=== PATIENT | male | born 1960 | race Caucasian/White ===

== ENCOUNTER 2016-06-21 12:50 | Inpatient (IN) ==
[~2016-06-21 12:50] MED LIST: *HR* Rocuronium Bromide 50 MG/5 ML VIAL IVC ONE; *HR* Succinylcholine 200 MG/10 ML VIAL IVP ONE
[2016-06-21] MEDS ORDERED: Furosemide 40 MG/4 ML VIAL IVP ONE (12:54)
[2016-06-21 13:11] LABS: ABG Base Excess 5.8 mEq/L (-2.0 to 3.0); ABG HCO3 42.7 mEQ/L (21-27); ABG Oxygen Saturation 88 % (95-98); ABG PO2 75 mmHg (85-104); ABG TCO2 47.1 mEq/L (20-26)
[2016-06-21 13:13] LABS: ABG PH 7.08 pH Units (7.32-7.45)
[2016-06-21 13:14] LABS: ABG PCO2 144 mmHg (35-45)
[2016-06-21] MEDS ORDERED: Ketamine *HR* 500 MG/10 ML MDV IV ONE (13:14)
[2016-06-21 13:15] LABS: Blood Gas FiO2 100 %
[2016-06-21] MEDS ORDERED: Ketamine *HR* 500 MG/10 ML MDV IVP ONE (13:15)
[2016-06-21 13:27] LABS: Basophils % 0.4 %; Hemoglobin 15.6 g/dL (12.9-16.9); Immature Granulocytes % 1.4 % (0-4); Immature Platelets 6.8 % (1.1-6.1); Lymphocytes # 0.8 K/mcL (0.6-4.6); Lymphocytes % 6.9 %; Mean Corpuscular HGB Conc 27.6 g/dL (31.6-35.5); Mean Corpuscular Hemoglobin 28.1 pg (28.0-33.3); Mean Platelet Volume 10.6 fL (9.4-12.4); Monocytes % 9.4 %; Neutrophils # 9.1 K/mcL (1.6-8.9); Nucleated Red Blood Cells 0.7 /100 WBC (0); Platelet Count 190 K/mcL (140-400); Red Blood Count 5.55 M/mcL (4.19-5.50); Red Cell Distribution Width 15.2 % (11.5-14.5); Segmented Neutrophils % 81.9 %
[2016-06-21 13:28] LABS: Hematocrit 56.6 % (37.5-50.1)
[2016-06-21] MEDS ORDERED: Propofol 500 MG/50 ML INFUS..BTL ONE (13:31)
[2016-06-21 13:40] LABS: INR 1.3; Prothrombin Time 14.1 Seconds (9.4-12.1)
[2016-06-21 13:41] LABS: Alanine Aminotransferase 206 Units/L (0-55); Albumin 2.9 g/dL (3.5-5.0); Albumin/Globulin Ratio 0.7 (1.1-2.2); Alkaline Phosphatase 100 Units/L (38-126); Aspartate Amino Transferase 164 Units/L (5-34); BUN/Creatinine Ratio 19 (6-26); Bilirubin,Direct 0.3 mg/dL (0.0-0.5); Bilirubin,Indirect 0.2 mg/dL (0.0-1.2); Bilirubin,Total 0.5 mg/dL (0.2-1.2); Blood Urea Nitrogen 24 mg/dL (8-26); Calcium 8.6 mg/dL (8.6-10.8); Carbon Dioxide 30 mEq/L (19-29); Chloride 101 mEq/L (98-109); Globulin 3.9 g/dL (2.4-3.5); Glucose 230 mg/dL (70-99); Osmolality,Calculated 305 (280-300); Sodium 142 mEq/L (136-145); Total Protein 6.8 g/dL (6.0-8.3); eGFR For African Americans > 60 (> 60); eGFR For Non-African Americans 58 (> 60)
[2016-06-21 13:42] LABS: Activated Partial Thrombo Time 25.8 Seconds (26.0-36.0)
--- NOTE | 2016-06-21 14:00 | Emergency Department Note ---
Disposition Clinical Impression: NSTEMI (non-ST elevated myocardial infarction), Hyperglycemia Hypercapnic respiratory failure Qualifiers: Chronicity: acute Qualified Code(s): J96.02 - Acute respiratory failure with hypercapnia Disposition: Admitted As Inpatient Condition: Critical Time of Disposition: 14:05 SOB HPI - General Chief Complaint: ED Shortness of Breath/Dyspnea Stated Complaint: Difficulty in breathing Time Seen by Provider: 06/21/16 12:53 Source: family, EMS Mode of arrival: EMS Limitations: altered mental status Nursing Notes Reviewed: Yes Vital Signs Reviewed: Yes - History of Present Illness Patient presents obtunded from home. EMS was summoned dyspnea. He was found cyanotic, hypoxic and mottled. Per the fiance, the patient recently has been increasingly somnolent and has had facial swelling Pt Subjective Complaint: shortness of breath Onset (ago): day(s) Severity: severe Consistency/Duration: gradually worsening Improves with: nothing Worsens with: nothing Treatment prior to arrival: oxygen - Related Data Home oxygen amount: none Home Medications Medication Instructions Recorded Confirmed Multivitamin [Multi-Day Vitamins] 1 tab PO DAILY 06/21/16 06/21/16 Allergies Allergy/AdvReac Type Severity Reaction Status Date / Time No Known Allergies Allergy Verified 06/21/16 13:22 Limitations: ROS unobtainable due to patients medical condition Past Medical History - Past Medical History Medical history: Reports: COPD Psychiatric history: Reports: no psych history - Social History Smoking Status: Current every day smoker Alcohol use: Reports: none Drug use: Reports: none Physical Exam Patient mottled and somnolent - General Limitations: physical limitation General appearance: lethargic - Head Head exam: atraumatic - Eye Eye exam: Present: normal appearance - ENT ENT exam: normal exam - Neck Neck exam: Present: normal inspection - Chest Chest inspection: Present: symmetric chest wall rise, other (Patient with diffusely decreased breath sounds) - Respiratory Respiratory exam: Present: other (Decreased breath sounds) - Cardiovascular Cardiovascular exam: Present: tachycardia, normal heart sounds - Abdominal Exam Abdominal exam: Present: soft, Non-Tender - Extremities Exam Extremities exam: Present: pedal edema - Neurological Exam Neurological exam: Present: other (somnolent) - Skin Skin exam: Present: warm, dry, mottled Course Course Narrative: Patient presented somnolent. Concern for hypercarbic respiratory failure. He was hypoxic. I am concerned that he is not protecting his airway. A brief trial of BiPAP therapy was initiated but the patient did not improve. It was decided to electively intubate the patient. We decided to sedate the patient with ketamine without paralytic. Multiple attempts made with the laryngoscope and the glide scope without success. Cords could be viewed without passage of the endotracheal tube. Anesthesia was summoned. Anesthesia was able to intubate the patient with the fiberoptic scope after succinylcholine was administered. The admitting barrel cap setter Dr. Ashford is at bedside to admit the patient. Vital Signs Temperature 98.8 F 06/21/16 12:51 Pulse Rate 97 06/21/16 12:51 Respiratory Rate 22 06/21/16 12:51 Blood Pressure 209/184 06/21/16 12:51 O2 Sat by Pulse Oximetry 92 L 06/21/16 12:51 Temperature 98.8 F 06/21/16 12:51 Pulse Rate 94 06/21/16 13:05 Respiratory Rate 22 06/21/16 13:05 Blood Pressure 149/96 06/21/16 13:05 O2 Sat by Pulse Oximetry 94 L 06/21/16 13:09 Oxygen Delivery Oxygen Delivery Bipap Procedures - Intubation Time out performed: No sedative: Ketamine paralytic: Succinylcholine Laryngoscope: fiber optic video scope ET Tube Size: 7.5 ET Tube Uncuffed: No Tube Secured Location: lips Tube Placement Confirmation: visualized tube passing through cords, confirmation by capnometry Patient Tolerated Procedure: other Intubation Complications: difficult intubation, hypoxia Shortness of Breath/Dyspnea - Lab Data Lab results reviewed: Yes I reviewed the patient's lab results. Result diagrams: 06/21/16 13:21 06/21/16 13:21 Lab Results 06/21/16 06/21/16 06/21/16 Range/Units 12:50 13:00 13:21 WBC 11.1 (4.3-11.1) K/mcL RBC 5.55 H (4.19-5.50) M/mcL Hgb 15.6 (12.9-16.9) g/dL Hct 56.6 H (37.5-50.1) % MCV 102.0 H (83.0-100.0) fL MCH 28.1 (28.0-33.3) pg MCHC 27.6 L (31.6-35.5) g/dL RDW 15.2 H (11.5-14.5) % Plt Count 190 (140-400) K/mcL MPV 10.6 (9.4-12.4) fL Immature Gran % 1.4 (0-4) % Seg Neutrophils % 81.9 % Lymphocytes % 6.9 % Monocytes % 9.4 % Eosinophils % 0.0 % Basophils % 0.4 % Neutrophils # 9.1 H (1.6-8.9) K/mcL Lymphocytes # 0.8 (0.6-4.6) K/mcL Monocytes # 1.0 (0.0-1.3) K/mcL Eosinophils # 0.0 (0.0-0.6) K/mcL Basophils # 0.0 (0.0-0.2) K/mcL Nucleated RBCs/100 WBC 0.7 H (0) /100 WBC Immature Plt Fraction 6.8 H (1.1-6.1) % PT (9.4-12.1) Seconds INR APTT (26.0-36.0) Seconds ABG pH 7.08 L* (7.32-7.45) pH Units ABG pCO2 144 H* (35-45) mmHg ABG pO2 75 L (85-104) mmHg ABG HCO3 42.7 H (21-27) mEQ/L ABG Total CO2 47.1 H (20-26) mEq/L ABG O2 Saturation 88 L (95-98) % ABG Base Excess 5.8 H (-2.0 to 3.0) mEq/L Carboxyhemoglobin (0-5) % Blood Gas Modality NRB Inspired O2 100 % Sodium (136-145) mEq/L Potassium (3.5-4.5) mEq/L Chloride (98-109) mEq/L Carbon Dioxide (19-29) mEq/L BUN (8-26) mg/dL Creatinine (0.72-1.25) mg/dL Est GFR ( Amer) (> 60) Est GFR (Non-Af Amer) (> 60) BUN/Creatinine Ratio (6-26) Glucose (70-99) mg/dL POC Glucose 212 H (58-89) Calculated Osmolality (280-300) Lactic Acid (0.5-2.2) mmol/L Calcium (8.6-10.8) mg/dL Total Bilirubin (0.2-1.2) mg/dL Direct Bilirubin (0.0-0.5) mg/dL Indirect Bilirubin (0.0-1.2) mg/dL AST (5-34) Units/L ALT (0-55) Units/L Alkaline Phosphatase (38-126) Units/L Troponin I (0-0.03) ng/mL B-Natriuretic Peptide (0-100) pg/mL Serum Total Protein (6.0-8.3) g/dL Albumin (3.5-5.0) g/dL Globulin (2.4-3.5) g/dL Albumin/Globulin Ratio (1.1-2.2) 06/21/16 06/21/16 06/21/16 Range/Units 13:21 13:21 13:21 WBC (4.3-11.1) K/mcL RBC (4.19-5.50) M/mcL Hgb (12.9-16.9) g/dL Hct (37.5-50.1) % MCV (83.0-100.0) fL MCH (28.0-33.3) pg MCHC (31.6-35.5) g/dL RDW (11.5-14.5) % Plt Count (140-400) K/mcL MPV (9.4-12.4) fL Immature Gran % (0-4) % Seg Neutrophils % % Lymphocytes % % Monocytes % % Eosinophils % % Basophils % % Neutrophils # (1.6-8.9) K/mcL Lymphocytes # (0.6-4.6) K/mcL Monocytes # (0.0-1.3) K/mcL Eosinophils # (0.0-0.6) K/mcL Basophils # (0.0-0.2) K/mcL Nucleated RBCs/100 WBC (0) /100 WBC Immature Plt Fraction (1.1-6.1) % PT 14.1 H (9.4-12.1) Seconds INR 1.3 APTT 25.8 L (26.0-36.0) Seconds ABG pH (7.32-7.45) pH Units ABG pCO2 (35-45) mmHg ABG pO2 (85-104) mmHg ABG HCO3 (21-27) mEQ/L ABG Total CO2 (20-26) mEq/L ABG O2 Saturation (95-98) % ABG Base Excess (-2.0 to 3.0) mEq/L Carboxyhemoglobin (0-5) % Blood Gas Modality Inspired O2 % Sodium 142 (136-145) mEq/L Potassium 4.0 (3.5-4.5) mEq/L Chloride 101 (98-109) mEq/L Carbon Dioxide 30 H (19-29) mEq/L BUN 24 (8-26) mg/dL Creatinine 1.28 H (0.72-1.25) mg/dL Est GFR ( Amer) > 60 (> 60) Est GFR (Non-Af Amer) 58 L (> 60) BUN/Creatinine Ratio 19 (6-26) Glucose 230 H (70-99) mg/dL POC Glucose (58-89) Calculated Osmolality 305 H (280-300) Lactic Acid (0.5-2.2) mmol/L Calcium 8.6 (8.6-10.8) mg/dL Total Bilirubin 0.5 (0.2-1.2) mg/dL Direct Bilirubin 0.3 (0.0-0.5) mg/dL Indirect Bilirubin 0.2 (0.0-1.2) mg/dL AST 164 H (5-34) Units/L ALT 206 H (0-55) Units/L Alkaline Phosphatase 100 (38-126) Units/L Troponin I 0.13 H* (0-0.03) ng/mL B-Natriuretic Peptide (0-100) pg/mL Serum Total Protein 6.8 (6.0-8.3) g/dL Albumin 2.9 L (3.5-5.0) g/dL Globulin 3.9 H (2.4-3.5) g/dL Albumin/Globulin Ratio 0.7 L (1.1-2.2) 06/21/16 06/21/16 06/21/16 Range/Units 13:21 14:02 14:02 WBC (4.3-11.1) K/mcL RBC (4.19-5.50) M/mcL Hgb (12.9-16.9) g/dL Hct (37.5-50.1) % MCV (83.0-100.0) fL MCH (28.0-33.3) pg MCHC (31.6-35.5) g/dL RDW (11.5-14.5) % Plt Count (140-400) K/mcL MPV (9.4-12.4) fL Immature Gran % (0-4) % Seg Neutrophils % % Lymphocytes % % Monocytes % % Eosinophils % % Basophils % % Neutrophils # (1.6-8.9) K/mcL Lymphocytes # (0.6-4.6) K/mcL Monocytes # (0.0-1.3) K/mcL Eosinophils # (0.0-0.6) K/mcL Basophils # (0.0-0.2) K/mcL Nucleated RBCs/100 WBC (0) /100 WBC Immature Plt Fraction (1.1-6.1) % PT (9.4-12.1) Seconds INR APTT (26.0-36.0) Seconds ABG pH (7.32-7.45) pH Units ABG pCO2 (35-45) mmHg ABG pO2 (85-104) mmHg ABG HCO3 (21-27) mEQ/L ABG Total CO2 (20-26) mEq/L ABG O2 Saturation (95-98) % ABG Base Excess (-2.0 to 3.0) mEq/L Carboxyhemoglobin 9.1 H (0-5) % Blood Gas Modality Inspired O2 % Sodium (136-145) mEq/L Potassium (3.5-4.5) mEq/L Chloride (98-109) mEq/L Carbon Dioxide (19-29) mEq/L BUN (8-26) mg/dL Creatinine (0.72-1.25) mg/dL Est GFR ( Amer) (> 60) Est GFR (Non-Af Amer) (> 60) BUN/Creatinine Ratio (6-26) Glucose (70-99) mg/dL POC Glucose (58-89) Calculated Osmolality (280-300) Lactic Acid 1.9 (0.5-2.2) mmol/L Calcium (8.6-10.8) mg/dL Total Bilirubin (0.2-1.2) mg/dL Direct Bilirubin (0.0-0.5) mg/dL Indirect Bilirubin (0.0-1.2) mg/dL AST (5-34) Units/L ALT (0-55) Units/L Alkaline Phosphatase (38-126) Units/L Troponin I (0-0.03) ng/mL B-Natriuretic Peptide 917 H (0-100) pg/mL Serum Total Protein (6.0-8.3) g/dL Albumin (3.5-5.0) g/dL Globulin (2.4-3.5) g/dL Albumin/Globulin Ratio (1.1-2.2) - Radiology Data Radiology results reviewed: Yes I reviewed the patient's radiology results. - EKG Data EKG attestation: Yes I reviewed and interpreted this EKG. EKG results narrative: Normal sinus rhythm rate 93 when necessary 154 QRS 110 QT/QTC 341/391. No acute ST segment elevation Critical Care Time Critical Care Time: Yes Total Critical Care Time: 60 Attestation: Patient presented obtunded requiring BiPAP therapy and endotracheal intubation with admission to the intensive care unit
[2016-06-21] MEDS: 0.9 % Sodium Chloride 2,000 ML ONE ×2 (14:07→14:33)
[2016-06-21] MEDS ORDERED: 0.9 % Sodium Chloride 1,000 ML ONE (14:13)
[2016-06-21] MEDS ORDERED: *HR* EPINEPHrine 1 MG/10 ML SYRINGE IVP ONE (14:41)
[2016-06-21] MEDS ORDERED: D5% in Water 1,000 ML IV PRN (14:52)
[2016-06-21] MEDS ORDERED: *HR* Dextrose 50 % in Water (Syg) 50 ML SYRINGE IVP PRN (14:52)
[2016-06-21] MEDS ORDERED: Dextrose Gel 15 GM PO PRN ×2 (14:52)
--- NOTE | 2016-06-21 15:05 | Pulmonology History & Physical ---
<Ariel Young - Last Filed: 06/21/16 15:04> Date of Encounter: 06/21/16 Time of Encounter: 15:04 Assessment and Plan (1) Acute respiratory failure Current visit: Yes Status: Acute History of Present Illness HPI: Mr. Webber is a 56 year old male Past Med Surg Social Fam HX - Past Medical History Medical history: COPD Psychiatric history: no psych history - Social History Smoking Status: Current every day smoker Alcohol use: none Drug use: none Medications and Allergies Multivitamin [Multi-Day Vitamins] 1 tab PO DAILY 06/21/16 [History] Allergies No Known Allergies Allergy (Verified 06/21/16 13:22) All Systems: A 10-system review of systems was performed and is negative for pertinent findings except as documented above in the HPI. Results - Laboratory Findings CBC and BMP: 06/21/16 13:21 06/21/16 13:21 ABG ABG pH 7.08 pH Units (7.32-7.45) L* 06/21/16 12:50 ABG pCO2 144 mmHg (35-45) H* 06/21/16 12:50 ABG pO2 75 mmHg (85-104) L 06/21/16 12:50 ABG O2 Saturation 88 % (95-98) L 06/21/16 12:50 PT/INR, D-dimer PT 14.1 Seconds (9.4-12.1) H 06/21/16 13:21 Abnormal lab findings: Abnormal lab results RBC 5.55 M/mcL (4.19-5.50) H 06/21/16 13:21 Hct 56.6 % (37.5-50.1) H 06/21/16 13:21 MCV 102.0 fL (83.0-100.0) H 06/21/16 13:21 MCHC 27.6 g/dL (31.6-35.5) L 06/21/16 13:21 RDW 15.2 % (11.5-14.5) H 06/21/16 13:21 Neutrophils # 9.1 K/mcL (1.6-8.9) H 06/21/16 13:21 Nucleated RBCs/100 WBC 0.7 /100 WBC (0) H 06/21/16 13:21 Immature Plt Fraction 6.8 % (1.1-6.1) H 06/21/16 13:21 PT 14.1 Seconds (9.4-12.1) H 06/21/16 13:21 APTT 25.8 Seconds (26.0-36.0) L 06/21/16 13:21 ABG pH 7.08 pH Units (7.32-7.45) L* 06/21/16 12:50 ABG pCO2 144 mmHg (35-45) H* 06/21/16 12:50 ABG pO2 75 mmHg (85-104) L 06/21/16 12:50 ABG HCO3 42.7 mEQ/L (21-27) H 06/21/16 12:50 ABG Total CO2 47.1 mEq/L (20-26) H 06/21/16 12:50 ABG O2 Saturation 88 % (95-98) L 06/21/16 12:50 ABG Base Excess 5.8 mEq/L (-2.0 to 3.0) H 06/21/16 12:50 Carboxyhemoglobin 9.1 % (0-5) H 06/21/16 13:21 Carbon Dioxide 30 mEq/L (19-29) H 06/21/16 13:21 Creatinine 1.28 mg/dL (0.72-1.25) H 06/21/16 13:21 Est GFR (Non-Af Amer) 58 (> 60) L 06/21/16 13:21 Glucose 230 mg/dL (70-99) H 06/21/16 13:21 POC Glucose 212 (58-89) H 06/21/16 13:00 Calculated Osmolality 305 (280-300) H 06/21/16 13:21 AST 164 Units/L (5-34) H 06/21/16 13:21 ALT 206 Units/L (0-55) H 06/21/16 13:21 Troponin I 0.13 ng/mL (0-0.03) H* 06/21/16 13:21 B-Natriuretic Peptide 917 pg/mL (0-100) H 06/21/16 14:02 Albumin 2.9 g/dL (3.5-5.0) L 06/21/16 13:21 Globulin 3.9 g/dL (2.4-3.5) H 03/05/17 13:21 Albumin/Globulin Ratio 0.7 (1.1-2.2) L 06/21/16 13:21 <Srini Kelley - Last Filed: 06/21/16 18:10> Assessment and Plan (1) Hypercapnic respiratory failure Current visit: Yes Status: Acute Patient with little known medical history. Presented in respiratory failure and required emergent intubation and sedation. Became acutely hypoxic while intubated, and went to PEA arrest. Code lasted approximately 8 minutes. Patient received 3 rounds of 1 mg epinephrine with return of spontaneous circulation. Central venous catheter was placed in the right femoral vein. Initial blood gas revealed pH of 7.08 indicating respiratory acidosis with the PCO2 of 144. This was prior to his cardiac arrest. Repeat ABG revealed pH 7.20 with the PCO2 of 92. His respiratory failure is likely multifactorial secondary to lifelong smoking history as such he likely has obstructive lung disease, acute heart failure, and suspected pneumonia. Patient with history of worsening dyspnea at rest over the last 3 weeks. He has bilateral lower extremity edema. Chest x-ray revealed bilateral costophrenic blunting suspicious for pleural effusions. There were EKG changes noted, including diffuse ST elevations. Initial troponin was 0.13. Will trend. initial BNP was 917 initial creatinine of 1.28 CFR 58 glucose of 230. Plan: -intubated and sedated with propofol and fentanyl -maintain map above 60, Levaphed for pressure support -antibiotics: azithromycin and Rocephin -Duonebs, IV steroids -cardiology was consulted, recommended a heparin drip(instituted), echocardiogram (pending), serial troponins, and diuresis with Lasix (instituted) -Monitor I/O, UOP, Daily weight -daily ABG's, CBC CMP Qualifiers: Chronicity: unspecified Qualified Code(s): J96.92 - Respiratory failure, unspecified with hypercapnia (2) NSTEMI (non-ST elevated myocardial infarction) Current visit: Yes Status: Acute Initial troponin of 0.13. Will trend. EKG changes including diffuse ST elevations Cardiology was consulted appreciate their recommendations (3) Elevated troponin Current visit: Yes Status: Acute Plan as above (4) Respiratory acidosis Current visit: Yes Status: Acute Currently intubated and sedated. Ventilator settings adjusted as needed to reduce respiratory acidosis (5) DARION (acute kidney injury) Current visit: Yes Status: Acute Initial GFR 58, unknown baseline initial serum creatinine of 1.28, unknown baseline no IV fluids at this time as patient appears to be volume overloaded. Diuresis with Lasix. (6) Acute heart failure Current visit: Yes Status: Suspected Patient has bilateral lower extremity edema initial BNP of 917 echocardiogram pending. Diuresis with Lasix Qualifiers: Heart failure type: unspecified heart failure type Qualified Code(s): I50.9 - Heart failure, unspecified (7) Morbid obesity Current visit: Yes Status: Chronic Qualifiers: Obesity type: due to excess calories Qualified Code(s): E66.01 - Morbid ( severe) obesity due to excess calories (8) Smoking history Current visit: Yes Status: Chronic Profamily he has been smoking since he is 19 years old 3 to 4 packs per day History of Present Illness Chief complaint: Acute Respiratory failure HPI: Mr. Webber is a 56 year old male who presented to [facility] ED for respiratory distress. Per the family he has refused to go to the doctor for some time. He was brought in by the squad. He was somnolent and difficult to arouse, there was concern he was not protecting his airway, and he was them urgently intubated in the ED. This history has been obtained from prior medical records and ancillary staff and family as patient is intubated and sedated. Per the family he is a lifelong smoker, nondrinker non drug user. Patient has been increasingly somnolent over the last 2 to 3 weeks. He is also been increasingly dyspneic. His dyspnea has progressively gotten worse over the last 2 years, and acutely worth of the last 2 to 3 weeks. He is also been incontinent of urine and stool over the last few weeks as well during this time. He has been having increased productive cough. He had not been complaining of any chest pain though. Past Med Surg Social Fam HX - Additional Family History Additional family history: Mother has a history of renal disease in her 30s ROS unobtainable: due to mental status All Systems: A 10-system review of systems was performed and is negative for pertinent findings except as documented above in the HPI. Physical Examination Vital Signs: Vital Signs, Last 4 Hours Temp Pulse Resp BP Pulse Ox 06/21/16 15:20 102 174/108 85 L 06/21/16 15:18 86 06/21/16 15:00 98 F 90 18 99/44 93 L 06/21/16 14:44 77 96 105/87 96 General appearance: other (Intubated and sedated) Eyes: injected ENT: oropharynx dry Effort: other (Intubated and sedated) Results - Laboratory Findings CBC and BMP: 06/21/16 13:21 06/21/16 13:21 ABG ABG pH 7.08 pH Units (7.32-7.45) L* 06/21/16 12:50 ABG pCO2 144 mmHg (35-45) H* 06/21/16 12:50 ABG pO2 75 mmHg (85-104) L 06/21/16 12:50 ABG O2 Saturation 88 % (95-98) L 06/21/16 12:50 PT/INR, D-dimer PT 14.1 Seconds (9.4-12.1) H 06/21/16 13:21 Abnormal lab findings: Abnormal lab results RBC 5.55 M/mcL (4.19-5.50) H 06/21/16 13:21 Hct 56.6 % (37.5-50.1) H 06/21/16 13:21 MCV 102.0 fL (83.0-100.0) H 06/21/16 13:21 MCHC 27.6 g/dL (31.6-35.5) L 06/21/16 13:21 RDW 15.2 % (11.5-14.5) H 06/21/16 13:21 Neutrophils # 9.1 K/mcL (1.6-8.9) H 06/21/16 13:21 Nucleated RBCs/100 WBC 0.7 /100 WBC (0) H 06/21/16 13:21 Immature Plt Fraction 6.8 % (1.1-6.1) H 06/21/16 13:21 PT 14.1 Seconds (9.4-12.1) H 06/21/16 13:21 APTT 25.8 Seconds (26.0-36.0) L 06/21/16 13:21 ABG pH 7.08 pH Units (7.32-7.45) L* 06/21/16 12:50 ABG pCO2 144 mmHg (35-45) H* 06/21/16 12:50 ABG pO2 75 mmHg (85-104) L 06/21/16 12:50 ABG HCO3 42.7 mEQ/L (21-27) H 06/21/16 12:50 ABG Total CO2 47.1 mEq/L (20-26) H 06/21/16 12:50 ABG O2 Saturation 88 % (95-98) L 06/21/16 12:50 ABG Base Excess 5.8 mEq/L (-2.0 to 3.0) H 06/21/16 12:50 Carboxyhemoglobin 9.1 % (0-5) H 06/21/16 13:21 Carbon Dioxide 30 mEq/L (19-29) H 06/21/16 13:21 Creatinine 1.28 mg/dL (0.72-1.25) H 06/21/16 13:21 Est GFR (Non-Af Amer) 58 (> 60) L 06/21/16 13:21 Glucose 230 mg/dL (70-99) H 06/21/16 13:21 POC Glucose 212 (58-89) H 06/21/16 13:00 Calculated Osmolality 305 (280-300) H 06/21/16 13:21 AST 164 Units/L (5-34) H 06/21/16 13:21 ALT 206 Units/L (0-55) H 06/21/16 13:21 Troponin I 0.13 ng/mL (0-0.03) H* 06/21/16 13:21 B-Natriuretic Peptide 917 pg/mL (0-100) H 06/21/16 14:02 Albumin 2.9 g/dL (3.5-5.0) L 06/21/16 13:21 Globulin 3.9 g/dL (2.4-3.5) H 06/21/16 13:21 Albumin/Globulin Ratio 0.7 (1.1-2.2) L 06/21/16 13:21 <Dashawn Phillips M - Last Filed: 06/21/16 19:38> Date of Encounter: 06/21/16 Time of Encounter: 14:30 Assessment and Plan (1) Acute respiratory failure with hypoxia and hypercapnia Current visit: Yes Status: Acute Patient was intubated by anesthesia in the ER and I was present during the procedure. (2) Obesity hypoventilation syndrome Current visit: Yes Status: Chronic Patient will need outpatient follow up and need sleep study, suspect EH and need weight loss. (3) Cor pulmonale (chronic) Current visit: Yes Status: Chronic Need diuresis History of Present Illness HPI: Mr. Webber is a 56 year old male All Systems: A 10-system review of systems was performed and is negative for pertinent findings except as documented above in the HPI. Physical Examination Vital Signs: Vital Signs, Last 4 Hours Pulse Pulse Resp BP Pulse Ox Pulse Ox 06/21/16 18:00 90 16 104/43 94 L 06/21/16 17:46 16 121/86 94 L 06/21/16 17:06 86 72 L 06/21/16 17:00 95 16 121/86 93 L 06/21/16 15:24 18 174/108 100 06/21/16 15:20 102 174/108 85 L 06/21/16 15:18 86 Mallampati (class): 4 Neck: supple, no lymphadenopathy Auscultation: bilateral: diminished breath sounds Cardiovascular: regular rate and rhythm Gastrointestinal: normoactive bowel sounds, soft Extremities: edema unable to assess due to mental status Results - Laboratory Findings CBC and BMP: 06/21/16 13:21 06/21/16 18:42 ABG ABG pH 7.20 pH Units (7.32-7.45) L* D 06/21/16 16:51 ABG pCO2 92 mmHg (35-45) H* D 06/21/16 16:51 ABG pO2 62 mmHg (85-104) L 06/21/16 16:51 ABG O2 Saturation 85 % (95-98) L 06/21/16 16:51 PT/INR, D-dimer PT 14.1 Seconds (9.4-12.1) H 06/21/16 18:00 Abnormal lab findings: Abnormal lab results RBC 5.55 M/mcL (4.19-5.50) H 06/21/16 13:21 Hct 56.6 % (37.5-50.1) H 06/21/16 13:21 MCV 102.0 fL (83.0-100.0) H 06/21/16 13:21 MCHC 27.6 g/dL (31.6-35.5) L 06/21/16 13:21 RDW 15.2 % (11.5-14.5) H 06/21/16 13:21 Neutrophils # 9.1 K/mcL (1.6-8.9) H 06/21/16 13:21 Nucleated RBCs/100 WBC 0.7 /100 WBC (0) H 06/21/16 13:21 Immature Plt Fraction 6.8 % (1.1-6.1) H 06/21/16 13:21 PT 14.1 Seconds (9.4-12.1) H 06/21/16 18:00 APTT 24.1 Seconds (26.0-36.0) L 06/21/16 18:00 ABG pH 7.20 pH Units (7.32-7.45) L* D 06/21/16 16:51 ABG pCO2 92 mmHg (35-45) H* D 06/21/16 16:51 ABG pO2 62 mmHg (85-104) L 06/21/16 16:51 ABG HCO3 36.0 mEQ/L (21-27) H 06/21/16 16:51 ABG Total CO2 38.8 mEq/L (20-26) H 06/21/16 16:51 ABG O2 Saturation 85 % (95-98) L 06/21/16 16:51 ABG Base Excess 3.5 mEq/L (-2.0 to 3.0) H 06/21/16 16:51 VBG pH 7.08 pH Units (7.32-7.42) L* 06/21/16 16:31 VBG pCO2 137 mmHg (41-51) H 06/21/16 16:31 VBG pO2 12 mmHg (25-40) L 06/21/16 16:31 VBG HCO3 40.6 mEq/L (21-27) H 06/21/16 16:31 Carboxyhemoglobin 9.1 % (0-5) H 06/21/16 13:21 Carbon Dioxide 30 mEq/L (19-29) H 06/21/16 13:21 Creatinine 1.59 mg/dL (0.72-1.25) H 06/21/16 18:42 Est GFR ( Amer) 55 (> 60) L 06/21/16 18:42 Est GFR (Non-Af Amer) 45 (> 60) L 06/21/16 18:42 Glucose 230 mg/dL (70-99) H 06/21/16 13:21 POC Glucose 212 (58-89) H 06/21/16 13:00 Calculated Osmolality 305 (280-300) H 06/21/16 13:21 AST 164 Units/L (5-34) H 06/21/16 13:21 ALT 206 Units/L (0-55) H 06/21/16 13:21 Troponin I 0.13 ng/mL (0-0.03) H* 06/21/16 13:21 B-Natriuretic Peptide 917 pg/mL (0-100) H 06/21/16 14:02 Albumin 2.9 g/dL (3.5-5.0) L 06/21/16 13:21 Globulin 3.9 g/dL (2.4-3.5) H 06/21/16 13:21 Albumin/Globulin Ratio 0.7 (1.1-2.2) L 06/21/16 13:21 - Diagnostic Findings Chest x-ray: report reviewed, image reviewed - Attending Attestation I examined this patient and my medical decision-making was reviewed with the BENCH MECHANIC/PA/Advanced Practice Nurse/Resident Physician. I agree with the documented findings, disposition and treatment plan as described except to the extent set forth below. Patient seen and examined. Labs, radiology, chart personally reviewed. Agree with resident's history and physical, assessment, plan with following comments: DOOR FRAMER: Patient sedated for the ventilator synchrony. Patient wakes up and respond to stimulus Pulmonary: Patient with severe respiratory acidosis with some chronicity due to his OHS and suspect with COPD and evidence of exacerbation, which will be treated with bronchodilators, systemic steroid and antibiotics. Patient is not compliant when I talked to the brothers and significant other. Patient has evidence of cor-pulmonale and suspect pulmonary hypertension which is secondary to copd and EH/OHS. I changed ventilator setting with better TV on VC+ mode and increase the RR to correct his acidosis. Need to be careful with correcting his respiratory acidosis. Cardiovascular: Patient is risk for cardiovascular events due acidosis and suspect underlying cardiac disease. Patient will need echocardiogram and trending cardiac enzymes with diuresis. GI: Nutrition per dietary and GI prophylaxis per routine Heme: DVT prophylaxis per routine. ID: Continue antibiotics and plan to de-escalation Renal; urine out put and renal funtion reviewed. DARION, however there is evidence of pulmonary congestion and suspect with more fluid it will worsen his oxygenation. Diuresis for now and monitor his urine output with urine analysis and renal US. May need nephrology to evaluate him as well. Endorcine: blood glucose is monitored Lines: all lines checked and no evidence of infections Skin: skin care to prevent pressure ulcers per nursing routine care Overall prognosis is poor if he doesn't change his life style and lose weight. He will need outpatient follow up and work up. I spent 40 min of Critical Care time with this patient. It involved decision making of high complexity to assess, manipulate, and support vital organ system failure and/or to prevent further life threatening deterioration of the patient' s condition. The time involved in the performance of separately reportable procedures was not counted toward critical care time.
[2016-06-21] MEDS: Ipratropium/Albuterol Neb 3 ML IH SCH ×3 (15:24→23:21)
[2016-06-21] MEDS ORDERED: Lacri-Lube 3.5 GM TUBE BOTH EYES PRN (15:35)
[2016-06-21] MEDS: Insulin LISPRO 300 UNITS/3 ML VIAL SQ SCH ×3 (15:50→23:27)
[2016-06-21] MEDS: MethylPREDNISolone 40 MG/ML VIAL IVP SCH (15:54)
[2016-06-21] MEDS: Furosemide 40 MG/4 ML VIAL IVP SCH (15:55)
[2016-06-21] MEDS: Azithromycin 500 MG in D5% in Water 250 ML IVPB SCH (15:56)
[2016-06-21] MEDS ORDERED: Insulin LISPRO 300 UNITS/3 ML VIAL SQ SCH ×2 (16:30→21:00)
[2016-06-21] MEDS: FentaNYL (PF) 1,000 MCG in 0.9 % Sodium Chloride 80 ML IVC SCH (16:43)
[2016-06-21 16:46] LABS: VBG HCO3 40.6 mEq/L (21-27); VBG PH 7.08 pH Units (7.32-7.42)
[2016-06-21] MEDS: Lacri-Lube 3.5 GM TUBE BOTH EYES SCH ×2 (16:47→21:28)
[2016-06-21 16:58] LABS: ABG Base Excess 3.5 mEq/L (-2.0 to 3.0); ABG Oxygen Saturation 85 % (95-98); ABG PO2 62 mmHg (85-104); ABG TCO2 38.8 mEq/L (20-26)
[2016-06-21 17:00] LABS: ABG PCO2 92 mmHg (35-45); Blood Gas FiO2 100 %; Blood Gas Respiration Rate 16; Blood Gas VT 600 cc
[2016-06-21] MEDS ORDERED: *HR* Rocuronium Bromide 50 MG/5 ML VIAL IVP PRN (17:48)
--- NOTE | 2016-06-21 17:56 | Procedure Note ---
<Srini Kelley - Last Filed: 06/21/16 17:50> Date of procedure: 06/21/16 Pre-op diagnosis: Respiratory failure Post-op diagnosis: same Procedure: Central Venous Catheter (CVC, Central Line) Placement Date: 06/21/16 Time: 1705 Indication: Hemodynamic monitoring/Intravenous access Mj Resident: Dr. Srini Kelley Senior Resident: Dr. Awais Johnson Attending: Dr. Oswald Carranza A time-out was completed verifying correct patient, procedure, site, positioning , and special equipment if applicable. The patient was placed in a dependent position appropriate for central line placement based on the vein to be cannulated. The patients right groin was prepped and draped in sterile fashion. The vein was visualized with ultrasound prior to and during the procedure. A triple lumen 7-Argent[place] Cordis catheter was introduced into the the right femoral vein using the Seldinger technique and under ultrasound guidance. The catheter was threaded smoothly over the guide wire and appropriate blood return was obtained. Each lumen of the catheter was evacuated of air and flushed with sterile saline. The catheter was then sutured in place to the skin and a sterile dressing applied. Perfusion to the extremity distal to the point of catheter insertion was checked and found to be adequate. Dr. Srini Kelley, Dr. Awais Johnson, Dr. Oswald Carranza were present for the entire procedure. Estimated Blood Loss: 50cc The patient tolerated the procedure well and there were no complications. Anesthesia: IV sedation Surgeon: Srini Kelley Survey Research Manager: Awais Johnson Estimated blood loss (cc): 50 Pathology: none sent Condition: critical Disposition: ICU <Oswald Carranza P - Last Filed: 06/29/16 19:40> Procedure: I examined this patient and my medical decision-making was reviewed with the HOBBING PRESS OPERATOR/PA/Advanced Practice Nurse/Resident Physician. I agree with the documented findings, disposition and treatment plan as described except to the extent set forth below.
--- NOTE | 2016-06-21 17:58 | Event Note ---
<Srini Kelley - Last Filed: 06/21/16 17:59> Date of Encounter: 06/21/16 Time of Encounter: 16:09 Patient was brought to the ICU after presenting the ED for respiratory distress. In the emergency department of the patient was intubated and sedated to protect his airway. Approximately 1607 patient became hypoxic while intubated with oxygen saturations dropping to the 60s. No pulse was appreciated on exam and CPR was started. Cardiac patterns were placed in the appropriate position on the patient and he was in PEA. Dr. Carranza arrived at the bedside and ran the code. 2 minutes after the code began a pulse check was done there is no palpable pulse, one more milligram of epinephrine was given and CPR continued. 2 minutes later another pulse check revealed no palpable pulses, 1 mg of epinephrine was given CPR resumed. The patient remained in a non-shockable rhythm. At approximately 1615 ROSC was achieved with palpable pulses bilaterally. Patient received a total of three 1 mg boluses of epinephrine. Both primary team and critical care team were present for the duration of the code. The code lasted a total of 8 minutes. <Oswald Carranza - Last Filed: 06/29/16 19:40> I examined this patient and my medical decision-making was reviewed with the ADJUNCT MATHEMATICS INSTRUCTOR/PA/Advanced Practice Nurse/Resident Physician. I agree with the documented findings, disposition and treatment plan as described except to the extent set forth below.
[2016-06-21] MEDS ORDERED: *HR* Heparin 5,000 UNIT/ML VIAL SQ SCH (18:00)
[2016-06-21] MEDS: Norepinephrine 4 MG in D5% in Water 250 ML IVC SCH ×2 (18:02→18:30)
[2016-06-21 18:13] LABS: INR 1.3; Prothrombin Time 14.1 Seconds (9.4-12.1)
[2016-06-21 18:22] LABS: Activated Partial Thrombo Time 24.1 Seconds (26.0-36.0)
[2016-06-21] MEDS ORDERED: *HR* Heparin 5,000 UNIT/ML VIAL IVP PRN (18:47)
[2016-06-21] MEDS ORDERED: *HR* Heparin 5,000 UNIT/ML VIAL IVP ONE (18:47)
--- NOTE | 2016-06-21 19:00 | Cardiology Consult Note ---
Date of Encounter: 06/21/16 Time of Encounter: 18:55 Assessment and Plan Discussion w patient/family: 1. Respiratory Failure - suspect acute on Chronic (COPD and likely EH) Continue Supportive Care 2. Acidosis 3. s/p PEA arrest - not convinced this is a primary Cardiac event - ? related to hypoxia/acidosis vs other (PE??) - Continue Supportive care - Would treat for PE for now - Heparin gtt would be reasonable. - Correct metabolic abnormalities. - Echo to assess Would not be surprised to see Right heart enlargement at baseline ? Left heart function 4. Abnormal EKG - concerning changes - not diagnostic in my opinion Watch Trops closely - follow serially Heparin gtt. 5. Elevated Trop - this will go higher I suspect. 6. LE Edema - probably chronic Cor Pulmonale Given BNP - Diuresis as Renal function and BP allow. 7. Prognosis - Guarded at best Will follow The assessment and plan as outlined above was discussed with the family members who expressed understanding and agreement. All questions were answered. Thank you for involving us in the care of your patient. Please call with any questions. History of Present Illness Consult date: 06/21/16 Consult reason: PEA Arrest Chief complaint: Somnolence History of present illness: Mr. Webber is a 56 year old male, no known CAD - no recent CV assessment and overall minimal healthcare in the past few years, presents with a 1-2 day history of somnolence. Family had a hard time arousing him this morning, finally unable to get him out of the bed. No specific complaints per family, who provide most of the information. No chest pain, but he has had a variety of issues for some time, including LE edema, snoring, marked weight gain in the past 2 years, COPD - and still smoking a little. Over the past few days he has been fatigued, sleeping alot but today was much worse. Was brought to the ER today - subsequently admitted due to failure to protect his airway. He was markedly hypoxic and acidotic. Upon tranfer to the ICU he developed PEA - arthur/tachy but no shockable rhythms. Responded to standard ACLS and stable since. MInimal response while I was at bedside. Past Med Surg Social Fam HX - Past Medical History Medical history: COPD Psychiatric history: no psych history - Social History Smoking Status: Current every day smoker Packs per day: 1PPD Smokeless Tobacco Status: No Alcohol use: none Drug use: none Medications and Allergies Multivitamin [Multi-Day Vitamins] 1 tab PO DAILY 06/21/16 [History] Allergies No Known Allergies Allergy (Verified 06/21/16 13:22) ROS unobtainable: due to endotracheal tube All Systems Review: A 10-system review of systems was performed and is negative for pertinent findings except as documented above in the HPI. Physical Examination Vital Signs, Last 4 Hours Temp Pulse Pulse Resp BP Pulse Ox Pulse Ox 06/21/16 18:00 90 16 104/43 94 L 06/21/16 17:46 16 121/86 94 L 06/21/16 17:06 86 72 L 06/21/16 17:00 95 16 121/86 93 L 06/21/16 15:24 18 174/108 100 06/21/16 15:20 102 174/108 85 L 06/21/16 15:18 86 06/21/16 15:00 98 F 90 18 99/44 93 L General: Other (Intubated, obese male) HEENT: Atraumatic, Normocephaly, Other (ET tube in place) Neck: Other (due to body habitus, unable to assess veins) Cardiac: Reg Rate and Rhythm, Normal S1 and S2, Other (heart sounds distant) Lungs: Normal Breath Sounds, Other (mechanical sounds B) Neuro: Other (no response to voice or stimuli) Abdomen: Soft, Non-Tender, Other (protuberent) Skin: No rashes noted on visualized skin, Other (stasis changes BLE) Musculoskeletal: No Chest Wall Tenderness Extremities: No Clubbing, Other (+ BLE edema) Results 06/21/16 13:21 06/21/16 13:21 Lab Results 06/21/16 18:00 INR 1.3 APTT 24.1 L - Imaging and Cardiology Chest Xray: report reviewed Echo: pending - EKG Interpretation EKG results cardiology: personally reviewed, normal ECG, right bundle branch block (Non-specific ST changes) Consult Discharge Plan - Plan Referrals: Ruiz Dumont MD [Primary Care Provider] -
[2016-06-21] MEDS: Chlorhexidine Rinse 15 ML MOUTHWASH MM SCH (20:28)
[2016-06-21] MEDS: Heparin 25,000 UNIT/500 ML D5W 25,000 UNIT/500 ML MLS IVC SCH (20:32)
[2016-06-21 21:28] LABS: ABG Base Excess 11.7 mEq/L (-2.0 to 3.0); ABG HCO3 38.7 mEQ/L (21-27); ABG Oxygen Saturation 98 % (95-98); ABG PCO2 57 mmHg (35-45); ABG PH 7.44 pH Units (7.32-7.45); ABG PO2 95 mmHg (85-104); ABG TCO2 40.4 mEq/L (20-26)
[2016-06-21 21:29] LABS: Blood Gas FiO2 100 %; Blood Gas PEEP 12 cm H2O; Blood Gas Respiration Rate 16; Blood Gas VT 600 cc
[2016-06-21 23:51] LABS: Amphetamine Screen,Urine Negative ng/mL (Cutoff=1000); Barbiturate Screen,Urine Negative ng/mL (Cutoff=200); Benzodiazepines Screen,Urine Negative ng/mL (Cutoff=200); Cannabinoid Screen,Urine Negative ng/mL (Cutoff = 50); Chloride,Urine 81 mEq/L; Cocaine Screen,Urine Negative ng/mL (Cutoff= 300); Opiate Screen,Urine Negative ng/mL (Cutoff=300); Phencyclidine Screen,Urine Negative ng/mL (Cutoff=25); Potassium,Urine 51.7 mEq/L
[2016-06-22] MEDS: MethylPREDNISolone 40 MG/ML VIAL IVP SCH ×3 (00:10→15:18)
[2016-06-22] MEDS: Lacri-Lube 3.5 GM TUBE BOTH EYES SCH ×6 (00:11→21:00)
[2016-06-22 03:29] LABS: Basophils % 0.1 %; Hemoglobin 14.5 g/dL (12.9-16.9); Immature Granulocytes % 1.5 % (0-4); Immature Platelets 8.4 % (1.1-6.1); Lymphocytes % 6.9 %; Mean Corpuscular Hemoglobin 27.9 pg (28.0-33.3); Mean Corpuscular Volume 96.2 fL (83.0-100.0); Mean Platelet Volume 11.1 fL (9.4-12.4); Monocytes # 0.7 K/mcL (0.0-1.3); Monocytes % 4.4 %; Neutrophils # 13.2 K/mcL (1.6-8.9); Nucleated Red Blood Cells 0.5 /100 WBC (0); Platelet Count 208 K/mcL (140-400); Red Cell Distribution Width 15.1 % (11.5-14.5); Segmented Neutrophils % 87.1 %
[2016-06-22] MEDS: Ipratropium/Albuterol Neb 3 ML IH SCH ×6 (03:42→23:41)
[2016-06-22 03:48] LABS: Albumin 2.7 g/dL (3.5-5.0); Albumin/Globulin Ratio 0.8 (1.1-2.2); Bilirubin,Total 0.8 mg/dL (0.2-1.2); Calcium 8.7 mg/dL (8.6-10.8); Globulin 3.6 g/dL (2.4-3.5); Potassium 3.8 mEq/L (3.5-4.5); Total Protein 6.3 g/dL (6.0-8.3)
[2016-06-22] MEDS: Insulin LISPRO 300 UNITS/3 ML VIAL SQ SCH ×5 (04:37→20:59)
[2016-06-22 05:07] LABS: ABG Base Excess 17.2 mEq/L (-2.0 to 3.0); ABG HCO3 44.4 mEQ/L (21-27); ABG Oxygen Saturation 91 % (95-98); ABG PCO2 61 mmHg (35-45); ABG PH 7.47 pH Units (7.32-7.45); ABG PO2 57 mmHg (85-104); ABG TCO2 46.3 mEq/L (20-26)
[2016-06-22 05:08] LABS: Blood Gas FiO2 70 %; Blood Gas PEEP 12 cm H2O; Blood Gas Respiration Rate 16; Blood Gas VT 600 cc
[2016-06-22] MEDS: FentaNYL (PF) 1,000 MCG in 0.9 % Sodium Chloride 80 ML IVC SCH ×4 (06:11→22:38)
[2016-06-22] MEDS ORDERED: Perflutren Lipid Microsphere 1.3 ML in 0.9 % Sodium Chloride 8.7 ML IVP ONE (07:41)
[2016-06-22] MEDS ORDERED: Perflutren Lipid Microsphere 2 ML VIAL ONE (07:48)
--- NOTE | 2016-06-22 07:57 | Pulmonology Progress Note ---
<[facility] - Last Filed: 06/22/16 12:27> Objective PUL Vital signs: Last Vital Signs Temp 98.2 F 06/22/16 08:23 Pulse 84 06/22/16 09:00 Resp 16 06/22/16 09:00 BP 125/95 06/22/16 09:00 Pulse Ox 90 L 06/22/16 09:00 Ventilator Settings Ventilator Settings: Ventilator Settings, Last 8 Hours Ventilator Mode VC+ Ventilator Mode VC+ Ventilator Mode VC+ Ventilator Mode VC+ Ventilator Mode VC+ Ventilator Mode VC+ Ventilator Mode VC+ Ventilator Mode VC+ Ventilator Mode VC+ Ventilator Mode VC+ Ventilator Mode VC+ Ventilator Mode VC+ Ventilator Mode VC+ Ventilator Tidal Volume 500 Setting Ventilator Tidal Volume 500 Setting Ventilator Tidal Volume 500 Setting Ventilator Tidal Volume 600 Setting Ventilator Tidal Volume 600 Setting Ventilator Tidal Volume 600 Setting Ventilator Tidal Volume 600 Setting Ventilator Tidal Volume 600 Setting Ventilator Tidal Volume 600 Setting Ventilator Tidal Volume 600 Setting Ventilator Tidal Volume 600 Setting Ventilator Tidal Volume 600 Setting Ventilator Tidal Volume 600 Setting Ventilator Respiratory Rate 16 Setting Ventilator Respiratory Rate 16 Setting Ventilator Respiratory Rate 16 Setting Ventilator Respiratory Rate 16 Setting Ventilator Respiratory Rate 16 Setting Ventilator Respiratory Rate 16 Setting Ventilator Respiratory Rate 16 Setting Ventilator Respiratory Rate 16 Setting Ventilator Respiratory Rate 16 Setting Ventilator Respiratory Rate 16 Setting Ventilator Respiratory Rate 16 Setting Ventilator Respiratory Rate 16 Setting Ventilator Respiratory Rate 16 Setting Actual Respiratory Rate 16 Actual Respiratory Rate 16 Actual Respiratory Rate 16 Actual Respiratory Rate 16 Actual Respiratory Rate 16 Actual Respiratory Rate 17 Actual Respiratory Rate 19 Actual Respiratory Rate 16 Actual Respiratory Rate 16 Actual Respiratory Rate 16 Actual Respiratory Rate 16 Actual Respiratory Rate 16 Positive End Expiratory 12 Pressure Positive End Expiratory 12 Pressure Positive End Expiratory 12 Pressure Positive End Expiratory 12 Pressure Positive End Expiratory 12 Pressure Positive End Expiratory 12 Pressure Positive End Expiratory 12 Pressure Positive End Expiratory 12 Pressure Positive End Expiratory 12 Pressure Positive End Expiratory 12 Pressure Positive End Expiratory 12 Pressure Positive End Expiratory 12 Pressure Positive End Expiratory 12 Pressure Peak Inspiratory Airway 24 Pressure Peak Inspiratory Airway 24 Pressure Peak Inspiratory Airway 27 Pressure Peak Inspiratory Airway 26 Pressure Peak Inspiratory Airway 31 Pressure Peak Inspiratory Airway 31 Pressure Peak Inspiratory Airway 31 Pressure Peak Inspiratory Airway 33 Pressure Peak Inspiratory Airway 31 Pressure Peak Inspiratory Airway 31 Pressure Peak Inspiratory Airway 33 Pressure Peak Inspiratory Airway 32 Pressure Results - Laboratory Findings CBC and BMP: 06/22/16 03:15 06/22/16 03:15 ABG ABG pH 7.47 pH Units (7.32-7.45) H 06/22/16 04:55 ABG pCO2 61 mmHg (35-45) H 06/22/16 04:55 ABG pO2 57 mmHg (85-104) L 06/22/16 04:55 ABG O2 Saturation 91 % (95-98) L 06/22/16 04:55 PT/INR, D-dimer PT 14.1 Seconds (9.4-12.1) H 06/21/16 18:00 Abnormal lab findings: Abnormal lab results WBC 15.1 K/mcL (4.3-11.1) H 06/22/16 03:15 MCH 27.9 pg (28.0-33.3) L 06/22/16 03:15 MCHC 29.0 g/dL (31.6-35.5) L 06/22/16 03:15 RDW 15.1 % (11.5-14.5) H 06/22/16 03:15 Neutrophils # 13.2 K/mcL (1.6-8.9) H 06/22/16 03:15 Nucleated RBCs/100 WBC 0.5 /100 WBC (0) H 06/22/16 03:15 Immature Plt Fraction 8.4 % (1.1-6.1) H 06/22/16 03:15 PT 14.1 Seconds (9.4-12.1) H 06/21/16 18:00 APTT 61.7 Seconds (26.0-36.0) H 06/22/16 08:40 ABG pH 7.47 pH Units (7.32-7.45) H 06/22/16 04:55 ABG pCO2 61 mmHg (35-45) H 06/22/16 04:55 ABG pO2 57 mmHg (85-104) L 06/22/16 04:55 ABG HCO3 44.4 mEQ/L (21-27) H 06/22/16 04:55 ABG Total CO2 46.3 mEq/L (20-26) H 06/22/16 04:55 ABG O2 Saturation 91 % (95-98) L 06/22/16 04:55 ABG Base Excess 17.2 mEq/L (-2.0 to 3.0) H 06/22/16 04:55 VBG pH 7.08 pH Units (7.32-7.42) L* 06/21/16 16:31 VBG pCO2 137 mmHg (41-51) H 06/21/16 16:31 VBG pO2 12 mmHg (25-40) L 06/21/16 16:31 VBG HCO3 40.6 mEq/L (21-27) H 06/21/16 16:31 Carboxyhemoglobin 9.1 % (0-5) H 06/21/16 13:21 Chloride 96 mEq/L (98-109) L 06/22/16 03:15 Carbon Dioxide 38 mEq/L (19-29) H 06/22/16 03:15 BUN 31 mg/dL (8-26) H 06/22/16 03:15 Creatinine 1.80 mg/dL (0.72-1.25) H 06/22/16 03:15 Est GFR ( Amer) 48 (> 60) L 06/22/16 03:15 Est GFR (Non-Af Amer) 39 (> 60) L 06/22/16 03:15 Glucose 147 mg/dL (70-99) H 06/22/16 03:15 POC Glucose 121 (58-89) H 06/21/16 23:19 Calculated Osmolality 307 (280-300) H 06/22/16 03:15 AST 224 Units/L (5-34) H 06/22/16 03:15 ALT 278 Units/L (0-55) H 06/22/16 03:15 Troponin I 0.77 ng/mL (0-0.03) H* 06/22/16 07:00 B-Natriuretic Peptide 917 pg/mL (0-100) H 06/21/16 14:02 Albumin 2.7 g/dL (3.5-5.0) L 06/22/16 03:15 Globulin 3.6 g/dL (2.4-3.5) H 06/22/16 03:15 Albumin/Globulin Ratio 0.8 (1.1-2.2) L 06/22/16 03:15 - Clinical Findings Intake & Output: Intake & Output 06/21/16 06/22/16 06/22/16 23:59 07:59 15:59 Intake Total 137 / 513 507 / 507 102 / 102 Output Total 855 / 855 2075 / 2075 125 / 125 Balance -718 / -342 -1568 / -1568 - / Consult Discharge Plan - Plan Referrals: Ruiz Dumont MD [Primary Care Provider] - - Attending Attestation I examined this patient and my medical decision-making was reviewed with the INTENSIVE CARE SPECIALIST/PA/Advanced Practice Nurse/Resident Physician. I agree with the documented findings, disposition and treatment plan as described except to the extent set forth below. I spent 35min of Critical Care time with this patient. It involved decision making of high complexity to assess, manipulate, and support vital organ system failure and/or to prevent further life threatening deterioration of the patient' s condition. The time involved in the performance of separately reportable procedures was not counted toward critical care time. Patient seen and examined at bedside Labs, radiology, chart personally reviewed. All lines examined without evidence of infection. Neuropsych: intubated sedated. Daily sedation holiday. CT head wnl. sp ACLS. Utox negative Pulm: Acute on chronic Hypoxic Hypercapnic Respiratory failure likely cardiogenic pulmonary edema with ?COPD exacerbation s/t PNA. Some initial concern for Cor Pulmonale ECHO pending. peep lowered PEEP Fio2 70% goal sats > 88 to 92%. Smoker treating empirically for concern for COPD Cards. s/p ACLS (brief PEA Arrest) with spontaneous mvt after thus no hypothermia protocol No hypotension. NSTEMI (mild) likely demand. on ACS protocol Cards consulted ECHO pending. Diurese as tolerated FEN-GI: GI prophylaxis. Npo for now Renal: ?DARION no baseline ID: Treating broadly for sepsis for CAP organsisms Ceftriaxone/Azithro cultures pending including viral panel Heme/Onc: on therapeutic dosed heparin. H/h Stable. Endo: Endo glucose monitored Integ/MSK: Skin care per ICU protocol CODE: Full code family (brothers) updated (NOK) <Kof[facility] Renee - Last Filed: 06/22/16 16:20> Date of Encounter: 06/22/16 Time of Encounter: 08:40 Assessment and Plan (1) Acute respiratory failure with hypoxia and hypercapnia Current Visit: Yes Status: Acute Patient remains sedated, intubated, mechanically ventilated. No longer requiring pressor agents to maintain blood pressure. Patient's fiance reports worsening dyspnea for 3 weeks, likely multifactorial from undiagnosed COPD, undiagnosed obesity hypoventilation syndrome, and undiagnosed obstructive sleep apnea causing right-sided heart failure ( undiagnosed). Also concern for pulmonary embolism. At admission was severely hypoxic with a pH of 7.08 with improvement seen following mechanical ventilation. Plan: -Continue intubation and sedation with propofol and fentanyl -maintain map above 60, Levaphed for pressure support if necessary, no pressor agents currently -antibiotics: azithromycin and Rocephin for coverage of community acquired pneumonia -Duonebs every 4 hours scheduled, IV steroids 60 mg every 8 hours -cardiology is following and appreciate recommendations for continued management and care Continue heparin drip and diuresis with Lasix -We will obtain lower extremity Dopplers as kidney function is concerning for CTA -Monitor I/O, UOP, Daily weight -daily ABG's, CBC CMP (2) Cor pulmonale (chronic) Current Visit: Yes Status: Chronic Cardiology is following. Echocardiogram was performed that showed preserved ejection fraction 55%, atypical supple wall motion of unclear significance, and indeterminate diastolic function. Dilated right ventricle with normal function. Continue 40 mg IV Lasix twice a day (3) PEA (Pulseless electrical activity) Current Visit: Yes Status: Resolved Patient suffered PA arrest after intubation occurred and patient became hypoxic. The code lasted approximately 8 minutes in which time the patient received 31 mg doses of epinephrine prior to return to spontaneous circulation. Concern for anoxic brain injury given time of arrest We will continue to monitor via telemetry (4) DARION (acute kidney injury) Current Visit: Yes Status: Acute Patient has elevated serum creatinine and decreased estimated GFR that has been steadily worsening since admission. Originally serum creatinine was 1.25 now it is 1.8, unsure of etiology or of 2 how chronic patient's kidney disease. Patient requires continued diuresis even evidence of dilation seen and patient right ventricle Continue to monitor patient kidney status closely with continued diuresis (5) Obstructive sleep apnea Current Visit: Yes Status: Suspected Patient is morbidly obese, has reportedly gained 100-150 pounds in the past 5 years. Patient's fiance states that in the course the evening he will often have episodes of apnea preceded by excessive snoring. Patient would benefit from sleep study and potentially BiPAP/CPAP (6) Elevated troponin Current Visit: Yes Status: Acute Troponin elevations likely due to patient breathing status, PEA arrest, cor pulmonale. Unlikely ACS at this time. (7) Obesity hypoventilation syndrome Current Visit: Yes Status: Chronic (8) DVT prophylaxis Current Visit: Yes Status: Acute GI prophylaxis: Pantoprazole DVT prophylaxis: Heparin drip Neuro/sedation: Currently sedated on propofol and fentanyl, unclear if any or has significant anoxic brain injury Cardiovascular: Likely cor pulmonale, elevated BUN, elevated troponins, cardiology following, continuing heparin drip, continuing diuresis Pulmonary: Likely undiagnosed COPD, EH, and OHS leading to cor pulmonale. Concern for possible pulmonary embolism, will obtain lower extremity Doppler. Ventilator settings adjusted to increase oxygenation, including increased PEEP Renal: DARION with progressive worsening of kidney function, we will continue diuresis given patient edematous state and dilated right ventricle seen on echo , will continue to monitor kidney function closely GI: No concerns this time Heme: No concerns at this time ID: Concern for exacerbation of COPD contributing to patient's respiratory status, possibly leading to acute decompensation of cor pulmonale, currently on azithromycin and ceftriaxone for empiric treatment of community acquired pneumonia. Duo nebs, Lasix, Solu-Medrol Endocrine: Continue every 4 hour Accu-Cheks and sliding scale insulin Fluids/electrolytes: Patient is edematous, dilated right ventricle, possible fluid overload. We will continue diuresis with 40 mg Lasix twice a day Skin: Skin care per ICU protocol Disposition: Critical CODE STATUS: Full (9) Smoking history Current Visit: Yes Status: Chronic We will consult smoking cessation when appropriate (10) Morbid obesity Current Visit: Yes Status: Chronic Qualifiers: Obesity type: due to excess calories Qualified Code(s): E66.01 - Morbid ( severe) obesity due to excess calories Subjective Principal diagnosis: Hypercapnic respiratory failure Interval history: Patient remains intubated, mechanically ventilated, and sedated with fentanyl and propofol. 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 They state he is gaining 100-150 pounds the last 5 years, and 3 weeks ago began smoking again ( as her having had quit for 2-3 years). Patient's fiance reports significant snoring and apneic episodes at home. Objective PUL Vital signs: Last Vital Signs Temp 97.9 F 06/22/16 04:03 Pulse 87 06/22/16 06:00 Resp 16 06/22/16 06:41 BP 121/86 06/22/16 06:41 Pulse Ox 90 L 06/22/16 06:41 Constitutional: Sedated on propofol and fentanyl. EENT: Sclera nonicteric, noninjected, pupils equal round and reactive to light bilaterally Respiratory: Respirations nonlabored, clear to auscultation bilaterally, difficult auscultation due to patient body habitus Cardiovascular: Regular rate and rhythm, no murmurs/rubs/gallops appreciated Gastrointestinal: Normoactive bowel sounds, soft, nontender, nondistended, obese , protuberant abdomen, no guarding or rebound Integumentary: No erythema, no rashes, no pallor appreciated, capillary refill < 2 seconds, skin turgor normal Extremities: No cyanosis, 1-2+ pitted edema, no clubbing, pink and warm, pulses present and equal bilaterally Musculoskeletal: No deformities Neurologic: Currently sedated Ventilator Settings Ventilator Settings: Ventilator Settings, Last 8 Hours Ventilator Mode VC+ Ventilator Mode VC+ Ventilator Mode VC+ Ventilator Mode VC+ Ventilator Mode VC+ Ventilator Mode VC+ Ventilator Mode VC+ Ventilator Mode VC+ Ventilator Mode VC+ Ventilator Mode VC+ Ventilator Mode VC+ Ventilator Tidal Volume 600 Setting Ventilator Tidal Volume 600 Setting Ventilator Tidal Volume 600 Setting Ventilator Tidal Volume 600 Setting Ventilator Tidal Volume 600 Setting Ventilator Tidal Volume 600 Setting Ventilator Tidal Volume 600 Setting Ventilator Tidal Volume 600 Setting Ventilator Tidal Volume 600 Setting Ventilator Tidal Volume 600 Setting Ventilator Tidal Volume 600 Setting Ventilator Respiratory Rate 16 Setting Ventilator Respiratory Rate 16 Setting Ventilator Respiratory Rate 16 Setting Ventilator Respiratory Rate 16 Setting Ventilator Respiratory Rate 16 Setting Ventilator Respiratory Rate 16 Setting Ventilator Respiratory Rate 16 Setting Ventilator Respiratory Rate 16 Setting Ventilator Respiratory Rate 16 Setting Ventilator Respiratory Rate 16 Setting Ventilator Respiratory Rate 16 Setting Actual Respiratory Rate 16 Actual Respiratory Rate 17 Actual Respiratory Rate 19 Actual Respiratory Rate 16 Actual Respiratory Rate 16 Actual Respiratory Rate 16 Actual Respiratory Rate 16 Actual Respiratory Rate 16 Actual Respiratory Rate 16 Actual Respiratory Rate 16 Positive End Expiratory 12 Pressure Positive End Expiratory 12 Pressure Positive End Expiratory 12 Pressure Positive End Expiratory 12 Pressure Positive End Expiratory 12 Pressure Positive End Expiratory 12 Pressure Positive End Expiratory 12 Pressure Positive End Expiratory 12 Pressure Positive End Expiratory 12 Pressure Positive End Expiratory 12 Pressure Positive End Expiratory 12 Pressure Peak Inspiratory Airway 31 Pressure Peak Inspiratory Airway 31 Pressure Peak Inspiratory Airway 31 Pressure Peak Inspiratory Airway 33 Pressure Peak Inspiratory Airway 31 Pressure Peak Inspiratory Airway 31 Pressure Peak Inspiratory Airway 33 Pressure Peak Inspiratory Airway 32 Pressure Peak Inspiratory Airway 31 Pressure Peak Inspiratory Airway 31 Pressure Results - Laboratory Findings CBC and BMP: 06/22/16 03:15 06/22/16 03:15 ABG ABG pH 7.47 pH Units (7.32-7.45) H 06/22/16 04:55 ABG pCO2 61 mmHg (35-45) H 06/22/16 04:55 ABG pO2 57 mmHg (85-104) L 06/22/16 04:55 ABG O2 Saturation 91 % (95-98) L 06/22/16 04:55 PT/INR, D-dimer PT 14.1 Seconds (9.4-12.1) H 06/21/16 18:00 Abnormal lab findings: Abnormal lab results WBC 15.1 K/mcL (4.3-11.1) H 06/22/16 03:15 MCH 27.9 pg (28.0-33.3) L 06/22/16 03:15 MCHC 29.0 g/dL (31.6-35.5) L 06/22/16 03:15 RDW 15.1 % (11.5-14.5) H 06/22/16 03:15 Neutrophils # 13.2 K/mcL (1.6-8.9) H 06/22/16 03:15 Nucleated RBCs/100 WBC 0.5 /100 WBC (0) H 06/22/16 03:15 Immature Plt Fraction 8.4 % (1.1-6.1) H 06/22/16 03:15 PT 14.1 Seconds (9.4-12.1) H 06/21/16 18:00 APTT 58.4 Seconds (26.0-36.0) H D 06/22/16 02:30 ABG pH 7.47 pH Units (7.32-7.45) H 06/22/16 04:55 ABG pCO2 61 mmHg (35-45) H 06/22/16 04:55 ABG pO2 57 mmHg (85-104) L 06/22/16 04:55 ABG HCO3 44.4 mEQ/L (21-27) H 06/22/16 04:55 ABG Total CO2 46.3 mEq/L (20-26) H 06/22/16 04:55 ABG O2 Saturation 91 % (95-98) L 06/22/16 04:55 ABG Base Excess 17.2 mEq/L (-2.0 to 3.0) H 06/22/16 04:55 VBG pH 7.08 pH Units (7.32-7.42) L* 06/21/16 16:31 VBG pCO2 137 mmHg (41-51) H 06/21/16 16:31 VBG pO2 12 mmHg (25-40) L 06/21/16 16:31 VBG HCO3 40.6 mEq/L (21-27) H 06/21/16 16:31 Carboxyhemoglobin 9.1 % (0-5) H 06/21/16 13:21 Chloride 96 mEq/L (98-109) L 06/22/16 03:15 Carbon Dioxide 38 mEq/L (19-29) H 06/22/16 03:15 BUN 31 mg/dL (8-26) H 06/22/16 03:15 Creatinine 1.80 mg/dL (0.72-1.25) H 06/22/16 03:15 Est GFR ( Amer) 48 (> 60) L 06/22/16 03:15 Est GFR (Non-Af Amer) 39 (> 60) L 06/22/16 03:15 Glucose 147 mg/dL (70-99) H 06/22/16 03:15 POC Glucose 121 (58-89) H 06/21/16 23:19 Calculated Osmolality 307 (280-300) H 06/22/16 03:15 AST 224 Units/L (5-34) H 06/22/16 03:15 ALT 278 Units/L (0-55) H 06/22/16 03:15 Troponin I 0.77 ng/mL (0-0.03) H* 06/22/16 07:00 B-Natriuretic Peptide 917 pg/mL (0-100) H 06/21/16 14:02 Albumin 2.7 g/dL (3.5-5.0) L 06/22/16 03:15 Globulin 3.6 g/dL (2.4-3.5) H 06/22/16 03:15 Albumin/Globulin Ratio 0.8 (1.1-2.2) L 06/22/16 03:15 - Clinical Findings Intake & Output: Intake & Output 06/21/16 06/21/16 06/22/16 15:59 23:59 07:59 Intake Total 137 / 513 507 / 507 Output Total 855 / 855 2074 / 2074 Balance -718 / -342 -1568 / -1565
[2016-06-22] MEDS: Chlorhexidine Rinse 15 ML MOUTHWASH MM SCH ×2 (08:33→21:02)
[2016-06-22] MEDS: Pantoprazole 40 MG VIAL IVP SCH (08:34)
[2016-06-22] MEDS: Furosemide 40 MG/4 ML VIAL IVP SCH ×2 (08:35→16:58)
--- NOTE | 2016-06-22 09:51 | Cardiology Progress Note ---
Date of Encounter: 06/22/16 Time of Encounter: 09:47 Assessment and Plan (1) PEA (Pulseless electrical activity) Current Visit: Yes Status: Acute S/p PEA arrest in the setting of hypoxia and acidosis. Likely from respiratory status. TTE pending. (2) Acute respiratory failure with hypoxia and hypercapnia Current Visit: Yes Status: Acute Acute hypoxic and hypercapnic respiratory failure. CXR showed mild pulmonary edema and improved small right effusion, with increased right infrahilar consolidation which could represent superimposed pneumonia or asymmetric edema. He likely has significant sleep apnea. Possible CHF. Check TTE. Pulmonary following. (3) DARION (acute kidney injury) Current Visit: Yes Status: Acute Worsening kidney function may be secondary to PEA arrest and hypoperfusion. Continue to monitor. Avoid nephrotoxins. (4) Elevated troponin Current Visit: Yes Status: Acute Troponin elevation up to 0.95 in the setting of hypoxia and hypercapnea respiratory distress and PEA arrest requiring CPR. Likely demand ischemia. No concerning ST changes on EKG. NSR. No concerning arrhythmias seen on telemetry. Check TTE. (5) Morbid obesity Current Visit: Yes Status: Chronic Qualifiers: Obesity type: due to excess calories Qualified Code(s): E66.01 - Morbid ( severe) obesity due to excess calories Discussion w patient/family: The assessment and plan as outlined above was discussed with the patient and/or family members who expressed understanding and agreement. All questions were answered. Thank you for involving us in the care of your patient. Please call with any questions. Subjective Principal diagnosis: PEA arrest, hypercapnic and hypoxic respiratory failure Interval history: Mr Webber remains intubated and sedated. His and brothers are at his bedside. No distress noted. states he has been ignoring his symptoms for a long time. C/o intermittent BLE edema for over a year. She also describes sleep apnea type symptoms including loud snoring, apnea, and difficulty waking up in the mornings. She states he had water pockets in his eyes over the past two days. He also had a 40-50 lb weight gain over the past couple of years. Objective Vital Signs, Last 4 Hours Temp Pulse Resp BP Pulse Ox 06/22/16 09:00 84 16 125/95 90 L 06/22/16 08:23 98.2 F 06/22/16 08:00 82 16 122/83 89 L 06/22/16 07:58 16 89 L 06/22/16 07:00 86 16 124/88 90 L 06/22/16 06:41 16 121/86 90 L 06/22/16 06:00 87 18 131/96 90 L General: Other (Sedated) Neck: No JVD, Normal carotid pulses Cardiac: Reg Rate and Rhythm, Normal S1 and S2, No Murmur Lungs: Other (Respirations easy on AC ventilator. SPO2 only 89%-90%) Abdomen: Soft, Non-Tender Skin: No rashes noted on visualized skin Extremities: Other (1+ edema up to his knees. ) Results 06/22/16 03:15 06/22/16 03:15 Lab Results 06/22/16 06/22/16 06/22/16 01:04 02:30 03:15 WBC 15.1 H Hgb 14.5 Hct 50.0 Plt Count 208 APTT 58.4 H D Sodium Potassium Chloride Carbon Dioxide BUN Creatinine Glucose Calcium Total Bilirubin AST ALT Alkaline Phosphatase Troponin I 0.95 H* 06/22/16 06/22/16 06/22/16 03:15 07:00 08:40 WBC Hgb Hct Plt Count APTT 61.7 H Sodium 144 Potassium 3.8 Chloride 96 L Carbon Dioxide 38 H BUN 31 H Creatinine 1.80 H Glucose 147 H Calcium 8.7 Total Bilirubin 0.8 D AST 224 H ALT 278 H Alkaline Phosphatase 91 Troponin I 0.77 H* KUB X-Ray 06/21/16 14:55 IMPRESSION: NG tube tip projects over the distal stomach. D/ / Rio Alford MD / Rio Alford MD Interpreting Provider: Rio Alford MD Chest X-Ray 06/22/16 04:00 IMPRESSION: Again identified is cardiomegaly with vascular congestion and mild interstitial pulmonary edema. Improved small right effusion, with increased right infrahilar consolidation which could represent superimposed pneumonia or asymmetric edema. D/ / Joel Hancock MD / Joel Hancock MD Interpreting Provider: Joel Hancock MD - Imaging and Cardiology Echo: pending - EKG Interpretation EKG results cardiology: personally reviewed (SR with no acute ST changes) Consult Discharge Plan - Plan Referrals: Ruiz Dumont MD [Primary Care Provider] -
--- NOTE | 2016-06-22 10:06 | ECHO - Doppler Report ---
Echo with Imaging Enhancement Agent Name: Juvenal Webber Date of Study: 06/22/2016 Date: 1960 Ht: 77.0 in Medical Record#: [id number] Age: 56 Wt: 364.0 lb Gender: Male BSA: 2.88 Order #: [id number] Location: [facility] Room #: ICU08 Reading Physician: Ronda Rucker DO Surgery Specialist: Juan David Bryant RN Ordering Physician: Srini Kelley DO Primary Physician: Ruiz Dumont MD Indications: Cardiac Arrest, Respiratory Failure, Elevated BNP Impressions: LVEF 55%. Definity was used. Atypical septal motion of unclear significance. Indeterminate diastolic function. RV is dilated. Function appears normal visually. TD velocities were not performed. No significant valvular dysfunction. Unable to estimate RVSP. Patient is ventilated in ICU. Findings: Study Quality * Technically sub-optimal due to clinical status. Patient in ICU on ventilator. ECG Findings * Normal sinus rhythm. Aortic Valve * No aortic regurgitation. * No aortic stenosis. * Aortic valve not well visualized. Mitral Valve * No mitral regurgitation. * Normal mitral valve structure. * No mitral stenosis. Tricuspid Valve * Tricuspid valve not well visualized. * Trace tricuspid regurgitation. Pulmonic Valve * Pulmonic valve is not well visualized. * No pulmonic stenosis. * No pulmonic regurgitation. Pulmonary Artery * Pulmonary artery not well visualized. Left Ventricle * Atypical septal motion. * Indeterminate diastolic function. TD velocities were not performed. * LVEF 55%. * Normal LV chamber size, wall thickness and function. * There is no LV thrombus. * Definity echo contrast was used. Left Atrium * Normal left atrial size. Right Atrium * Normal right atrial size. Right Ventricle * RV size appears dilated with normal function. TD velocity was not performed. Interatrial Septum * Interatrial septum not well evaluated. IVC * The IVC is not well evaluated. Pericardium * There is no pericardial effusion present. Aorta * Not well visualized. History Contrast: Definity 1.3 ml in 8.7 ml of saline 2 ml. Measurements: BP: 125/ 95 2D Normal Values IVSd: 1.50 cm 0.6 - 1.0 cm LVIDd: 4.30 cm 3.7 - 5.6 cm LVPWd: 1.50 cm 0.6 - 1.1 cm LVIDs: 3.20 cm 1.5 - 3.6 cm LA: 3.30 cm 2.0 - 4.0cm %FS: 25.60 cm >25 % LVOT Diam: 2.00 cm LA volume: 105 Mitral Valve Peak E:.37 m/sec Peak A:.76 m/sec E/A Ratio:0.5 Aortic Valve AI pressure Half-time: 385.00 msec Tricuspid Valve TV Regurg Peak Grad: 29.00mmHg TV Regurg Peak Gregory: 2.67m/sec Updated by Ronda Rucker on 06/22/2016 9:58:01 AM electronically signed on 06/22/2016 10:00:54 AM with status of [employer]: 1=Normal, 2=Hypokinesis, 3=Akinesis, 4=Dyskinesis, 5=Aneurysmal, 6=Hyperkinetic, X=Not Visualized (Blank)=Missing
--- NOTE | 2016-06-22 12:14 | Event Note ---
Date of Encounter: 06/22/16 Time of Encounter: 12:09 [facility] will not allow me to cosign Ambrosio Marcanoffe's note. Please consider this my addendum. Patient is a 56 year old morbidly obese male who presents with acute on chronic respiratory insufficiency. Per , patient has a very poor lifestyle - not unusual to eat 1 pound of lunch meat at a time, entire bag of chips, several hamburgers, etc. Refused to go to the hospital over past few weeks because he knew he would be admitted. Hypercarbic, hypoxiemic respiratory failure noted on admission. PEA arrest. EF preserved. Spontaneous movements in the room this morning. LV function normal. No immediate cardiac intervention seems necessary at this time. Recommend optimize pulmonary statues. Reasonable to diurese as tolerated to minimize any edema; may help to improve respiratory status. Minimal troponin elevation likely secondary to respiratory issues. Presentation not consistent with ACS. Please call with questions or concerns. Thanks, Sumit Hidalgo DO, FACC
[2016-06-22 12:53] LABS: ABG HCO3 47.3 mEQ/L (21-27); ABG Oxygen Saturation 90 % (95-98); ABG PCO2 68 mmHg (35-45); ABG PH 7.45 pH Units (7.32-7.45); ABG PO2 55 mmHg (85-104); ABG TCO2 49.4 mEq/L (20-26)
[2016-06-22 12:55] LABS: Blood Gas FiO2 70 %
[2016-06-22] MEDS: Heparin 25,000 UNIT/500 ML D5W 25,000 UNIT/500 ML MLS IVC SCH (13:32)
[2016-06-22] MEDS: Sennosides/Docusate Sodium TABLET PO SCH ×2 (13:44→21:02)
[2016-06-22] MEDS: Azithromycin 500 MG in D5% in Water 250 ML IVPB SCH (15:08)
[2016-06-22] MEDS: *HR* Heparin 5,000 UNIT/ML VIAL IVP PRN (15:11)
[2016-06-22 16:17] LABS: Potassium 3.3 mEq/L (3.5-4.5)
[2016-06-22] MEDS ORDERED: Potassium Chloride Elixir 20 MEQ/15 ML UDC PO ONE (16:27)
[2016-06-22 16:49] LABS: Magnesium 1.7 mg/dL (1.6-2.6)
--- NOTE | 2016-06-22 16:57 | Electrocardiograph Report ---
[address] [address] Test Date: 2016-06-21 Pat Name: Juvenal Webber Department: 105 Room: [facility] Gender: M Cancer Program Coordinator: : 1960 Requested By: Basilio Woodson Order Number: [id number] Reading MD: Callum Rios MD Measurements Intervals [employer] Rate: 93 P: 62 AR: 154 QRS: 95 QRSD: 110 T: -6 QT: 341 QTc: 391 Interpretive Statements SINUS RHYTHM BORDERLINE RIGHT AXIS DEVIATION Poor R wave progression BASELINE ARTIFACT Electronically Signed On 06-22-2016 16:55:30 EST by Callum Rios MD
--- NOTE | 2016-06-22 17:03 | Electrocardiograph Report ---
[address] [place], [place] [address] Test Date: 2016-06-21 Pat Name: Juvenal Webber Department: 109 Room: [facility] Gender: M Philosophy Specialist: : 1960 Requested By: Kaiser Fabian Order Number: [id number] Reading MD: Callum Rios MD Measurements Intervals [place] Rate: 99 P: 57 CT: 149 QRS: 66 QRSD: 102 T: -8 QT: 317 QTc: 374 Interpretive Statements SINUS RHYTHM WITH MARKED SINUS ARRHYTHMIA Poor R wave progression LEFT ATRIAL ENLARGEMENT INCOMPLETE RIGHT BUNDLE BRANCH BLOCK Electronically Signed On 06-22-2016 17:01:57 EST by Callum Rios MD
[2016-06-22] MEDS ORDERED: Amiodarone Premix 360 MG/200 ML BAG IVC ONE (21:41)
[2016-06-22] MEDS ORDERED: Amiodarone Premix 150 MG/100 ML BAG IVPB ONE (21:41)
[2016-06-22] MEDS ORDERED: Magnesium Sulfate 1 GM in D5% in Water 100 ML IVPB ONE (21:41)
[2016-06-22] MEDS ORDERED: Potassium Phosphate 44 MEQ in 0.9 % Sodium Chloride 250 ML IVPB PRN (21:44)
[2016-06-22] MEDS ORDERED: Sodium Phosphate 30 MMOL in D5% in Water 100 ML IVPB PRN (21:44)
[2016-06-22] MEDS: *HR* Metoprolol 5 MG/5 ML VIAL IVP PRN (21:59)
[2016-06-22 22:27] LABS: Basophils % 0.1 %; Hematocrit 43.3 % (37.5-50.1); Immature Granulocytes % 0.9 % (0-4); Lymphocytes # 0.5 K/mcL (0.6-4.6); Lymphocytes % 3.2 %; Mean Corpuscular HGB Conc 29.8 g/dL (31.6-35.5); Mean Corpuscular Hemoglobin 27.8 pg (28.0-33.3); Mean Corpuscular Volume 93.3 fL (83.0-100.0); Mean Platelet Volume 10.8 fL (9.4-12.4); Monocytes # 0.9 K/mcL (0.0-1.3); Monocytes % 6.1 %; Neutrophils # 13.9 K/mcL (1.6-8.9); Nucleated Red Blood Cells 0.1 /100 WBC (0); Platelet Count 185 K/mcL (140-400); Red Blood Count 4.64 M/mcL (4.19-5.50); Red Cell Distribution Width 15.4 % (11.5-14.5); Segmented Neutrophils % 89.7 %
[2016-06-22 22:34] LABS: Hemoglobin 12.9 g/dL (12.9-16.9)
[2016-06-22] MEDS: Magnesium Sulfate 2 GM in D5% in Water 100 ML IVPB PRN (22:40)
[2016-06-22 22:52] LABS: Calcium 7.8 mg/dL (8.6-10.8); Potassium 3.6 mEq/L (3.5-4.5)
[2016-06-23] MEDS: Insulin LISPRO 300 UNITS/3 ML VIAL SQ SCH ×6 (00:36→20:46)
[2016-06-23] MEDS: MethylPREDNISolone 40 MG/ML VIAL IVP SCH ×2 (00:36→15:52)
[2016-06-23] MEDS: Lacri-Lube 3.5 GM TUBE BOTH EYES SCH ×6 (00:36→20:46)
[2016-06-23] MEDS: Heparin 25,000 UNIT/500 ML D5W 25,000 UNIT/500 ML MLS IVC SCH ×2 (03:00→16:54)
[2016-06-23] MEDS: Ipratropium/Albuterol Neb 3 ML IH SCH ×5 (03:11→20:32)
[2016-06-23 03:56] LABS: Basophils % 0.1 %; Hemoglobin 13.1 g/dL (12.9-16.9); Immature Granulocytes % 1.3 % (0-4); Lymphocytes # 0.6 K/mcL (0.6-4.6); Lymphocytes % 3.5 %; Mean Corpuscular HGB Conc 31.2 g/dL (31.6-35.5); Mean Corpuscular Hemoglobin 29.3 pg (28.0-33.3); Mean Platelet Volume 11.1 fL (9.4-12.4); Monocytes # 1.2 K/mcL (0.0-1.3); Monocytes % 7.1 %; Neutrophils # 15.4 K/mcL (1.6-8.9); Nucleated Red Blood Cells 0.1 /100 WBC (0); Platelet Count 189 K/mcL (140-400); Red Blood Count 4.47 M/mcL (4.19-5.50); Red Cell Distribution Width 15.4 % (11.5-14.5)
[2016-06-23 04:04] LABS: Calcium 7.7 mg/dL (8.6-10.8); Phosphorous 5.5 mg/dL (2.3-4.7)
[2016-06-23 04:32] LABS: ABG Base Excess 16.1 mEq/L (-2.0 to 3.0); ABG HCO3 44.6 mEQ/L (21-27); ABG Oxygen Saturation 92 % (95-98); ABG PO2 63 mmHg (85-104); ABG TCO2 46.8 mEq/L (20-26)
[2016-06-23 04:33] LABS: ABG PCO2 72 mmHg (35-45)
[2016-06-23] MEDS: Amiodarone Premix 360 MG/200 ML BAG IVC SCH ×2 (04:48→14:11)
[2016-06-23 05:11] LABS: Potassium 3.9 mEq/L (3.5-4.5)
[2016-06-23] MEDS: Calcium Gluconate 1,000 MG in D5% in Water 100 ML IVPB PRN ×2 (06:21→16:47)
--- NOTE | 2016-06-23 07:31 | Pulmonology Progress Note ---
<Kaiser Fabian W - Last Filed: 06/23/16 12:04> Objective PUL Vital signs: Last Vital Signs Temp 98.0 F 06/23/16 08:00 Pulse 129 06/23/16 07:00 Resp 16 06/23/16 07:32 BP 136/46 06/23/16 07:32 Pulse Ox 90 L 06/23/16 07:32 Ventilator Settings Ventilator Settings: Ventilator Settings, Last 8 Hours Ventilator Mode VC+ Ventilator Mode VC+ Ventilator Mode VC+ Ventilator Mode VC+ Ventilator Mode VC+ Ventilator Mode VC+ Ventilator Mode VC+ Ventilator Mode VC+ Ventilator Mode VC+ Ventilator Mode VC+ Ventilator Tidal Volume 500 Setting Ventilator Tidal Volume 500 Setting Ventilator Tidal Volume 500 Setting Ventilator Tidal Volume 500 Setting Ventilator Tidal Volume 500 Setting Ventilator Tidal Volume 500 Setting Ventilator Tidal Volume 500 Setting Ventilator Tidal Volume 500 Setting Ventilator Tidal Volume 500 Setting Ventilator Tidal Volume 500 Setting Ventilator Tidal Volume 500 Setting Ventilator Tidal Volume 500 Setting Ventilator Respiratory Rate 16 Setting Ventilator Respiratory Rate 16 Setting Ventilator Respiratory Rate 16 Setting Ventilator Respiratory Rate 16 Setting Ventilator Respiratory Rate 16 Setting Ventilator Respiratory Rate 16 Setting Ventilator Respiratory Rate 16 Setting Ventilator Respiratory Rate 16 Setting Ventilator Respiratory Rate 16 Setting Ventilator Respiratory Rate 16 Setting Ventilator Respiratory Rate 16 Setting Ventilator Respiratory Rate 16 Setting Actual Respiratory Rate 16 Actual Respiratory Rate 16 Actual Respiratory Rate 16 Actual Respiratory Rate 16 Actual Respiratory Rate 16 Actual Respiratory Rate 16 Actual Respiratory Rate 16 Actual Respiratory Rate 16 Actual Respiratory Rate 16 Actual Respiratory Rate 16 Actual Respiratory Rate 16 Positive End Expiratory 8 Pressure Positive End Expiratory 8 Pressure Positive End Expiratory 8 Pressure Positive End Expiratory 8 Pressure Positive End Expiratory 8 Pressure Positive End Expiratory 8 Pressure Positive End Expiratory 8 Pressure Positive End Expiratory 8 Pressure Positive End Expiratory 8 Pressure Positive End Expiratory 8 Pressure Positive End Expiratory 8 Pressure Positive End Expiratory 8 Pressure Peak Inspiratory Airway 23 Pressure Peak Inspiratory Airway 26 Pressure Peak Inspiratory Airway 27 Pressure Peak Inspiratory Airway 25 Pressure Peak Inspiratory Airway 26 Pressure Peak Inspiratory Airway 24 Pressure Peak Inspiratory Airway 28 Pressure Peak Inspiratory Airway 27 Pressure Peak Inspiratory Airway 24 Pressure Peak Inspiratory Airway 26 Pressure Peak Inspiratory Airway 25 Pressure Results - Laboratory Findings CBC and BMP: 06/23/16 03:40 06/23/16 03:40 ABG ABG pH 7.40 pH Units (7.32-7.45) 06/23/16 04:20 ABG pCO2 72 mmHg (35-45) H* 06/23/16 04:20 ABG pO2 63 mmHg (85-104) L 06/23/16 04:20 ABG O2 Saturation 92 % (95-98) L 06/23/16 04:20 PT/INR, D-dimer PT 14.1 Seconds (9.4-12.1) H 06/21/16 18:00 Abnormal lab findings: Abnormal lab results WBC 17.5 K/mcL (4.3-11.1) H 06/23/16 03:40 MCHC 31.2 g/dL (31.6-35.5) L 06/23/16 03:40 RDW 15.4 % (11.5-14.5) H 06/23/16 03:40 Neutrophils # 15.4 K/mcL (1.6-8.9) H 06/23/16 03:40 Nucleated RBCs/100 WBC 0.1 /100 WBC (0) H 06/23/16 03:40 Immature Plt Fraction 8.4 % (1.1-6.1) H 06/22/16 03:15 PT 14.1 Seconds (9.4-12.1) H 06/21/16 18:00 APTT 73.1 Seconds (26.0-36.0) H 06/23/16 03:40 ABG pCO2 72 mmHg (35-45) H* 06/23/16 04:20 ABG pO2 63 mmHg (85-104) L 06/23/16 04:20 ABG HCO3 44.6 mEQ/L (21-27) H 06/23/16 04:20 ABG Total CO2 46.8 mEq/L (20-26) H 06/23/16 04:20 ABG O2 Saturation 92 % (95-98) L 06/23/16 04:20 ABG Base Excess 16.1 mEq/L (-2.0 to 3.0) H 06/23/16 04:20 VBG pH 7.08 pH Units (7.32-7.42) L* 06/21/16 16:31 VBG pCO2 137 mmHg (41-51) H 06/21/16 16:31 VBG pO2 12 mmHg (25-40) L 06/21/16 16:31 VBG HCO3 40.6 mEq/L (21-27) H 06/21/16 16:31 Carboxyhemoglobin 9.1 % (0-5) H 06/21/16 13:21 Chloride 92 mEq/L (98-109) L 06/23/16 03:40 Carbon Dioxide 37 mEq/L (19-29) H 06/23/16 03:40 BUN 41 mg/dL (8-26) H 06/23/16 03:40 Creatinine 1.70 mg/dL (0.72-1.25) H 06/23/16 03:40 Est GFR ( Amer) 51 (> 60) L 06/23/16 03:40 Est GFR (Non-Af Amer) 42 (> 60) L 06/23/16 03:40 Glucose 161 mg/dL (70-99) H 06/23/16 03:40 POC Glucose 158 (58-89) H 06/23/16 00:16 Calculated Osmolality 306 (280-300) H 06/23/16 03:40 Calcium 7.7 mg/dL (8.6-10.8) L 06/23/16 03:40 Ionized Calcium 0.98 mmol/L (1.15-1.35) L 06/23/16 03:40 Phosphorus 5.5 mg/dL (2.3-4.7) H 06/23/16 03:40 AST 224 Units/L (5-34) H 06/22/16 03:15 ALT 278 Units/L (0-55) H 06/22/16 03:15 Troponin I 0.77 ng/mL (0-0.03) H* 06/22/16 07:00 B-Natriuretic Peptide 917 pg/mL (0-100) H 06/21/16 14:02 Albumin 2.7 g/dL (3.5-5.0) L 06/22/16 03:15 Globulin 3.6 g/dL (2.4-3.5) H 06/22/16 03:15 Albumin/Globulin Ratio 0.8 (1.1-2.2) L 06/22/16 03:15 - Clinical Findings Intake & Output: Intake & Output 06/22/16 06/23/16 06/23/16 23:59 07:59 15:59 Intake Total 1571 / 1571 988 / 988 Output Total 100 / 100 650 / 650 150 / 150 Balance 1471 / 1471 338 / 338 -150 / -150 Consult Discharge Plan - Plan Referrals: Sumit Hidalgo DO [Partnered Physician] - 07/06/16 12:15 pm (cardiac arrest 06/21, hospital follow up) Ruiz Dumont MD [Primary Care Provider] - - Attending Attestation I examined this patient and my medical decision-making was reviewed with the DRIVER SUPERVISOR/PA/Advanced Practice Nurse/Resident Physician. I agree with the documented findings, disposition and treatment plan as described except to the extent set forth below. I spent 35min of Critical Care time with this patient. It involved decision making of high complexity to assess, manipulate, and support vital organ system failure and/or to prevent further life threatening deterioration of the patient' s condition. The time involved in the performance of separately reportable procedures was not counted toward critical care time. Patient seen and examined at bedside Labs, radiology, chart personally reviewed. All lines examined without evidence of infection. Neuropsych: intubated sedated. moves to command. Daily sedation holiday. Pulm: Acute on chronic Hypoxic Hypercapnic Respiratory failure likely cardiogenic pulmonary edema with ?COPD exacerbation s/t PNA. + VTE making PE much more likely. Fio2 now 60% and PEEP 8 will cont to lower as tolerated. Not currently candidate for SBT Cards. s/p ACLS (brief PEA Arrest) with spontaneous mvt after thus no hypothermia protocol No hypotension. NSTEMI (mild) likely demand. ECHO without significant WMAs of LV and less likely ACS. im for goal -500cc. Afib with RVR loaded with Amiodarone. Goal MAP 60 FEN-GI: GI prophylaxis. Start Enteral Feedings Renal: ?DARION no baseline stable overnight cont to trend electrolytes ID: Treating broadly for sepsis for CAP organsisms Ceftriaxone/Azithro cultures pending including viral panel deescalate tomorrow based upon cultures Heme/Onc: LE DVT + with likely PE cont therapeutic dosed heparin. H/H and plts Stable. Endo: Endo glucose monitored Integ/MSK: Skin care per ICU protocol CODE: Full code family (brothers and GF ) updated <Srini Kelley - Last Filed: 06/23/16 14:14> Date of Encounter: 06/23/16 Time of Encounter: 07:31 Assessment and Plan (1) Hypercapnic respiratory failure Current Visit: Yes Status: Acute Patient remains sedated, intubated, mechanically ventilated. No longer requiring pressor agents to maintain blood pressure. Patient's fiance reports worsening dyspnea for 3 weeks, likely multifactorial from undiagnosed COPD, undiagnosed obesity hypoventilation syndrome, and undiagnosed obstructive sleep apnea causing right-sided heart failure ( undiagnosed). Also concern for pulmonary embolism. LE doppler revealed: BLE venous preliminary LT POP V and LT PER V appear to have acute suspicious interlumen echoes. RT leg appears negative for thrombus. At admission was severely hypoxic with a pH of 7.08 with improvement seen following mechanical ventilation. Plan: -Continue intubation and sedation with propofol and fentanyl -Respiratory panel pending -maintain map above 60, Levaphed for pressure support if necessary, no pressor agents currently -antibiotics: azithromycin and Rocephin for coverage of community acquired pneumonia (Day 3) -Duonebs every 4 hours scheduled, IV steroids 40 mg every 8 hours (decreased from 60mg) -cardiology is following and appreciate recommendations for continued management and care Continue heparin drip and gentle diuresis with Lasix 40 mg once a day. -Monitor I/O, UOP, Daily weight -daily ABG's, CBC CMP Qualifiers: Chronicity: unspecified Qualified Code(s): J96.92 - Respiratory failure, unspecified with hypercapnia (2) DVT (deep venous thrombosis) Current Visit: Yes Status: Acute LE Doppler: BLE venous preliminary LT POP V and LT PER V appear to have acute suspicious interlumen echoes. RT leg appears negative for thrombus. Heparin gtt Qualifiers: DVT location: lower extremity Affected thrombotic vein of extremity: popliteal Laterality: left Chronicity: unspecified Qualified Code(s): I82.432 - Acute embolism and thrombosis of left popliteal vein (3) NSTEMI (non-ST elevated myocardial infarction) Current Visit: Yes Status: Acute Initial troponin of 0.13. Peak of 0.95. EKG did not show any significant changes. Heparin gtt was instituted for ACS. Likely type II NSTEMI due to demand ischemia. Cardiology was consulted appreciate their recommendations no interventions at this time from cardiology (4) Elevated troponin Current Visit: Yes Status: Acute Troponin elevations likely due to patient breathing status, PEA arrest, cor pulmonale. Unlikely ACS at this time. Heparin gtt was initially instituted for conern of ACS. LE doppler prelim positive for LLE. Will continue heparin gtt for DVT. (5) Respiratory acidosis Current Visit: Yes Status: Acute Currently intubated and sedated. Ventilator settings adjusted as needed to reduce respiratory acidosis (6) DARION (acute kidney injury) Current Visit: Yes Status: Acute Patient has elevated serum creatinine and decreased estimated GFR that has been steadily worsening since admission. Originally serum creatinine was 1.25 now it is 1.7. Patient requires continued diuresis as he is edematous and echocardiography, cxr w/ bibasilar edema, and elevated BNP suspicious for heart failure. Continue to monitor patient kidney status closely with continued diuresis Lasix decreased to 40 mg once a day. (7) Acute heart failure Current Visit: Yes Status: Suspected Patient has bilateral lower extremity edema initial BNP of 917 Echo: EF 55%, Atypical septal motion of unclear significance, indeterminate diastolic dysfunction, dilated RV, no valvular dysfunction, unable to estimate RVSP. Cardiology on board. No interventions at this time. Diurese with Lasix Qualifiers: Heart failure type: unspecified heart failure type Qualified Code(s): I50.9 - Heart failure, unspecified (8) Morbid obesity Current Visit: Yes Status: Chronic Qualifiers: Obesity type: due to excess calories Qualified Code(s): E66.01 - Morbid ( severe) obesity due to excess calories (9) Smoking history Current Visit: Yes Status: Chronic Profamily he has been smoking since he is 19 years old 3 to 4 packs per day (10) Cor pulmonale (chronic) Current Visit: Yes Status: Chronic Cardiology is following. Echocardiogram was performed that showed preserved ejection fraction 55%, atypical supple wall motion of unclear significance, and indeterminate diastolic function. Dilated right ventricle with normal function. Decrease Lasix to 40mg once daily. (11) Obesity hypoventilation syndrome Current Visit: Yes Status: Chronic (12) Obstructive sleep apnea Current Visit: Yes Status: Suspected Patient is morbidly obese, has reportedly gained 100-150 pounds in the past 5 years. Patient's fiance states that in the course the evening he will often have episodes of apnea preceded by excessive snoring. Patient would benefit from sleep study and potentially BiPAP/CPAP (13) PEA (Pulseless electrical activity) Current Visit: Yes Status: Resolved Patient suffered PA arrest after intubation occurred and patient became hypoxic. The code lasted approximately 8 minutes in which time the patient received 31 mg doses of epinephrine prior to return to spontaneous circulation. Concern for anoxic brain injury given time of arrest We will continue to monitor via telemetry (14) Atrial fibrillation with RVR Current Visit: Yes Status: Acute Pt. went into Afib with RVR last evening. Amiodarone drip was instituted. BB PRN for tachycardia. Heparin gtt. [id number]: 2 moderate-high risk and should be a long-term anticoagulation candidate. After loading with amiodarone if patient remains tachycardic will add beta rizwana. Subjective Principal diagnosis: Hypercapnic respiratory failure Interval history: Patient seen and examined at bedside. Remains intubated and sedated. Patient went into Afib with RVR last evening. He was started on amiodarone drip. This morning he remains in Afib with RVR. Bedside LE doppler was performed this morning. The tech stated that patient was positive left leg popliteal and peroneal veins. Objective PUL Vital signs: Last Vital Signs Temp 98.1 F 06/23/16 04:47 Pulse 129 06/23/16 06:00 Resp 16 06/23/16 06:00 BP 105/66 06/23/16 06:00 Pulse Ox 88 L 06/23/16 06:00 Constitutional: Sedated on propofol and fentanyl. EENT: Sclera nonicteric, noninjected, pupils equal round and reactive to light bilaterally Respiratory: Respirations nonlabored, clear to auscultation bilaterally, difficult auscultation due to patient body habitus Cardiovascular: irregular rhythm, tachycardia, no murmurs/rubs/gallops appreciated Gastrointestinal: Normoactive bowel sounds, soft, nontender, nondistended, obese , protuberant abdomen, no guarding or rebound Integumentary: No erythema, no rashes, no pallor appreciated, capillary refill < 2 seconds, skin turgor normal Extremities: No cyanosis, 1-2+ pitted edema, no clubbing, pink and warm, pulses present and equal bilaterally Musculoskeletal: No deformities Neurologic: Currently sedated Ventilator Settings Ventilator Settings: Ventilator Settings, Last 8 Hours Ventilator Mode VC+ Ventilator Mode VC+ Ventilator Mode VC+ Ventilator Mode VC+ Ventilator Mode VC+ Ventilator Mode VC+ Ventilator Mode VC+ Ventilator Mode VC+ Ventilator Mode VC+ Ventilator Mode VC+ Ventilator Tidal Volume 500 Setting Ventilator Tidal Volume 500 Setting Ventilator Tidal Volume 500 Setting Ventilator Tidal Volume 500 Setting Ventilator Tidal Volume 500 Setting Ventilator Tidal Volume 500 Setting Ventilator Tidal Volume 500 Setting Ventilator Tidal Volume 500 Setting Ventilator Tidal Volume 500 Setting Ventilator Tidal Volume 500 Setting Ventilator Tidal Volume 500 Setting Ventilator Tidal Volume 500 Setting Ventilator Respiratory Rate 16 Setting Ventilator Respiratory Rate 16 Setting Ventilator Respiratory Rate 16 Setting Ventilator Respiratory Rate 16 Setting Ventilator Respiratory Rate 16 Setting Ventilator Respiratory Rate 16 Setting Ventilator Respiratory Rate 16 Setting Ventilator Respiratory Rate 16 Setting Ventilator Respiratory Rate 16 Setting Ventilator Respiratory Rate 16 Setting Ventilator Respiratory Rate 16 Setting Ventilator Respiratory Rate 16 Setting Actual Respiratory Rate 16 Actual Respiratory Rate 16 Actual Respiratory Rate 16 Actual Respiratory Rate 16 Actual Respiratory Rate 16 Actual Respiratory Rate 16 Actual Respiratory Rate 16 Actual Respiratory Rate 16 Actual Respiratory Rate 16 Actual Respiratory Rate 16 Actual Respiratory Rate 16 Positive End Expiratory 8 Pressure Positive End Expiratory 8 Pressure Positive End Expiratory 8 Pressure Positive End Expiratory 8 Pressure Positive End Expiratory 8 Pressure Positive End Expiratory 8 Pressure Positive End Expiratory 8 Pressure Positive End Expiratory 8 Pressure Positive End Expiratory 8 Pressure Positive End Expiratory 8 Pressure Positive End Expiratory 8 Pressure Positive End Expiratory 8 Pressure Peak Inspiratory Airway 27 Pressure Peak Inspiratory Airway 25 Pressure Peak Inspiratory Airway 26 Pressure Peak Inspiratory Airway 24 Pressure Peak Inspiratory Airway 28 Pressure Peak Inspiratory Airway 27 Pressure Peak Inspiratory Airway 24 Pressure Peak Inspiratory Airway 26 Pressure Peak Inspiratory Airway 25 Pressure Peak Inspiratory Airway 25 Pressure Peak Inspiratory Airway 28 Pressure Results - Laboratory Findings CBC and BMP: 06/23/16 03:40 06/23/16 03:40 ABG ABG pH 7.40 pH Units (7.32-7.45) 06/23/16 04:20 ABG pCO2 72 mmHg (35-45) H* 06/23/16 04:20 ABG pO2 63 mmHg (85-104) L 06/23/16 04:20 ABG O2 Saturation 92 % (95-98) L 06/23/16 04:20 PT/INR, D-dimer PT 14.1 Seconds (9.4-12.1) H 06/21/16 18:00 Abnormal lab findings: Abnormal lab results WBC 17.5 K/mcL (4.3-11.1) H 06/23/16 03:40 MCHC 31.2 g/dL (31.6-35.5) L 06/23/16 03:40 RDW 15.4 % (11.5-14.5) H 06/23/16 03:40 Neutrophils # 15.4 K/mcL (1.6-8.9) H 06/23/16 03:40 Nucleated RBCs/100 WBC 0.1 /100 WBC (0) H 06/23/16 03:40 Immature Plt Fraction 8.4 % (1.1-6.1) H 06/22/16 03:15 PT 14.1 Seconds (9.4-12.1) H 06/21/16 18:00 APTT 73.1 Seconds (26.0-36.0) H 06/23/16 03:40 ABG pCO2 72 mmHg (35-45) H* 06/23/16 04:20 ABG pO2 63 mmHg (85-104) L 06/23/16 04:20 ABG HCO3 44.6 mEQ/L (21-27) H 06/23/16 04:20 ABG Total CO2 46.8 mEq/L (20-26) H 06/23/16 04:20 ABG O2 Saturation 92 % (95-98) L 06/23/16 04:20 ABG Base Excess 16.1 mEq/L (-2.0 to 3.0) H 06/23/16 04:20 VBG pH 7.08 pH Units (7.32-7.42) L* 06/21/16 16:31 VBG pCO2 137 mmHg (41-51) H 06/21/16 16:31 VBG pO2 12 mmHg (25-40) L 06/21/16 16:31 VBG HCO3 40.6 mEq/L (21-27) H 06/21/16 16:31 Carboxyhemoglobin 9.1 % (0-5) H 06/21/16 13:21 Chloride 92 mEq/L (98-109) L 06/23/16 03:40 Carbon Dioxide 37 mEq/L (19-29) H 06/23/16 03:40 BUN 41 mg/dL (8-26) H 06/23/16 03:40 Creatinine 1.70 mg/dL (0.72-1.25) H 06/23/16 03:40 Est GFR ( Amer) 51 (> 60) L 06/23/16 03:40 Est GFR (Non-Af Amer) 42 (> 60) L 06/23/16 03:40 Glucose 161 mg/dL (70-99) H 06/23/16 03:40 POC Glucose 158 (58-89) H 06/23/16 00:16 Calculated Osmolality 306 (280-300) H 06/23/16 03:40 Calcium 7.7 mg/dL (8.6-10.8) L 06/23/16 03:40 Ionized Calcium 0.98 mmol/L (1.15-1.35) L 06/23/16 03:40 Phosphorus 5.5 mg/dL (2.3-4.7) H 06/23/16 03:40 AST 224 Units/L (5-34) H 06/22/16 03:15 ALT 278 Units/L (0-55) H 06/22/16 03:15 Troponin I 0.77 ng/mL (0-0.03) H* 06/22/16 07:00 B-Natriuretic Peptide 917 pg/mL (0-100) H 06/21/16 14:02 Albumin 2.7 g/dL (3.5-5.0) L 06/22/16 03:15 Globulin 3.6 g/dL (2.4-3.5) H 06/22/16 03:15 Albumin/Globulin Ratio 0.8 (1.1-2.2) L 06/22/16 03:15 - Clinical Findings Intake & Output: Intake & Output 06/22/16 06/22/16 06/23/16 15:59 23:59 07:59 Intake Total 845 / 845 1571 / 1571 888 / 888 Output Total 1675 / 1675 100 / 100 650 / 650 Balance -830 / -830 1471 / 1471 238 / 238
[2016-06-23] MEDS ORDERED: Dexmedetomidine HCl 400 MCG/100 ML MLS IVC ONE (08:02)
[2016-06-23] MEDS: Pantoprazole 40 MG VIAL IVP SCH (08:15)
[2016-06-23] MEDS: Chlorhexidine Rinse 15 ML MOUTHWASH MM SCH ×2 (08:15→20:45)
[2016-06-23] MEDS: Furosemide 40 MG/4 ML VIAL IVP SCH (08:15)
[2016-06-23] MEDS ORDERED: methylPREDNISolone 125 MG/2 ML VIAL IVP SCH (08:30)
[2016-06-23] MEDS: Dexmedetomidine HCl 400 MCG/100 ML MLS IVC SCH ×6 (08:48→22:20)
--- NOTE | 2016-06-23 09:42 | Cardiology Progress Note ---
Date of Encounter: 06/23/16 Time of Encounter: 09:39 Assessment and Plan (1) Acute respiratory failure Current Visit: Yes Status: Acute Acute hypoxemic, hypercarbic respiratory failure. Remains on ventilator. Your pulmonary management. Qualifiers: Respiratory failure complication: hypoxia and hypercapnia Qualified Code(s) : J96.01 - Acute respiratory failure with hypoxia; J96.02 - Acute respiratory failure with hypercapnia (2) Elevated troponin Current Visit: Yes Status: Acute Mild troponin elevation in the setting of respiratory failure, PEA, and acute kidney injury. Echocardiogram demonstrates preserved LV function. Troponin elevation relatively adynamic. Findings are not suggestive of acute coronary syndrome. Patient does not represent an ideal candidate for invasive evaluation, i.e. left heart catheterization. Recommend ongoing supportive medical therapy. (3) PEA (Pulseless electrical activity) Current Visit: Yes Status: Resolved PEA arrest (8 minutes) after intubation for hypoxemic, hypercarbic respiratory failure. Spontaneous movements noted. Remains intubated and sedated. Unclear if anoxic brain injury. Your critical care management. (4) DARION (acute kidney injury) Current Visit: Yes Status: Acute CHF suggested on x-ray. Mild extremity edema noted. Recommend decrease the Lasix to 40 mg once daily. Monitor creatinine, urine output. (5) Atrial fibrillation Current Visit: Yes Status: Acute Development of atrial fibrillation with RVR overnight. Blood pressure relatively low. Agree with amiodarone IV. We'll decide on jail management with medications after amiodarone infusion. Agree with heparin drip. CHADS-VASc 2, including essential HTN and diabetes. Long-term, full anticoagulation would be preferable depending on patient's condition. Qualifiers: Atrial fibrillation type: unspecified Qualified Code(s): I48.91 - Unspecified atrial fibrillation Discussion w patient/family: The assessment and plan as outlined above was discussed with the patient and/or family members who expressed understanding and agreement. All questions were answered. Thank you for involving us in the care of your patient. Please call with any questions. Subjective Principal diagnosis: Hypercapnic respiratory failure Interval history: Patient seen and examined. Charting, labs reviewed. Events of overnight noted - now AF with RVR. BP marginal. Placed on amiodarone. CHADS-VASc (HTN, DM) 2. Currently on Heparin drip. Remains intubated. Pulmonology following. Objective Vital Signs, Last 4 Hours Temp Pulse Resp BP Pulse Ox 06/23/16 09:00 98.0 F 112 21 92/73 92 L 06/23/16 08:00 98.0 F 06/23/16 07:32 16 136/46 90 L 06/23/16 07:00 98 F 129 16 105/62 90 L 06/23/16 06:00 129 16 105/66 88 L General: Other (Critically ill, ventilator.) HEENT: Atraumatic, Normocephaly Neck: Other (Large neck, difficult to assess for JVD.) Cardiac: Other (Distant, irregular rate and rhythm.) Lungs: Other (Scattered rhonchi) Neuro: Other (Sedated, intubated.) Abdomen: Soft, Non-Tender, Other (Obese) Skin: No rashes noted on visualized skin Musculoskeletal: No Chest Wall Tenderness Extremities: Other (Mild edema bilaterally.) Results 06/23/16 03:40 06/23/16 03:40 Lab Results 06/22/16 06/22/16 06/22/16 14:00 14:00 21:20 WBC Hgb Hct Plt Count APTT 51.7 H 81.7 H D Sodium 144 Potassium 3.3 L Chloride 94 L Carbon Dioxide 38 H BUN 37 H Creatinine 1.67 H Glucose 154 H Calcium 8.0 L Magnesium 1.7 06/22/16 06/22/16 06/23/16 22:20 22:20 03:40 WBC 15.4 H 17.5 H Hgb 12.9 D 13.1 Hct 43.3 42.0 Plt Count 185 189 APTT Sodium 142 Potassium 3.6 Chloride 94 L Carbon Dioxide 36 H BUN 37 H Creatinine 1.66 H Glucose 167 H Calcium 7.8 L Magnesium 06/23/16 06/23/16 03:40 03:40 WBC Hgb Hct Plt Count APTT 73.1 H Sodium 141 Potassium 3.9 Chloride 92 L Carbon Dioxide 37 H BUN 41 H Creatinine 1.70 H Glucose 161 H Calcium 7.7 L Magnesium 2.0 - Imaging and Cardiology Chest Xray: report reviewed Echo: report reviewed - EKG Interpretation EKG results cardiology: personally reviewed Consult Discharge Plan - Plan Referrals: Sumit Hidalgo DO [Partnered Physician] - 07/06/16 12:15 pm (cardiac arrest 06/21, hospital follow up) Ruiz Dumont MD [Primary Care Provider] -
[2016-06-23] MEDS: Sennosides/Docusate Sodium TABLET PO SCH ×2 (09:46→20:45)
[2016-06-23] MEDS: FentaNYL (PF) 1,000 MCG in 0.9 % Sodium Chloride 80 ML IVC SCH ×2 (11:14→23:38)
[2016-06-23] MEDS: *HR* Metoprolol 5 MG/5 ML VIAL IVP PRN (13:01)
--- NOTE | 2016-06-23 14:06 | Electrocardiograph Report ---
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
[2016-06-23] MEDS: Azithromycin 500 MG in D5% in Water 250 ML IVPB SCH (14:09)
[2016-06-23 14:18] LABS: Ionized Calcium 0.96 mmol/L (1.15-1.35)
[2016-06-23 14:23] LABS: Potassium 4.1 mEq/L (3.5-4.5)
--- NOTE | 2016-06-23 16:25 | Venous Imaging Report ---
LE Venous Duplex Patient Name:Juvenal Webber Order Number:[id number] Procedure Date:06/23/2016 Date:1960ge:56 yrs Gender:Male Location:[facility] Room #: IC08 Custodial Supervisor:Latrice Braun RVT, LYDIA Referring MD:Kaiser Fabian MD distributing clerk:Ruiz Dumont MD Reading MD:Joce Singh MD , FACS Primary Indications:r/o DVT Secondary Indications: Impressions: Right lower extremity: normal superficial and deep exam. Lower extremity abnormal deep exam: left popliteal vein and peroneal vein demonstrates acute thrombosis. Recommendations: Test completed on 06/23/2016 at 8:54:44 am. Critical findings reported to Dr. Kelley and Dr. Fabian by phone at 8:55:22 am on 06/23/2016 by Latrice Braun RVT, RDCS. Findings Venous Duplex Results: Right: Venous imaging of the lower extremity reveals full patency and normal vessel compressibility of the right common femoral, right superficial femoral, right popliteal, right posterior tibial, right peroneal, right saphenofemoral junction, right great saphenous and right lesser saphenous. Doppler signals in the evaluated veins were normal. Left: Venous imaging of the lower extremity reveals full patency and normal vessel compressibility of the left distal iliac, left common femoral, left superficial femoral, left posterior tibial, left saphenofemoral junction, left great saphenous, left great saphenous above knee, left great saphenous below knee and left lesser saphenous. Doppler signals in the evaluated veins were normal. There is an acute partially occlusive thrombus seen in the left popliteal. It demonstrates a partially compressible vein. Flow was phasic and it did augment. The left peroneal demonstrates an incompressible vein. Flow was absent and it did not augment. Lower Extremity Venous Duplex Side Vein Compress Spontaneous Flow Augment Diameter (cm) Depth (cm) Right Distal Iliac Normal Yes Phasic Yes Right Common Femoral Normal Yes Phasic Yes Right Superficial Femoral Normal Yes Phasic Yes Right Popliteal Normal Yes Phasic Yes Right Posterior Tibial Normal Yes Phasic Yes Right Peroneal Normal Yes Phasic Yes Right Saphenofemoral [place] Normal Yes Phasic Yes Right Great Saphenous Normal Yes Phasic Yes Right Lesser Saphenous Normal Yes Phasic Yes Left Distal Iliac Normal Yes Phasic Yes Left Common Femoral Normal Yes Phasic Yes Left Superficial Femoral Normal Yes Phasic Yes Left Popliteal Partial yes Phasic Yes Left Posterior Tibial Normal Yes Phasic Yes Left Peroneal None no Absent no Left Saphenofemoral [place] Normal Yes Phasic Yes Left Great Saphenous Normal Yes Phasic Yes Left Great Saphenous [place] Normal Yes Phasic Yes Left Great Saphenous BK Normal Yes Phasic Yes Left Lesser Saphenous Normal Yes Phasic Yes Updated by Joce Singh MD, FACS on 06/23/2016 4:20:16 PM Joce Singh MD electronically signed on 06/23/2016 4:20:56 PM with status of Final
[2016-06-23 18:47] LABS: Adenovirus Not Detected (Not Detect); Bordetella Pertussis Not Detected (Not Detect); Chlamydophila pneumoniae Not Detected (Not Detect); Coronavirus 229E Not Detected (Not Detect); Coronavirus HKU1 Not Detected (Not Detect); Coronavirus NL63 Not Detected (Not Detect); Coronavirus OC43 Not Detected (Not Detect); Human Metapneumovirus Not Detected (Not Detect); Human Rhinovirus/Enterovirus Not Detected (Not Detect); Influenza A Subtype 2009 H1 Not Detected (Not Detect); Influenza A Untypeable Not Detected (Not Detect); Influenza B Not Detected (Not Detect); Mycoplasma pneumoniae Not Detected (Not Detect); Parainfluenza Virus 1 Not Detected (Not Detect); Parainfluenza Virus 2 Not Detected (Not Detect); Parainfluenza Virus 3 Not Detected (Not Detect); Parainfluenza Virus 4 Not Detected (Not Detect); Respiratory Syncytial Virus Not Detected (Not Detect)
[2016-06-24] MEDS: MethylPREDNISolone 40 MG/ML VIAL IVP SCH ×2 (00:21→07:23)
[2016-06-24] MEDS: Lacri-Lube 3.5 GM TUBE BOTH EYES SCH ×7 (00:21→23:26)
[2016-06-24] MEDS: Insulin LISPRO 300 UNITS/3 ML VIAL SQ SCH ×7 (00:22→23:36)
[2016-06-24] MEDS: Ipratropium/Albuterol Neb 3 ML IH SCH ×6 (00:28→20:54)
[2016-06-24] MEDS: Dexmedetomidine HCl 400 MCG/100 ML MLS IVC SCH ×8 (01:12→23:25)
[2016-06-24] MEDS: Amiodarone Premix 360 MG/200 ML BAG IVC SCH (02:33)
[2016-06-24 04:53] LABS: ABG Base Excess 16.1 mEq/L (-2.0 to 3.0); ABG HCO3 43.5 mEQ/L (21-27); ABG Oxygen Saturation 90 % (95-98); ABG PCO2 64 mmHg (35-45); ABG PH 7.44 pH Units (7.32-7.45); ABG PO2 57 mmHg (85-104); ABG TCO2 45.5 mEq/L (20-26); Blood Gas FiO2 60 %
[2016-06-24 04:54] LABS: Basophils % 0.1 %; Hematocrit 44.2 % (37.5-50.1); Hemoglobin 13.4 g/dL (12.9-16.9); Lymphocytes # 0.5 K/mcL (0.6-4.6); Lymphocytes % 3.3 %; Mean Corpuscular HGB Conc 30.3 g/dL (31.6-35.5); Mean Corpuscular Hemoglobin 27.9 pg (28.0-33.3); Mean Corpuscular Volume 92.1 fL (83.0-100.0); Mean Platelet Volume 11.1 fL (9.4-12.4); Monocytes # 0.9 K/mcL (0.0-1.3); Monocytes % 5.9 %; Neutrophils # 14.1 K/mcL (1.6-8.9); Nucleated Red Blood Cells 0.1 /100 WBC (0); Platelet Count 179 K/mcL (140-400); Red Cell Distribution Width 15.2 % (11.5-14.5); Segmented Neutrophils % 89.7 %
[2016-06-24 05:05] LABS: Ionized Calcium 0.98 mmol/L (1.15-1.35)
[2016-06-24 05:08] LABS: Alanine Aminotransferase 141 Units/L (0-55); Albumin 2.4 g/dL (3.5-5.0); Albumin/Globulin Ratio 0.7 (1.1-2.2); Alkaline Phosphatase 74 Units/L (38-126); Aspartate Amino Transferase 34 Units/L (5-34); BUN/Creatinine Ratio 35 (6-26); Bilirubin,Total 0.7 mg/dL (0.2-1.2); Blood Urea Nitrogen 45 mg/dL (8-26); Calcium 7.7 mg/dL (8.6-10.8); Carbon Dioxide 37 mEq/L (19-29); Chloride 92 mEq/L (98-109); Globulin 3.5 g/dL (2.4-3.5); Glucose 209 mg/dL (70-99); Magnesium 2.2 mg/dL (1.6-2.6); Osmolality,Calculated 308 (280-300); Phosphorous 3.7 mg/dL (2.3-4.7); Potassium 4.2 mEq/L (3.5-4.5); Sodium 140 mEq/L (136-145); Total Protein 5.9 g/dL (6.0-8.3); eGFR For African Americans > 60 (> 60); eGFR For Non-African Americans 57 (> 60)
[2016-06-24] MEDS: Calcium Gluconate 1,000 MG in D5% in Water 100 ML IVPB PRN ×3 (05:56→18:47)
[2016-06-24] MEDS: Heparin 25,000 UNIT/500 ML D5W 25,000 UNIT/500 ML MLS IVC SCH ×3 (06:55→21:01)
[2016-06-24] MEDS: Pantoprazole 40 MG VIAL IVP SCH (07:25)
[2016-06-24] MEDS: Sennosides/Docusate Sodium TABLET PO SCH (07:26)
[2016-06-24] MEDS: Chlorhexidine Rinse 15 ML MOUTHWASH MM SCH ×2 (07:27→20:47)
--- NOTE | 2016-06-24 07:34 | Pulmonology Progress Note ---
<CarenKaiser W - Last Filed: 06/24/16 12:14> Objective PUL Vital signs: Last Vital Signs Temp 98.3 F 06/24/16 08:17 Pulse 88 06/24/16 09:00 Resp 21 06/24/16 09:00 BP 116/84 06/24/16 09:00 Pulse Ox 88 L 06/24/16 09:00 Ventilator Settings Ventilator Settings: Ventilator Settings, Last 8 Hours Ventilator Mode VC+ Ventilator Mode VC+ Ventilator Mode VC+ Ventilator Mode VC+ Ventilator Mode VC+ Ventilator Mode VC+ Ventilator Mode VC+ Ventilator Mode VC+ Ventilator Mode VC+ Ventilator Tidal Volume 500 Setting Ventilator Tidal Volume 500 Setting Ventilator Tidal Volume 500 Setting Ventilator Tidal Volume 500 Setting Ventilator Tidal Volume 500 Setting Ventilator Tidal Volume 500 Setting Ventilator Tidal Volume 500 Setting Ventilator Tidal Volume 500 Setting Ventilator Tidal Volume 500 Setting Ventilator Respiratory Rate 16 Setting Ventilator Respiratory Rate 16 Setting Ventilator Respiratory Rate 16 Setting Ventilator Respiratory Rate 16 Setting Ventilator Respiratory Rate 16 Setting Ventilator Respiratory Rate 16 Setting Ventilator Respiratory Rate 16 Setting Ventilator Respiratory Rate 16 Setting Ventilator Respiratory Rate 16 Setting Actual Respiratory Rate 2,124 Actual Respiratory Rate 17 Actual Respiratory Rate 18 Actual Respiratory Rate 18 Actual Respiratory Rate 18 Actual Respiratory Rate 19 Actual Respiratory Rate 20 Actual Respiratory Rate 19 Positive End Expiratory 5 Pressure Positive End Expiratory 5 Pressure Positive End Expiratory 5 Pressure Positive End Expiratory 5 Pressure Positive End Expiratory 5 Pressure Positive End Expiratory 5 Pressure Positive End Expiratory 5 Pressure Positive End Expiratory 5 Pressure Positive End Expiratory 5 Pressure Peak Inspiratory Airway 13 Pressure Peak Inspiratory Airway 13 Pressure Peak Inspiratory Airway 20 Pressure Peak Inspiratory Airway 19 Pressure Peak Inspiratory Airway 22 Pressure Peak Inspiratory Airway 29 Pressure Peak Inspiratory Airway 27 Pressure Peak Inspiratory Airway 25 Pressure Results - Laboratory Findings CBC and BMP: 06/24/16 04:32 06/24/16 04:32 ABG ABG pH 7.44 pH Units (7.32-7.45) 06/24/16 04:41 ABG pCO2 64 mmHg (35-45) H 06/24/16 04:41 ABG pO2 57 mmHg (85-104) L 06/24/16 04:41 ABG O2 Saturation 90 % (95-98) L 06/24/16 04:41 PT/INR, D-dimer PT 14.1 Seconds (9.4-12.1) H 06/21/16 18:00 Abnormal lab findings: Abnormal lab results WBC 15.7 K/mcL (4.3-11.1) H 06/24/16 04:32 MCH 27.9 pg (28.0-33.3) L 06/24/16 04:32 MCHC 30.3 g/dL (31.6-35.5) L 06/24/16 04:32 RDW 15.2 % (11.5-14.5) H 06/24/16 04:32 Neutrophils # 14.1 K/mcL (1.6-8.9) H 06/24/16 04:32 Lymphocytes # 0.5 K/mcL (0.6-4.6) L 06/24/16 04:32 Nucleated RBCs/100 WBC 0.1 /100 WBC (0) H 06/24/16 04:32 Immature Plt Fraction 8.4 % (1.1-6.1) H 06/22/16 03:15 PT 14.1 Seconds (9.4-12.1) H 06/21/16 18:00 APTT 59.0 Seconds (26.0-36.0) H 06/24/16 04:32 ABG pCO2 64 mmHg (35-45) H 06/24/16 04:41 ABG pO2 57 mmHg (85-104) L 06/24/16 04:41 ABG HCO3 43.5 mEQ/L (21-27) H 06/24/16 04:41 ABG Total CO2 45.5 mEq/L (20-26) H 06/24/16 04:41 ABG O2 Saturation 90 % (95-98) L 06/24/16 04:41 ABG Base Excess 16.1 mEq/L (-2.0 to 3.0) H 06/24/16 04:41 VBG pH 7.08 pH Units (7.32-7.42) L* 06/21/16 16:31 VBG pCO2 137 mmHg (41-51) H 06/21/16 16:31 VBG pO2 12 mmHg (25-40) L 06/21/16 16:31 VBG HCO3 40.6 mEq/L (21-27) H 06/21/16 16:31 Carboxyhemoglobin 9.1 % (0-5) H 06/21/16 13:21 Chloride 92 mEq/L (98-109) L 06/24/16 04:32 Carbon Dioxide 37 mEq/L (19-29) H 06/24/16 04:32 BUN 45 mg/dL (8-26) H 06/24/16 04:32 Creatinine 1.30 mg/dL (0.72-1.25) H 06/24/16 04:32 Est GFR (Non-Af Amer) 57 (> 60) L 06/24/16 04:32 BUN/Creatinine Ratio 35 (6-26) H 06/24/16 04:32 Glucose 209 mg/dL (70-99) H 06/24/16 04:32 POC Glucose 212 (58-89) H 06/24/16 00:06 Calculated Osmolality 308 (280-300) H 06/24/16 04:32 Calcium 7.7 mg/dL (8.6-10.8) L 06/24/16 04:32 Ionized Calcium 0.98 mmol/L (1.15-1.35) L 06/24/16 04:32 ALT 141 Units/L (0-55) H 06/24/16 04:32 Troponin I 0.77 ng/mL (0-0.03) H* 06/22/16 07:00 B-Natriuretic Peptide 917 pg/mL (0-100) H 06/21/16 14:02 Serum Total Protein 5.9 g/dL (6.0-8.3) L 06/24/16 04:32 Albumin 2.4 g/dL (3.5-5.0) L 06/24/16 04:32 Albumin/Globulin Ratio 0.7 (1.1-2.2) L 06/24/16 04:32 - Clinical Findings Intake & Output: Intake & Output 06/23/16 06/24/16 06/24/16 23:59 07:59 15:59 Intake Total 1358 / 1358 2122 / 2122 47 / 47 Output Total 700 / 700 1050 / 1050 450 / 450 Balance 658 / 658 1072 / 1072 -403 / -403 Weight 170 kg Consult Discharge Plan - Plan Referrals: Sumit Hidalgo DO [Partnered Physician] - 07/06/16 12:15 pm (cardiac arrest 3, hospital follow up) Ruiz Dumont MD [Primary Care Provider] - - Attending Attestation I examined this patient and my medical decision-making was reviewed with the [employer]/PA/Advanced Practice Nurse/Resident Physician. I agree with the documented findings, disposition and treatment plan as described except to the extent set forth below. I spent 35min of Critical Care time with this patient. It involved decision making of high complexity to assess, manipulate, and support vital organ system failure and/or to prevent further life threatening deterioration of the patient' s condition. The time involved in the performance of separately reportable procedures was not counted toward critical care time. Patient seen and examined at bedside Labs, radiology, chart personally reviewed. All lines examined without evidence of infection. Neuropsych: intubated sedated. moves to command. Daily sedation holiday. Pulm: Acute on chronic Hypoxic Hypercapnic Respiratory failure likely cardiogenic pulmonary edema with ?COPD exacerbation s/t PNA. + VTE making O2 sats borderline on 50%/5PEEP increased to PEEP 8. Resume diuresis todday. Not currently candidate for SBT Cards. s/p ACLS (brief PEA Arrest) with spontaneous mvt NSTEMI (mild) likely demand. Afib rate control cont amiodarone load. Cards following. HFpEF cont diuresis FEN-GI: GI prophylaxis. Cont Enteral Feedings and Bowel regimen Renal: Stable Creatinine stable overnight cont to trend electrolytes with diuresis ID: Treating broadly for sepsis for CAP organsisms Ceftriaxone/Azithro cultures pending including viral panel deescalate based upon cultures Heme/Onc: LE DVT + with likely PE cont therapeutic dosed heparin. H/H and plts Stable. Endo: Endo glucose monitored Integ/MSK: Skin care per ICU protocol CODE: Full code family (brothers and GF ) updated at bedside <WarrenSrini Jd - Last Filed: 06/24/16 14:07> Date of Encounter: 06/24/16 Time of Encounter: 07:34 Assessment and Plan (1) Hypercapnic respiratory failure Current Visit: Yes Status: Acute Patient remains sedated, intubated, mechanically ventilated. No pressors necessary at this time. Patient's fiance reports worsening dyspnea for 3 weeks, likely multifactorial from undiagnosed COPD, undiagnosed obesity hypoventilation syndrome, possible community acquired pneumonia, and undiagnosed obstructive sleep apnea causing right-sided heart failure (undiagnosed). Also concern for pulmonary embolism. Lower extremity Doppler positive for acute thrombosis and left popliteal and left peroneal vein. Right lower extremity was negative. Pulmonary embolism more likely due to lower extremity Doppler findings. At admission was severely hypoxic with a pH of 7.08 with improvement seen following mechanical ventilation. Plan: -Continue intubation and sedation with propofol and fentanyl. Maintain oxygen saturation above 88% -Wean FI02 as tolerated -Respiratory virus panel: negative -blood cultures pending, sputum cultures pending, urinary antigens: negative -maintain map above 60, Levaphed for pressure support if necessary, no pressor agents currently -antibiotics: azithromycin and Rocephin for coverage of community acquired pneumonia (Day 4) -Duonebs every 4 hours scheduled, IV steroids transition to -cardiology is following and appreciate recommendations for continued management and care Continue heparin drip and gentle diuresis with Lasix 40 mg once a day. -Monitor I/O, UOP, Daily weight -daily ABG's, CBC CMP Qualifiers: Chronicity: unspecified Qualified Code(s): J96.92 - Respiratory failure, unspecified with hypercapnia (2) DVT (deep venous thrombosis) Current Visit: Yes Status: Acute LE Doppler: lower extremity abnormal deep exam: left popliteal vein and left peroneal vein demonstrate acute thrombosis. RT leg negative for acute thrombus. Continue Heparin gtt Qualifiers: DVT location: lower extremity Affected thrombotic vein of extremity: popliteal Laterality: left Chronicity: unspecified Qualified Code(s): I82.432 - Acute embolism and thrombosis of left popliteal vein (3) Atrial fibrillation with RVR Current Visit: Yes Status: Acute Pt. went into Afib with RVR on 06/22/2016 Amiodarone drip was instituted with a BB PRN for tachycardia. Patient will be changed to diltiazem 30 mg Q8 hours and amiodarone will be discontinued. This change is per cardiology. Appreciate your recommendations. Heparin gtt. [id number]: 2 moderate-high risk and should be a long-term anticoagulation candidate. (4) NSTEMI (non-ST elevated myocardial infarction) Current Visit: Yes Status: Acute Initial troponin of 0.13. Peak of 0.95. EKG did not show any significant changes. Heparin gtt was instituted for ACS. Likely type II NSTEMI due to demand ischemia. Cardiology was consulted appreciate their recommendations no interventions at this time from cardiology (5) Elevated troponin Current Visit: Yes Status: Acute Troponin elevations likely due to patient breathing status, PEA arrest, cor pulmonale. Unlikely ACS at this time. Heparin gtt was initially instituted for conern of ACS. LE doppler positive for LLE DVT. Will continue heparin gtt for DVT. (6) Respiratory acidosis Current Visit: Yes Status: Acute Currently intubated and sedated. Ventilator settings adjusted as needed to reduce respiratory acidosis (7) DARION (acute kidney injury) Current Visit: Yes Status: Acute Patient has elevated serum creatinine and decreased estimated GFR that has been steadily worsening since admission. Originally serum creatinine was 1.25. Today, 06/24/2016, serum creatinine is back down to 1.3. Patient requires continued diuresis as he is edematous and echocardiography, cxr w/ bibasilar edema, and elevated BNP suspicious for heart failure. Continue to monitor patient kidney status closely with continued diuresis Lasix decreased to 40 mg once a day. (8) Acute heart failure Current Visit: Yes Status: Suspected Patient has bilateral lower extremity edema initial BNP of 917 Echo: EF 55%, Atypical septal motion of unclear significance, indeterminate diastolic dysfunction, dilated RV, no valvular dysfunction, unable to estimate RVSP. Cardiology on board. No interventions at this time. Diurese with Lasix Qualifiers: Heart failure type: unspecified heart failure type Qualified Code(s): I50.9 - Heart failure, unspecified (9) Morbid obesity Current Visit: Yes Status: Chronic Qualifiers: Obesity type: due to excess calories Qualified Code(s): E66.01 - Morbid ( severe) obesity due to excess calories (10) Smoking history Current Visit: Yes Status: Chronic Profamily he has been smoking since he is 19 years old 3 to 4 packs per day (11) Cor pulmonale (chronic) Current Visit: Yes Status: Chronic Cardiology is following. Echocardiogram was performed that showed preserved ejection fraction 55%, atypical supple wall motion of unclear significance, and indeterminate diastolic function. Dilated right ventricle with normal function. No JVD. Decrease Lasix to 40mg once daily. (12) Obesity hypoventilation syndrome Current Visit: Yes Status: Suspected (13) Obstructive sleep apnea Current Visit: Yes Status: Suspected Patient is morbidly obese, has reportedly gained 100-150 pounds in the past 5 years. Patient's fiance states that in the course the evening he will often have episodes of apnea preceded by excessive snoring. Patient would benefit from sleep study and potentially BiPAP/CPAP (14) PEA (Pulseless electrical activity) Current Visit: Yes Status: Resolved Patient suffered PEA arrest shortly after admission on 06/21/2016. The code lasted approximately 8 minutes in which time the patient received 31 mg doses of epinephrine prior to return to spontaneous circulation. Concern for anoxic brain injury given time of arrest. Unable to assess at this time as patient remains intubated and sedated. Will assess neurological activity when patient is extubated and often sedation. Subjective Principal diagnosis: Hypercapnic respiratory failure Interval history: Patient seen and examined at bedside. Remains intubated and sedated. No events noted overnight. He is not requiring vasopressor support He was started on amiodarone drip for paroxysmal a fib yesterday, will be changed to diltiazem today. Objective PUL Vital signs: Last Vital Signs Temp 98.4 F 06/24/16 00:00 Pulse 92 06/24/16 07:00 Resp 18 06/24/16 07:00 BP 113/70 06/24/16 07:00 Pulse Ox 89 L 06/24/16 07:00 General appearance: other (Intubated and sedated) Eyes: injected ENT: oropharynx dry Neck: no lymphadenopathy Auscultation: bilateral: rhonchi Cardiovascular: irregular rhythm Gastrointestinal: normoactive bowel sounds Integumentary: other (Abdominal abrasion) Extremities: pink and warm, edema unable to assess due to mental status Ventilator Settings Ventilator Settings: Ventilator Settings, Last 8 Hours Ventilator Mode VC+ Ventilator Mode VC+ Ventilator Mode VC+ Ventilator Mode VC+ Ventilator Mode VC+ Ventilator Mode VC+ Ventilator Mode VC+ Ventilator Tidal Volume 500 Setting Ventilator Tidal Volume 500 Setting Ventilator Tidal Volume 500 Setting Ventilator Tidal Volume 500 Setting Ventilator Tidal Volume 500 Setting Ventilator Tidal Volume 500 Setting Ventilator Tidal Volume 500 Setting Ventilator Respiratory Rate 16 Setting Ventilator Respiratory Rate 16 Setting Ventilator Respiratory Rate 16 Setting Ventilator Respiratory Rate 16 Setting Ventilator Respiratory Rate 16 Setting Ventilator Respiratory Rate 16 Setting Ventilator Respiratory Rate 16 Setting Actual Respiratory Rate 18 Actual Respiratory Rate 18 Actual Respiratory Rate 19 Actual Respiratory Rate 20 Actual Respiratory Rate 19 Actual Respiratory Rate 20 Positive End Expiratory 5 Pressure Positive End Expiratory 5 Pressure Positive End Expiratory 5 Pressure Positive End Expiratory 5 Pressure Positive End Expiratory 5 Pressure Positive End Expiratory 5 Pressure Positive End Expiratory 5 Pressure Peak Inspiratory Airway 19 Pressure Peak Inspiratory Airway 22 Pressure Peak Inspiratory Airway 29 Pressure Peak Inspiratory Airway 27 Pressure Peak Inspiratory Airway 25 Pressure Peak Inspiratory Airway 19 Pressure Results - Laboratory Findings CBC and BMP: 06/24/16 04:32 06/24/16 04:32 ABG ABG pH 7.44 pH Units (7.32-7.45) 06/24/16 04:41 ABG pCO2 64 mmHg (35-45) H 06/24/16 04:41 ABG pO2 57 mmHg (85-104) L 06/24/16 04:41 ABG O2 Saturation 90 % (95-98) L 06/24/16 04:41 PT/INR, D-dimer PT 14.1 Seconds (9.4-12.1) H 06/21/16 18:00 Abnormal lab findings: Abnormal lab results WBC 15.7 K/mcL (4.3-11.1) H 06/24/16 04:32 MCH 27.9 pg (28.0-33.3) L 06/24/16 04:32 MCHC 30.3 g/dL (31.6-35.5) L 06/24/16 04:32 RDW 15.2 % (11.5-14.5) H 06/24/16 04:32 Neutrophils # 14.1 K/mcL (1.6-8.9) H 06/24/16 04:32 Lymphocytes # 0.5 K/mcL (0.6-4.6) L 06/24/16 04:32 Nucleated RBCs/100 WBC 0.1 /100 WBC (0) H 06/24/16 04:32 Immature Plt Fraction 8.4 % (1.1-6.1) H 06/22/16 03:15 PT 14.1 Seconds (9.4-12.1) H 06/21/16 18:00 APTT 59.0 Seconds (26.0-36.0) H 06/24/16 04:32 ABG pCO2 64 mmHg (35-45) H 06/24/16 04:41 ABG pO2 57 mmHg (85-104) L 06/24/16 04:41 ABG HCO3 43.5 mEQ/L (21-27) H 06/24/16 04:41 ABG Total CO2 45.5 mEq/L (20-26) H 06/24/16 04:41 ABG O2 Saturation 90 % (95-98) L 06/24/16 04:41 ABG Base Excess 16.1 mEq/L (-2.0 to 3.0) H 06/24/16 04:41 VBG pH 7.08 pH Units (7.32-7.42) L* 06/21/16 16:31 VBG pCO2 137 mmHg (41-51) H 06/21/16 16:31 VBG pO2 12 mmHg (25-40) L 06/21/16 16:31 VBG HCO3 40.6 mEq/L (21-27) H 06/21/16 16:31 Carboxyhemoglobin 9.1 % (0-5) H 06/21/16 13:21 Chloride 92 mEq/L (98-109) L 06/24/16 04:32 Carbon Dioxide 37 mEq/L (19-29) H 06/24/16 04:32 BUN 45 mg/dL (8-26) H 06/24/16 04:32 Creatinine 1.30 mg/dL (0.72-1.25) H 06/24/16 04:32 Est GFR (Non-Af Amer) 57 (> 60) L 06/24/16 04:32 BUN/Creatinine Ratio 35 (6-26) H 06/24/16 04:32 Glucose 209 mg/dL (70-99) H 06/24/16 04:32 POC Glucose 212 (58-89) H 06/24/16 00:06 Calculated Osmolality 308 (280-300) H 06/24/16 04:32 Calcium 7.7 mg/dL (8.6-10.8) L 06/24/16 04:32 Ionized Calcium 0.98 mmol/L (1.15-1.35) L 06/24/16 04:32 ALT 141 Units/L (0-55) H 06/24/16 04:32 Troponin I 0.77 ng/mL (0-0.03) H* 06/22/16 07:00 B-Natriuretic Peptide 917 pg/mL (0-100) H 06/21/16 14:02 Serum Total Protein 5.9 g/dL (6.0-8.3) L 06/24/16 04:32 Albumin 2.4 g/dL (3.5-5.0) L 06/24/16 04:32 Albumin/Globulin Ratio 0.7 (1.1-2.2) L 06/24/16 04:32 - Clinical Findings Intake & Output: Intake & Output 06/23/16 06/23/16 06/24/16 15:59 23:59 07:59 Intake Total 1851 / 1851 1358 / 1358 1719 / 1719 Output Total 625 / 625 700 / 700 1050 / 1050 Balance 1226 / 1226 658 / 658 669 / 669 Weight 170 kg
[2016-06-24] MEDS: Bisacodyl 10 MG RECTAL SUPPOSITORY RC PRN (07:57)
[2016-06-24] MEDS ORDERED: Furosemide 40 MG/4 ML VIAL IVP ONE ×2 (08:30→16:10)
[2016-06-24] MEDS ORDERED: Furosemide 40 MG/4 ML VIAL IVP SCH (09:00)
[2016-06-24] MEDS: FentaNYL (PF) 1,000 MCG in 0.9 % Sodium Chloride 80 ML IVC SCH ×3 (09:38→17:48)
--- NOTE | 2016-06-24 10:43 | Cardiology Progress Note ---
Date of Encounter: 06/24/16 Time of Encounter: 10:40 Assessment and Plan (1) Acute respiratory failure Current Visit: Yes Status: Acute Acute hypoxemic, hypercarbic respiratory failure. Remains on ventilator. Noted acute thrombosis in lower extremity veins. Possible PE. Continue heparin per critical care team. Qualifiers: Respiratory failure complication: hypoxia and hypercapnia Qualified Code(s) : J96.01 - Acute respiratory failure with hypoxia; J96.02 - Acute respiratory failure with hypercapnia (2) Elevated troponin Current Visit: Yes Status: Acute Mild troponin elevation in the setting of respiratory failure, PEA, acute kidney injury, and possible PE. Echocardiogram demonstrates preserved LV function. Troponin elevation relatively adynamic. Findings are not suggestive of acute coronary syndrome. Recommend ongoing supportive medical therapy. (3) PEA (Pulseless electrical activity) Current Visit: Yes Status: Resolved PEA arrest in the setting of respiratory insufficiency requiring intubation. (4) DARION (acute kidney injury) Current Visit: Yes Status: Acute Creatinine improved compared to previous. (5) Atrial fibrillation Current Visit: Yes Status: Acute Atrial fibrillation, better rate control. Change amiodarone to diltiazem. Continue heparin drip for atrial fibrillation and possible PE. Transition to PO anticoagulation when able. Qualifiers: Atrial fibrillation type: unspecified Qualified Code(s): I48.91 - Unspecified atrial fibrillation (6) Diastolic heart failure Current Visit: Yes Status: Acute Diastolic heart failure. Pleural effusions noted on chest x-ray, lower extremity edema on examination. Agree with cautious diuresis. Monitor creatinine , daily weights, and urine output. Qualifiers: Heart failure chronicity: acute Qualified Code(s): I50.31 - Acute diastolic (congestive) heart failure Discussion w patient/family: The assessment and plan as outlined above was discussed with the patient and/or family members who expressed understanding and agreement. All questions were answered. Thank you for involving us in the care of your patient. Please call with any questions. Subjective Principal diagnosis: Hypercapnic respiratory failure Interval history: Patient seen and examined. Charting, labs reviewed. Remains intubated and sedated. Heart rate seems to be better controlled. Remains on amiodarone IV. CHADS-VASc (HTN, DM) 2. Currently on Heparin drip. Objective Vital Signs, Last 4 Hours Temp Pulse Resp BP Pulse Ox 06/24/16 10:00 99 18 101/64 92 L 06/24/16 09:00 88 21 116/84 88 L 06/24/16 08:17 98.3 F 06/24/16 08:00 100 112/80 17 L 06/24/16 07:55 18 113/70 89 L 06/24/16 07:30 90 06/24/16 07:00 92 18 113/70 89 L General: Other (Intubated, sedated) HEENT: Atraumatic, Normocephaly Neck: No JVD, Normal carotid pulses Cardiac: Other (Distant, irregular rate and rhythm. No obvious murmurs.) Lungs: Other (Scattered rhonchi.) Neuro: Other (Sedated.) Abdomen: Soft, Non-Tender, Other (Obese) Skin: No rashes noted on visualized skin Musculoskeletal: No Chest Wall Tenderness Extremities: No Clubbing, No Cyanosis, Other (Mild edema bilaterally.) Results 06/24/16 04:32 06/24/16 04:32 Lab Results 06/23/16 06/24/16 06/24/16 14:08 04:32 04:32 WBC 15.7 H Hgb 13.4 Hct 44.2 Plt Count 179 APTT Sodium 140 Potassium 4.1 4.2 Chloride 92 L Carbon Dioxide 37 H BUN 45 H Creatinine 1.30 H Glucose 209 H Calcium 7.7 L Magnesium 2.2 Total Bilirubin 0.7 AST 34 ALT 141 H Alkaline Phosphatase 74 06/24/16 04:32 WBC Hgb Hct Plt Count APTT 59.0 H Sodium Potassium Chloride Carbon Dioxide BUN Creatinine Glucose Calcium Magnesium Total Bilirubin AST ALT Alkaline Phosphatase - Imaging and Cardiology Chest Xray: report reviewed Echo: report reviewed - EKG Interpretation EKG results cardiology: personally reviewed Consult Discharge Plan - Plan Referrals: Sumit Hidalgo DO [Partnered Physician] - 07/06/16 12:15 pm (cardiac arrest 06/21, hospital follow up) Ruiz Dumont MD [Primary Care Provider] -
[2016-06-24] MEDS ORDERED: Insulin LISPRO 300 UNITS/3 ML VIAL SQ SCH (10:45)
[2016-06-24] MEDS: Azithromycin 500 MG in D5% in Water 250 ML IVPB SCH (14:05)
[2016-06-24 14:38] LABS: BUN/Creatinine Ratio 35 (6-26); Blood Urea Nitrogen 43 mg/dL (8-26); Calcium 7.7 mg/dL (8.6-10.8); Carbon Dioxide 39 mEq/L (19-29); Chloride 91 mEq/L (98-109); Glucose 207 mg/dL (70-99); Magnesium 2.1 mg/dL (1.6-2.6); Osmolality,Calculated 307 (280-300); Potassium 4.1 mEq/L (3.5-4.5); Sodium 140 mEq/L (136-145); eGFR For African Americans > 60 (> 60); eGFR For Non-African Americans > 60 (> 60)
[2016-06-24] MEDS: Sennosides 8.6 MG TABLET PO SCH (20:47)
[2016-06-25] MEDS: Ipratropium/Albuterol Neb 3 ML IH SCH ×7 (00:19→22:54)
[2016-06-25 02:32] LABS: Basophils % 0.1 %; Hematocrit 44.6 % (37.5-50.1); Hemoglobin 13.4 g/dL (12.9-16.9); Immature Granulocytes % 0.7 % (0-4); Lymphocytes % 7.6 %; Mean Corpuscular Hemoglobin 27.8 pg (28.0-33.3); Mean Corpuscular Volume 92.5 fL (83.0-100.0); Mean Platelet Volume 10.7 fL (9.4-12.4); Monocytes # 1.2 K/mcL (0.0-1.3); Monocytes % 9.2 %; Neutrophils # 10.7 K/mcL (1.6-8.9); Platelet Count 174 K/mcL (140-400); Red Blood Count 4.82 M/mcL (4.19-5.50); Segmented Neutrophils % 82.4 %
[2016-06-25 02:35] LABS: Ionized Calcium 1.02 mmol/L (1.15-1.35)
[2016-06-25 02:41] LABS: BUN/Creatinine Ratio 37 (6-26); Blood Urea Nitrogen 43 mg/dL (8-26); Calcium 7.8 mg/dL (8.6-10.8); Chloride 91 mEq/L (98-109); Glucose 149 mg/dL (70-99); Osmolality,Calculated 304 (280-300); Phosphorous 4.2 mg/dL (2.3-4.7); Potassium 4.1 mEq/L (3.5-4.5); Sodium 140 mEq/L (136-145); eGFR For African Americans > 60 (> 60); eGFR For Non-African Americans > 60 (> 60)
[2016-06-25 02:43] LABS: Carbon Dioxide 42 mEq/L (19-29)
[2016-06-25] MEDS: Dexmedetomidine HCl 400 MCG/100 ML MLS IVC SCH ×7 (02:53→23:21)
[2016-06-25] MEDS: Insulin LISPRO 300 UNITS/3 ML VIAL SQ SCH ×5 (03:37→20:33)
[2016-06-25] MEDS: Lacri-Lube 3.5 GM TUBE BOTH EYES SCH ×5 (03:37→20:32)
[2016-06-25 04:53] LABS: ABG Base Excess 18.7 mEq/L (-2.0 to 3.0); ABG HCO3 48.3 mEQ/L (21-27); ABG Oxygen Saturation 93 % (95-98); ABG PO2 68 mmHg (85-104); ABG TCO2 50.7 mEq/L (20-26); Blood Gas FiO2 60 %
[2016-06-25 04:56] LABS: ABG PCO2 78 mmHg (35-45)
[2016-06-25] MEDS: Calcium Gluconate 1,000 MG in D5% in Water 100 ML IVPB PRN (05:53)
--- NOTE | 2016-06-25 07:51 | Pulmonology Progress Note ---
<[facility] - Last Filed: 06/25/16 13:09> Objective PUL Vital signs: Last Vital Signs Temp 99.6 F 06/25/16 11:35 Pulse 89 06/25/16 11:00 Resp 18 06/25/16 11:19 BP 102/74 06/25/16 11:19 Pulse Ox 95 06/25/16 11:19 Ventilator Settings Ventilator Settings: Ventilator Settings, Last 8 Hours Ventilator Mode VC+ Ventilator Mode A/C Ventilator Mode A/C Ventilator Mode VC+ Ventilator Mode A/C Ventilator Mode A/C Ventilator Mode VC+ Ventilator Mode A/C Ventilator Tidal Volume 500 Setting Ventilator Tidal Volume 500 Setting Ventilator Tidal Volume 500 Setting Ventilator Tidal Volume 500 Setting Ventilator Tidal Volume 500 Setting Ventilator Tidal Volume 500 Setting Ventilator Tidal Volume 500 Setting Ventilator Tidal Volume 500 Setting Ventilator Respiratory Rate 18 Setting Ventilator Respiratory Rate 18 Setting Ventilator Respiratory Rate 16 Setting Ventilator Respiratory Rate 16 Setting Ventilator Respiratory Rate 16 Setting Ventilator Respiratory Rate 16 Setting Ventilator Respiratory Rate 16 Setting Ventilator Respiratory Rate 16 Setting Actual Respiratory Rate 18 Actual Respiratory Rate 18 Actual Respiratory Rate 16 Actual Respiratory Rate 16 Actual Respiratory Rate 16 Actual Respiratory Rate 16 Actual Respiratory Rate 16 Actual Respiratory Rate 16 Positive End Expiratory 8 Pressure Positive End Expiratory 8 Pressure Positive End Expiratory 8 Pressure Positive End Expiratory 8 Pressure Positive End Expiratory 8 Pressure Positive End Expiratory 8 Pressure Positive End Expiratory 8 Pressure Positive End Expiratory 8 Pressure Peak Inspiratory Airway 34 Pressure Peak Inspiratory Airway 34 Pressure Peak Inspiratory Airway 35 Pressure Peak Inspiratory Airway 34 Pressure Peak Inspiratory Airway 33 Pressure Peak Inspiratory Airway 32 Pressure Peak Inspiratory Airway 30 Pressure Peak Inspiratory Airway 34 Pressure Results - Laboratory Findings CBC and BMP: 06/25/16 02:10 06/25/16 02:10 ABG ABG pH 7.40 pH Units (7.32-7.45) 06/25/16 04:40 ABG pCO2 78 mmHg (35-45) H* 06/25/16 04:40 ABG pO2 68 mmHg (85-104) L 06/25/16 04:40 ABG O2 Saturation 93 % (95-98) L 06/25/16 04:40 PT/INR, D-dimer PT 14.1 Seconds (9.4-12.1) H 06/21/16 18:00 Abnormal lab findings: Abnormal lab results WBC 13.0 K/mcL (4.3-11.1) H 06/25/16 02:10 MCH 27.8 pg (28.0-33.3) L 06/25/16 02:10 MCHC 30.0 g/dL (31.6-35.5) L 06/25/16 02:10 RDW 15.0 % (11.5-14.5) H 06/25/16 02:10 Neutrophils # 10.7 K/mcL (1.6-8.9) H 06/25/16 02:10 Nucleated RBCs/100 WBC 0.1 /100 WBC (0) H 06/24/16 04:32 Immature Plt Fraction 8.4 % (1.1-6.1) H 06/22/16 03:15 PT 14.1 Seconds (9.4-12.1) H 06/21/16 18:00 APTT 73.1 Seconds (26.0-36.0) H 06/25/16 02:10 ABG pCO2 78 mmHg (35-45) H* 06/25/16 04:40 ABG pO2 68 mmHg (85-104) L 06/25/16 04:40 ABG HCO3 48.3 mEQ/L (21-27) H 06/25/16 04:40 ABG Total CO2 50.7 mEq/L (20-26) H 06/25/16 04:40 ABG O2 Saturation 93 % (95-98) L 06/25/16 04:40 ABG Base Excess 18.7 mEq/L (-2.0 to 3.0) H 06/25/16 04:40 VBG pH 7.08 pH Units (7.32-7.42) L* 06/21/16 16:31 VBG pCO2 137 mmHg (41-51) H 06/21/16 16:31 VBG pO2 12 mmHg (25-40) L 06/21/16 16:31 VBG HCO3 40.6 mEq/L (21-27) H 06/21/16 16:31 Carboxyhemoglobin 9.1 % (0-5) H 06/21/16 13:21 Chloride 91 mEq/L (98-109) L 06/25/16 02:10 Carbon Dioxide 42 mEq/L (19-29) H* 06/25/16 02:10 BUN 43 mg/dL (8-26) H 06/25/16 02:10 BUN/Creatinine Ratio 37 (6-26) H 06/25/16 02:10 Glucose 149 mg/dL (70-99) H 06/25/16 02:10 POC Glucose 119 (58-89) H 06/24/16 23:34 Calculated Osmolality 304 (280-300) H 06/25/16 02:10 Calcium 7.8 mg/dL (8.6-10.8) L 06/25/16 02:10 Ionized Calcium 1.02 mmol/L (1.15-1.35) L 06/25/16 02:10 ALT 141 Units/L (0-55) H 06/24/16 04:32 Troponin I 0.77 ng/mL (0-0.03) H* 06/22/16 07:00 B-Natriuretic Peptide 917 pg/mL (0-100) H 06/21/16 14:02 Serum Total Protein 5.9 g/dL (6.0-8.3) L 06/24/16 04:32 Albumin 2.4 g/dL (3.5-5.0) L 06/24/16 04:32 Albumin/Globulin Ratio 0.7 (1.1-2.2) L 06/24/16 04:32 - Microbiology Findings Microbiology Findings: Microbiology, Last 48 Hours 06/24/16 09:15 Sputum Culture - Preliminary Sputum Gram Negative Elías 06/24/16 09:05 Legionella Antigen - Final Urine,Catheterized Streptococcus pneumoniae Antigen (M - Final - Clinical Findings Intake & Output: Intake & Output 06/24/16 06/25/16 06/25/16 23:59 07:59 15:59 Intake Total 1918 / 1918 997 / 997 1128 / 1128 Output Total 2024 / 2024 1200 / 1200 600 / 600 Balance -106 / -106 -203 / -203 528 / 528 Consult Discharge Plan - Plan Referrals: Sumit Hidalgo DO [Partnered Physician] - 07/06/16 12:15 pm (cardiac arrest 06/21, hospital follow up) Ruiz Dumont MD [Primary Care Provider] - - Attending Attestation I examined this patient and my medical decision-making was reviewed with the STERILIZER OPERATOR/PA/Advanced Practice Nurse/Resident Physician. I agree with the documented findings, disposition and treatment plan as described except to the extent set forth below. Patient seen and examined at bedside Labs, radiology, chart personally reviewed. All lines examined without evidence of infection. Neuropsych: intubated sedated. Cont Daily sedation holiday. Goal RASS (-2) Pulm: Acute on chronic Hypoxic Hypercapnic Respiratory failure. Remains hypoxic with worsening ventilation. Increase MV today. Add Diamox for contnued diuresis and worsening acute on chronic metabolic acidosis. Cards. s/p ACLS (brief PEA Arrest) with spontaneous mvt NSTEMI (mild) likely demand. Afib rate controlled today. Cards following Cardizem started after amiodarone load. HFpEF cont diuresis (goal 1-1.5Lnegative) d FEN-GI: GI prophylaxis. Cont Enteral Feedings and Bowel regimen Renal: Stable Creatinine stable overnight cont to trend electrolytes with diuresis ID: PNA with GNRs in Sputum ON abx stop Azithro f/u s/s of micro cultures Heme/Onc: LE DVT + with likely PE cont therapeutic dosed heparin. H/H and plts Stable. Endo: Endo glucose monitored Integ/MSK: Skin care per ICU protocol CODE: Full code family Girlfriend updated at bedside <Srini Kelley - Last Filed: 06/25/16 15:27> Date of Encounter: 06/25/16 Time of Encounter: 07:50 Assessment and Plan (1) Hypercapnic respiratory failure Current Visit: Yes Status: Acute Patient remains sedated, intubated, mechanically ventilated. No pressors necessary at this time. Patient's fiance reports worsening dyspnea for 3 weeks, likely multifactorial from undiagnosed COPD, undiagnosed obesity hypoventilation syndrome, possible community acquired pneumonia, and undiagnosed obstructive sleep apnea causing right-sided heart failure (undiagnosed). Also concern for pulmonary embolism. Lower extremity Doppler positive for acute thrombosis and left popliteal and left peroneal vein. Right lower extremity was negative. At admission was severely hypoxic with a pH of 7.08 with improvement seen following mechanical ventilation. He has continued mixed respiratory acidosis with metabolic alkalosis. Will increase minute ventilation to blow off CO2 and add Acetazolamide to address acid/base disturbance. CXR shows continued b/l pleural effusions. Sputum cx positive for gram negative rods. Will de-escalate azithromycin and continue Rocephin until sensitivity is available. Plan: -Continue intubation and sedation with propofol and fentanyl. Maintain oxygen saturation above 88% -Increase minute ventilation -Diamox q12h x 3 doses -Wean FI02 as tolerated -Respiratory virus panel: negative, urinary antigens: negative -sputum cx: gram negative rods -blood cultures pending -maintain map above 60, Levaphed for pressure support if necessary, no pressor agents currently -antibiotics: Rocephin for coverage of community acquired pneumonia (Day 4), Zithromax d/c (got 4 days) -Duonebs every 4 hours scheduled -PO prednisone -cardiology is following and appreciate recommendations for continued management and care -Continue heparin drip and gentle diuresis with Lasix 40 mg once a day. -Monitor I/O, UOP, Daily weight -daily ABG's, CBC CMP Qualifiers: Chronicity: unspecified Qualified Code(s): J96.92 - Respiratory failure, unspecified with hypercapnia (2) DVT (deep venous thrombosis) Current Visit: Yes Status: Acute LE Doppler: lower extremity abnormal deep exam: left popliteal vein and left peroneal vein demonstrate acute thrombosis. RT leg negative for acute thrombus. Continue Heparin gtt Qualifiers: DVT location: lower extremity Affected thrombotic vein of extremity: popliteal Laterality: left Chronicity: unspecified Qualified Code(s): I82.432 - Acute embolism and thrombosis of left popliteal vein (3) Atrial fibrillation with RVR Current Visit: Yes Status: Acute Pt. went into Afib with RVR on 06/22/2016 Amiodarone drip was instituted with a BB PRN for tachycardia. Patient will be changed to diltiazem 30 mg Q8 hours and amiodarone will be discontinued. This change is per cardiology. Appreciate your recommendations. Heparin gtt. [id number]: 2 moderate-high risk and should be a long-term anticoagulation candidate. 06/25/16: PO diltiazem increased to 60mg q8 per cardiology continue heparin gtt (4) NSTEMI (non-ST elevated myocardial infarction) Current Visit: Yes Status: Acute Initial troponin of 0.13. Peak of 0.95. EKG did not show any significant changes. Heparin gtt was instituted for ACS. Likely type II NSTEMI due to demand ischemia. Cardiology was consulted appreciate their recommendations no interventions at this time from cardiology (5) Elevated troponin Current Visit: Yes Status: Acute Troponin elevations likely due to patient breathing status, PEA arrest, cor pulmonale. Unlikely ACS at this time. Heparin gtt was initially instituted for conern of ACS. LE doppler positive for LLE DVT. Will continue heparin gtt for DVT. (6) Respiratory acidosis Current Visit: Yes Status: Acute Currently intubated and sedated. Ventilator settings adjusted as needed to reduce respiratory acidosis (7) DARION (acute kidney injury) Current Visit: Yes Status: Acute Patient has elevated serum creatinine and decreased estimated GFR that has been steadily worsening since admission. Originally serum creatinine was 1.25. Today, 06/24/2016, serum creatinine is back down to 1.3. Patient requires continued diuresis as he is edematous and echocardiography, cxr w/ bibasilar edema, and elevated BNP suspicious for heart failure. Continue to monitor patient kidney status closely with continued diuresis Lasix decreased to 40 mg once a day. 06/25/16: Scr 1.17. Continue diuresis with lasix. Add Acetazolamide. (8) Acute heart failure Current Visit: Yes Status: Suspected Patient has bilateral lower extremity edema initial BNP of 917 Echo: EF 55%, Atypical septal motion of unclear significance, indeterminate diastolic dysfunction, dilated RV, no valvular dysfunction, unable to estimate RVSP. Cardiology on board. No interventions at this time. Diurese with Lasix Qualifiers: Heart failure type: unspecified heart failure type Qualified Code(s): I50.9 - Heart failure, unspecified (9) Morbid obesity Current Visit: Yes Status: Chronic Qualifiers: Obesity type: due to excess calories Qualified Code(s): E66.01 - Morbid ( severe) obesity due to excess calories (10) Smoking history Current Visit: Yes Status: Chronic Profamily he has been smoking since he is 19 years old 3 to 4 packs per day (11) Cor pulmonale (chronic) Current Visit: Yes Status: Chronic Cardiology is following. Echocardiogram was performed that showed preserved ejection fraction 55%, atypical supple wall motion of unclear significance, and indeterminate diastolic function. Dilated right ventricle with normal function. No JVD. (12) Obesity hypoventilation syndrome Current Visit: Yes Status: Suspected (13) Obstructive sleep apnea Current Visit: Yes Status: Suspected Patient is morbidly obese, has reportedly gained 100-150 pounds in the past 5 years. Patient's fiance states that in the course the evening he will often have episodes of apnea preceded by excessive snoring. Patient would benefit from sleep study and potentially BiPAP/CPAP (14) PEA (Pulseless electrical activity) Current Visit: Yes Status: Resolved Patient suffered PEA arrest shortly after admission on 06/21/2016. The code lasted approximately 8 minutes in which time the patient received 31 mg doses of epinephrine prior to return to spontaneous circulation. Concern for anoxic brain injury given time of arrest. Unable to assess at this time as patient remains intubated and sedated. Will assess neurological activity when patient is extubated and often sedation. Subjective Principal diagnosis: Hypercapnic respiratory failure Interval history: Patient seen and examined at bedside. Remains intubated and sedated. No events noted overnight. He is not requiring vasopressor support. Vital signs stable at this time. Objective PUL Vital signs: Last Vital Signs Temp 99.2 F 06/25/16 05:03 Pulse 110 06/25/16 06:00 Resp 16 06/25/16 06:00 BP 124/87 06/25/16 06:00 Pulse Ox 95 06/25/16 06:00 General appearance: other (Intubated and sedated) Eyes: injected ENT: oropharynx dry Neck: no lymphadenopathy Auscultation: bilateral: rhonchi Cardiovascular: irregular rhythm Gastrointestinal: normoactive bowel sounds Integumentary: other (Abdominal abrasion) Extremities: pink and warm, edema Ventilator Settings Ventilator Settings: Ventilator Settings, Last 8 Hours Ventilator Mode A/C Ventilator Mode A/C Ventilator Mode A/C Ventilator Mode VC+ Ventilator Mode VC+ Ventilator Mode VC+ Ventilator Mode VC+ Ventilator Mode VC+ Ventilator Mode VC+ Ventilator Mode VC+ Ventilator Tidal Volume 500 Setting Ventilator Tidal Volume 500 Setting Ventilator Tidal Volume 500 Setting Ventilator Tidal Volume 500 Setting Ventilator Tidal Volume 500 Setting Ventilator Tidal Volume 500 Setting Ventilator Tidal Volume 500 Setting Ventilator Tidal Volume 500 Setting Ventilator Tidal Volume 500 Setting Ventilator Tidal Volume 500 Setting Ventilator Respiratory Rate 16 Setting Ventilator Respiratory Rate 16 Setting Ventilator Respiratory Rate 16 Setting Ventilator Respiratory Rate 16 Setting Ventilator Respiratory Rate 16 Setting Ventilator Respiratory Rate 16 Setting Ventilator Respiratory Rate 16 Setting Ventilator Respiratory Rate 16 Setting Ventilator Respiratory Rate 16 Setting Ventilator Respiratory Rate 16 Setting Actual Respiratory Rate 16 Actual Respiratory Rate 16 Actual Respiratory Rate 16 Actual Respiratory Rate 16 Actual Respiratory Rate 17 Actual Respiratory Rate 17 Actual Respiratory Rate 16 Actual Respiratory Rate 17 Actual Respiratory Rate 16 Positive End Expiratory 8 Pressure Positive End Expiratory 8 Pressure Positive End Expiratory 8 Pressure Positive End Expiratory 8 Pressure Positive End Expiratory 8 Pressure Positive End Expiratory 8 Pressure Positive End Expiratory 8 Pressure Positive End Expiratory 8 Pressure Positive End Expiratory 8 Pressure Positive End Expiratory 8 Pressure Peak Inspiratory Airway 34 Pressure Peak Inspiratory Airway 32 Pressure Peak Inspiratory Airway 28 Pressure Peak Inspiratory Airway 29 Pressure Peak Inspiratory Airway 31 Pressure Peak Inspiratory Airway 30 Pressure Peak Inspiratory Airway 29 Pressure Peak Inspiratory Airway 25 Pressure Peak Inspiratory Airway 27 Pressure Results - Laboratory Findings CBC and BMP: 06/25/16 02:10 06/25/16 02:10 ABG ABG pH 7.40 pH Units (7.32-7.45) 06/25/16 04:40 ABG pCO2 78 mmHg (35-45) H* 06/25/16 04:40 ABG pO2 68 mmHg (85-104) L 06/25/16 04:40 ABG O2 Saturation 93 % (95-98) L 06/25/16 04:40 PT/INR, D-dimer PT 14.1 Seconds (9.4-12.1) H 06/21/16 18:00 Abnormal lab findings: Abnormal lab results WBC 13.0 K/mcL (4.3-11.1) H 06/25/16 02:10 MCH 27.8 pg (28.0-33.3) L 06/25/16 02:10 MCHC 30.0 g/dL (31.6-35.5) L 06/25/16 02:10 RDW 15.0 % (11.5-14.5) H 06/25/16 02:10 Neutrophils # 10.7 K/mcL (1.6-8.9) H 06/25/16 02:10 Nucleated RBCs/100 WBC 0.1 /100 WBC (0) H 06/24/16 04:32 Immature Plt Fraction 8.4 % (1.1-6.1) H 06/22/16 03:15 PT 14.1 Seconds (9.4-12.1) H 06/21/16 18:00 APTT 73.1 Seconds (26.0-36.0) H 06/25/16 02:10 ABG pCO2 78 mmHg (35-45) H* 06/25/16 04:40 ABG pO2 68 mmHg (85-104) L 06/25/16 04:40 ABG HCO3 48.3 mEQ/L (21-27) H 06/25/16 04:40 ABG Total CO2 50.7 mEq/L (20-26) H 06/25/16 04:40 ABG O2 Saturation 93 % (95-98) L 06/25/16 04:40 ABG Base Excess 18.7 mEq/L (-2.0 to 3.0) H 06/25/16 04:40 VBG pH 7.08 pH Units (7.32-7.42) L* 06/21/16 16:31 VBG pCO2 137 mmHg (41-51) H 06/21/16 16:31 VBG pO2 12 mmHg (25-40) L 06/21/16 16:31 VBG HCO3 40.6 mEq/L (21-27) H 06/21/16 16:31 Carboxyhemoglobin 9.1 % (0-5) H 06/21/16 13:21 Chloride 91 mEq/L (98-109) L 06/25/16 02:10 Carbon Dioxide 42 mEq/L (19-29) H* 06/25/16 02:10 BUN 43 mg/dL (8-26) H 06/25/16 02:10 BUN/Creatinine Ratio 37 (6-26) H 06/25/16 02:10 Glucose 149 mg/dL (70-99) H 06/25/16 02:10 POC Glucose 119 (58-89) H 06/24/16 23:34 Calculated Osmolality 304 (280-300) H 06/25/16 02:10 Calcium 7.8 mg/dL (8.6-10.8) L 06/25/16 02:10 Ionized Calcium 1.02 mmol/L (1.15-1.35) L 06/25/16 02:10 ALT 141 Units/L (0-55) H 06/24/16 04:32 Troponin I 0.77 ng/mL (0-0.03) H* 06/22/16 07:00 B-Natriuretic Peptide 917 pg/mL (0-100) H 06/21/16 14:02 Serum Total Protein 5.9 g/dL (6.0-8.3) L 06/24/16 04:32 Albumin 2.4 g/dL (3.5-5.0) L 06/24/16 04:32 Albumin/Globulin Ratio 0.7 (1.1-2.2) L 06/24/16 04:32 - Microbiology Findings Microbiology Findings: Microbiology, Last 48 Hours 06/24/16 09:15 Sputum Culture - Preliminary Sputum Gram Negative Elías 06/24/16 09:05 Legionella Antigen - Final Urine,Catheterized Streptococcus pneumoniae Antigen (M - Final - Clinical Findings Intake & Output: Intake & Output 06/24/16 06/24/16 06/25/16 15:59 23:59 07:59 Intake Total 1385 / 1385 1919 / 1919 997 / 997 Output Total 2450 / 2450 2024 550 / 550 Balance -1065 / -1065 -106 / -106 447 / 447
[2016-06-25] MEDS: FentaNYL (PF) 1,000 MCG in 0.9 % Sodium Chloride 80 ML IVC SCH ×2 (08:00→21:29)
[2016-06-25] MEDS: Chlorhexidine Rinse 15 ML MOUTHWASH MM SCH ×2 (09:46→20:32)
[2016-06-25] MEDS: predniSONE 10 MG TABLET PO SCH (09:47)
[2016-06-25] MEDS: Pantoprazole 40 MG VIAL IVP SCH (09:48)
--- NOTE | 2016-06-25 09:52 | Cardiology Progress Note ---
Date of Encounter: 06/25/16 Time of Encounter: 09:50 Assessment and Plan (1) Acute respiratory failure Current Visit: Yes Status: Acute Hypoxemic, hypercarbic respiratory failure. Remains on ventilator. Noted acute thrombosis in lower extremity veins. Possible PE. Continue heparin per critical care team. Qualifiers: Respiratory failure complication: hypoxia and hypercapnia Qualified Code(s) : J96.01 - Acute respiratory failure with hypoxia; J96.02 - Acute respiratory failure with hypercapnia (2) Elevated troponin Current Visit: Yes Status: Acute Mild troponin elevation in the setting of respiratory failure, PEA, acute kidney injury, and possible PE. Echocardiogram demonstrates preserved LV function. Troponin elevation relatively adynamic. Findings are not suggestive of acute coronary syndrome. Recommend ongoing supportive medical therapy. (3) PEA (Pulseless electrical activity) Current Visit: Yes Status: Resolved PEA arrest in setting of respiratory insufficiency and possible PE. Remains intubated, but has otherwise been hemodynamically stable since admission to ICU. (4) DARION (acute kidney injury) Current Visit: Yes Status: Acute Cr now normal. Given ongoing respiratory failure and LE DVT, consider CT to evaluate for PE. (5) Atrial fibrillation Current Visit: Yes Status: Acute Atrial fibrillation, better rate controlled, but not optimal. BP appears stable. Recommend increaase in Ditliazem to 60 mg 8 hours. Continue heparin drip and transition to PO anticoagulation when acceptable to ICU. No further inpatient cardiology recommendations. Patient will need cardiology followup upon discharge. Please call with questions or concerns. Qualifiers: Atrial fibrillation type: unspecified Qualified Code(s): I48.91 - Unspecified atrial fibrillation (6) Diastolic heart failure Current Visit: Yes Status: Acute Diastolic heart failure. Pleural effusions better, but remains. Recommend resume diuresis if/when necessary to optimize volume/respiratory status. Monitor Cr, urine output, daily weights. Qualifiers: Heart failure chronicity: acute Qualified Code(s): I50.31 - Acute diastolic (congestive) heart failure Discussion w patient/family: The assessment and plan as outlined above was discussed with the patient and/or family members who expressed understanding and agreement. All questions were answered. Thank you for involving us in the care of your patient. Please call with any questions. Subjective Principal diagnosis: Hypercapnic respiratory failure Interval history: Patient seen and examined. Charting, labs reviewed. Remains intubated and sedated. HR 90s-100s. Short acting diltiazem started yesterday. CHADS-VASc (HTN, DM) 2. LE DVT noted - possibility of PE cannot be excluded. Remains on Heparin drip. Objective Vital Signs, Last 4 Hours Temp Pulse Resp BP Pulse Ox 06/25/16 09:00 98.3 F 102 16 112/90 95 06/25/16 08:00 98.3 F 108 16 108/81 96 06/25/16 07:50 98.6 F 16 110/86 95 06/25/16 07:00 98.3 F 108 16 111/62 96 06/25/16 06:00 110 16 124/87 95 General: Conversant, No Apparent Distress HEENT: Atraumatic, Normocephaly, Mucus Membranes Moist Neck: No JVD, Normal carotid pulses Cardiac: Other (Distant, irregular rate and rhythm. ) Lungs: Other (Rhonchi noted diffusely. ) Neuro: Other (Sedated and intubated. ) Abdomen: Soft, Non-Tender Skin: No rashes noted on visualized skin Musculoskeletal: No Chest Wall Tenderness Extremities: No Clubbing, No Cyanosis, No Edema Results 06/25/16 02:10 06/25/16 02:10 Lab Results 06/24/16 06/25/16 06/25/16 14:00 02:10 02:10 WBC Hgb Hct Plt Count APTT 73.1 H Sodium 140 Potassium 4.1 Chloride 91 L Carbon Dioxide 39 H BUN 43 H Creatinine 1.22 Glucose 207 H Calcium 7.7 L Magnesium 2.1 2.0 06/25/16 06/25/16 02:10 02:10 WBC 13.0 H Hgb 13.4 Hct 44.6 Plt Count 174 APTT Sodium 140 Potassium 4.1 Chloride 91 L Carbon Dioxide 42 H* BUN 43 H Creatinine 1.17 Glucose 149 H Calcium 7.8 L Magnesium - Imaging and Cardiology Chest Xray: report reviewed Echo: report reviewed - EKG Interpretation EKG results cardiology: personally reviewed Consult Discharge Plan - Plan Referrals: Sumit Hidalgo DO [Partnered Physician] - 07/06/16 12:15 pm (cardiac arrest 06/21, hospital follow up) Ruiz Dumont MD [Primary Care Provider] -
[2016-06-25] MEDS ORDERED: Furosemide 40 MG/4 ML VIAL IVP ONE (10:49)
[2016-06-25] MEDS: Heparin 25,000 UNIT/500 ML D5W 25,000 UNIT/500 ML MLS IVC SCH (11:24)
[2016-06-25] MEDS: dilTIAZem HCl 60 MG TABLET PO SCH ×2 (16:09→22:50)
[2016-06-25 16:27] LABS: BUN/Creatinine Ratio 37 (6-26); Blood Urea Nitrogen 41 mg/dL (8-26); Calcium 7.8 mg/dL (8.6-10.8); Chloride 92 mEq/L (98-109); Glucose 171 mg/dL (70-99); Osmolality,Calculated 306 (280-300); Potassium 4.4 mEq/L (3.5-4.5); Sodium 141 mEq/L (136-145); eGFR For African Americans > 60 (> 60); eGFR For Non-African Americans > 60 (> 60)
[2016-06-25 16:37] LABS: Carbon Dioxide 41 mEq/L (19-29)
[2016-06-25] MEDS: Sennosides 8.6 MG TABLET PO SCH (20:32)
[2016-06-26] MEDS: Lacri-Lube 3.5 GM TUBE BOTH EYES SCH ×7 (00:34→23:44)
[2016-06-26] MEDS: Heparin 25,000 UNIT/500 ML D5W 25,000 UNIT/500 ML MLS IVC SCH ×2 (00:35→14:56)
[2016-06-26] MEDS: Insulin LISPRO 300 UNITS/3 ML VIAL SQ SCH ×6 (00:35→20:35)
[2016-06-26] MEDS: Dexmedetomidine HCl 400 MCG/100 ML MLS IVC SCH ×5 (03:11→20:33)
[2016-06-26 04:25] LABS: ABG HCO3 45.1 mEQ/L (21-27); ABG Oxygen Saturation 89 % (95-98); ABG PCO2 68 mmHg (35-45); ABG PH 7.43 pH Units (7.32-7.45); ABG PO2 55 mmHg (85-104); ABG TCO2 47.2 mEq/L (20-26)
[2016-06-26 04:26] LABS: Blood Gas FiO2 60 %
[2016-06-26] MEDS: Ipratropium/Albuterol Neb 3 ML IH SCH ×6 (04:27→23:43)
[2016-06-26 04:53] LABS: Eosinophils % 0.2 %; Hematocrit 44.1 % (37.5-50.1); Hemoglobin 12.9 g/dL (12.9-16.9); Immature Granulocytes % 0.4 % (0-4); Lymphocytes # 1.8 K/mcL (0.6-4.6); Lymphocytes % 16.4 %; Mean Corpuscular HGB Conc 29.3 g/dL (31.6-35.5); Mean Corpuscular Hemoglobin 27.2 pg (28.0-33.3); Mean Corpuscular Volume 92.8 fL (83.0-100.0); Mean Platelet Volume 10.9 fL (9.4-12.4); Monocytes # 1.2 K/mcL (0.0-1.3); Monocytes % 11.1 %; Platelet Count 161 K/mcL (140-400); Red Blood Count 4.75 M/mcL (4.19-5.50); Segmented Neutrophils % 71.9 %
[2016-06-26 05:01] LABS: BUN/Creatinine Ratio 37 (6-26); Blood Urea Nitrogen 40 mg/dL (8-26); Carbon Dioxide 37 mEq/L (19-29); Chloride 95 mEq/L (98-109); Potassium 4.2 mEq/L (3.5-4.5); Sodium 140 mEq/L (136-145); eGFR For African Americans > 60 (> 60)
[2016-06-26 05:02] LABS: Calcium 7.8 mg/dL (8.6-10.8); Glucose 111 mg/dL (70-99); Osmolality,Calculated 300 (280-300); eGFR For Non-African Americans > 60 (> 60)
[2016-06-26] MEDS: Calcium Gluconate 1,000 MG in D5% in Water 100 ML IVPB PRN (05:39)
--- NOTE | 2016-06-26 07:19 | Pulmonology Progress Note ---
<[facility] - Last Filed: 06/26/16 10:42> Objective PUL Vital signs: Last Vital Signs Temp 99.5 F 06/26/16 07:56 Pulse 108 06/26/16 09:00 Resp 18 06/26/16 09:00 BP 107/76 06/26/16 09:00 Pulse Ox 90 L 06/26/16 09:00 Ventilator Settings Ventilator Settings: Ventilator Settings, Last 8 Hours Ventilator Mode VC+ Ventilator Mode VC+ Ventilator Mode VC+ Ventilator Mode VC+ Ventilator Mode VC+ Ventilator Mode VC+ Ventilator Mode VC+ Ventilator Mode VC+ Ventilator Mode VC+ Ventilator Mode VC+ Ventilator Tidal Volume 500 Setting Ventilator Tidal Volume 500 Setting Ventilator Tidal Volume 500 Setting Ventilator Tidal Volume 500 Setting Ventilator Tidal Volume 500 Setting Ventilator Tidal Volume 500 Setting Ventilator Tidal Volume 500 Setting Ventilator Tidal Volume 500 Setting Ventilator Tidal Volume 500 Setting Ventilator Tidal Volume 500 Setting Ventilator Respiratory Rate 18 Setting Ventilator Respiratory Rate 18 Setting Ventilator Respiratory Rate 18 Setting Ventilator Respiratory Rate 18 Setting Ventilator Respiratory Rate 18 Setting Ventilator Respiratory Rate 18 Setting Ventilator Respiratory Rate 18 Setting Ventilator Respiratory Rate 18 Setting Ventilator Respiratory Rate 18 Setting Ventilator Respiratory Rate 18 Setting Actual Respiratory Rate 18 Actual Respiratory Rate 18 Actual Respiratory Rate 18 Actual Respiratory Rate 20 Positive End Expiratory 10 Pressure Positive End Expiratory 10 Pressure Positive End Expiratory 10 Pressure Positive End Expiratory 8 Pressure Positive End Expiratory 8 Pressure Positive End Expiratory 8 Pressure Positive End Expiratory 8 Pressure Positive End Expiratory 8 Pressure Positive End Expiratory 8 Pressure Positive End Expiratory 8 Pressure Peak Inspiratory Airway 26 Pressure Results - Laboratory Findings CBC and BMP: 06/26/16 04:14 06/26/16 04:14 ABG ABG pH 7.43 pH Units (7.32-7.45) 06/26/16 04:11 ABG pCO2 68 mmHg (35-45) H 06/26/16 04:11 ABG pO2 55 mmHg (85-104) L 06/26/16 04:11 ABG O2 Saturation 89 % (95-98) L 06/26/16 04:11 PT/INR, D-dimer PT 14.1 Seconds (9.4-12.1) H 06/21/16 18:00 Abnormal lab findings: Abnormal lab results MCH 27.2 pg (28.0-33.3) L 06/26/16 04:14 MCHC 29.3 g/dL (31.6-35.5) L 06/26/16 04:14 RDW 15.0 % (11.5-14.5) H 06/26/16 04:14 Nucleated RBCs/100 WBC 0.1 /100 WBC (0) H 06/24/16 04:32 Immature Plt Fraction 8.4 % (1.1-6.1) H 06/22/16 03:15 PT 14.1 Seconds (9.4-12.1) H 06/21/16 18:00 APTT 75.4 Seconds (26.0-36.0) H 06/26/16 04:14 ABG pCO2 68 mmHg (35-45) H 06/26/16 04:11 ABG pO2 55 mmHg (85-104) L 06/26/16 04:11 ABG HCO3 45.1 mEQ/L (21-27) H 06/26/16 04:11 ABG Total CO2 47.2 mEq/L (20-26) H 06/26/16 04:11 ABG O2 Saturation 89 % (95-98) L 06/26/16 04:11 ABG Base Excess 17.0 mEq/L (-2.0 to 3.0) H 06/26/16 04:11 VBG pH 7.08 pH Units (7.32-7.42) L* 06/21/16 16:31 VBG pCO2 137 mmHg (41-51) H 06/21/16 16:31 VBG pO2 12 mmHg (25-40) L 06/21/16 16:31 VBG HCO3 40.6 mEq/L (21-27) H 06/21/16 16:31 Carboxyhemoglobin 9.1 % (0-5) H 06/21/16 13:21 Chloride 95 mEq/L (98-109) L 06/26/16 04:14 Carbon Dioxide 37 mEq/L (19-29) H 06/26/16 04:14 BUN 40 mg/dL (8-26) H 06/26/16 04:14 BUN/Creatinine Ratio 37 (6-26) H 06/26/16 04:14 Glucose 111 mg/dL (70-99) H 06/26/16 04:14 POC Glucose 125 (58-89) H 06/26/16 00:20 Calcium 7.8 mg/dL (8.6-10.8) L 06/26/16 04:14 Ionized Calcium 1.06 mmol/L (1.15-1.35) L 06/26/16 04:14 ALT 141 Units/L (0-55) H 06/24/16 04:32 Troponin I 0.77 ng/mL (0-0.03) H* 06/22/16 07:00 B-Natriuretic Peptide 917 pg/mL (0-100) H 06/21/16 14:02 Serum Total Protein 5.9 g/dL (6.0-8.3) L 06/24/16 04:32 Albumin 2.4 g/dL (3.5-5.0) L 06/24/16 04:32 Albumin/Globulin Ratio 0.7 (1.1-2.2) L 06/24/16 04:32 - Microbiology Findings Microbiology Findings: Microbiology, Last 48 Hours 06/24/16 09:15 Sputum Culture - Preliminary Sputum Gram Negative Elías 06/24/16 09:05 Legionella Antigen - Final Urine,Catheterized Streptococcus pneumoniae Antigen (M - Final - Clinical Findings Intake & Output: Intake & Output 06/25/16 06/26/16 06/26/16 23:59 07:59 15:59 Intake Total 1038 / 1038 1569 / 1569 Output Total 3350 / 3350 2600 / 2600 Balance -2312 / -2312 -1031 / -1031 Weight 168.328 kg Consult Discharge Plan - Plan Referrals: Sumit Hidalgo DO [Partnered Physician] - 07/06/16 12:15 pm (cardiac arrest 06/21, hospital follow up) Ruiz Dumont MD [Primary Care Provider] - - Attending Attestation I examined this patient and my medical decision-making was reviewed with the [employer] INSURANCE AGENT/PA/Advanced Practice Nurse/Resident Physician. I agree with the documented findings, disposition and treatment plan as described except to the extent set forth below. Patient seen and examined at bedside Labs, radiology, chart personally reviewed. All lines examined without evidence of infection. Neuropsych: intubated sedated. Cont Daily sedation holiday. Goal RASS (-2) Pulm: Acute on chronic Hypoxic Hypercapnic Respiratory failure. IMproved ventilation overnight. Given 2/3 doses of diamox for worsening metabolic alkalosis. COnt diuresis for Pulm edema, COPD-bronchoddilators steroids and Abx for PNA. High Prob for PE. Cards. s/p ACLS (brief PEA Arrest) with spontaneous mvt NSTEMI (mild) likely demand. Afib rate controlled today. cont Diuresis. Cont Cardizem. FEN-GI: GI prophylaxis. Cont Enteral Feedings and Bowel regimen Renal: Stable Creatinine stable overnight cont to trend electrolytes with diuresis ID: PNA with GNRs in Sputum ON abx stop switch to PIP tazo from ceftriaxone. Heme/Onc: LE DVT + with likely PE cont therapeutic dosed heparin. H/H and plts Stable. Endo: Endo glucose monitored Integ/MSK: Skin care per ICU protocol CODE: Full code family Girlfriend updated at bedside <Srini Kelley - Last Filed: 06/26/16 12:47> Date of Encounter: 06/26/16 Time of Encounter: 07:19 Assessment and Plan (1) Hypercapnic respiratory failure Current Visit: Yes Status: Acute Patient remains sedated, intubated, mechanically ventilated. No pressors necessary at this time. Patient's fiance reports worsening dyspnea for 3 weeks, likely multifactorial from undiagnosed COPD, undiagnosed obesity hypoventilation syndrome, possible community acquired pneumonia, and undiagnosed obstructive sleep apnea causing right-sided heart failure (undiagnosed). Also concern for pulmonary embolism. Lower extremity Doppler positive for acute thrombosis and left popliteal and left peroneal vein. Right lower extremity was negative. At admission was severely hypoxic with a pH of 7.08 with improvement seen following mechanical ventilation. He has continued mixed respiratory acidosis with metabolic alkalosis. He is still requiring high levels of PEEP to maintain oxygenation. CXR shows continued b/l pleural effusions. Sputum cx positive for gram negative rods. Will switch from Rocephin to Zosyn. Plan: -Continue intubation and sedation with propofol and fentanyl. Maintain oxygen saturation above 88% -Increase minute ventilation -Wean FI02 as tolerated -Respiratory virus panel: negative, urinary antigens: negative -sputum cx: gram negative rods -blood cultures pending -maintain map above 60, Levaphed for pressure support if necessary, no pressor agents currently -antibiotics: Zosyn (day 1), has already received 5 days of Rocephin and 4 days of zithromax -Duonebs every 4 hours scheduled -PO prednisone -cardiology is following and appreciate recommendations for continued management and care -Continue heparin drip and gentle diuresis with Lasix 40 mg once a day. -Monitor I/O, UOP, Daily weight -daily ABG's, CBC CMP Qualifiers: Chronicity: unspecified Qualified Code(s): J96.92 - Respiratory failure, unspecified with hypercapnia (2) DVT (deep venous thrombosis) Current Visit: Yes Status: Acute LE Doppler: lower extremity abnormal deep exam: left popliteal vein and left peroneal vein demonstrate acute thrombosis. RT leg negative for acute thrombus. Continue Heparin gtt Qualifiers: DVT location: lower extremity Affected thrombotic vein of extremity: popliteal Laterality: left Chronicity: unspecified Qualified Code(s): I82.432 - Acute embolism and thrombosis of left popliteal vein (3) Atrial fibrillation with RVR Current Visit: Yes Status: Acute Pt. went into Afib with RVR on 06/22/2016. He remains in Afib currently. Amiodarone drip was instituted with a BB PRN for tachycardia. Patient was transitioned to PO diltiazem and amiodarone has been discontinued. This change is per cardiology. Appreciate your recommendations. [id number]: 2 moderate-high risk and should be a long-term anticoagulation candidate. PO diltiazem increased to 60mg q8 per cardiology continue heparin gtt (4) NSTEMI (non-ST elevated myocardial infarction) Current Visit: Yes Status: Acute Initial troponin of 0.13. Peak of 0.95. EKG did not show any significant changes. Heparin gtt was instituted for ACS. Likely type II NSTEMI due to demand ischemia. Cardiology was consulted appreciate their recommendations no interventions at this time from cardiology (5) Elevated troponin Current Visit: Yes Status: Acute Troponin elevations likely due to patient breathing status, PEA arrest, cor pulmonale. Unlikely ACS at this time. Heparin gtt was initially instituted for conern of ACS. LE doppler positive for LLE DVT. Will continue heparin gtt for DVT. (6) Respiratory acidosis Current Visit: Yes Status: Acute Currently intubated and sedated. Ventilator settings adjusted as needed to reduce respiratory acidosis (7) DARION (acute kidney injury) Current Visit: Yes Status: Acute Patient has elevated serum creatinine and decreased estimated GFR that has been steadily worsening since admission. Originally serum creatinine was 1.25. Today, 06/24/2016, serum creatinine is back down to 1.3. Patient requires continued diuresis as he is edematous and echocardiography, cxr w/ bibasilar edema, and elevated BNP suspicious for heart failure. Continue to monitor patient kidney status closely with continued diuresis Lasix decreased to 40 mg once a day. 06/25/16: Scr 1.17. Continue diuresis with lasix. Add Acetazolamide. 06/26/16: Scr 1.10. Continue Diureses. Goal -1.5 L out (8) Acute heart failure Current Visit: Yes Status: Suspected Patient has bilateral lower extremity edema initial BNP of 917 Echo: EF 55%, Atypical septal motion of unclear significance, indeterminate diastolic dysfunction, dilated RV, no valvular dysfunction, unable to estimate RVSP. Cardiology on board. No interventions at this time. Diurese with Lasix Qualifiers: Heart failure type: unspecified heart failure type Qualified Code(s): I50.9 - Heart failure, unspecified (9) Morbid obesity Current Visit: Yes Status: Chronic Qualifiers: Obesity type: due to excess calories Qualified Code(s): E66.01 - Morbid ( severe) obesity due to excess calories (10) Smoking history Current Visit: Yes Status: Chronic Profamily he has been smoking since he is 19 years old 3 to 4 packs per day (11) Cor pulmonale (chronic) Current Visit: Yes Status: Chronic Cardiology is following. Echocardiogram was performed that showed preserved ejection fraction 55%, atypical supple wall motion of unclear significance, and indeterminate diastolic function. Dilated right ventricle with normal function. No JVD. (12) Obesity hypoventilation syndrome Current Visit: Yes Status: Suspected (13) Obstructive sleep apnea Current Visit: Yes Status: Suspected Patient is morbidly obese, has reportedly gained 100-150 pounds in the past 5 years. Patient's fiance states that in the course the evening he will often have episodes of apnea preceded by excessive snoring. Patient would benefit from sleep study and potentially BiPAP/CPAP (14) PEA (Pulseless electrical activity) Current Visit: Yes Status: Resolved Patient suffered PEA arrest shortly after admission on 06/21/2016. The code lasted approximately 8 minutes in which time the patient received 31 mg doses of epinephrine prior to return to spontaneous circulation. Concern for anoxic brain injury given time of arrest. Unable to assess at this time as patient remains intubated and sedated. Will assess neurological activity when patient is extubated and often sedation. Subjective Principal diagnosis: Hypercapnic respiratory failure Interval history: Patient seen and examined at bedside. Remains intubated and sedated. No events noted overnight. He is not requiring vasopressor support. Vital signs stable at this time. Objective PUL Vital signs: Last Vital Signs Temp 99.3 F 06/26/16 04:48 Pulse 100 06/26/16 06:00 Resp 18 06/26/16 06:00 BP 111/86 06/26/16 06:00 Pulse Ox 90 L 06/26/16 06:00 General appearance: other (Intubated and sedated) Eyes: injected ENT: oropharynx dry Neck: no lymphadenopathy Auscultation: bilateral: rhonchi Cardiovascular: irregular rhythm Gastrointestinal: normoactive bowel sounds Integumentary: other (Abdominal abrasion) Extremities: pink and warm, edema Ventilator Settings Ventilator Settings: Ventilator Settings, Last 8 Hours Ventilator Mode VC+ Ventilator Mode VC+ Ventilator Mode VC+ Ventilator Mode VC+ Ventilator Mode VC+ Ventilator Mode VC+ Ventilator Mode VC+ Ventilator Mode VC+ Ventilator Mode VC+ Ventilator Mode VC+ Ventilator Tidal Volume 500 Setting Ventilator Tidal Volume 500 Setting Ventilator Tidal Volume 500 Setting Ventilator Tidal Volume 500 Setting Ventilator Tidal Volume 500 Setting Ventilator Tidal Volume 500 Setting Ventilator Tidal Volume 500 Setting Ventilator Tidal Volume 500 Setting Ventilator Tidal Volume 500 Setting Ventilator Tidal Volume 500 Setting Ventilator Respiratory Rate 18 Setting Ventilator Respiratory Rate 18 Setting Ventilator Respiratory Rate 18 Setting Ventilator Respiratory Rate 18 Setting Ventilator Respiratory Rate 18 Setting Ventilator Respiratory Rate 18 Setting Ventilator Respiratory Rate 18 Setting Ventilator Respiratory Rate 18 Setting Ventilator Respiratory Rate 18 Setting Ventilator Respiratory Rate 18 Setting Actual Respiratory Rate 20 Actual Respiratory Rate 19 Positive End Expiratory 8 Pressure Positive End Expiratory 8 Pressure Positive End Expiratory 8 Pressure Positive End Expiratory 8 Pressure Positive End Expiratory 8 Pressure Positive End Expiratory 8 Pressure Positive End Expiratory 8 Pressure Positive End Expiratory 8 Pressure Positive End Expiratory 8 Pressure Positive End Expiratory 8 Pressure Peak Inspiratory Airway 26 Pressure Peak Inspiratory Airway 26 Pressure Results - Laboratory Findings CBC and BMP: 06/26/16 04:14 06/26/16 04:14 ABG ABG pH 7.43 pH Units (7.32-7.45) 06/26/16 04:11 ABG pCO2 68 mmHg (35-45) H 06/26/16 04:11 ABG pO2 55 mmHg (85-104) L 06/26/16 04:11 ABG O2 Saturation 89 % (95-98) L 06/26/16 04:11 PT/INR, D-dimer PT 14.1 Seconds (9.4-12.1) H 06/21/16 18:00 Abnormal lab findings: Abnormal lab results MCH 27.2 pg (28.0-33.3) L 06/26/16 04:14 MCHC 29.3 g/dL (31.6-35.5) L 06/26/16 04:14 RDW 15.0 % (11.5-14.5) H 06/26/16 04:14 Nucleated RBCs/100 WBC 0.1 /100 WBC (0) H 06/24/16 04:32 Immature Plt Fraction 8.4 % (1.1-6.1) H 06/22/16 03:15 PT 14.1 Seconds (9.4-12.1) H 06/21/16 18:00 APTT 75.4 Seconds (26.0-36.0) H 06/26/16 04:14 ABG pCO2 68 mmHg (35-45) H 06/26/16 04:11 ABG pO2 55 mmHg (85-104) L 06/26/16 04:11 ABG HCO3 45.1 mEQ/L (21-27) H 06/26/16 04:11 ABG Total CO2 47.2 mEq/L (20-26) H 06/26/16 04:11 ABG O2 Saturation 89 % (95-98) L 06/26/16 04:11 ABG Base Excess 17.0 mEq/L (-2.0 to 3.0) H 06/26/16 04:11 VBG pH 7.08 pH Units (7.32-7.42) L* 06/21/16 16:31 VBG pCO2 137 mmHg (41-51) H 06/21/16 16:31 VBG pO2 12 mmHg (25-40) L 06/21/16 16:31 VBG HCO3 40.6 mEq/L (21-27) H 06/21/16 16:31 Carboxyhemoglobin 9.1 % (0-5) H 06/21/16 13:21 Chloride 95 mEq/L (98-109) L 06/26/16 04:14 Carbon Dioxide 37 mEq/L (19-29) H 06/26/16 04:14 BUN 40 mg/dL (8-26) H 06/26/16 04:14 BUN/Creatinine Ratio 37 (6-26) H 06/26/16 04:14 Glucose 111 mg/dL (70-99) H 06/26/16 04:14 POC Glucose 125 (58-89) H 06/26/16 00:20 Calcium 7.8 mg/dL (8.6-10.8) L 06/26/16 04:14 Ionized Calcium 1.06 mmol/L (1.15-1.35) L 06/26/16 04:14 ALT 141 Units/L (0-55) H 06/24/16 04:32 Troponin I 0.77 ng/mL (0-0.03) H* 06/22/16 07:00 B-Natriuretic Peptide 917 pg/mL (0-100) H 06/21/16 14:02 Serum Total Protein 5.9 g/dL (6.0-8.3) L 06/24/16 04:32 Albumin 2.4 g/dL (3.5-5.0) L 06/24/16 04:32 Albumin/Globulin Ratio 0.7 (1.1-2.2) L 06/24/16 04:32 - Microbiology Findings Microbiology Findings: Microbiology, Last 48 Hours 06/24/16 09:15 Sputum Culture - Preliminary Sputum Gram Negative Elías 06/24/16 09:05 Legionella Antigen - Final Urine,Catheterized Streptococcus pneumoniae Antigen (M - Final - Clinical Findings Intake & Output: Intake & Output 06/25/16 06/25/16 06/26/16 15:59 23:59 07:59 Intake Total 1712 / 1712 1038 / 1038 1569 / 1569 Output Total 2850 / 2850 3350 / 3350 1900 / 1900 Balance -1138 / -1138 -2312 / -2312 -331 / -331 Weight 168.328 kg
[2016-06-26] MEDS: Chlorhexidine Rinse 15 ML MOUTHWASH MM SCH ×2 (09:00→20:35)
[2016-06-26] MEDS: predniSONE 10 MG TABLET PO SCH (09:00)
[2016-06-26] MEDS: dilTIAZem HCl 60 MG TABLET PO SCH ×3 (09:00→23:43)
[2016-06-26] MEDS: Pantoprazole 40 MG VIAL IVP SCH (09:00)
[2016-06-26] MEDS: Furosemide 40 MG/4 ML VIAL IVP SCH ×2 (11:42→20:34)
[2016-06-26] MEDS: MethylPREDNISolone 40 MG/ML VIAL IVP SCH (15:01)
[2016-06-26] MEDS: Vancomycin 2,000 MG in D5% in Water 500 ML IVPB SCH (15:31)
[2016-06-26] MEDS: FentaNYL (PF) 1,000 MCG in 0.9 % Sodium Chloride 80 ML IVC SCH ×2 (15:40→20:34)
[2016-06-26] MEDS: Piperacillin/Tazobactam 3.375 GM in D5% in Water (Mini-Bag+) 100 ML IVPB SCH ×2 (17:39→23:43)
[2016-06-26] MEDS: Sennosides 8.6 MG TABLET PO SCH (20:34)
[2016-06-27] MEDS: Insulin LISPRO 300 UNITS/3 ML VIAL SQ SCH ×6 (02:05→21:35)
[2016-06-27] MEDS: MethylPREDNISolone 40 MG/ML VIAL IVP SCH ×2 (02:06→16:19)
[2016-06-27] MEDS: Dexmedetomidine HCl 400 MCG/100 ML MLS IVC SCH ×3 (02:07→22:24)
[2016-06-27] MEDS: Vancomycin 2,000 MG in D5% in Water 500 ML IVPB SCH (02:18)
[2016-06-27] MEDS: Ipratropium/Albuterol Neb 3 ML IH SCH ×6 (03:48→23:52)
[2016-06-27 04:08] LABS: Basophils % 0.1 %; Lymphocytes # 0.5 K/mcL (0.6-4.6); Lymphocytes % 4.8 %; Mean Corpuscular HGB Conc 30.2 g/dL (31.6-35.5); Mean Corpuscular Volume 92.7 fL (83.0-100.0); Mean Platelet Volume 11.5 fL (9.4-12.4); Monocytes # 0.6 K/mcL (0.0-1.3); Monocytes % 5.9 %; Neutrophils # 9.2 K/mcL (1.6-8.9); Platelet Count 157 K/mcL (140-400); Red Blood Count 4.64 M/mcL (4.19-5.50); Red Cell Distribution Width 14.6 % (11.5-14.5); Segmented Neutrophils % 88.2 %
[2016-06-27 04:16] LABS: BUN/Creatinine Ratio 39 (6-26); Blood Urea Nitrogen 42 mg/dL (8-26); Calcium 7.8 mg/dL (8.6-10.8); Carbon Dioxide 34 mEq/L (19-29); Chloride 94 mEq/L (98-109); Glucose 186 mg/dL (70-99); Magnesium 1.9 mg/dL (1.6-2.6); Osmolality,Calculated 299 (280-300); Potassium 4.8 mEq/L (3.5-4.5); Sodium 137 mEq/L (136-145); eGFR For African Americans > 60 (> 60); eGFR For Non-African Americans > 60 (> 60)
[2016-06-27] MEDS: Heparin 25,000 UNIT/500 ML D5W 25,000 UNIT/500 ML MLS IVC SCH ×2 (04:49→19:15)
[2016-06-27] MEDS: Magnesium Sulfate 2 GM in D5% in Water 100 ML IVPB PRN (05:05)
[2016-06-27] MEDS: Calcium Gluconate 1,000 MG in D5% in Water 100 ML IVPB PRN (05:05)
[2016-06-27] MEDS: Lacri-Lube 3.5 GM TUBE BOTH EYES SCH ×5 (05:18→21:43)
[2016-06-27 06:24] LABS: ABG Base Excess 13.2 mEq/L (-2.0 to 3.0); ABG HCO3 42.2 mEQ/L (21-27); ABG Oxygen Saturation 90 % (95-98); ABG PH 7.37 pH Units (7.32-7.45); ABG PO2 61 mmHg (85-104); ABG TCO2 44.4 mEq/L (20-26)
[2016-06-27 06:26] LABS: ABG PCO2 73 mmHg (35-45); Blood Gas FiO2 60 %
--- NOTE | 2016-06-27 07:18 | Pulmonology Progress Note ---
<[facility] - Last Filed: 06/27/16 10:48> Objective PUL Vital signs: Last Vital Signs Temp 97.8 F 06/27/16 04:54 Pulse 94 06/27/16 10:34 Resp 21 06/27/16 10:34 BP 82/64 06/27/16 10:34 Pulse Ox 88 L 06/27/16 10:34 Ventilator Settings Ventilator Settings: Ventilator Settings, Last 8 Hours Ventilator Mode VC+ Ventilator Mode VC+ Ventilator Mode VC+ Ventilator Mode VC+ Ventilator Mode VC+ Ventilator Mode VC+ Ventilator Mode VC+ Ventilator Mode A/C Ventilator Tidal Volume 500 Setting Ventilator Tidal Volume 500 Setting Ventilator Tidal Volume 500 Setting Ventilator Tidal Volume 500 Setting Ventilator Tidal Volume 500 Setting Ventilator Tidal Volume 500 Setting Ventilator Tidal Volume 500 Setting Ventilator Tidal Volume 500 Setting Ventilator Respiratory Rate 18 Setting Ventilator Respiratory Rate 18 Setting Ventilator Respiratory Rate 18 Setting Ventilator Respiratory Rate 18 Setting Ventilator Respiratory Rate 18 Setting Ventilator Respiratory Rate 18 Setting Ventilator Respiratory Rate 18 Setting Ventilator Respiratory Rate 18 Setting Actual Respiratory Rate 19 Actual Respiratory Rate 18 Actual Respiratory Rate 18 Actual Respiratory Rate 18 Actual Respiratory Rate 18 Actual Respiratory Rate 18 Actual Respiratory Rate 18 Positive End Expiratory 10 Pressure Positive End Expiratory 10 Pressure Positive End Expiratory 10 Pressure Positive End Expiratory 10 Pressure Positive End Expiratory 10 Pressure Positive End Expiratory 10 Pressure Positive End Expiratory 10 Pressure Positive End Expiratory 10 Pressure Peak Inspiratory Airway 25 Pressure Peak Inspiratory Airway 25 Pressure Peak Inspiratory Airway 29 Pressure Peak Inspiratory Airway 29 Pressure Peak Inspiratory Airway 29 Pressure Peak Inspiratory Airway 29 Pressure Peak Inspiratory Airway 28 Pressure Results - Laboratory Findings CBC and BMP: 06/27/16 03:30 06/27/16 03:30 ABG ABG pH 7.37 pH Units (7.32-7.45) 06/27/16 06:17 ABG pCO2 73 mmHg (35-45) H* 06/27/16 06:17 ABG pO2 61 mmHg (85-104) L 06/27/16 06:17 ABG O2 Saturation 90 % (95-98) L 06/27/16 06:17 PT/INR, D-dimer PT 14.1 Seconds (9.4-12.1) H 06/21/16 18:00 Abnormal lab findings: Abnormal lab results MCHC 30.2 g/dL (31.6-35.5) L 06/27/16 03:30 RDW 14.6 % (11.5-14.5) H 06/27/16 03:30 Neutrophils # 9.2 K/mcL (1.6-8.9) H 06/27/16 03:30 Lymphocytes # 0.5 K/mcL (0.6-4.6) L 06/27/16 03:30 Nucleated RBCs/100 WBC 0.1 /100 WBC (0) H 06/24/16 04:32 Immature Plt Fraction 8.4 % (1.1-6.1) H 06/22/16 03:15 PT 14.1 Seconds (9.4-12.1) H 06/21/16 18:00 APTT 70.7 Seconds (26.0-36.0) H 06/27/16 03:30 ABG pCO2 73 mmHg (35-45) H* 06/27/16 06:17 ABG pO2 61 mmHg (85-104) L 06/27/16 06:17 ABG HCO3 42.2 mEQ/L (21-27) H 06/27/16 06:17 ABG Total CO2 44.4 mEq/L (20-26) H 06/27/16 06:17 ABG O2 Saturation 90 % (95-98) L 06/27/16 06:17 ABG Base Excess 13.2 mEq/L (-2.0 to 3.0) H 06/27/16 06:17 VBG pH 7.08 pH Units (7.32-7.42) L* 06/21/16 16:31 VBG pCO2 137 mmHg (41-51) H 06/21/16 16:31 VBG pO2 12 mmHg (25-40) L 06/21/16 16:31 VBG HCO3 40.6 mEq/L (21-27) H 06/21/16 16:31 Carboxyhemoglobin 9.1 % (0-5) H 06/21/16 13:21 Potassium 4.8 mEq/L (3.5-4.5) H 06/27/16 03:30 Chloride 94 mEq/L (98-109) L 06/27/16 03:30 Carbon Dioxide 34 mEq/L (19-29) H 06/27/16 03:30 BUN 42 mg/dL (8-26) H 06/27/16 03:30 BUN/Creatinine Ratio 39 (6-26) H 06/27/16 03:30 Glucose 186 mg/dL (70-99) H 06/27/16 03:30 POC Glucose 156 (58-89) H 06/27/16 00:02 Calcium 7.8 mg/dL (8.6-10.8) L 06/27/16 03:30 Ionized Calcium 1.07 mmol/L (1.15-1.35) L 06/27/16 04:50 ALT 141 Units/L (0-55) H 06/24/16 04:32 Troponin I 0.77 ng/mL (0-0.03) H* 06/22/16 07:00 B-Natriuretic Peptide 917 pg/mL (0-100) H 06/21/16 14:02 Serum Total Protein 5.9 g/dL (6.0-8.3) L 06/24/16 04:32 Albumin 2.4 g/dL (3.5-5.0) L 06/24/16 04:32 Albumin/Globulin Ratio 0.7 (1.1-2.2) L 06/24/16 04:32 - Microbiology Findings Microbiology Findings: Microbiology, Last 48 Hours 06/24/16 09:15 Sputum Culture - Final Sputum Pantoea agglomerans - Clinical Findings Intake & Output: Intake & Output 06/26/16 06/27/16 06/27/16 23:59 07:59 15:59 Intake Total 1568 / 1568 1100 / 1100 100 / 100 Output Total 850 / 850 3050 / 3050 2100 / 2100 Balance 718 / 718 -1950 / -1950 -1999 / Weight 163.974 kg Consult Discharge Plan - Plan Referrals: Sumit Hidalgo DO [Partnered Physician] - 07/06/16 12:15 pm (cardiac arrest 06/21, hospital follow up) Ruiz Dumont MD [Primary Care Provider] - - Attending Attestation I examined this patient and my medical decision-making was reviewed with the DEICER INSPECTOR PNEUMATIC/PA/Advanced Practice Nurse/Resident Physician. I agree with the documented findings, disposition and treatment plan as described except to the extent set forth below. Patient seen and examined at bedside Labs, radiology, chart personally reviewed. All lines examined without evidence of infection. Neuropsych: intubated sedated. Cont Daily sedation holiday. Goal RASS (-2) Pulm: Acute on chronic Hypoxic Hypercapnic Respiratory failure. This has been multifactorial including cardiogenic pulmonary edema likely pulmonary embolus community-acquired pneumonia and now with progression to ARDS. Continue 6-8 mL per KG ideal body weight tidal volume increased PEEP from 10 to 14 with FiO2 of 60%. Per low ARDSnet PEEP ladder. PEAK/PLAT <30. cont Diuresis. CT thorax when stable Cards. s/p ACLS (brief PEA Arrest) with spontaneous mvt NSTEMI (mild) likely demand. Afib rate controlled on Cardizem. FEN-GI: GI prophylaxis. Cont Enteral Feedings and Bowel regimen Renal: Stable Creatinine trend electrolytes with diuresis ID: Cont ABx Vanc/PIP tazo deescalate per sensitivities. Heme/Onc: LE DVT + with likely PE cont therapeutic dosed heparin. H/H and plts Stable. Endo: Endo glucose monitored Integ/MSK: Skin care per ICU protocol CODE: Full code family Girlfriend updated at bedside <Srini Kelley - Last Filed: 06/27/16 12:43> Date of Encounter: 06/27/16 Time of Encounter: 07:18 Assessment and Plan (1) Hypercapnic respiratory failure Current Visit: Yes Status: Acute Patient remains sedated, intubated, mechanically ventilated. No pressors necessary at this time. Patient's fiance reports worsening dyspnea for 3 weeks, likely multifactorial from undiagnosed COPD, undiagnosed obesity hypoventilation syndrome, possible community acquired pneumonia, and undiagnosed obstructive sleep apnea causing right-sided heart failure (undiagnosed). Also concern for pulmonary embolism. Lower extremity Doppler positive for acute thrombosis and left popliteal and left peroneal vein. Right lower extremity was negative. At admission was severely hypoxic with a pH of 7.08 with improvement seen following mechanical ventilation. He has continued mixed respiratory acidosis with metabolic alkalosis. He is still requiring high levels of PEEP to maintain oxygenation. CXR shows continued b/l pleural effusions. Sputum cx positive for GNR Pantoea agglomerans. Unclear if this is contaminant. Will re-culture. Will switch from Rocephin to Zosyn. Attempted to get Chest CT scan today as patient is still requiring high PEEP to maintain O2 sats, however pt. desaturated to mid 70's on [address] to CT. He is anticoagulated on a heparin drip for LE DVT's so bronchoscopy would require stopping the heparin drip, which is not warranted at this time. Plan: -Continue intubation and sedation with propofol and fentanyl. Maintain oxygen saturation above 88% -Increase minute ventilation -Wean FI02 as tolerated -Respiratory virus panel: negative, urinary antigens: negative -sputum cx: gram negative rods (Pantoea agglomerans). Unclear if this is contaminant, will re-culture sputum. -blood cultures pending -maintain map above 60, Levaphed for pressure support if necessary, no pressor agents currently -antibiotics: Ky (day 2), has already received 5 days of Rocephin and 4 days of zithromax -Duonebs every 4 hours scheduled -40mg BID solu-medrol -cardiology is following and appreciate recommendations for continued management and care -Continue heparin drip and gentle diuresis with Lasix to achieve 1-2 liters net negative daily. -Monitor I/O, UOP, Daily weight -daily ABG's, CBC CMP Qualifiers: Chronicity: unspecified Qualified Code(s): J96.92 - Respiratory failure, unspecified with hypercapnia (2) DVT (deep venous thrombosis) Current Visit: Yes Status: Acute LE Doppler: lower extremity abnormal deep exam: left popliteal vein and left peroneal vein demonstrate acute thrombosis. RT leg negative for acute thrombus. Continue Heparin gtt Qualifiers: DVT location: lower extremity Affected thrombotic vein of extremity: popliteal Laterality: left Chronicity: unspecified Qualified Code(s): I82.432 - Acute embolism and thrombosis of left popliteal vein (3) Atrial fibrillation with RVR Current Visit: Yes Status: Acute Pt. went into Afib with RVR on 06/22/2016. He remains in Afib currently. Amiodarone drip was instituted with a BB PRN for tachycardia. Patient was transitioned to PO diltiazem and amiodarone has been discontinued. This change is per cardiology. Appreciate your recommendations. [id number]: 2 moderate-high risk and should be a long-term anticoagulation candidate. PO diltiazem increased to 60mg q8 per cardiology continue heparin gtt (4) NSTEMI (non-ST elevated myocardial infarction) Current Visit: Yes Status: Acute Initial troponin of 0.13. Peak of 0.95. EKG did not show any significant changes. Heparin gtt was instituted for ACS. Likely type II NSTEMI due to demand ischemia. Cardiology was consulted appreciate their recommendations no interventions at this time from cardiology (5) Elevated troponin Current Visit: Yes Status: Acute Troponin elevations likely due to patient breathing status, PEA arrest, cor pulmonale. Unlikely ACS at this time. Heparin gtt was initially instituted for conern of ACS. LE doppler positive for LLE DVT. Will continue heparin gtt for DVT. (6) Respiratory acidosis Current Visit: Yes Status: Acute Currently intubated and sedated. Ventilator settings adjusted as needed to reduce respiratory acidosis (7) DARION (acute kidney injury) Current Visit: Yes Status: Acute Patient has elevated serum creatinine and decreased estimated GFR that has been steadily worsening since admission. Originally serum creatinine was 1.25. Today, 06/24/2016, serum creatinine is back down to 1.3. Patient requires continued diuresis as he is edematous and echocardiography, cxr w/ bibasilar edema, and elevated BNP suspicious for heart failure. Continue to monitor patient kidney status closely with continued diuresis Lasix decreased to 40 mg once a day. 06/25/16: Scr 1.17. Continue diuresis with lasix. Add Acetazolamide. 06/26/16: Scr 1.10. Continue Diureses. Goal -1.5 L out 06/27/16: Scr 1.10. Continue Diureses. Goal -1.5 L out (8) Acute heart failure Current Visit: Yes Status: Suspected Patient has bilateral lower extremity edema initial BNP of 917 Echo: EF 55%, Atypical septal motion of unclear significance, indeterminate diastolic dysfunction, dilated RV, no valvular dysfunction, unable to estimate RVSP. Cardiology on board. No interventions at this time. Diurese with Lasix Qualifiers: Heart failure type: unspecified heart failure type Qualified Code(s): I50.9 - Heart failure, unspecified (9) Morbid obesity Current Visit: Yes Status: Chronic Qualifiers: Obesity type: due to excess calories Qualified Code(s): E66.01 - Morbid ( severe) obesity due to excess calories (10) Smoking history Current Visit: Yes Status: Chronic Profamily he has been smoking since he is 19 years old 3 to 4 packs per day (11) Cor pulmonale (chronic) Current Visit: Yes Status: Chronic Cardiology is following. Echocardiogram was performed that showed preserved ejection fraction 55%, atypical supple wall motion of unclear significance, and indeterminate diastolic function. Dilated right ventricle with normal function. No JVD. (12) Obesity hypoventilation syndrome Current Visit: Yes Status: Suspected (13) Obstructive sleep apnea Current Visit: Yes Status: Suspected Patient is morbidly obese, has reportedly gained 100-150 pounds in the past 5 years. Patient's fiance states that in the course the evening he will often have episodes of apnea preceded by excessive snoring. Patient would benefit from sleep study and potentially BiPAP/CPAP (14) PEA (Pulseless electrical activity) Current Visit: Yes Status: Resolved Patient suffered PEA arrest shortly after admission on 06/21/2016. The code lasted approximately 8 minutes in which time the patient received 31 mg doses of epinephrine prior to return to spontaneous circulation. Concern for anoxic brain injury given time of arrest. Unable to assess at this time as patient remains intubated and sedated. Will assess neurological activity when patient is extubated and often sedation. Subjective Principal diagnosis: Hypercapnic respiratory failure Interval history: Patient seen and examined at bedside. Remains intubated and sedated. No events noted overnight. He is not requiring vasopressor support. Vital signs stable at this time. Objective PUL Vital signs: Last Vital Signs Temp 97.8 F 06/27/16 04:54 Pulse 90 06/27/16 06:00 Resp 18 06/27/16 06:00 BP 94/76 06/27/16 06:00 Pulse Ox 92 L 06/27/16 06:00 General appearance: other (Intubated and sedated) Eyes: injected ENT: oropharynx dry Neck: no lymphadenopathy Auscultation: bilateral: rhonchi Cardiovascular: irregular rhythm Gastrointestinal: normoactive bowel sounds Integumentary: other (Abdominal abrasion) Extremities: pink and warm, edema Ventilator Settings Ventilator Settings: Ventilator Settings, Last 8 Hours Ventilator Mode VC+ Ventilator Mode VC+ Ventilator Mode VC+ Ventilator Mode VC+ Ventilator Mode VC+ Ventilator Mode A/C Ventilator Mode A/C Ventilator Mode A/C Ventilator Mode A/C Ventilator Mode A/C Ventilator Mode A/C Ventilator Tidal Volume 500 Setting Ventilator Tidal Volume 500 Setting Ventilator Tidal Volume 500 Setting Ventilator Tidal Volume 500 Setting Ventilator Tidal Volume 500 Setting Ventilator Tidal Volume 500 Setting Ventilator Tidal Volume 500 Setting Ventilator Tidal Volume 500 Setting Ventilator Tidal Volume 500 Setting Ventilator Tidal Volume 500 Setting Ventilator Tidal Volume 500 Setting Ventilator Respiratory Rate 18 Setting Ventilator Respiratory Rate 18 Setting Ventilator Respiratory Rate 18 Setting Ventilator Respiratory Rate 18 Setting Ventilator Respiratory Rate 18 Setting Ventilator Respiratory Rate 18 Setting Ventilator Respiratory Rate 18 Setting Ventilator Respiratory Rate 18 Setting Ventilator Respiratory Rate 18 Setting Ventilator Respiratory Rate 18 Setting Ventilator Respiratory Rate 18 Setting Actual Respiratory Rate 18 Actual Respiratory Rate 18 Actual Respiratory Rate 18 Actual Respiratory Rate 18 Actual Respiratory Rate 18 Actual Respiratory Rate 18 Actual Respiratory Rate 19 Actual Respiratory Rate 18 Actual Respiratory Rate 18 Actual Respiratory Rate 19 Positive End Expiratory 10 Pressure Positive End Expiratory 10 Pressure Positive End Expiratory 10 Pressure Positive End Expiratory 10 Pressure Positive End Expiratory 10 Pressure Positive End Expiratory 10 Pressure Positive End Expiratory 10 Pressure Positive End Expiratory 10 Pressure Positive End Expiratory 10 Pressure Positive End Expiratory 10 Pressure Positive End Expiratory 10 Pressure Peak Inspiratory Airway 29 Pressure Peak Inspiratory Airway 29 Pressure Peak Inspiratory Airway 29 Pressure Peak Inspiratory Airway 29 Pressure Peak Inspiratory Airway 28 Pressure Peak Inspiratory Airway 28 Pressure Peak Inspiratory Airway 26 Pressure Peak Inspiratory Airway 28 Pressure Peak Inspiratory Airway 25 Pressure Peak Inspiratory Airway 25 Pressure Results - Laboratory Findings CBC and BMP: 06/27/16 03:30 06/27/16 03:30 ABG ABG pH 7.37 pH Units (7.32-7.45) 06/27/16 06:17 ABG pCO2 73 mmHg (35-45) H* 06/27/16 06:17 ABG pO2 61 mmHg (85-104) L 06/27/16 06:17 ABG O2 Saturation 90 % (95-98) L 06/27/16 06:17 PT/INR, D-dimer PT 14.1 Seconds (9.4-12.1) H 06/21/16 18:00 Abnormal lab findings: Abnormal lab results MCHC 30.2 g/dL (31.6-35.5) L 06/27/16 03:30 RDW 14.6 % (11.5-14.5) H 06/27/16 03:30 Neutrophils # 9.2 K/mcL (1.6-8.9) H 06/27/16 03:30 Lymphocytes # 0.5 K/mcL (0.6-4.6) L 06/27/16 03:30 Nucleated RBCs/100 WBC 0.1 /100 WBC (0) H 06/24/16 04:32 Immature Plt Fraction 8.4 % (1.1-6.1) H 06/22/16 03:15 PT 14.1 Seconds (9.4-12.1) H 06/21/16 18:00 APTT 70.7 Seconds (26.0-36.0) H 06/27/16 03:30 ABG pCO2 73 mmHg (35-45) H* 06/27/16 06:17 ABG pO2 61 mmHg (85-104) L 06/27/16 06:17 ABG HCO3 42.2 mEQ/L (21-27) H 06/27/16 06:17 ABG Total CO2 44.4 mEq/L (20-26) H 06/27/16 06:17 ABG O2 Saturation 90 % (95-98) L 06/27/16 06:17 ABG Base Excess 13.2 mEq/L (-2.0 to 3.0) H 06/27/16 06:17 VBG pH 7.08 pH Units (7.32-7.42) L* 06/21/16 16:31 VBG pCO2 137 mmHg (41-51) H 06/21/16 16:31 VBG pO2 12 mmHg (25-40) L 06/21/16 16:31 VBG HCO3 40.6 mEq/L (21-27) H 06/21/16 16:31 Carboxyhemoglobin 9.1 % (0-5) H 06/21/16 13:21 Potassium 4.8 mEq/L (3.5-4.5) H 06/27/16 03:30 Chloride 94 mEq/L (98-109) L 06/27/16 03:30 Carbon Dioxide 34 mEq/L (19-29) H 06/27/16 03:30 BUN 42 mg/dL (8-26) H 06/27/16 03:30 BUN/Creatinine Ratio 39 (6-26) H 06/27/16 03:30 Glucose 186 mg/dL (70-99) H 06/27/16 03:30 POC Glucose 156 (58-89) H 06/27/16 00:02 Calcium 7.8 mg/dL (8.6-10.8) L 06/27/16 03:30 Ionized Calcium 1.07 mmol/L (1.15-1.35) L 06/27/16 04:50 ALT 141 Units/L (0-55) H 06/24/16 04:32 Troponin I 0.77 ng/mL (0-0.03) H* 06/22/16 07:00 B-Natriuretic Peptide 917 pg/mL (0-100) H 06/21/16 14:02 Serum Total Protein 5.9 g/dL (6.0-8.3) L 06/24/16 04:32 Albumin 2.4 g/dL (3.5-5.0) L 06/24/16 04:32 Albumin/Globulin Ratio 0.7 (1.1-2.2) L 06/24/16 04:32 - Microbiology Findings Microbiology Findings: Microbiology, Last 48 Hours 06/24/16 09:15 Sputum Culture - Final Sputum Pantoea agglomerans - Clinical Findings Intake & Output: Intake & Output 06/26/16 06/26/16 06/27/16 15:59 23:59 07:59 Intake Total 1374 / 1374 1568 / 1568 900 / 900 Output Total 2750 / 2750 850 / 850 3050 / 3050 Balance -1376 / -1376 718 / 718 -2150 / -2150 Weight 163.974 kg
[2016-06-27] MEDS: predniSONE 10 MG TABLET PO SCH (08:22)
[2016-06-27] MEDS: Furosemide 40 MG/4 ML VIAL IVP SCH ×2 (08:22→21:34)
[2016-06-27] MEDS: Chlorhexidine Rinse 15 ML MOUTHWASH MM SCH ×2 (08:22→21:34)
[2016-06-27] MEDS: Pantoprazole 40 MG VIAL IVP SCH (08:22)
[2016-06-27] MEDS: dilTIAZem HCl 60 MG TABLET PO SCH ×3 (08:22→23:30)
[2016-06-27] MEDS: Piperacillin/Tazobactam 3.375 GM in D5% in Water (Mini-Bag+) 100 ML IVPB SCH ×3 (08:23→23:12)
[2016-06-27] MEDS: FentaNYL (PF) 1,000 MCG in 0.9 % Sodium Chloride 80 ML IVC SCH (11:33)
[2016-06-27] MEDS: Vancomycin 1,750 MG in D5% in Water 500 ML IVPB SCH (16:26)
[2016-06-27 17:02] LABS: ABG Base Excess 10.1 mEq/L (-2.0 to 3.0); ABG HCO3 37.5 mEQ/L (21-27); ABG Oxygen Saturation 91 % (95-98); ABG PCO2 62 mmHg (35-45); ABG PH 7.39 pH Units (7.32-7.45); ABG PO2 62 mmHg (85-104); ABG TCO2 39.4 mEq/L (20-26)
[2016-06-27 17:03] LABS: Blood Gas FiO2 60 %; Blood Gas PEEP 12 cm H2O
[2016-06-27] MEDS: Sennosides 8.6 MG TABLET PO SCH (21:34)
[2016-06-28] MEDS: FentaNYL (PF) 1,000 MCG in 0.9 % Sodium Chloride 80 ML IVC SCH ×2 (00:02→11:28)
[2016-06-28] MEDS: Lacri-Lube 3.5 GM TUBE BOTH EYES SCH ×6 (00:04→20:40)
[2016-06-28] MEDS: Insulin LISPRO 300 UNITS/3 ML VIAL SQ SCH ×6 (00:04→20:40)
[2016-06-28] MEDS: Dexmedetomidine HCl 400 MCG/100 ML MLS IVC SCH ×7 (01:52→23:14)
[2016-06-28] MEDS: MethylPREDNISolone 40 MG/ML VIAL IVP SCH ×2 (03:49→14:49)
[2016-06-28] MEDS: Ipratropium/Albuterol Neb 3 ML IH SCH ×6 (03:50→23:55)
[2016-06-28] MEDS: Vancomycin 1,750 MG in D5% in Water 500 ML IVPB SCH (03:53)
[2016-06-28 04:51] LABS: Basophils % 0.1 %; Eosinophils % 0.2 %; Hematocrit 42.8 % (37.5-50.1); Hemoglobin 13.3 g/dL (12.9-16.9); Lymphocytes # 1.5 K/mcL (0.6-4.6); Lymphocytes % 11.4 %; Mean Corpuscular HGB Conc 31.1 g/dL (31.6-35.5); Mean Corpuscular Hemoglobin 28.5 pg (28.0-33.3); Mean Corpuscular Volume 91.8 fL (83.0-100.0); Mean Platelet Volume 11.4 fL (9.4-12.4); Monocytes # 1.2 K/mcL (0.0-1.3); Monocytes % 9.3 %; Platelet Count 167 K/mcL (140-400); Red Blood Count 4.66 M/mcL (4.19-5.50); Red Cell Distribution Width 14.6 % (11.5-14.5)
[2016-06-28 05:04] LABS: BUN/Creatinine Ratio 45 (6-26); Blood Urea Nitrogen 43 mg/dL (8-26); Calcium 7.9 mg/dL (8.6-10.8); Carbon Dioxide 34 mEq/L (19-29); Chloride 94 mEq/L (98-109); Glucose 178 mg/dL (70-99); Magnesium 2.1 mg/dL (1.6-2.6); Osmolality,Calculated 297 (280-300); Sodium 136 mEq/L (136-145); eGFR For African Americans > 60 (> 60); eGFR For Non-African Americans > 60 (> 60)
[2016-06-28 05:32] LABS: ABG Base Excess 14.4 mEq/L (-2.0 to 3.0); ABG HCO3 42.7 mEQ/L (21-27); ABG Oxygen Saturation 91 % (95-98); ABG PCO2 69 mmHg (35-45); ABG PO2 62 mmHg (85-104); ABG TCO2 44.8 mEq/L (20-26)
[2016-06-28 05:33] LABS: Blood Gas FiO2 60 %
[2016-06-28 05:57] LABS: Ionized Calcium 1.06 mmol/L (1.15-1.35)
[2016-06-28 06:03] LABS: Phosphorous 3.6 mg/dL (2.3-4.7)
--- NOTE | 2016-06-28 06:26 | Pulmonology Progress Note ---
<Ariel Young - Last Filed: 06/28/16 10:59> Date of Encounter: 06/28/16 Time of Encounter: 09:15 Assessment and Plan (1) Hypercapnic respiratory failure Current Visit: Yes Status: Acute Patient remains sedated, intubated, mechanically ventilated. No pressors necessary at this time. Patient's fiance reports worsening dyspnea for 3 weeks, likely multifactorial from undiagnosed COPD, undiagnosed obesity hypoventilation syndrome, possible community acquired pneumonia, and undiagnosed obstructive sleep apnea causing right-sided heart failure (undiagnosed). Also concern for pulmonary embolism. Lower extremity Doppler positive for acute thrombosis and left popliteal and left peroneal vein. Right lower extremity was negative. At admission was severely hypoxic with a pH of 7.08 with improvement seen following mechanical ventilation. He has continued mixed respiratory acidosis with metabolic alkalosis. He is still requiring high levels of PEEP to maintain oxygenation. CXR shows continued b/l pleural effusions. Sputum cx positive for GNR Pantoea agglomerans. Unclear if this is contaminant. Will re-culture. Switched from Rocephin to Zosyn. Attempted to get Chest CT scan yesterday as patient is still requiring high PEEP to maintain O2 sats, however pt. desaturated to mid 70's on [address] to CT. He is anticoagulated on a heparin drip for LE DVT's so bronchoscopy would require stopping the heparin drip, which is not warranted at this time. Plan: -Continue intubation and sedation with propofol and fentanyl. Maintain oxygen saturation above 88% -Increase minute ventilation -Wean FI02 as tolerated -Respiratory virus panel: negative, urinary antigens: negative -sputum cx: gram negative rods (Pantoea agglomerans). Unclear if this is contaminant, will re-culture sputum. -blood cultures pending -maintain map above 60, Levaphed for pressure support if necessary, no pressor agents currently -antibiotics: Zosyn (day 3), has already received 5 days of Rocephin and 4 days of zithromax -Duonebs every 4 hours scheduled -40mg BID solu-medrol -cardiology is following and appreciate recommendations for continued management and care -Continue heparin drip and gentle diuresis with Lasix to achieve 1-2 liters net negative daily. -Monitor I/O, UOP, Daily weight -daily ABG's, CBC CMP Qualifiers: Chronicity: unspecified Qualified Code(s): J96.92 - Respiratory failure, unspecified with hypercapnia (2) DVT (deep venous thrombosis) Current Visit: Yes Status: Acute LE Doppler: lower extremity abnormal deep exam: left popliteal vein and left peroneal vein demonstrate acute thrombosis. RT leg negative for acute thrombus. Continue Heparin gtt Qualifiers: DVT location: lower extremity Affected thrombotic vein of extremity: popliteal Laterality: left Chronicity: unspecified Qualified Code(s): I82.432 - Acute embolism and thrombosis of left popliteal vein (3) Atrial fibrillation with RVR Current Visit: Yes Status: Acute Pt. went into Afib with RVR on 06/22/2016. He remains in Afib currently. Amiodarone drip was instituted with a BB PRN for tachycardia. Patient was transitioned to PO diltiazem and amiodarone has been discontinued. This change is per cardiology. Appreciate their recommendations. [id number]: 2 moderate-high risk and should be a long-term anticoagulation candidate. PO diltiazem increased to 60mg q8 per cardiology continue heparin gtt (4) Acute heart failure Current Visit: Yes Status: Suspected Patient has bilateral lower extremity edema initial BNP of 917 Echo: EF 55%, Atypical septal motion of unclear significance, indeterminate diastolic dysfunction, dilated RV, no valvular dysfunction, unable to estimate RVSP. Cardiology on board. No interventions at this time. Diurese with Lasix Qualifiers: Heart failure type: unspecified heart failure type Qualified Code(s): I50.9 - Heart failure, unspecified (5) DARION (acute kidney injury) Current Visit: Yes Status: Acute Patient had elevated serum creatinine and decreased estimated GFR that had been steadily worsening since admission. Originally serum creatinine was 1.25. Patient requires continued diuresis as he is edematous and echocardiography, cxr w/ bibasilar edema, and elevated BNP suspicious for heart failure. Continue to monitor patient kidney status closely with continued diuresis Lasix decreased to 40 mg once a day. 06/28/16: Scr 0.95. Continue Diureses. Goal -1.5 L out (6) Cor pulmonale (chronic) Current Visit: Yes Status: Chronic Cardiology is following. Echocardiogram was performed that showed preserved ejection fraction 55%, atypical septal wall motion of unclear significance, and indeterminate diastolic function. Dilated right ventricle with normal function. No JVD. (7) Morbid obesity Current Visit: Yes Status: Chronic Qualifiers: Obesity type: due to excess calories Qualified Code(s): E66.01 - Morbid ( severe) obesity due to excess calories (8) NSTEMI (non-ST elevated myocardial infarction) Current Visit: Yes Status: Acute Initial troponin of 0.13. Peak of 0.95. EKG did not show any significant changes. Heparin gtt was instituted for ACS. Likely type II NSTEMI due to demand ischemia. Cardiology was consulted appreciate their recommendations no interventions at this time from cardiology (9) Elevated troponin Current Visit: Yes Status: Acute Troponin elevations likely due to patient breathing status, PEA arrest, cor pulmonale. Unlikely ACS at this time. Heparin gtt was initially instituted for concern of ACS. LE doppler positive for LLE DVT. Will continue heparin gtt for DVT. (10) Obesity hypoventilation syndrome Current Visit: Yes Status: Suspected (11) Obstructive sleep apnea Current Visit: Yes Status: Suspected Patient is morbidly obese, has reportedly gained 100-150 pounds in the past 5 years. Patient's fiance stated that in the course the evening he will often have episodes of apnea preceded by excessive snoring. Patient would benefit from sleep study and potentially BiPAP/CPAP (12) PEA (Pulseless electrical activity) Current Visit: Yes Status: Resolved Patient suffered PEA arrest shortly after admission on 06/21/2016. The code lasted approximately 8 minutes in which time the patient received 31 mg doses of epinephrine prior to return to spontaneous circulation. Concern for anoxic brain injury given time of arrest. Unable to assess at this time as patient remains intubated and sedated. Will assess neurological activity when patient is extubated and off sedation. (13) Respiratory acidosis Current Visit: Yes Status: Acute Currently intubated and sedated. Ventilator settings adjusted as needed to reduce respiratory acidosis Current ABG pH7.4, pCO2 69, pO2 62, HCO3 42.7 (14) Smoking history Current Visit: Yes Status: Chronic Per family he has been smoking since he is 19 years old, 3 to 4 packs per day Subjective Principal diagnosis: Hypercapnic respiratory failure Interval history: Patient seen and examined at bedside. Patient remains sedated and ventilated. No BMs noted. Objective PUL Vital signs: Last Vital Signs Temp 98.2 F 06/28/16 05:00 Pulse 96 06/28/16 06:00 Resp 22 06/28/16 06:00 BP 112/87 06/28/16 06:00 Pulse Ox 94 L 06/28/16 06:00 General appearance: no acute distress, other (ventilated and sedated) Eyes: nonicteric, other (miosis) ENT: oropharynx dry Effort: other (mechanically ventilated) Auscultation: bilateral: diminished breath sounds (bibasilar) Cardiovascular: irregular rhythm Gastrointestinal: hypoactive bowel sounds, soft, non-tender Integumentary: normal Extremities: no cyanosis, pink and warm, pulses normal, edema (2+ pitting edema of Right lower extremity.) Musculoskeletal: no deformities unable to assess due to mental status Ventilator Settings Ventilator Settings: Ventilator Settings, Last 8 Hours Ventilator Mode VC+ Ventilator Mode VC+ Ventilator Mode VC+ Ventilator Mode VC+ Ventilator Mode VC+ Ventilator Mode VC+ Ventilator Mode VC+ Ventilator Mode VC+ Ventilator Mode VC+ Ventilator Mode VC+ Ventilator Mode VC+ Ventilator Mode VC+ Ventilator Tidal Volume 480 Setting Ventilator Tidal Volume 480 Setting Ventilator Tidal Volume 480 Setting Ventilator Tidal Volume 480 Setting Ventilator Tidal Volume 480 Setting Ventilator Tidal Volume 480 Setting Ventilator Tidal Volume 480 Setting Ventilator Tidal Volume 480 Setting Ventilator Tidal Volume 480 Setting Ventilator Tidal Volume 480 Setting Ventilator Tidal Volume 480 Setting Ventilator Tidal Volume 480 Setting Ventilator Respiratory Rate 22 Setting Ventilator Respiratory Rate 22 Setting Ventilator Respiratory Rate 22 Setting Ventilator Respiratory Rate 22 Setting Ventilator Respiratory Rate 22 Setting Ventilator Respiratory Rate 22 Setting Ventilator Respiratory Rate 22 Setting Ventilator Respiratory Rate 22 Setting Ventilator Respiratory Rate 22 Setting Ventilator Respiratory Rate 22 Setting Ventilator Respiratory Rate 22 Setting Ventilator Respiratory Rate 22 Setting Actual Respiratory Rate 22 Actual Respiratory Rate 22 Actual Respiratory Rate 22 Actual Respiratory Rate 22 Actual Respiratory Rate 22 Actual Respiratory Rate 22 Actual Respiratory Rate 22 Actual Respiratory Rate 22 Actual Respiratory Rate 22 Actual Respiratory Rate 23 Actual Respiratory Rate 23 Positive End Expiratory 12 Pressure Positive End Expiratory 12 Pressure Positive End Expiratory 12 Pressure Positive End Expiratory 12 Pressure Positive End Expiratory 12 Pressure Positive End Expiratory 12 Pressure Positive End Expiratory 12 Pressure Positive End Expiratory 12 Pressure Positive End Expiratory 12 Pressure Positive End Expiratory 12 Pressure Positive End Expiratory 12 Pressure Positive End Expiratory 12 Pressure Peak Inspiratory Airway 27 Pressure Peak Inspiratory Airway 27 Pressure Peak Inspiratory Airway 27 Pressure Peak Inspiratory Airway 27 Pressure Peak Inspiratory Airway 27 Pressure Peak Inspiratory Airway 27 Pressure Peak Inspiratory Airway 27 Pressure Peak Inspiratory Airway 27 Pressure Peak Inspiratory Airway 28 Pressure Peak Inspiratory Airway 26 Pressure Peak Inspiratory Airway 24 Pressure Results - Laboratory Findings CBC and BMP: 06/28/16 04:30 06/28/16 04:30 ABG ABG pH 7.40 pH Units (7.32-7.45) 06/28/16 05:25 ABG pCO2 69 mmHg (35-45) H 06/28/16 05:25 ABG pO2 62 mmHg (85-104) L 06/28/16 05:25 ABG O2 Saturation 91 % (95-98) L 06/28/16 05:25 PT/INR, D-dimer PT 14.1 Seconds (9.4-12.1) H 06/21/16 18:00 Abnormal lab findings: Abnormal lab results WBC 12.8 K/mcL (4.3-11.1) H 06/28/16 04:30 MCHC 31.1 g/dL (31.6-35.5) L 06/28/16 04:30 RDW 14.6 % (11.5-14.5) H 06/28/16 04:30 Neutrophils # 10.0 K/mcL (1.6-8.9) H 06/28/16 04:30 Nucleated RBCs/100 WBC 0.1 /100 WBC (0) H 06/24/16 04:32 Immature Plt Fraction 8.4 % (1.1-6.1) H 06/22/16 03:15 PT 14.1 Seconds (9.4-12.1) H 06/21/16 18:00 APTT 62.8 Seconds (26.0-36.0) H 06/28/16 04:30 ABG pCO2 69 mmHg (35-45) H 06/28/16 05:25 ABG pO2 62 mmHg (85-104) L 06/28/16 05:25 ABG HCO3 42.7 mEQ/L (21-27) H 06/28/16 05:25 ABG Total CO2 44.8 mEq/L (20-26) H 06/28/16 05:25 ABG O2 Saturation 91 % (95-98) L 06/28/16 05:25 ABG Base Excess 14.4 mEq/L (-2.0 to 3.0) H 06/28/16 05:25 VBG pH 7.08 pH Units (7.32-7.42) L* 06/21/16 16:31 VBG pCO2 137 mmHg (41-51) H 06/21/16 16:31 VBG pO2 12 mmHg (25-40) L 06/21/16 16:31 VBG HCO3 40.6 mEq/L (21-27) H 06/21/16 16:31 Carboxyhemoglobin 9.1 % (0-5) H 06/21/16 13:21 Chloride 94 mEq/L (98-109) L 06/28/16 04:30 Carbon Dioxide 34 mEq/L (19-29) H 06/28/16 04:30 BUN 43 mg/dL (8-26) H 06/28/16 04:30 BUN/Creatinine Ratio 45 (6-26) H 06/28/16 04:30 Glucose 178 mg/dL (70-99) H 06/28/16 04:30 POC Glucose 128 (58-89) H 06/27/16 23:51 Calcium 7.9 mg/dL (8.6-10.8) L 06/28/16 04:30 Ionized Calcium 1.06 mmol/L (1.15-1.35) L 06/28/16 05:40 ALT 141 Units/L (0-55) H 06/24/16 04:32 Troponin I 0.77 ng/mL (0-0.03) H* 06/22/16 07:00 B-Natriuretic Peptide 917 pg/mL (0-100) H 06/21/16 14:02 Serum Total Protein 5.9 g/dL (6.0-8.3) L 06/24/16 04:32 Albumin 2.4 g/dL (3.5-5.0) L 06/24/16 04:32 Albumin/Globulin Ratio 0.7 (1.1-2.2) L 06/24/16 04:32 - Microbiology Findings Microbiology Findings: Microbiology, Last 48 Hours 06/24/16 09:15 Sputum Culture - Final Sputum Pantoea agglomerans - Clinical Findings Intake & Output: Intake & Output 06/27/16 06/27/16 06/28/16 15:59 23:59 08:59 Intake Total 500 / 500 1467 / 1467 2125 / 2125 Output Total 2100 / 2100 1900 / 1900 6000 / 6000 Balance -1600 / -1600 -433 / -433 -3875 / -3875 Consult Discharge Plan - Plan Referrals: Sumit Hidalgo DO [Partnered Physician] - 07/06/16 12:15 pm (cardiac arrest 3, hospital follow up) Ruiz Dumont MD [Primary Care Provider] - <[facility] - Last Filed: 06/28/16 11:13> Objective PUL Vital signs: Last Vital Signs Temp 98.4 F 06/28/16 09:45 Pulse 95 06/28/16 10:00 Resp 22 06/28/16 10:00 BP 85/74 06/28/16 10:00 Pulse Ox 89 L 06/28/16 10:00 Ventilator Settings Ventilator Settings: Ventilator Settings, Last 8 Hours Ventilator Mode VC+ Ventilator Mode VC+ Ventilator Mode VC+ Ventilator Mode VC+ Ventilator Mode VC+ Ventilator Mode VC+ Ventilator Mode VC+ Ventilator Tidal Volume 480 Setting Ventilator Tidal Volume 480 Setting Ventilator Tidal Volume 480 Setting Ventilator Tidal Volume 480 Setting Ventilator Tidal Volume 480 Setting Ventilator Tidal Volume 480 Setting Ventilator Tidal Volume 480 Setting Ventilator Respiratory Rate 22 Setting Ventilator Respiratory Rate 22 Setting Ventilator Respiratory Rate 22 Setting Ventilator Respiratory Rate 22 Setting Ventilator Respiratory Rate 22 Setting Ventilator Respiratory Rate 22 Setting Ventilator Respiratory Rate 22 Setting Actual Respiratory Rate 22 Actual Respiratory Rate 22 Actual Respiratory Rate 22 Actual Respiratory Rate 22 Actual Respiratory Rate 22 Actual Respiratory Rate 22 Positive End Expiratory 12 Pressure Positive End Expiratory 12 Pressure Positive End Expiratory 12 Pressure Positive End Expiratory 12 Pressure Positive End Expiratory 12 Pressure Positive End Expiratory 12 Pressure Positive End Expiratory 12 Pressure Peak Inspiratory Airway 27 Pressure Peak Inspiratory Airway 27 Pressure Peak Inspiratory Airway 27 Pressure Peak Inspiratory Airway 27 Pressure Peak Inspiratory Airway 27 Pressure Peak Inspiratory Airway 27 Pressure Results - Laboratory Findings CBC and BMP: 06/28/16 04:30 06/28/16 04:30 ABG ABG pH 7.40 pH Units (7.32-7.45) 06/28/16 05:25 ABG pCO2 69 mmHg (35-45) H 06/28/16 05:25 ABG pO2 62 mmHg (85-104) L 06/28/16 05:25 ABG O2 Saturation 91 % (95-98) L 06/28/16 05:25 PT/INR, D-dimer PT 14.1 Seconds (9.4-12.1) H 06/21/16 18:00 Abnormal lab findings: Abnormal lab results WBC 12.8 K/mcL (4.3-11.1) H 06/28/16 04:30 MCHC 31.1 g/dL (31.6-35.5) L 06/28/16 04:30 RDW 14.6 % (11.5-14.5) H 06/28/16 04:30 Neutrophils # 10.0 K/mcL (1.6-8.9) H 06/28/16 04:30 Nucleated RBCs/100 WBC 0.1 /100 WBC (0) H 06/24/16 04:32 Immature Plt Fraction 8.4 % (1.1-6.1) H 06/22/16 03:15 PT 14.1 Seconds (9.4-12.1) H 06/21/16 18:00 APTT 62.8 Seconds (26.0-36.0) H 06/28/16 04:30 ABG pCO2 69 mmHg (35-45) H 06/28/16 05:25 ABG pO2 62 mmHg (85-104) L 06/28/16 05:25 ABG HCO3 42.7 mEQ/L (21-27) H 06/28/16 05:25 ABG Total CO2 44.8 mEq/L (20-26) H 06/28/16 05:25 ABG O2 Saturation 91 % (95-98) L 06/28/16 05:25 ABG Base Excess 14.4 mEq/L (-2.0 to 3.0) H 06/28/16 05:25 VBG pH 7.08 pH Units (7.32-7.42) L* 06/21/16 16:31 VBG pCO2 137 mmHg (41-51) H 06/21/16 16:31 VBG pO2 12 mmHg (25-40) L 06/21/16 16:31 VBG HCO3 40.6 mEq/L (21-27) H 06/21/16 16:31 Carboxyhemoglobin 9.1 % (0-5) H 06/21/16 13:21 Chloride 94 mEq/L (98-109) L 06/28/16 04:30 Carbon Dioxide 34 mEq/L (19-29) H 06/28/16 04:30 BUN 43 mg/dL (8-26) H 06/28/16 04:30 BUN/Creatinine Ratio 45 (6-26) H 06/28/16 04:30 Glucose 178 mg/dL (70-99) H 06/28/16 04:30 POC Glucose 128 (58-89) H 06/27/16 23:51 Calcium 7.9 mg/dL (8.6-10.8) L 06/28/16 04:30 Ionized Calcium 1.06 mmol/L (1.15-1.35) L 06/28/16 05:40 ALT 141 Units/L (0-55) H 06/24/16 04:32 Troponin I 0.77 ng/mL (0-0.03) H* 06/22/16 07:00 B-Natriuretic Peptide 917 pg/mL (0-100) H 06/21/16 14:02 Serum Total Protein 5.9 g/dL (6.0-8.3) L 06/24/16 04:32 Albumin 2.4 g/dL (3.5-5.0) L 06/24/16 04:32 Albumin/Globulin Ratio 0.7 (1.1-2.2) L 06/24/16 04:32 Triglycerides 185 mg/dL (< 150) H 06/28/16 07:55 Lipase 114 Units/L (8-78) H 06/28/16 07:55 - Microbiology Findings Microbiology Findings: Microbiology, Last 48 Hours 06/24/16 09:15 Sputum Culture - Final Sputum Pantoea agglomerans - Clinical Findings Intake & Output: Intake & Output 06/27/16 06/28/16 06/28/16 22:59 07:59 15:59 Intake Total 340 / 340 Output Total 3600 / 3600 Balance -3260 / -3260 - Attending Attestation I examined this patient and my medical decision-making was reviewed with the PARTS ADMINISTRATOR/PA/Advanced Practice Nurse/Resident Physician. I agree with the documented findings, disposition and treatment plan as described except to the extent set forth below. Patient seen and examined at bedside Labs, radiology, chart personally reviewed. All lines examined without evidence of infection. Neuropsych: intubated sedated. Cont Daily sedation holiday. Goal RASS (-2) Pulm: Acute on chronic Hypoxic Hypercapnic Respiratory failure. This has been multifactorial including cardiogenic pulmonary edema likely pulmonary embolus community-acquired pneumonia and now with progression to ARDS. Continue 6-8 mL per KG ideal body weight tidal volume Better O2 sat% today but cont FiO2 of 60% was able to decrease PEEP level today. PEAK/PLAT <30. [address] Di[address] thorax when stable Cards. s/p ACLS (brief PEA Arrest) with spontaneous mvt NSTEMI (mild) likely demand. Afib rate controlled on Cardizem. FEN-GI: GI prophylaxis. Cont Enteral Feedings and Bowel regimen Renal: Stable Creatinine trend electrolytes with diuresis ID: Worsening leukocytosis re-culture. Cont ABx Vanc/PIP tazo deescalate per sensitivities. Heme/Onc: LE DVT + with likely PE cont therapeutic dosed heparin. H/H and plts Stable. Endo: Endo glucose monitored cont Insulin Integ/MSK: Skin care per ICU protocol CODE: Full code family Girlfriend updated at bedside
[2016-06-28 08:16] LABS: Creatine Kinase 141 Units/L (30-200); Lipase 114 Units/L (8-78); Triglycerides 185 mg/dL (< 150)
[2016-06-28] MEDS: Furosemide 40 MG/4 ML VIAL IVP SCH ×2 (08:23→20:33)
[2016-06-28] MEDS: dilTIAZem HCl 60 MG TABLET PO SCH ×2 (08:23→16:26)
[2016-06-28] MEDS: Pantoprazole 40 MG VIAL IVP SCH (08:24)
[2016-06-28] MEDS: Piperacillin/Tazobactam 3.375 GM in D5% in Water (Mini-Bag+) 100 ML IVPB SCH ×2 (08:24→16:25)
[2016-06-28] MEDS: Chlorhexidine Rinse 15 ML MOUTHWASH MM SCH ×2 (08:24→21:32)
[2016-06-28] MEDS: Heparin 25,000 UNIT/500 ML D5W 25,000 UNIT/500 ML MLS IVC SCH (10:51)
[2016-06-28] MEDS ORDERED: Vancomycin 1,750 MG in D5% in Water 500 ML IVPB SCH ×2 (16:00→22:00)
[2016-06-28] MEDS: Sennosides 8.6 MG TABLET PO SCH (21:32)
[2016-06-29] MEDS: Insulin LISPRO 300 UNITS/3 ML VIAL SQ SCH ×6 (00:12→19:34)
[2016-06-29] MEDS: dilTIAZem HCl 60 MG TABLET PO SCH ×5 (00:17→19:34)
[2016-06-29] MEDS: Piperacillin/Tazobactam 3.375 GM in D5% in Water (Mini-Bag+) 100 ML IVPB SCH ×2 (00:17→07:51)
[2016-06-29] MEDS: Lacri-Lube 3.5 GM TUBE BOTH EYES SCH ×7 (00:17→23:31)
[2016-06-29] MEDS: FentaNYL (PF) 1,000 MCG in 0.9 % Sodium Chloride 80 ML IVC SCH ×3 (00:40→23:48)
[2016-06-29] MEDS: Heparin 25,000 UNIT/500 ML D5W 25,000 UNIT/500 ML MLS IVC SCH ×2 (01:27→14:37)
[2016-06-29] MEDS: MethylPREDNISolone 40 MG/ML VIAL IVP SCH (01:30)
[2016-06-29] MEDS: Dexmedetomidine HCl 400 MCG/100 ML MLS IVC SCH ×3 (02:40→09:14)
[2016-06-29] MEDS: Ipratropium/Albuterol Neb 3 ML IH SCH ×5 (03:32→19:15)
[2016-06-29 04:36] LABS: Basophils % 0.2 %; Eosinophils # 0.1 K/mcL (0.0-0.6); Eosinophils % 0.4 %; Hematocrit 45.2 % (37.5-50.1); Hemoglobin 13.7 g/dL (12.9-16.9); Immature Granulocytes % 1.6 % (0-4); Lymphocytes # 0.8 K/mcL (0.6-4.6); Lymphocytes % 5.9 %; Mean Corpuscular HGB Conc 30.3 g/dL (31.6-35.5); Mean Corpuscular Hemoglobin 27.7 pg (28.0-33.3); Mean Corpuscular Volume 91.5 fL (83.0-100.0); Mean Platelet Volume 11.4 fL (9.4-12.4); Neutrophils # 10.7 K/mcL (1.6-8.9); Platelet Count 186 K/mcL (140-400); Red Blood Count 4.94 M/mcL (4.19-5.50); Red Cell Distribution Width 14.9 % (11.5-14.5); Segmented Neutrophils % 83.9 %
[2016-06-29 04:53] LABS: ABG Base Excess 9.3 mEq/L (-2.0 to 3.0); ABG HCO3 36.1 mEQ/L (21-27); ABG Oxygen Saturation 90 % (95-98); ABG PCO2 57 mmHg (35-45); ABG PH 7.41 pH Units (7.32-7.45); ABG PO2 57 mmHg (85-104); ABG TCO2 37.8 mEq/L (20-26)
[2016-06-29 04:55] LABS: Blood Gas FiO2 60 %
[2016-06-29 04:59] LABS: BUN/Creatinine Ratio 44 (6-26); Blood Urea Nitrogen 44 mg/dL (8-26); Calcium 8.6 mg/dL (8.6-10.8); Carbon Dioxide 36 mEq/L (19-29); Chloride 95 mEq/L (98-109); Glucose 149 mg/dL (70-99); Magnesium 2.2 mg/dL (1.6-2.6); Osmolality,Calculated 298 (280-300); Potassium 4.2 mEq/L (3.5-4.5); Sodium 137 mEq/L (136-145); eGFR For African Americans > 60 (> 60); eGFR For Non-African Americans > 60 (> 60)
[2016-06-29] MEDS: *HR* Heparin 5,000 UNIT/ML VIAL IVP PRN (05:24)
[2016-06-29] MEDS ORDERED: Aminoglycoside Consult 1 EACH MC ONE (08:38)
--- NOTE | 2016-06-29 09:13 | Internal Med Progress Note ---
Date of Encounter: 06/29/16 Time of Encounter: 09:03 - Subjective Interval history: Patient intubated and sedated. No acute overnight events. - Constitutional Vitals: Temp Pulse Resp BP Pulse Ox 99.2 F 102 22 102/57 90 L 06/29/16 08:00 06/29/16 08:40 06/29/16 08:00 06/29/16 08:00 06/29/16 08:00 Internal Medicine: Result - Labs CBC & Chem 7: 06/29/16 04:05 06/29/16 04:05 Labs: Short CBC 06/29/16 Range/Units 04:05 WBC 12.8 H (4.3-11.1) K/mcL Hgb 13.7 (12.9-16.9) g/dL Hct 45.2 (37.5-50.1) % Plt Count 186 (140-400) K/mcL Neutrophils # 10.7 H (1.6-8.9) K/mcL BMP 06/29/16 04:05 Sodium 137 Potassium 4.2 Chloride 95 L Carbon Dioxide 36 H BUN 44 H Creatinine 0.99 Glucose 149 H Calcium 8.6 - ABG Interpretation ABG results: ABG ABG pH 7.41 pH Units (7.32-7.45) 06/29/16 04:45 ABG pCO2 57 mmHg (35-45) H 06/29/16 04:45 ABG pO2 57 mmHg (85-104) L 06/29/16 04:45 ABG O2 Saturation 90 % (95-98) L 06/29/16 04:45 PT/INR, D-dimer PT 14.1 Seconds (9.4-12.1) H 06/21/16 18:00 Consult Discharge Plan - Plan Referrals: Sumit Hidalgo DO [Partnered Physician] - 07/06/16 12:15 pm (cardiac arrest 3, hospital follow up) Ruiz Dumont MD [Primary Care Provider] -
[2016-06-29] MEDS: Pantoprazole 40 MG VIAL IVP SCH (09:31)
[2016-06-29] MEDS: Chlorhexidine Rinse 15 ML MOUTHWASH MM SCH ×2 (09:31→19:34)
[2016-06-29] MEDS: Sennosides 8.6 MG TABLET PO SCH ×2 (09:31→19:34)
--- NOTE | 2016-06-29 09:38 | Pulmonology Progress Note ---
Date of Encounter: 06/29/16 Time of Encounter: 09:36 Assessment and Plan (1) Hypercapnic respiratory failure Current Visit: Yes Status: Acute Patient remains sedated, intubated, mechanically ventilated. Patient's fiance reports worsening dyspnea for 3 weeks, likely multifactorial from undiagnosed COPD, undiagnosed obesity hypoventilation syndrome, possible community acquired pneumonia, and undiagnosed obstructive sleep apnea causing right-sided heart failure (undiagnosed). Also concern for pulmonary embolism. Lower extremity Doppler positive for acute thrombosis and left popliteal and left peroneal vein. Right lower extremity was negative. At admission was severely hypoxic with a pH of 7.08 with improvement seen following mechanical ventilation. He has continued mixed respiratory acidosis with metabolic alkalosis. CXR shows continued b/l pleural effusions. Sputum cx positive for GNR Pantoea agglomerans. Unclear if this is contaminant. Reculture pending. Respiratory virus panel: negative, urinary antigens: negative Chest CT scan was attempted but patient required high PEEP to maintain O2 sats , however pt. desaturated to mid 70's on the way to CT. He is anticoagulated on a heparin drip for LE DVT's so bronchoscopy would require stopping the heparin drip, which is not warranted at this time. Plan: -Continue intubation. Maintain oxygen saturation above 88% -wean of sedation to assess patients neurological status. -increase PEEP to 8 and titrate FIO2 down -sputum cx: gram negative rods (Pantoea agglomerans). Unclear if this is contaminant, will re-culture sputum. -blood cultures and repeat sputum cultures pending. -antibiotics: d/c no clinical sign of pneumonia,sepsis. -Duonebs every 4 hours scheduled -40mg BID solu-medrol d/c and transitioned to prednisone -Continue heparin drip and gentle diuresis with Lasix to achieve 1-2 liters net negative daily. -Monitor I/O, UOP, Daily weight -daily ABG's, CBC CMP Qualifiers: Chronicity: unspecified Qualified Code(s): J96.92 - Respiratory failure, unspecified with hypercapnia (2) DVT (deep venous thrombosis) Current Visit: Yes Status: Acute LE Doppler: lower extremity abnormal deep exam: left popliteal vein and left peroneal vein demonstrate acute thrombosis. RT leg negative for acute thrombus. Continue Heparin gtt Qualifiers: DVT location: lower extremity Affected thrombotic vein of extremity: popliteal Laterality: left Chronicity: unspecified Qualified Code(s): I82.432 - Acute embolism and thrombosis of left popliteal vein (3) Respiratory acidosis Current Visit: Yes Status: Acute Currently intubated and sedated. Yesterdays ABG pH7.4, pCO2 69, pO2 62, HCO3 42.7 Today's ABG pH 7.41, pCO2 57, pO2 57, HCO3 36.1 Patients PEEP was increased to 10. FIO2 will be weaned down, Rate remains 22, Tidal volume remains 420. (4) Atrial fibrillation with RVR Current Visit: Yes Status: Acute Pt. went into Afib with RVR on 06/22/2016. He remains in Afib currently. Was on Amiodarone drip with a BB PRN for tachycardia. Now transitioned to PO diltiazem [id number]: 2 moderate-high risk and should be a long-term anticoagulation candidate. PO diltiazem increased to 60mg q8 per cardiology continue heparin gtt (5) PEA (Pulseless electrical activity) Current Visit: Yes Status: Resolved Patient suffered PEA arrest shortly after admission on 06/21/2016. The code lasted approximately 8 minutes in which time the patient received 31 mg doses of epinephrine prior to return to spontaneous circulation. Concern for anoxic brain injury given time of arrest. Unable to assess at this time as patient remains intubated and sedated. Will assess neurological activity when patient is extubated and off sedation. (6) DARION (acute kidney injury) Current Visit: Yes Status: Acute Patient had elevated serum creatinine and decreased estimated GFR that had been steadily worsening since admission. Originally serum creatinine was 1.25. Resolved. Scr .99 Will continue diuresis due to acute heart failure On exam minimal pedal edema and absent pulmonary crackles. Decreased lasix to 20mg BID IVP Goal is -1-2L fluid balance daily. (7) Elevated troponin Current Visit: Yes Status: Acute Troponin elevations likely due to patient breathing status, PEA arrest, cor pulmonale. Unlikely ACS at this time. Heparin gtt was initially instituted for concern of ACS. LE doppler positive for LLE DVT. Will continue heparin gtt for DVT. (8) NSTEMI (non-ST elevated myocardial infarction) Current Visit: Yes Status: Acute Initial troponin of 0.13. Peak of 0.95. EKG did not show any significant changes. Heparin gtt was instituted for ACS. Likely type II NSTEMI due to demand ischemia. Cardiology was consulted appreciate their recommendations no interventions at this time from cardiology (9) Cor pulmonale (chronic) Current Visit: Yes Status: Chronic Cardiology is following. Echocardiogram was performed that showed preserved ejection fraction 55%, atypical septal wall motion of unclear significance, and indeterminate diastolic function. Dilated right ventricle with normal function. No JVD. (10) Morbid obesity Current Visit: Yes Status: Chronic Qualifiers: Obesity type: due to excess calories Qualified Code(s): E66.01 - Morbid ( severe) obesity due to excess calories (11) Smoking history Current Visit: Yes Status: Chronic (12) Obesity hypoventilation syndrome Current Visit: Yes Status: Suspected (13) Obstructive sleep apnea Current Visit: Yes Status: Suspected Patient is morbidly obese, has reportedly gained 100-150 pounds in the past 5 years. Patient's fiance stated that in the course the evening he will often have episodes of apnea preceded by excessive snoring. Patient would benefit from sleep study and potentially BiPAP/CPAP (14) DVT prophylaxis Current Visit: Yes Status: Acute heparin gtt for DVT Subjective Principal diagnosis: Hypercapnic respiratory failure Interval history: Patient intubated and sedated at this time. Objective PUL Vital signs: Last Vital Signs Temp 99.2 F 06/29/16 08:00 Pulse 102 06/29/16 08:40 Resp 22 06/29/16 08:00 BP 102/57 06/29/16 08:00 Pulse Ox 90 L 06/29/16 08:00 General appearance: asleep Eyes: nonicteric, other ([place] pulpils ) Effort: other (VC ventilation ) Auscultation: bilateral: clear Cardiovascular: irregular rhythm (tachycardic ) Gastrointestinal: normoactive bowel sounds, soft, non-distended Integumentary: normal Extremities: no cyanosis, no edema, pink and warm, pulses normal unable to assess due to mental status Ventilator Settings Ventilator Settings: Ventilator Settings, Last 8 Hours Ventilator Mode VC+ Ventilator Mode VC+ Ventilator Mode VC+ Ventilator Mode VC+ Ventilator Mode VC+ Ventilator Mode VC+ Ventilator Mode VC+ Ventilator Mode VC+ Ventilator Tidal Volume 480 Setting Ventilator Tidal Volume 480 Setting Ventilator Tidal Volume 480 Setting Ventilator Tidal Volume 480 Setting Ventilator Tidal Volume 480 Setting Ventilator Tidal Volume 480 Setting Ventilator Tidal Volume 480 Setting Ventilator Tidal Volume 480 Setting Ventilator Respiratory Rate 22 Setting Ventilator Respiratory Rate 22 Setting Ventilator Respiratory Rate 22 Setting Ventilator Respiratory Rate 22 Setting Ventilator Respiratory Rate 22 Setting Ventilator Respiratory Rate 22 Setting Ventilator Respiratory Rate 22 Setting Ventilator Respiratory Rate 22 Setting Actual Respiratory Rate 22 Actual Respiratory Rate 22 Actual Respiratory Rate 22 Actual Respiratory Rate 22 Actual Respiratory Rate 23 Actual Respiratory Rate 23 Actual Respiratory Rate 23 Positive End Expiratory 8 Pressure Positive End Expiratory 8 Pressure Positive End Expiratory 8 Pressure Positive End Expiratory 8 Pressure Positive End Expiratory 8 Pressure Positive End Expiratory 8 Pressure Positive End Expiratory 8 Pressure Positive End Expiratory 8 Pressure Peak Inspiratory Airway 18 Pressure Peak Inspiratory Airway 24 Pressure Peak Inspiratory Airway 25 Pressure Peak Inspiratory Airway 24 Pressure Peak Inspiratory Airway 22 Pressure Peak Inspiratory Airway 23 Pressure Peak Inspiratory Airway 24 Pressure Results - Laboratory Findings CBC and BMP: 06/29/16 04:05 06/29/16 04:05 ABG ABG pH 7.41 pH Units (7.32-7.45) 06/29/16 04:45 ABG pCO2 57 mmHg (35-45) H 06/29/16 04:45 ABG pO2 57 mmHg (85-104) L 06/29/16 04:45 ABG O2 Saturation 90 % (95-98) L 06/29/16 04:45 PT/INR, D-dimer PT 14.1 Seconds (9.4-12.1) H 06/21/16 18:00 Abnormal lab findings: Abnormal lab results WBC 12.8 K/mcL (4.3-11.1) H 06/29/16 04:05 MCH 27.7 pg (28.0-33.3) L 06/29/16 04:05 MCHC 30.3 g/dL (31.6-35.5) L 06/29/16 04:05 RDW 14.9 % (11.5-14.5) H 06/29/16 04:05 Neutrophils # 10.7 K/mcL (1.6-8.9) H 06/29/16 04:05 Nucleated RBCs/100 WBC 0.1 /100 WBC (0) H 06/24/16 04:32 Immature Plt Fraction 8.4 % (1.1-6.1) H 06/22/16 03:15 PT 14.1 Seconds (9.4-12.1) H 06/21/16 18:00 APTT 56.2 Seconds (26.0-36.0) H 06/29/16 04:05 ABG pCO2 57 mmHg (35-45) H 06/29/16 04:45 ABG pO2 57 mmHg (85-104) L 06/29/16 04:45 ABG HCO3 36.1 mEQ/L (21-27) H 06/29/16 04:45 ABG Total CO2 37.8 mEq/L (20-26) H 06/29/16 04:45 ABG O2 Saturation 90 % (95-98) L 06/29/16 04:45 ABG Base Excess 9.3 mEq/L (-2.0 to 3.0) H 06/29/16 04:45 VBG pH 7.08 pH Units (7.32-7.42) L* 06/21/16 16:31 VBG pCO2 137 mmHg (41-51) H 06/21/16 16:31 VBG pO2 12 mmHg (25-40) L 06/21/16 16:31 VBG HCO3 40.6 mEq/L (21-27) H 06/21/16 16:31 Carboxyhemoglobin 9.1 % (0-5) H 06/21/16 13:21 Chloride 95 mEq/L (98-109) L 06/29/16 04:05 Carbon Dioxide 36 mEq/L (19-29) H 06/29/16 04:05 BUN 44 mg/dL (8-26) H 06/29/16 04:05 BUN/Creatinine Ratio 44 (6-26) H 06/29/16 04:05 Glucose 149 mg/dL (70-99) H 06/29/16 04:05 POC Glucose 131 (58-89) H 06/28/16 23:07 Ionized Calcium 1.06 mmol/L (1.15-1.35) L 06/28/16 05:40 ALT 141 Units/L (0-55) H 06/24/16 04:32 Troponin I 0.77 ng/mL (0-0.03) H* 06/22/16 07:00 B-Natriuretic Peptide 917 pg/mL (0-100) H 06/21/16 14:02 Serum Total Protein 5.9 g/dL (6.0-8.3) L 06/24/16 04:32 Albumin 2.4 g/dL (3.5-5.0) L 06/24/16 04:32 Albumin/Globulin Ratio 0.7 (1.1-2.2) L 06/24/16 04:32 Triglycerides 185 mg/dL (< 150) H 06/28/16 07:55 Lipase 114 Units/L (8-78) H 06/28/16 07:55 - Microbiology Findings Microbiology Findings: Microbiology, Last 48 Hours 06/28/16 17:25 Sputum Culture - Preliminary Sputum 06/24/16 09:15 Sputum Culture - Final Sputum Pantoea agglomerans - Clinical Findings Intake & Output: Intake & Output 06/28/16 06/29/16 06/29/16 23:59 07:59 15:59 Intake Total 1867 / 1867 1830 / 1830 200 / 200 Output Total 1000 / 1000 1800 / 1800 Balance 867 / 867 30 / 30 200 / 200 Weight 162.9 kg Consult Discharge Plan - Plan Referrals: Sumit Hidalgo DO [Partnered Physician] - 07/06/16 12:15 pm (cardiac arrest 06/21, hospital follow up) Ruiz Dumont MD [Primary Care Provider] -
[2016-06-29] MEDS: Furosemide 40 MG/4 ML VIAL IVP SCH (10:13)
[2016-06-29] MEDS ORDERED: *HR* Metoprolol 5 MG/5 ML VIAL IVP ONE ×3 (12:17→15:51)
[2016-06-29] MEDS ORDERED: MethylPREDNISolone 40 MG/ML VIAL IVP SCH (13:30)
--- NOTE | 2016-06-29 16:18 | Event Note ---
Date of Encounter: 06/29/16 Time of Encounter: 16:10 Patient was weaned off sedation for a brief period of time to assess mental status. He followed commands (squeezing hand, moving feet, blinking, moving eye) . Patient started to become agitated and his HR increaseed to 150. He was started back up on fentanyl and propofol. He was given his scheduled dose of diltiazem which brought his HR down to 120-130s and his BP to 87/50. Patient's diltiazem was changed to 60 QID for further rate control and he was started on phenylephrine with a goal of MAP 60, if necessary. Furthermore, POA,patients brother, was called to discuss goals of care. He was told that patient follows commands off sedation. We recommended next step is a tracheostomy, as patient has had no further improvement in the past few days on ventilator. POA will discuss with family and meet us tomorrow morning for further discussion on this matter.
[2016-06-29] MEDS: Furosemide 20 MG/2 ML VIAL IVP SCH (17:03)
[2016-06-29] MEDS: *HR* Metoprolol 5 MG/5 ML VIAL IVP PRN (21:06)
[2016-06-30] MEDS: Insulin LISPRO 300 UNITS/3 ML VIAL SQ SCH ×6 (00:39→20:20)
[2016-06-30] MEDS: Ipratropium/Albuterol Neb 3 ML IH SCH ×7 (00:40→23:13)
[2016-06-30] MEDS: Heparin 25,000 UNIT/500 ML D5W 25,000 UNIT/500 ML MLS IVC SCH ×3 (02:44→15:01)
[2016-06-30 03:33] LABS: Basophils % 0.2 %; Eosinophils # 0.1 K/mcL (0.0-0.6); Eosinophils % 0.5 %; Hematocrit 44.8 % (37.5-50.1); Hemoglobin 13.6 g/dL (12.9-16.9); Lymphocytes # 1.8 K/mcL (0.6-4.6); Lymphocytes % 11.1 %; Mean Corpuscular HGB Conc 30.4 g/dL (31.6-35.5); Mean Corpuscular Hemoglobin 27.6 pg (28.0-33.3); Mean Corpuscular Volume 90.9 fL (83.0-100.0); Mean Platelet Volume 11.1 fL (9.4-12.4); Monocytes # 2.2 K/mcL (0.0-1.3); Monocytes % 13.1 %; Neutrophils # 11.8 K/mcL (1.6-8.9); Platelet Count 240 K/mcL (140-400); Red Blood Count 4.93 M/mcL (4.19-5.50); Segmented Neutrophils % 72.1 %
[2016-06-30 03:44] LABS: BUN/Creatinine Ratio 56 (6-26); Blood Urea Nitrogen 49 mg/dL (8-26); Calcium 8.3 mg/dL (8.6-10.8); Carbon Dioxide 34 mEq/L (19-29); Chloride 96 mEq/L (98-109); Glucose 119 mg/dL (70-99); Osmolality,Calculated 304 (280-300); Potassium 3.8 mEq/L (3.5-4.5); Sodium 140 mEq/L (136-145); eGFR For African Americans > 60 (> 60); eGFR For Non-African Americans > 60 (> 60)
[2016-06-30 04:26] LABS: ABG Base Excess 11.4 mEq/L (-2.0 to 3.0); ABG HCO3 39.3 mEQ/L (21-27); ABG Oxygen Saturation 91 % (95-98); ABG PCO2 65 mmHg (35-45); ABG PH 7.39 pH Units (7.32-7.45); ABG PO2 62 mmHg (85-104); ABG TCO2 41.3 mEq/L (20-26)
[2016-06-30 04:27] LABS: Blood Gas FiO2 40 %
[2016-06-30] MEDS: FentaNYL (PF) 1,000 MCG in 0.9 % Sodium Chloride 80 ML IVC SCH ×4 (05:00→22:22)
[2016-06-30] MEDS: Lacri-Lube 3.5 GM TUBE BOTH EYES SCH ×5 (05:00→20:17)
[2016-06-30] MEDS: *HR* Metoprolol 5 MG/5 ML VIAL IVP PRN (05:04)
[2016-06-30] MEDS: Phenylephrine 10 MG in D5% in Water 250 ML IVC SCH ×2 (06:25→14:29)
[2016-06-30] MEDS: Sennosides 8.6 MG TABLET PO SCH ×2 (07:28→20:16)
[2016-06-30] MEDS: Furosemide 20 MG/2 ML VIAL IVP SCH (07:28)
[2016-06-30] MEDS: Pantoprazole 40 MG VIAL IVP SCH (07:28)
[2016-06-30] MEDS: predniSONE 20 MG TABLET GTUBE SCH (07:29)
[2016-06-30] MEDS: Bisacodyl 10 MG RECTAL SUPPOSITORY RC PRN (07:29)
[2016-06-30] MEDS: dilTIAZem HCl 60 MG TABLET PO SCH ×5 (07:33→20:16)
[2016-06-30] MEDS: Chlorhexidine Rinse 15 ML MOUTHWASH MM SCH ×2 (07:54→20:16)
--- NOTE | 2016-06-30 08:08 | Pulmonology Progress Note ---
Date of Encounter: 06/30/16 Time of Encounter: 08:05 Assessment and Plan (1) Hypercapnic respiratory failure Current Visit: Yes Status: Acute Patient remains sedated, intubated, mechanically ventilated. Patient's fiance reports worsening dyspnea for 3 weeks, likely multifactorial from undiagnosed COPD, undiagnosed obesity hypoventilation syndrome, possible community acquired pneumonia, and undiagnosed obstructive sleep apnea causing right-sided heart failure (undiagnosed). Also concern for pulmonary embolism. Lower extremity Doppler positive for acute thrombosis and left popliteal and left peroneal vein. Right lower extremity was negative. At admission was severely hypoxic with a pH of 7.08 with improvement seen following mechanical ventilation. He has continued mixed respiratory acidosis with metabolic alkalosis. CXR shows continued b/l pleural effusions. Respiratory virus panel: negative, urinary antigens: negative Chest CT scan was attempted but patient required high PEEP to maintain O2 sats , however pt. desaturated to mid 70's on the way to CT. He is anticoagulated on a heparin drip for LE DVT's so bronchoscopy would require stopping the heparin drip, which is not warranted at this time. Plan: -Continue intubation. Maintain oxygen saturation above 88% -patient follows command when he was briefly weaned off sedation. -PEEP 10 and FiO2 40. o2>90% -repeat xcr shows b/l atelectasis and pleural effusion -Family will discuss possibility of patient getting tracheotomy today. -sputum cx: gram negative rods (Pantoea agglomerans). Unclear if this was contaminant -blood cultures show no growth. Repeat sputum culture show gram - elías possible from contamination. -we will monitor wbc trend and respiratory status. -Duonebs every 4 hours scheduled -continue prednisone -Continue heparin drip and gentle diuresis with Lasix to achieve 1-2 liters net negative daily. -Monitor I/O, UOP, Daily weight -daily ABG's, CBC CMP Qualifiers: Chronicity: unspecified Qualified Code(s): J96.92 - Respiratory failure, unspecified with hypercapnia (2) Respiratory acidosis Current Visit: Yes Status: Acute Respiratory acidosis with metabolic alkalosis stable no change in the past five days. Patients PEEP was increased to 10. FIO2 will be weaned down, Rate remains 22, Tidal volume remains 420. (3) DVT (deep venous thrombosis) Current Visit: Yes Status: Acute LE Doppler: lower extremity abnormal deep exam: left popliteal vein and left peroneal vein demonstrate acute thrombosis. RT leg negative for acute thrombus. Continue Heparin gtt Qualifiers: DVT location: lower extremity Affected thrombotic vein of extremity: popliteal Laterality: left Chronicity: unspecified Qualified Code(s): I82.432 - Acute embolism and thrombosis of left popliteal vein (4) Atrial fibrillation with RVR Current Visit: Yes Status: Acute Pt. went into Afib with RVR on 06/22/2016. He remains in Afib currently. Was on Amiodarone drip with a BB PRN for tachycardia. Now transitioned to PO diltiazem [id number]: 2 moderate-high risk and should be a long-term anticoagulation candidate. Patient HR.150 last night. Started on Diltiazem drip. Continue PO diltazem 60 QID and transition of IV diltiazem. (5) PEA (Pulseless electrical activity) Current Visit: Yes Status: Resolved Patient suffered PEA arrest shortly after admission on 06/21/2016. The code lasted approximately 8 minutes in which time the patient received 31 mg doses of epinephrine prior to return to spontaneous circulation. Concern for anoxic brain injury given time of arrest. Unable to assess at this time as patient remains intubated and sedated. Will assess neurological activity when patient is extubated and off sedation. (6) DARION (acute kidney injury) Current Visit: Yes Status: Acute Patient had elevated serum creatinine and decreased estimated GFR that had been steadily worsening since admission. Originally serum creatinine was 1.25. Resolved. Scr .99 Will continue diuresis due to acute heart failure On exam minimal pedal edema and absent pulmonary crackles. Lasix 40 QAm and 20 QHS Goal is -1-2L fluid balance daily. (7) Elevated troponin Current Visit: Yes Status: Acute Troponin elevations likely due to patient breathing status, PEA arrest, cor pulmonale. Unlikely ACS at this time. Heparin gtt was initially instituted for concern of ACS. LE doppler positive for LLE DVT. Will continue heparin gtt for DVT. (8) NSTEMI (non-ST elevated myocardial infarction) Current Visit: Yes Status: Acute Initial troponin of 0.13. Peak of 0.95. EKG did not show any significant changes. Heparin gtt was instituted for ACS. Likely type II NSTEMI due to demand ischemia. Cardiology was consulted appreciate their recommendations no interventions at this time from cardiology (9) Cor pulmonale (chronic) Current Visit: Yes Status: Chronic Cardiology is following. Echocardiogram was performed that showed preserved ejection fraction 55%, atypical septal wall motion of unclear significance, and indeterminate diastolic function. Dilated right ventricle with normal function. No JVD. (10) Morbid obesity Current Visit: Yes Status: Chronic Qualifiers: Obesity type: due to excess calories Qualified Code(s): E66.01 - Morbid ( severe) obesity due to excess calories (11) Smoking history Current Visit: Yes Status: Chronic (12) Obesity hypoventilation syndrome Current Visit: Yes Status: Suspected (13) Obstructive sleep apnea Current Visit: Yes Status: Suspected Patient is morbidly obese, has reportedly gained 100-150 pounds in the past 5 years. Patient's fiance stated that in the course the evening he will often have episodes of apnea preceded by excessive snoring. Patient would benefit from sleep study and potentially BiPAP/CPAP (14) DVT prophylaxis Current Visit: Yes Status: Acute heparin gtt for DVT Subjective Principal diagnosis: Hypercapnic respiratory failure Interval history: Overnight patient continued to have HR >150 which was refractory to scheduled PO cardizem and IV lopressor. He was started on cardizem drip. HR is no2 100- 110. Furthermore, patient was waking up last night, and becoming agitated. His sedation was increased. He is asleep and calm this morning. Objective PUL Vital signs: Last Vital Signs Temp 98.3 F 06/30/16 07:00 Pulse 110 06/30/16 07:30 Resp 22 06/30/16 07:56 BP 102/66 06/30/16 07:56 Pulse Ox 94 L 06/30/16 07:56 General appearance: no acute distress, asleep Eyes: nonicteric Mallampati (class): 3 Neck: no JVD Effort: normal Auscultation: bilateral: wheezes Cardiovascular: irregular rhythm Gastrointestinal: normoactive bowel sounds, soft, non-distended Integumentary: normal Extremities: no cyanosis, no edema, no clubbing unable to assess due to mental status Ventilator Settings Ventilator Settings: Ventilator Settings, Last 8 Hours Ventilator Mode VC+ Ventilator Mode VC+ Ventilator Mode VC+ Ventilator Mode VC+ Ventilator Mode VC+ Ventilator Mode VC+ Ventilator Mode VC+ Ventilator Mode VC+ Ventilator Mode VC+ Ventilator Mode VC+ Ventilator Mode VC+ Ventilator Mode VC+ Ventilator Tidal Volume 480 Setting Ventilator Tidal Volume 480 Setting Ventilator Tidal Volume 480 Setting Ventilator Tidal Volume 480 Setting Ventilator Tidal Volume 480 Setting Ventilator Tidal Volume 480 Setting Ventilator Tidal Volume 480 Setting Ventilator Tidal Volume 480 Setting Ventilator Tidal Volume 480 Setting Ventilator Tidal Volume 480 Setting Ventilator Tidal Volume 480 Setting Ventilator Tidal Volume 480 Setting Ventilator Respiratory Rate 22 Setting Ventilator Respiratory Rate 22 Setting Ventilator Respiratory Rate 22 Setting Ventilator Respiratory Rate 22 Setting Ventilator Respiratory Rate 22 Setting Ventilator Respiratory Rate 22 Setting Ventilator Respiratory Rate 22 Setting Ventilator Respiratory Rate 22 Setting Ventilator Respiratory Rate 22 Setting Ventilator Respiratory Rate 22 Setting Ventilator Respiratory Rate 22 Setting Ventilator Respiratory Rate 22 Setting Actual Respiratory Rate 22 Actual Respiratory Rate 22 Actual Respiratory Rate 22 Actual Respiratory Rate 22 Actual Respiratory Rate 22 Actual Respiratory Rate 22 Actual Respiratory Rate 22 Actual Respiratory Rate 22 Actual Respiratory Rate 22 Actual Respiratory Rate 22 Actual Respiratory Rate 22 Positive End Expiratory 8 Pressure Positive End Expiratory 10 Pressure Positive End Expiratory 10 Pressure Positive End Expiratory 10 Pressure Positive End Expiratory 10 Pressure Positive End Expiratory 10 Pressure Positive End Expiratory 10 Pressure Positive End Expiratory 10 Pressure Positive End Expiratory 10 Pressure Positive End Expiratory 10 Pressure Positive End Expiratory 10 Pressure Positive End Expiratory 10 Pressure Peak Inspiratory Airway 25 Pressure Peak Inspiratory Airway 25 Pressure Peak Inspiratory Airway 24 Pressure Peak Inspiratory Airway 26 Pressure Peak Inspiratory Airway 34 Pressure Peak Inspiratory Airway 28 Pressure Peak Inspiratory Airway 27 Pressure Peak Inspiratory Airway 26 Pressure Peak Inspiratory Airway 26 Pressure Results - Laboratory Findings CBC and BMP: 06/30/16 03:15 06/30/16 03:15 ABG ABG pH 7.39 pH Units (7.32-7.45) 06/30/16 04:15 ABG pCO2 65 mmHg (35-45) H 06/30/16 04:15 ABG pO2 62 mmHg (85-104) L 06/30/16 04:15 ABG O2 Saturation 91 % (95-98) L 06/30/16 04:15 PT/INR, D-dimer PT 14.1 Seconds (9.4-12.1) H 06/21/16 18:00 Abnormal lab findings: Abnormal lab results WBC 16.4 K/mcL (4.3-11.1) H 06/30/16 03:15 MCH 27.6 pg (28.0-33.3) L 06/30/16 03:15 MCHC 30.4 g/dL (31.6-35.5) L 06/30/16 03:15 RDW 15.0 % (11.5-14.5) H 06/30/16 03:15 Neutrophils # 11.8 K/mcL (1.6-8.9) H 06/30/16 03:15 Monocytes # 2.2 K/mcL (0.0-1.3) H 06/30/16 03:15 Nucleated RBCs/100 WBC 0.1 /100 WBC (0) H 06/24/16 04:32 Immature Plt Fraction 8.4 % (1.1-6.1) H 06/22/16 03:15 PT 14.1 Seconds (9.4-12.1) H 06/21/16 18:00 APTT 84.7 Seconds (26.0-36.0) H 06/29/16 18:05 ABG pCO2 65 mmHg (35-45) H 06/30/16 04:15 ABG pO2 62 mmHg (85-104) L 06/30/16 04:15 ABG HCO3 39.3 mEQ/L (21-27) H 06/30/16 04:15 ABG Total CO2 41.3 mEq/L (20-26) H 06/30/16 04:15 ABG O2 Saturation 91 % (95-98) L 06/30/16 04:15 ABG Base Excess 11.4 mEq/L (-2.0 to 3.0) H 06/30/16 04:15 VBG pH 7.08 pH Units (7.32-7.42) L* 06/21/16 16:31 VBG pCO2 137 mmHg (41-51) H 06/21/16 16:31 VBG pO2 12 mmHg (25-40) L 06/21/16 16:31 VBG HCO3 40.6 mEq/L (21-27) H 06/21/16 16:31 Carboxyhemoglobin 9.1 % (0-5) H 06/21/16 13:21 Chloride 96 mEq/L (98-109) L 06/30/16 03:15 Carbon Dioxide 34 mEq/L (19-29) H 06/30/16 03:15 BUN 49 mg/dL (8-26) H 06/30/16 03:15 BUN/Creatinine Ratio 56 (6-26) H 06/30/16 03:15 Glucose 119 mg/dL (70-99) H 06/30/16 03:15 POC Glucose 109 (58-89) H 06/30/16 00:02 Calculated Osmolality 304 (280-300) H 06/30/16 03:15 Calcium 8.3 mg/dL (8.6-10.8) L 06/30/16 03:15 Ionized Calcium 1.06 mmol/L (1.15-1.35) L 06/28/16 05:40 ALT 141 Units/L (0-55) H 06/24/16 04:32 Troponin I 0.77 ng/mL (0-0.03) H* 06/22/16 07:00 B-Natriuretic Peptide 917 pg/mL (0-100) H 06/21/16 14:02 Serum Total Protein 5.9 g/dL (6.0-8.3) L 06/24/16 04:32 Albumin 2.4 g/dL (3.5-5.0) L 06/24/16 04:32 Albumin/Globulin Ratio 0.7 (1.1-2.2) L 06/24/16 04:32 Triglycerides 185 mg/dL (< 150) H 06/28/16 07:55 Lipase 114 Units/L (8-78) H 06/28/16 07:55 - Microbiology Findings Microbiology Findings: Microbiology, Last 48 Hours 06/28/16 10:43 Blood Culture - Preliminary Central Venous Catheter No growth. 06/28/16 17:25 Sputum Culture - Preliminary Sputum Gram Negative Elías Gram Negative Elías#2 06/27/16 13:31 Blood Culture - Preliminary Central Venous Catheter No growth. 06/27/16 13:25 Blood Culture - Preliminary Peripheral Venipuncture No growth. - Diagnostic Findings Chest x-ray: report reviewed (no change from previous ) - Clinical Findings Intake & Output: Intake & Output 06/29/16 06/30/16 06/30/16 23:59 07:59 15:59 Intake Total 887 / 887 1480 / 1480 Output Total 1350 / 1350 1500 / 1500 Balance -463 / -463 - Weight 159.71 kg Consult Discharge Plan - Plan Referrals: Sumit Hidalgo DO [Partnered Physician] - 07/06/16 12:15 pm (cardiac arrest 3, hospital follow up) Ruiz Dumont MD [Primary Care Provider] -
[2016-06-30] MEDS ORDERED: Furosemide 20 MG/2 ML VIAL IVP ONE (08:25)
[2016-06-30] MEDS ORDERED: Furosemide 20 MG TABLET PO SCH (09:00)
[2016-06-30] MEDS ORDERED: Piperacillin/Tazobactam 3.375 GM in D5% in Water (Mini-Bag+) 100 ML IVPB SCH ×2 (10:00→16:00)
[2016-06-30] MEDS: Furosemide 40 MG/4 ML VIAL IVP SCH (16:33)
--- NOTE | 2016-06-30 16:39 | Event Note ---
Date of Encounter: 06/30/16 Time of Encounter: 16:37 I had a goals of care discussion with the patient's 2 brothers and his fiancee. I explained the nature of the patient's illness and our current options. The patient had a fairly poor functional status at baseline and likely would not of wanted to undergo tracheostomy tube placement with a prolonged rehabilitation course. Despite his relatively young age, he is at significant risk for not completely weaning off the ventilator and tracheostomy tube. Everyone was in agreement to change his CODE STATUS to DNR CCA DNI. We will attempt a trial of extubation in the next 24-48 hours. If he does well with extubation, that would be great, however if he does poorly with extubation the plan would be to transition him to DNR CC and let him comfortably.
[2016-06-30] MEDS ORDERED: Furosemide 20 MG/2 ML VIAL IVP SCH ×2 (17:00→21:00)
[2016-07-01] MEDS: Insulin LISPRO 300 UNITS/3 ML VIAL SQ SCH ×7 (00:11→23:36)
[2016-07-01] MEDS: Lacri-Lube 3.5 GM TUBE BOTH EYES SCH ×7 (00:12→23:32)
[2016-07-01] MEDS: *HR* Metoprolol 5 MG/5 ML VIAL IVP PRN ×2 (03:00→07:55)
[2016-07-01 03:43] LABS: ABG Base Excess 13.5 mEq/L (-2.0 to 3.0); ABG HCO3 40.9 mEQ/L (21-27); ABG Oxygen Saturation 90 % (95-98); ABG PCO2 63 mmHg (35-45); ABG PH 7.42 pH Units (7.32-7.45); ABG PO2 57 mmHg (85-104); ABG TCO2 42.8 mEq/L (20-26)
[2016-07-01 03:44] LABS: Blood Gas FiO2 40 %
[2016-07-01] MEDS: Ipratropium/Albuterol Neb 3 ML IH SCH ×6 (03:51→23:12)
[2016-07-01] MEDS: Heparin 25,000 UNIT/500 ML D5W 25,000 UNIT/500 ML MLS IVC SCH ×3 (04:48→20:17)
[2016-07-01 05:36] LABS: Basophils % 0.3 %; Eosinophils # 0.2 K/mcL (0.0-0.6); Eosinophils % 1.5 %; Hematocrit 41.9 % (37.5-50.1); Immature Granulocytes % 4.7 % (0-4); Lymphocytes # 1.6 K/mcL (0.6-4.6); Lymphocytes % 10.4 %; Mean Corpuscular Hemoglobin 28.5 pg (28.0-33.3); Mean Corpuscular Volume 91.9 fL (83.0-100.0); Mean Platelet Volume 11.8 fL (9.4-12.4); Monocytes # 1.5 K/mcL (0.0-1.3); Monocytes % 9.6 %; Neutrophils # 11.5 K/mcL (1.6-8.9); Platelet Count 244 K/mcL (140-400); Red Blood Count 4.56 M/mcL (4.19-5.50); Segmented Neutrophils % 73.5 %
[2016-07-01 05:37] LABS: INR 1.1; Prothrombin Time 12.4 Seconds (9.4-12.1)
[2016-07-01 05:39] LABS: Activated Partial Thrombo Time 62.6 Seconds (26.0-36.0)
[2016-07-01 05:47] LABS: Magnesium 1.9 mg/dL (1.6-2.6); Phosphorous 3.4 mg/dL (2.3-4.7)
[2016-07-01 05:48] LABS: Ionized Calcium 1.05 mmol/L (1.15-1.35)
[2016-07-01 05:49] LABS: BUN/Creatinine Ratio 60 (6-26); Blood Urea Nitrogen 48 mg/dL (8-26); Calcium 8.2 mg/dL (8.6-10.8); Carbon Dioxide 35 mEq/L (19-29); Chloride 95 mEq/L (98-109); Glucose 126 mg/dL (70-99); Osmolality,Calculated 302 (280-300); Potassium 3.6 mEq/L (3.5-4.5); Sodium 139 mEq/L (136-145); eGFR For African Americans > 60 (> 60); eGFR For Non-African Americans > 60 (> 60)
[2016-07-01] MEDS: FentaNYL (PF) 1,000 MCG in 0.9 % Sodium Chloride 80 ML IVC SCH ×2 (07:45→20:15)
[2016-07-01] MEDS ORDERED: Potassium Chloride Elixir 20 MEQ/15 ML UDC GTUBE ONE (07:50)
[2016-07-01] MEDS: Furosemide 40 MG/4 ML VIAL IVP SCH ×2 (07:54→16:31)
[2016-07-01] MEDS: Chlorhexidine Rinse 15 ML MOUTHWASH MM SCH ×2 (07:55→20:17)
[2016-07-01] MEDS: Sennosides 8.6 MG TABLET PO SCH ×2 (07:55→20:17)
[2016-07-01] MEDS: Pantoprazole 40 MG VIAL IVP SCH (07:55)
[2016-07-01] MEDS: predniSONE 20 MG TABLET GTUBE SCH (07:55)
[2016-07-01] MEDS: Magnesium Sulfate 2 GM in D5% in Water 100 ML IVPB PRN (07:56)
[2016-07-01] MEDS: Calcium Gluconate 1,000 MG in D5% in Water 100 ML IVPB PRN (07:56)
[2016-07-01] MEDS: dilTIAZem HCl 60 MG TABLET PO SCH (08:00)
[2016-07-01] MEDS ORDERED: *HR* LORazepam 2 MG/ML VIAL IVP PRN (08:50)
--- NOTE | 2016-07-01 09:45 | Pulmonology Progress Note ---
Date of Encounter: 07/01/16 Time of Encounter: 09:41 Assessment and Plan (1) Hypercapnic respiratory failure Current Visit: Yes Status: Acute 56 y/o M presented to [place] ER with acute respiratory failure and was intubated for hypercapnia and hypoxia. At admission his pH was 7.08. Thereafter, he was moved to ICU where he had an 8 minute episode of PEA and was successfully resuscitated. Patient has been on Ventilator for 11 days. Patient's fiance reported worsening dyspnea for 3 weeks, likely multifactorial from undiagnosed COPD, undiagnosed obesity hypoventilation syndrome, possible community acquired pneumonia, and undiagnosed obstructive sleep apnea causing right-sided heart failure (undiagnosed). Also there was concern for pulmonary embolism. Lower extremity Doppler positive for acute thrombosis and left popliteal and left peroneal vein. He also was aggressively diuresed, and anticoagulated with heparin. Patient had difficulty weaning off the ventilator. Yesterday, during family meeting it was decided to make patient DNRCCA DNI and extubate patient as family did not think patient would like to live with tracheotomy. Patient was extubated this morning. His vitals remain stable after extubation with O2 sat in low 80s. Family still wants patient to be CCA and continue medical treatment. His mental status waxes and wanes: patient follows simple commands at times and at times there is no effort or response. Plan is to continue current management and monitor patient. We will continue fentanyl and start ativan, atropine and morphine for comfort. NPO Qualifiers: Chronicity: unspecified Qualified Code(s): J96.92 - Respiratory failure, unspecified with hypercapnia (2) Respiratory acidosis Current Visit: Yes Status: Acute Patient was extubated today. He is DNI now. Saturations are in low 80s. Will continue to monitor. (3) DVT (deep venous thrombosis) Current Visit: Yes Status: Acute LE Doppler: lower extremity abnormal deep exam: left popliteal vein and left peroneal vein demonstrate acute thrombosis. RT leg negative for acute thrombus. Continue Heparin gtt Qualifiers: DVT location: lower extremity Affected thrombotic vein of extremity: popliteal Laterality: left Chronicity: unspecified Qualified Code(s): I82.432 - Acute embolism and thrombosis of left popliteal vein (4) Atrial fibrillation with RVR Current Visit: Yes Status: Acute Pt. went into Afib with RVR on 06/22/2016. He remains in Afib currently. [id number]: 2 moderate-high risk and should be a long-term anticoagulation candidate. Patient HR continues to be >100. We will d/c Po cardizem as patient is NPO and continue cardizem drip with scheduled Lopressor. (5) PEA (Pulseless electrical activity) Current Visit: Yes Status: Resolved Patient suffered PEA arrest shortly after admission on 06/21/2016. The code lasted approximately 8 minutes in which time the patient received 31 mg doses of epinephrine prior to return to spontaneous circulation. (6) DARION (acute kidney injury) Current Visit: Yes Status: Acute Patient had elevated serum creatinine and decreased estimated GFR that had been steadily worsening since admission. Originally serum creatinine was 1.25. Resolved. Will continue diuresis due to acute heart failure On exam minimal pedal edema and absent pulmonary crackles. Lasix 40 BID Goal is -1-2L fluid balance daily. (7) Elevated troponin Current Visit: Yes Status: Acute Troponin elevations likely due to patient breathing status, PEA arrest, cor pulmonale. Unlikely ACS at this time. Heparin gtt was initially instituted for concern of ACS. LE doppler positive for LLE DVT. Will continue heparin gtt for DVT. (8) NSTEMI (non-ST elevated myocardial infarction) Current Visit: Yes Status: Acute Initial troponin of 0.13. Peak of 0.95. EKG did not show any significant changes. Heparin gtt was instituted for ACS. Likely type II NSTEMI due to demand ischemia. Cardiology was consulted appreciate their recommendations no interventions at this time from cardiology (9) Cor pulmonale (chronic) Current Visit: Yes Status: Chronic Cardiology is following. Echocardiogram was performed that showed preserved ejection fraction 55%, atypical septal wall motion of unclear significance, and indeterminate diastolic function. Dilated right ventricle with normal function. No JVD. (10) Obesity hypoventilation syndrome Current Visit: Yes Status: Suspected (11) DVT prophylaxis Current Visit: Yes Status: Acute heparin gtt for DVT Subjective Principal diagnosis: Hypercapnic respiratory failure Interval history: Yesterday afternoon family decided to change code stats to DNR-CC-A DNI and planned to extubate patient. Patient was extubated this morning and family is in the room with the patient. Patient follows simple commands at times ( squeezing hand), and other times does not show effort or response. Objective PUL Vital signs: Last Vital Signs Temp 99.0 F 07/01/16 08:00 Pulse 123 07/01/16 09:00 Resp 24 07/01/16 09:00 BP 103/69 07/01/16 09:00 Pulse Ox 81 L 07/01/16 09:00 General appearance: no acute distress Eyes: nonicteric ENT: oropharynx moist Effort: normal Auscultation: bilateral: clear Cardiovascular: irregular rhythm Gastrointestinal: normoactive bowel sounds, soft, non-tender Extremities: no cyanosis, no edema, no clubbing unable to assess due to mental status Ventilator Settings Ventilator Settings: Ventilator Settings, Last 8 Hours Ventilator Mode CPAP Ventilator Mode CPAP Ventilator Mode CPAP Ventilator Mode CPAP Ventilator Mode VC+ Ventilator Mode VC+ Ventilator Mode VC+ Ventilator Mode VC+ Ventilator Tidal Volume 480 Setting Ventilator Tidal Volume 480 Setting Ventilator Tidal Volume 480 Setting Ventilator Tidal Volume 480 Setting Ventilator Tidal Volume 480 Setting Ventilator Tidal Volume 480 Setting Ventilator Tidal Volume 480 Setting Ventilator Respiratory Rate 22 Setting Ventilator Respiratory Rate 22 Setting Ventilator Respiratory Rate 22 Setting Ventilator Respiratory Rate 22 Setting Ventilator Respiratory Rate 22 Setting Ventilator Respiratory Rate 22 Setting Actual Respiratory Rate 25 Actual Respiratory Rate 40 Actual Respiratory Rate 11 Actual Respiratory Rate 11 Actual Respiratory Rate 22 Actual Respiratory Rate 22 Actual Respiratory Rate 22 Actual Respiratory Rate 22 Positive End Expiratory 8 Pressure Positive End Expiratory 8 Pressure Positive End Expiratory 8 Pressure Positive End Expiratory 8 Pressure Positive End Expiratory 8 Pressure Positive End Expiratory 8 Pressure Positive End Expiratory 8 Pressure Positive End Expiratory 8 Pressure Peak Inspiratory Airway 22 Pressure Peak Inspiratory Airway 22 Pressure Peak Inspiratory Airway 19 Pressure Peak Inspiratory Airway 19 Pressure Peak Inspiratory Airway 23 Pressure Peak Inspiratory Airway 23 Pressure Peak Inspiratory Airway 24 Pressure Peak Inspiratory Airway 25 Pressure Results - Laboratory Findings CBC and BMP: 07/01/16 04:55 07/01/16 04:55 ABG ABG pH 7.42 pH Units (7.32-7.45) 07/01/16 03:34 ABG pCO2 63 mmHg (35-45) H 07/01/16 03:34 ABG pO2 57 mmHg (85-104) L 07/01/16 03:34 ABG O2 Saturation 90 % (95-98) L 07/01/16 03:34 PT/INR, D-dimer PT 12.4 Seconds (9.4-12.1) H 07/01/16 04:55 Abnormal lab findings: Abnormal lab results WBC 15.7 K/mcL (4.3-11.1) H 07/01/16 04:55 MCHC 31.0 g/dL (31.6-35.5) L 07/01/16 04:55 RDW 15.0 % (11.5-14.5) H 07/01/16 04:55 Immature Gran % 4.7 % (0-4) H 07/01/16 04:55 Neutrophils # 11.5 K/mcL (1.6-8.9) H 07/01/16 04:55 Monocytes # 1.5 K/mcL (0.0-1.3) H 07/01/16 04:55 Nucleated RBCs/100 WBC 0.1 /100 WBC (0) H 06/24/16 04:32 Immature Plt Fraction 8.4 % (1.1-6.1) H 06/22/16 03:15 PT 12.4 Seconds (9.4-12.1) H 07/01/16 04:55 APTT 62.6 Seconds (26.0-36.0) H 07/01/16 04:55 ABG pCO2 63 mmHg (35-45) H 07/01/16 03:34 ABG pO2 57 mmHg (85-104) L 07/01/16 03:34 ABG HCO3 40.9 mEQ/L (21-27) H 07/01/16 03:34 ABG Total CO2 42.8 mEq/L (20-26) H 07/01/16 03:34 ABG O2 Saturation 90 % (95-98) L 07/01/16 03:34 ABG Base Excess 13.5 mEq/L (-2.0 to 3.0) H 07/01/16 03:34 VBG pH 7.08 pH Units (7.32-7.42) L* 06/21/16 16:31 VBG pCO2 137 mmHg (41-51) H 06/21/16 16:31 VBG pO2 12 mmHg (25-40) L 06/21/16 16:31 VBG HCO3 40.6 mEq/L (21-27) H 06/21/16 16:31 Carboxyhemoglobin 9.1 % (0-5) H 06/21/16 13:21 Chloride 95 mEq/L (98-109) L 07/01/16 04:55 Carbon Dioxide 35 mEq/L (19-29) H 07/01/16 04:55 BUN 48 mg/dL (8-26) H 07/01/16 04:55 BUN/Creatinine Ratio 60 (6-26) H 07/01/16 04:55 Glucose 126 mg/dL (70-99) H 07/01/16 04:55 POC Glucose 109 (58-89) H 07/01/16 00:10 Calculated Osmolality 302 (280-300) H 07/01/16 04:55 Calcium 8.2 mg/dL (8.6-10.8) L 07/01/16 04:55 Ionized Calcium 1.05 mmol/L (1.15-1.35) L 07/01/16 04:55 ALT 141 Units/L (0-55) H 06/24/16 04:32 Troponin I 0.77 ng/mL (0-0.03) H* 06/22/16 07:00 B-Natriuretic Peptide 917 pg/mL (0-100) H 06/21/16 14:02 Serum Total Protein 5.9 g/dL (6.0-8.3) L 06/24/16 04:32 Albumin 2.4 g/dL (3.5-5.0) L 06/24/16 04:32 Albumin/Globulin Ratio 0.7 (1.1-2.2) L 06/24/16 04:32 Triglycerides 185 mg/dL (< 150) H 06/28/16 07:55 Lipase 114 Units/L (8-78) H 06/28/16 07:55 - Microbiology Findings Microbiology Findings: Microbiology, Last 48 Hours 06/28/16 17:25 Sputum Culture - Final Sputum Pantoea agglomerans 06/28/16 10:43 Blood Culture - Preliminary Central Venous Catheter No growth. 06/27/16 13:31 Blood Culture - Preliminary Central Venous Catheter No growth. 06/27/16 13:25 Blood Culture - Preliminary Peripheral Venipuncture No growth. - Clinical Findings Intake & Output: Intake & Output 06/30/16 07/01/16 07/01/16 23:59 07:59 15:59 Intake Total 918 / 918 1042 / 1042 0 / 0 Output Total 1650 / 1650 1025 / 1025 Balance -732 / -732 0 / 0 Consult Discharge Plan - Plan Referrals: Sumit Hidalgo DO [Partnered Physician] - 07/06/16 12:15 pm (cardiac arrest 06/21, hospital follow up) Ruiz Dumont MD [Primary Care Provider] -
--- NOTE | 2016-07-01 10:07 | Palliative - Consult Note ---
<KeiryOizel - Last Filed: 07/01/16 10:20> Date of Encounter: 07/01/16 Time of Encounter: 10:02 - Assessment and Plan (1) Goals of care, counseling/discussion Current Visit: Yes Status: Acute Assessment and plan: Discussion was held with family at bedside, including fiancee and brothers. It was discussed with family that the prognosis is poor at this time. Family is all in agreement that the patient would not want nursing home mechanical ventilation so the patient was extubated per ICU team. Goals of care were discussed with the family who wished to include the patient in the decision making. The patient was asked about his own goals of care and he was not able to respond appropriately. Family wished to give it more time to see if the patient could communicate his wishes. Family did wish to institute comfort measures at this time but did not want to withdrawal other medical care. We will continue to discuss goals of care with patient and family and continually reassess. (2) Dyspnea Current Visit: Yes Status: Acute Assessment and plan: Patient appears to be mildly short of breath, will institute morphine for comfort related to pain and dyspnea Qualifiers: Dyspnea type: unspecified Qualified Code(s): R06.00 - Dyspnea, unspecified (3) History of sudden cardiac arrest successfully resuscitated Current Visit: Yes Status: Acute Assessment and plan: Patient remained mechanically ventilated for 11 days with care by the ICU team. Patient was extubated this morning, prognosis is poor. (4) Acute respiratory failure Current Visit: Yes Status: Acute Assessment and plan: status post mechanically ventilation, extubated this morning. Continue nasal cannula Qualifiers: Respiratory failure complication: hypoxia and hypercapnia Qualified Code(s) : J96.01 - Acute respiratory failure with hypoxia; J96.02 - Acute respiratory failure with hypercapnia (5) DVT (deep venous thrombosis) Current Visit: Yes Status: Acute Assessment and plan: Continue heparin drip at this time, further management per primary team Qualifiers: DVT location: lower extremity Affected thrombotic vein of extremity: popliteal Laterality: left Chronicity: unspecified Qualified Code(s): I82.432 - Acute embolism and thrombosis of left popliteal vein (6) Atrial fibrillation with RVR Current Visit: Yes Status: Acute Assessment and plan: Rate not well controlled. Currently receiving cardizem drip and metoprolol IV prn. Anticoagulated with heparin drip. Management per primary team Palliative-CN HPI - Data of Consult Patient: new to practice Consult date: 07/01/16 Requesting Physician: Kaiser Fabian MD Primary Care Provider: Ruiz Dumont MD - Consult Narrative Reason for consult: Goals of Care History of present illness: Mr. Webber is a 56 year old male who does not follow with a physician initially presented on 06/21/2016 in acute respiratory distress. The patient was subsequently intubated and transferred to the ICU. There it was found that the patient had a lower extremity DVT. Patient was placed on heparin drip. Today, the 11 day of mechanical ventilation, it was determined by the family that the patient would not want tracheostmy and nursing home mechanical ventilation so the patient was extubated. At the time of my exam the patient was awake and opening eyes. He would occasionally move his head back and forth and squeeze a hand but it is unclear if these are purposeful. The patient did not appear to be in any acute distress. CC: Kaiser Fabian MD Past Med Surg Social Fam HX - Past Medical History Medical history: COPD Psychiatric history: no psych history - Social History Smoking Status: Current every day smoker Packs per day: 1PPD Smokeless Tobacco Status: No Alcohol use: none Drug use: none Medications and Allergies Multivitamin [Multi-Day Vitamins] 1 tab PO DAILY 06/21/16 [History] Allergies No Known Allergies Allergy (Verified 06/21/16 13:22) ROS unobtainable: due to mental status Palliative Care-Exam - Constitutional Vitals: Temp Pulse Resp BP Pulse Ox 99.0 F 123 24 103/69 81 L 07/01/16 08:00 07/01/16 09:00 07/01/16 09:00 07/01/16 09:00 07/01/16 09:00 General appearance: Present: morbidly obese, no acute distress - Eye Eye exam: Present: conjunctival injection (bilaterally) - ENT ENT exam: Present: mucous membranes dry - Respiratory Respiratory exam: Present: decreased breath sounds, rhonchi, wheezes (bilateral L>R) - Cardiovascular Cardiovascular exam: Present: irregular rhythm, tachycardia. Absent: rubs, systolic murmur - GI/Abdominal Exam GI/Abdominal exam: Present: diminished bowel sounds, soft. Absent: distended, tenderness - Extremities Exam Extremities exam: Present: pedal edema (trace) - Neurological Exam Neurological exam: Present: alert, altered (nonverbal) Additional comments: Patient had spontaneous movements, there were no clear purposeful movements. Internal Medicine - CN: Reslt - Labs CBC & Chem 7: 07/01/16 04:55 07/01/16 04:55 Labs: Short CBC 07/01/16 Range/Units 04:55 WBC 15.7 H (4.3-11.1) K/mcL Hgb 13.0 (12.9-16.9) g/dL Hct 41.9 (37.5-50.1) % Plt Count 244 (140-400) K/mcL Neutrophils # 11.5 H (1.6-8.9) K/mcL BMP 06/30/16 07/01/16 11:29 04:55 Sodium 139 Potassium 4.2 3.6 Chloride 95 L Carbon Dioxide 35 H BUN 48 H Creatinine 0.80 Glucose 126 H Calcium 8.2 L - ABG Interpretation ABG results: ABG ABG pH 7.42 pH Units (7.32-7.45) 07/01/16 03:34 ABG pCO2 63 mmHg (35-45) H 07/01/16 03:34 ABG pO2 57 mmHg (85-104) L 07/01/16 03:34 ABG O2 Saturation 90 % (95-98) L 07/01/16 03:34 PT/INR, D-dimer PT 12.4 Seconds (9.4-12.1) H 07/01/16 04:55 Consult Discharge Plan - Plan Referrals: Sumit Hidalgo DO [Partnered Physician] - 07/06/16 12:15 pm (cardiac arrest 06/21, hospital follow up) Ruiz Dumont MD [Primary Care Provider] - Palliative Quality Palliative Quality: Screen for Code Status: Yes, Screen for Goals of Care: Yes, Screen for Pain: Yes, If Pain Regimen Started, Initiate Bowel Regimen: NA, Screen for Nausea/Vomitting: Yes Code Status: 06/30/16 16:39 DNR [Resuscitation Status: Active] [RES] Routine Comment: Resuscitation Status: [id number] <Joseph Kyle - Last Filed: 07/01/16 11:29> Palliative-CN HPI - Data of Consult Requesting Physician: Kaiser Fabian MD Primary Care Provider: Ruiz Dumont MD - Consult Narrative History of present illness: Mr. Webber is a 56 year old male CC: Kaiser Fabian MD Palliative Care-Exam - Constitutional Vitals: Temp Pulse Resp BP Pulse Ox 99.0 F 124 28 108/70 85 L 07/01/16 08:00 07/01/16 11:00 07/01/16 11:00 07/01/16 11:00 07/01/16 11:00 Internal Medicine - CN: Reslt - Labs CBC & Chem 7: 07/01/16 04:55 07/01/16 04:55 Labs: Short CBC 07/01/16 Range/Units 04:55 WBC 15.7 H (4.3-11.1) K/mcL Hgb 13.0 (12.9-16.9) g/dL Hct 41.9 (37.5-50.1) % Plt Count 244 (140-400) K/mcL Neutrophils # 11.5 H (1.6-8.9) K/mcL BMP 06/30/16 07/01/16 11:29 04:55 Sodium 139 Potassium 4.2 3.6 Chloride 95 L Carbon Dioxide 35 H BUN 48 H Creatinine 0.80 Glucose 126 H Calcium 8.2 L - ABG Interpretation ABG results: ABG ABG pH 7.42 pH Units (7.32-7.45) 07/01/16 03:34 ABG pCO2 63 mmHg (35-45) H 07/01/16 03:34 ABG pO2 57 mmHg (85-104) L 07/01/16 03:34 ABG O2 Saturation 90 % (95-98) L 07/01/16 03:34 PT/INR, D-dimer PT 12.4 Seconds (9.4-12.1) H 07/01/16 04:55 - Attending Attestation I examined this patient and my medical decision-making was reviewed with the MEDIATION COMMISSIONER/PA/Advanced Practice Nurse/Resident Physician. I agree with the documented findings, disposition and treatment plan as described except to the extent set forth below. Palliative Quality Code Status: 06/22/16 15:23 CODE [Resuscitation Status: Active] [RES] Routine Comment: Resuscitation Status: Full Code 06/30/16 16:39 DNR [Resuscitation Status: Active] [RES] Routine Comment: Resuscitation Status: [id number]
[2016-07-01] MEDS: *HR* Metoprolol 5 MG/5 ML VIAL IVP SCH ×3 (12:42→23:36)
[2016-07-01] MEDS: *HR* Morphine 2 MG/ML SYRINGE IVP PRN (12:43)
[2016-07-01] MEDS ORDERED: Ondansetron 4 MG/2 ML VIAL IVP PRN (13:10)
[2016-07-01] MEDS: Phenylephrine 10 MG in D5% in Water 250 ML IVC SCH (20:16)
[2016-07-02] MEDS: Ipratropium/Albuterol Neb 3 ML IH SCH ×6 (04:20→23:14)
[2016-07-02] MEDS: Insulin LISPRO 300 UNITS/3 ML VIAL SQ SCH ×3 (05:20→16:29)
[2016-07-02] MEDS: Lacri-Lube 3.5 GM TUBE BOTH EYES SCH ×2 (05:20→07:14)
[2016-07-02] MEDS: Heparin 25,000 UNIT/500 ML D5W 25,000 UNIT/500 ML MLS IVC SCH (05:22)
[2016-07-02] MEDS: *HR* Metoprolol 5 MG/5 ML VIAL IVP SCH ×2 (05:35→10:53)
[2016-07-02 05:37] LABS: BUN/Creatinine Ratio 50 (6-26); Calcium 8.5 mg/dL (8.6-10.8); Carbon Dioxide 38 mEq/L (19-29); Chloride 95 mEq/L (98-109); Glucose 101 mg/dL (70-99); Magnesium 2.3 mg/dL (1.6-2.6); Osmolality,Calculated 304 (280-300); Phosphorous 2.5 mg/dL (2.3-4.7); Potassium 3.6 mEq/L (3.5-4.5); Sodium 142 mEq/L (136-145); eGFR For African Americans > 60 (> 60); eGFR For Non-African Americans > 60 (> 60)
[2016-07-02 05:38] LABS: Blood Urea Nitrogen 40 mg/dL (8-26)
[2016-07-02 05:41] LABS: Ionized Calcium 1.07 mmol/L (1.15-1.35)
[2016-07-02] MEDS: *HR* Morphine 2 MG/ML SYRINGE IVP PRN (05:51)
[2016-07-02] MEDS: Calcium Gluconate 1,000 MG in D5% in Water 100 ML IVPB PRN (06:45)
[2016-07-02] MEDS: Sennosides 8.6 MG TABLET PO SCH ×2 (07:14→21:38)
[2016-07-02] MEDS: Pantoprazole 40 MG VIAL IVP SCH (07:14)
[2016-07-02] MEDS: Chlorhexidine Rinse 15 ML MOUTHWASH MM SCH (07:14)
[2016-07-02] MEDS: Furosemide 40 MG/4 ML VIAL IVP SCH (07:14)
[2016-07-02] MEDS: FentaNYL (PF) 1,000 MCG in 0.9 % Sodium Chloride 80 ML IVC SCH (07:15)
[2016-07-02 07:45] LABS: Basophils % 0.3 %; Eosinophils # 0.2 K/mcL (0.0-0.6); Eosinophils % 1.3 %; Hematocrit 41.7 % (37.5-50.1); Hemoglobin 12.6 g/dL (12.9-16.9); Immature Granulocytes % 3.7 % (0-4); Lymphocytes # 1.7 K/mcL (0.6-4.6); Lymphocytes % 13.2 %; Mean Corpuscular HGB Conc 30.2 g/dL (31.6-35.5); Mean Corpuscular Hemoglobin 27.9 pg (28.0-33.3); Mean Corpuscular Volume 92.3 fL (83.0-100.0); Monocytes # 1.3 K/mcL (0.0-1.3); Monocytes % 10.3 %; Neutrophils # 9.2 K/mcL (1.6-8.9); Platelet Count 236 K/mcL (140-400); Red Blood Count 4.52 M/mcL (4.19-5.50); Red Cell Distribution Width 14.9 % (11.5-14.5); Segmented Neutrophils % 71.2 %
--- NOTE | 2016-07-02 08:53 | Pulmonology Progress Note ---
Date of Encounter: 07/02/16 Time of Encounter: 08:51 Assessment and Plan (1) Hypercapnic respiratory failure Current Visit: Yes Status: Acute 56 y/o M presented to [place] [facility] with acute respiratory failure and was intubated for hypercapnia and hypoxia. At admission his pH was 7.08. Thereafter, he was moved to ICU where he had an 8 minute episode of PEA and was successfully resuscitated. Patient has been on Ventilator for 11 days. Patient's fiance reported worsening dyspnea for 3 weeks, likely multifactorial from undiagnosed COPD, undiagnosed obesity hypoventilation syndrome, possible community acquired pneumonia, and undiagnosed obstructive sleep apnea causing right-sided heart failure (undiagnosed). Also there was concern for pulmonary embolism. Lower extremity Doppler positive for acute thrombosis and left popliteal and left peroneal vein. He also was aggressively diuresed, and anticoagulated with heparin. Patient had difficulty weaning off the ventilator. Yesterday, during family meeting it was decided to make patient DNRCCA DNI and extubate patient as family did not think patient would like to live with tracheotomy. Patient was extubated yesterday. Patient is CCA and will continue medical treatment. Awake and alert: patient follows simple commands and answer questions however is sometimes disoriented: told nurse that somebody is out there to kill me. Plan is to continue current management and monitor patient. Morphine and ativan for comfort Pt/OT clear liquids: passed bedside swallow continue oxygen supplementation Qualifiers: Chronicity: unspecified Qualified Code(s): J96.92 - Respiratory failure, unspecified with hypercapnia (2) Respiratory acidosis Current Visit: Yes Status: Acute Patient was extubated yesterday. Continues to have respirtory acidosis and metabolic alkalosis. BiPAP at night (3) DVT (deep venous thrombosis) Current Visit: Yes Status: Acute LE Doppler: lower extremity abnormal deep exam: left popliteal vein and left peroneal vein demonstrate acute thrombosis. RT leg negative for acute thrombus. Heparin will be transitioned to Eliquis Qualifiers: DVT location: lower extremity Affected thrombotic vein of extremity: popliteal Laterality: left Chronicity: unspecified Qualified Code(s): I82.432 - Acute embolism and thrombosis of left popliteal vein (4) Atrial fibrillation with RVR Current Visit: Yes Status: Acute Pt. went into Afib with RVR on 06/22/2016. He remains in Afib currently. [id number]: 2 moderate-high risk and should be a long-term anticoagulation candidate. Patient HR continues to be >100. wean off cardizem drip and start scheduled cardizem. Start eliquis (5) DARION (acute kidney injury) Current Visit: Yes Status: Acute Resolved. Will continue diuresis due to acute heart failure On exam minimal pedal edema and absent pulmonary crackles. Patient is now on Lasix 40 BID. Osmolality increasing. Decrease to 40mg PO. cumulative I/O -20L (6) PEA (Pulseless electrical activity) Current Visit: Yes Status: Resolved Patient suffered PEA arrest shortly after admission on 06/21/2016. The code lasted approximately 8 minutes in which time the patient received 31 mg doses of epinephrine prior to return to spontaneous circulation. (7) Elevated troponin Current Visit: Yes Status: Acute Troponin elevations likely due to patient breathing status, PEA arrest, cor pulmonale. Unlikely ACS at this time. Heparin gtt was initially instituted for concern of ACS. LE doppler positive for LLE DVT. Transition to NOAC (8) NSTEMI (non-ST elevated myocardial infarction) Current Visit: Yes Status: Acute Initial troponin of 0.13. Peak of 0.95. EKG did not show any significant changes. Heparin gtt was instituted for ACS. Likely type II NSTEMI due to demand ischemia. Cardiology was consulted appreciate their recommendations no interventions at this time from cardiology (9) Cor pulmonale (chronic) Current Visit: Yes Status: Chronic Cardiology is following. Echocardiogram was performed that showed preserved ejection fraction 55%, atypical septal wall motion of unclear significance, and indeterminate diastolic function. Dilated right ventricle with normal function. No JVD. (10) Obesity hypoventilation syndrome Current Visit: Yes Status: Suspected (11) DVT prophylaxis Current Visit: Yes Status: Acute Eliquis for DVT and afib. Subjective Principal diagnosis: Hypercapnic respiratory failure Interval history: Since extubation patient's respiratory status has improved and is stable. He is awake and alert however patient is disoriented at times. Objective PUL Vital signs: Last Vital Signs Temp 97.2 F L 07/02/16 07:49 Pulse 130 07/02/16 08:00 Resp 22 07/02/16 08:00 BP 125/81 07/02/16 08:00 Pulse Ox 92 L 07/02/16 08:00 General appearance: no acute distress, alert Eyes: nonicteric ENT: oropharynx moist Mallampati (class): 3 Neck: no JVD Auscultation: bilateral: rhonchi Cardiovascular: irregular rhythm Extremities: no cyanosis, no edema, no clubbing mood appropriate Results - Laboratory Findings CBC and BMP: 07/02/16 07:35 07/02/16 05:19 ABG ABG pH 7.42 pH Units (7.32-7.45) 07/01/16 03:34 ABG pCO2 63 mmHg (35-45) H 07/01/16 03:34 ABG pO2 57 mmHg (85-104) L 07/01/16 03:34 ABG O2 Saturation 90 % (95-98) L 07/01/16 03:34 PT/INR, D-dimer PT 12.4 Seconds (9.4-12.1) H 07/01/16 04:55 Abnormal lab findings: Abnormal lab results WBC 12.9 K/mcL (4.3-11.1) H 07/02/16 07:35 Hgb 12.6 g/dL (12.9-16.9) L 07/02/16 07:35 MCH 27.9 pg (28.0-33.3) L 07/02/16 07:35 MCHC 30.2 g/dL (31.6-35.5) L 07/02/16 07:35 RDW 14.9 % (11.5-14.5) H 07/02/16 07:35 Neutrophils # 9.2 K/mcL (1.6-8.9) H 07/02/16 07:35 Nucleated RBCs/100 WBC 0.1 /100 WBC (0) H 06/24/16 04:32 Immature Plt Fraction 8.4 % (1.1-6.1) H 06/22/16 03:15 PT 12.4 Seconds (9.4-12.1) H 07/01/16 04:55 APTT 70.1 Seconds (26.0-36.0) H 07/02/16 05:19 ABG pCO2 63 mmHg (35-45) H 07/01/16 03:34 ABG pO2 57 mmHg (85-104) L 07/01/16 03:34 ABG HCO3 40.9 mEQ/L (21-27) H 07/01/16 03:34 ABG Total CO2 42.8 mEq/L (20-26) H 07/01/16 03:34 ABG O2 Saturation 90 % (95-98) L 07/01/16 03:34 ABG Base Excess 13.5 mEq/L (-2.0 to 3.0) H 07/01/16 03:34 VBG pH 7.08 pH Units (7.32-7.42) L* 06/21/16 16:31 VBG pCO2 137 mmHg (41-51) H 06/21/16 16:31 VBG pO2 12 mmHg (25-40) L 06/21/16 16:31 VBG HCO3 40.6 mEq/L (21-27) H 06/21/16 16:31 Carboxyhemoglobin 9.1 % (0-5) H 06/21/16 13:21 Chloride 95 mEq/L (98-109) L 07/02/16 05:19 Carbon Dioxide 38 mEq/L (19-29) H 07/02/16 05:19 BUN 40 mg/dL (8-26) H 07/02/16 05:19 BUN/Creatinine Ratio 50 (6-26) H 07/02/16 05:19 Glucose 101 mg/dL (70-99) H 07/02/16 05:19 POC Glucose 90 (58-89) H 07/01/16 23:34 Calculated Osmolality 304 (280-300) H 07/02/16 05:19 Calcium 8.5 mg/dL (8.6-10.8) L 07/02/16 05:19 Ionized Calcium 1.07 mmol/L (1.15-1.35) L 07/02/16 05:19 ALT 141 Units/L (0-55) H 06/24/16 04:32 Troponin I 0.77 ng/mL (0-0.03) H* 06/22/16 07:00 B-Natriuretic Peptide 917 pg/mL (0-100) H 06/21/16 14:02 Serum Total Protein 5.9 g/dL (6.0-8.3) L 06/24/16 04:32 Albumin 2.4 g/dL (3.5-5.0) L 06/24/16 04:32 Albumin/Globulin Ratio 0.7 (1.1-2.2) L 06/24/16 04:32 Triglycerides 185 mg/dL (< 150) H 06/28/16 07:55 Lipase 114 Units/L (8-78) H 06/28/16 07:55 - Microbiology Findings Microbiology Findings: Microbiology, Last 48 Hours 06/28/16 17:25 Sputum Culture - Final Sputum Pantoea agglomerans 06/28/16 10:43 Blood Culture - Preliminary Central Venous Catheter No growth. - Clinical Findings Intake & Output: Intake & Output 07/01/16 07/02/16 07/02/16 23:59 07:59 15:59 Intake Total 625 / 625 500 / 500 Output Total 1400 / 1400 400 / 400 Balance -775 / -775 100 / 100 Weight 150.275 kg Consult Discharge Plan - Plan Referrals: Sumit Hidalgo DO [Partnered Physician] - 07/06/16 12:15 pm (cardiac arrest 06/21, hospital follow up) Ruiz Dumont MD [Primary Care Provider] -
--- NOTE | 2016-07-02 09:42 | Palliative Progress Note ---
<KeiryOziel - Last Filed: 07/02/16 09:39> Date of Encounter: 07/02/16 Time of Encounter: 09:15 - Assessment and plan (1) Goals of care, counseling/discussion Current Visit: Yes Status: Acute Assessment and plan: Patient's clinical status is made significant improvement in the last 24 hours. Patient is verbal and alert and oriented to person and place. Per nursing report the patient is still having some altered thoughts and delusions. We will continue medical care per primary team. Patient remains a DO NOT RESUSCITATE comfort care arrest/DO NOT INTUBATE. Patient is not in any pain or shortness of breath. We will continue to follow along and address the patient' s symptoms as needed. Social work is following the patient and assisting in helping establish a long- term care plan and eligibility for services. (2) Dyspnea Current Visit: Yes Status: Acute Assessment and plan: None this time. Continue to monitor. Qualifiers: Dyspnea type: unspecified Qualified Code(s): R06.00 - Dyspnea, unspecified (3) History of sudden cardiac arrest successfully resuscitated Current Visit: Yes Status: Acute Assessment and plan: Patient's neurologic status continues to improve. If he does not recover fully the patient may benefit from a neurology evaluation. Patient remains a DO NOT RESUSCITATE comfort care arrest/DO NOT INTUBATE. (4) Acute respiratory failure Current Visit: Yes Status: Acute Assessment and plan: Improving. Patient has been extubated for approximately 24 hours and oxygenation has gradually improved since that time.. Further management per primary team. Qualifiers: Respiratory failure complication: hypoxia and hypercapnia Qualified Code(s) : J96.01 - Acute respiratory failure with hypoxia; J96.02 - Acute respiratory failure with hypercapnia (5) DVT (deep venous thrombosis) Current Visit: Yes Status: Acute Assessment and plan: Continue anticoagulation per primary team. Patient will be switched to oral medications. Qualifiers: DVT location: lower extremity Affected thrombotic vein of extremity: popliteal Laterality: left Chronicity: unspecified Qualified Code(s): I82.432 - Acute embolism and thrombosis of left popliteal vein (6) Atrial fibrillation with RVR Current Visit: Yes Status: Acute Assessment and plan: Heart rate is still elevated but under better control. Patient remains on the Cardizem drip, the patient is taking oral medications he will be transitioned to by mouth medications per the primary team. - Time Spent With Patient Total time spent is greater than 50% in coordination of care (as documented) at patient's floor/unit and/or counseling patient: - Subjective Interval history: Patient seen and examined at bedside. Patient is awake and alert this morning to person and place. He denies any pain, dyspnea, nausea, vomiting, diarrhea. - Constitutional Vitals: Abnormal lab results WBC 12.9 K/mcL (4.3-11.1) H 07/02/16 07:35 Hgb 12.6 g/dL (12.9-16.9) L 07/02/16 07:35 MCH 27.9 pg (28.0-33.3) L 07/02/16 07:35 MCHC 30.2 g/dL (31.6-35.5) L 07/02/16 07:35 RDW 14.9 % (11.5-14.5) H 07/02/16 07:35 Neutrophils # 9.2 K/mcL (1.6-8.9) H 07/02/16 07:35 Nucleated RBCs/100 WBC 0.1 /100 WBC (0) H 06/24/16 04:32 Immature Plt Fraction 8.4 % (1.1-6.1) H 06/22/16 03:15 PT 12.4 Seconds (9.4-12.1) H 07/01/16 04:55 APTT 70.1 Seconds (26.0-36.0) H 07/02/16 05:19 ABG pCO2 63 mmHg (35-45) H 07/01/16 03:34 ABG pO2 57 mmHg (85-104) L 07/01/16 03:34 ABG HCO3 40.9 mEQ/L (21-27) H 07/01/16 03:34 ABG Total CO2 42.8 mEq/L (20-26) H 07/01/16 03:34 ABG O2 Saturation 90 % (95-98) L 07/01/16 03:34 ABG Base Excess 13.5 mEq/L (-2.0 to 3.0) H 07/01/16 03:34 VBG pH 7.08 pH Units (7.32-7.42) L* 06/21/16 16:31 VBG pCO2 137 mmHg (41-51) H 06/21/16 16:31 VBG pO2 12 mmHg (25-40) L 06/21/16 16:31 VBG HCO3 40.6 mEq/L (21-27) H 06/21/16 16:31 Carboxyhemoglobin 9.1 % (0-5) H 06/21/16 13:21 Chloride 95 mEq/L (98-109) L 07/02/16 05:19 Carbon Dioxide 38 mEq/L (19-29) H 07/02/16 05:19 BUN 40 mg/dL (8-26) H 07/02/16 05:19 BUN/Creatinine Ratio 50 (6-26) H 07/02/16 05:19 Glucose 101 mg/dL (70-99) H 07/02/16 05:19 POC Glucose 90 (58-89) H 07/01/16 23:34 Calculated Osmolality 304 (280-300) H 07/02/16 05:19 Calcium 8.5 mg/dL (8.6-10.8) L 07/02/16 05:19 Ionized Calcium 1.07 mmol/L (1.15-1.35) L 07/02/16 05:19 ALT 141 Units/L (0-55) H 06/24/16 04:32 Troponin I 0.77 ng/mL (0-0.03) H* 06/22/16 07:00 B-Natriuretic Peptide 917 pg/mL (0-100) H 06/21/16 14:02 Serum Total Protein 5.9 g/dL (6.0-8.3) L 06/24/16 04:32 Albumin 2.4 g/dL (3.5-5.0) L 06/24/16 04:32 Albumin/Globulin Ratio 0.7 (1.1-2.2) L 06/24/16 04:32 Triglycerides 185 mg/dL (< 150) H 06/28/16 07:55 Lipase 114 Units/L (8-78) H 06/28/16 07:55 General appearance: Present: no acute distress, obese - ENT ENT exam: Present: mucous membranes dry - Respiratory Respiratory exam: Present: decreased breath sounds, wheezes (Rare, scattered). Absent: rales, rhonchi - Cardiovascular Cardiovascular exam: Present: irregular rhythm, tachycardia. Absent: gallop, rubs, systolic murmur - GI/Abdominal GI/Abdominal exam: Present: normal bowel sounds, soft. Absent: distended, tenderness - Extremities Exam Extremities exam: Present: pedal edema (Trace bilaterally) - Neurological Exam Neurological exam: Present: alert (Oriented to person and place), no focal deficits. Absent: speech deficit Palliative Quality Palliative Quality: Screen for Code Status: Yes, Screen for Goals of Care: Yes, Screen for Pain: Yes, If Pain Regimen Started, Initiate Bowel Regimen: NA, Screen for Nausea/Vomitting: Yes Code Status: 06/22/16 15:23 CODE [Resuscitation Status: Active] [RES] Routine Comment: Resuscitation Status: Full Code 06/30/16 16:39 DNR [Resuscitation Status: Active] [RES] Routine Comment: Resuscitation Status: [id number] - Labs CBC & Chem 7: 07/02/16 07:35 07/02/16 05:19 Labs: Laboratory Results - last 24 hr 07/01/16 07/01/16 07/01/16 04:55 07:19 11:40 WBC RBC Hgb Hct MCV MCH MCHC RDW Plt Count MPV Immature Gran % Seg Neutrophils % Lymphocytes % Monocytes % Eosinophils % Basophils % Neutrophils # Lymphocytes # Monocytes # Eosinophils # Basophils # APTT Sodium Potassium Chloride Carbon Dioxide BUN Creatinine Est GFR ( Amer) Est GFR (Non-Af Amer) BUN/Creatinine Ratio Glucose POC Glucose 115 H 128 H 158 H Calculated Osmolality Calcium Ionized Calcium Phosphorus Magnesium 07/01/16 07/01/16 07/01/16 15:14 20:14 23:34 WBC RBC Hgb Hct MCV MCH MCHC RDW Plt Count MPV Immature Gran % Seg Neutrophils % Lymphocytes % Monocytes % Eosinophils % Basophils % Neutrophils # Lymphocytes # Monocytes # Eosinophils # Basophils # APTT Sodium Potassium Chloride Carbon Dioxide BUN Creatinine Est GFR ( Amer) Est GFR (Non-Af Amer) BUN/Creatinine Ratio Glucose POC Glucose 116 H 117 H 90 H Calculated Osmolality Calcium Ionized Calcium Phosphorus Magnesium 07/02/16 07/02/16 07/02/16 05:19 05:19 07:35 WBC 12.9 H RBC 4.52 Hgb 12.6 L Hct 41.7 MCV 92.3 MCH 27.9 L MCHC 30.2 L RDW 14.9 H Plt Count 236 MPV 11.0 Immature Gran % 3.7 Seg Neutrophils % 71.2 Lymphocytes % 13.2 Monocytes % 10.3 Eosinophils % 1.3 Basophils % 0.3 Neutrophils # 9.2 H Lymphocytes # 1.7 Monocytes # 1.3 Eosinophils # 0.2 Basophils # 0.0 APTT 70.1 H Sodium 142 Potassium 3.6 Chloride 95 L Carbon Dioxide 38 H BUN 40 H Creatinine 0.80 Est GFR ( Amer) > 60 Est GFR (Non-Af Amer) > 60 BUN/Creatinine Ratio 50 H Glucose 101 H POC Glucose Calculated Osmolality 304 H Calcium 8.5 L Ionized Calcium 1.07 L Phosphorus 2.5 Magnesium 2.3 - ABG Interpretation ABG results: ABG ABG pH 7.42 pH Units (7.32-7.45) 07/01/16 03:34 ABG pCO2 63 mmHg (35-45) H 07/01/16 03:34 ABG pO2 57 mmHg (85-104) L 07/01/16 03:34 ABG O2 Saturation 90 % (95-98) L 07/01/16 03:34 PT/INR, D-dimer PT 12.4 Seconds (9.4-12.1) H 07/01/16 04:55 Consult Discharge Plan - Plan Referrals: Sumit Hidalgo DO [Partnered Physician] - 07/06/16 12:15 pm (cardiac arrest 06/21, hospital follow up) Ruiz Dumont MD [Primary Care Provider] - <Joseph Kyle - Last Filed: 07/02/16 11:31> - Time Spent With Patient Total time spent is greater than 50% in coordination of care (as documented) at patient's floor/unit and/or counseling patient: - Constitutional Vitals: Abnormal lab results WBC 12.9 K/mcL (4.3-11.1) H 07/02/16 07:35 Hgb 12.6 g/dL (12.9-16.9) L 07/02/16 07:35 MCH 27.9 pg (28.0-33.3) L 07/02/16 07:35 MCHC 30.2 g/dL (31.6-35.5) L 07/02/16 07:35 RDW 14.9 % (11.5-14.5) H 07/02/16 07:35 Neutrophils # 9.2 K/mcL (1.6-8.9) H 07/02/16 07:35 Nucleated RBCs/100 WBC 0.1 /100 WBC (0) H 06/24/16 04:32 Immature Plt Fraction 8.4 % (1.1-6.1) H 06/22/16 03:15 PT 12.4 Seconds (9.4-12.1) H 07/01/16 04:55 APTT 70.1 Seconds (26.0-36.0) H 07/02/16 05:19 ABG pCO2 63 mmHg (35-45) H 07/01/16 03:34 ABG pO2 57 mmHg (85-104) L 07/01/16 03:34 ABG HCO3 40.9 mEQ/L (21-27) H 07/01/16 03:34 ABG Total CO2 42.8 mEq/L (20-26) H 07/01/16 03:34 ABG O2 Saturation 90 % (95-98) L 07/01/16 03:34 ABG Base Excess 13.5 mEq/L (-2.0 to 3.0) H 07/01/16 03:34 VBG pH 7.08 pH Units (7.32-7.42) L* 06/21/16 16:31 VBG pCO2 137 mmHg (41-51) H 06/21/16 16:31 VBG pO2 12 mmHg (25-40) L 06/21/16 16:31 VBG HCO3 40.6 mEq/L (21-27) H 06/21/16 16:31 Carboxyhemoglobin 9.1 % (0-5) H 06/21/16 13:21 Chloride 95 mEq/L (98-109) L 07/02/16 05:19 Carbon Dioxide 38 mEq/L (19-29) H 07/02/16 05:19 BUN 40 mg/dL (8-26) H 07/02/16 05:19 BUN/Creatinine Ratio 50 (6-26) H 07/02/16 05:19 Glucose 101 mg/dL (70-99) H 07/02/16 05:19 POC Glucose 90 (58-89) H 07/01/16 23:34 Calculated Osmolality 304 (280-300) H 07/02/16 05:19 Calcium 8.5 mg/dL (8.6-10.8) L 07/02/16 05:19 Ionized Calcium 1.07 mmol/L (1.15-1.35) L 07/02/16 05:19 ALT 141 Units/L (0-55) H 06/24/16 04:32 Troponin I 0.77 ng/mL (0-0.03) H* 06/22/16 07:00 B-Natriuretic Peptide 917 pg/mL (0-100) H 06/21/16 14:02 Serum Total Protein 5.9 g/dL (6.0-8.3) L 06/24/16 04:32 Albumin 2.4 g/dL (3.5-5.0) L 06/24/16 04:32 Albumin/Globulin Ratio 0.7 (1.1-2.2) L 06/24/16 04:32 Triglycerides 185 mg/dL (< 150) H 06/28/16 07:55 Lipase 114 Units/L (8-78) H 06/28/16 07:55 - Attending Attestation I examined this patient and my medical decision-making was reviewed with the [employer]/PA/Advanced Practice Nurse/Resident Physician. I agree with the documented findings, disposition and treatment plan as described except to the extent set forth below. Palliative Quality Code Status: 06/22/16 15:23 CODE [Resuscitation Status: Active] [RES] Routine Comment: Resuscitation Status: Full Code 06/30/16 16:39 DNR [Resuscitation Status: Active] [RES] Routine Comment: Resuscitation Status: [id number] - Labs CBC & Chem 7: 07/02/16 07:35 07/02/16 05:19 Labs: Laboratory Results - last 24 hr 07/01/16 07/01/16 07/01/16 04:55 07:19 11:40 WBC RBC Hgb Hct MCV MCH MCHC RDW Plt Count MPV Immature Gran % Seg Neutrophils % Lymphocytes % Monocytes % Eosinophils % Basophils % Neutrophils # Lymphocytes # Monocytes # Eosinophils # Basophils # APTT Sodium Potassium Chloride Carbon Dioxide BUN Creatinine Est GFR ( Amer) Est GFR (Non-Af Amer) BUN/Creatinine Ratio Glucose POC Glucose 115 H 128 H 158 H Calculated Osmolality Calcium Ionized Calcium Phosphorus Magnesium 07/01/16 07/01/16 07/01/16 15:14 20:14 23:34 WBC RBC Hgb Hct MCV MCH MCHC RDW Plt Count MPV Immature Gran % Seg Neutrophils % Lymphocytes % Monocytes % Eosinophils % Basophils % Neutrophils # Lymphocytes # Monocytes # Eosinophils # Basophils # APTT Sodium Potassium Chloride Carbon Dioxide BUN Creatinine Est GFR ( Amer) Est GFR (Non-Af Amer) BUN/Creatinine Ratio Glucose POC Glucose 116 H 117 H 90 H Calculated Osmolality Calcium Ionized Calcium Phosphorus Magnesium 07/02/16 07/02/16 07/02/16 05:19 05:19 07:35 WBC 12.9 H RBC 4.52 Hgb 12.6 L Hct 41.7 MCV 92.3 MCH 27.9 L MCHC 30.2 L RDW 14.9 H Plt Count 236 MPV 11.0 Immature Gran % 3.7 Seg Neutrophils % 71.2 Lymphocytes % 13.2 Monocytes % 10.3 Eosinophils % 1.3 Basophils % 0.3 Neutrophils # 9.2 H Lymphocytes # 1.7 Monocytes # 1.3 Eosinophils # 0.2 Basophils # 0.0 APTT 70.1 H Sodium 142 Potassium 3.6 Chloride 95 L Carbon Dioxide 38 H BUN 40 H Creatinine 0.80 Est GFR ( Amer) > 60 Est GFR (Non-Af Amer) > 60 BUN/Creatinine Ratio 50 H Glucose 101 H POC Glucose Calculated Osmolality 304 H Calcium 8.5 L Ionized Calcium 1.07 L Phosphorus 2.5 Magnesium 2.3 - ABG Interpretation ABG results: ABG ABG pH 7.42 pH Units (7.32-7.45) 07/01/16 03:34 ABG pCO2 63 mmHg (35-45) H 07/01/16 03:34 ABG pO2 57 mmHg (85-104) L 07/01/16 03:34 ABG O2 Saturation 90 % (95-98) L 07/01/16 03:34 PT/INR, D-dimer PT 12.4 Seconds (9.4-12.1) H 07/01/16 04:55
[2016-07-02] MEDS ORDERED: APIXABAN 5 MG TABLET PO SCH (11:15)
[2016-07-02] MEDS ORDERED: Bisacodyl 10 MG RECTAL SUPPOSITORY RC PRN (11:17)
[2016-07-02] MEDS ORDERED: Dextrose Gel 15 GM PO PRN ×2 (11:17)
[2016-07-02] MEDS ORDERED: Ondansetron 4 MG/2 ML VIAL IVP PRN (11:17)
[2016-07-02] MEDS ORDERED: D5% in Water 1,000 ML IV PRN (11:17)
[2016-07-02] MEDS ORDERED: *HR* Dextrose 50 % in Water (Syg) 50 ML SYRINGE IVP PRN (11:17)
[2016-07-02] MEDS ORDERED: Calcium Gluconate 1,000 MG in D5% in Water 100 ML IVPB PRN (11:17)
[2016-07-02] MEDS ORDERED: Insulin LISPRO 300 UNITS/3 ML VIAL SQ SCH ×4 (12:00→21:00)
[2016-07-02] MEDS ORDERED: *HR* Metoprolol 5 MG/5 ML VIAL IVP SCH (12:00)
[2016-07-02] MEDS ORDERED: Haloperidol Lactate 5 MG/ML VIAL IVP PRN (12:18)
[2016-07-02] MEDS: dilTIAZem HCl 60 MG TABLET PO SCH ×2 (16:29→21:38)
[2016-07-02] MEDS: APIXABAN 5 MG TABLET PO SCH (21:38)
[2016-07-03] MEDS: Ipratropium/Albuterol Neb 3 ML IH SCH ×5 (03:25→21:00)
[2016-07-03] MEDS: dilTIAZem HCl 60 MG TABLET PO SCH ×4 (04:06→20:29)
[2016-07-03 04:13] LABS: Basophils % 0.3 %; Eosinophils # 0.3 K/mcL (0.0-0.6); Eosinophils % 2.4 %; Hematocrit 41.4 % (37.5-50.1); Hemoglobin 12.6 g/dL (12.9-16.9); Immature Granulocytes % 2.5 % (0-4); Lymphocytes # 1.4 K/mcL (0.6-4.6); Lymphocytes % 12.4 %; Mean Corpuscular HGB Conc 30.4 g/dL (31.6-35.5); Mean Corpuscular Hemoglobin 27.9 pg (28.0-33.3); Mean Corpuscular Volume 91.8 fL (83.0-100.0); Mean Platelet Volume 10.8 fL (9.4-12.4); Monocytes # 1.1 K/mcL (0.0-1.3); Monocytes % 9.8 %; Neutrophils # 8.5 K/mcL (1.6-8.9); Platelet Count 222 K/mcL (140-400); Red Blood Count 4.51 M/mcL (4.19-5.50); Red Cell Distribution Width 14.8 % (11.5-14.5); Segmented Neutrophils % 72.6 %
[2016-07-03 04:27] LABS: BUN/Creatinine Ratio 51 (6-26); Blood Urea Nitrogen 38 mg/dL (8-26); Calcium 8.4 mg/dL (8.6-10.8); Carbon Dioxide 38 mEq/L (19-29); Chloride 94 mEq/L (98-109); Glucose 92 mg/dL (70-99); Osmolality,Calculated 299 (280-300); Potassium 3.8 mEq/L (3.5-4.5); Sodium 140 mEq/L (136-145); eGFR For African Americans > 60 (> 60); eGFR For Non-African Americans > 60 (> 60)
[2016-07-03] MEDS: Insulin LISPRO 300 UNITS/3 ML VIAL SQ SCH ×2 (07:37→11:08)
[2016-07-03] MEDS: Pantoprazole 40 MG VIAL IVP SCH (07:44)
[2016-07-03] MEDS: APIXABAN 5 MG TABLET PO SCH ×2 (07:44→20:28)
[2016-07-03] MEDS: Sennosides 8.6 MG TABLET PO SCH ×2 (07:44→20:29)
[2016-07-03] MEDS: Furosemide 40 MG TABLET PO SCH (07:44)
--- NOTE | 2016-07-03 08:44 | Pulmonology Progress Note ---
Date of Encounter: 07/03/16 Time of Encounter: 08:42 Assessment and Plan (1) Hypercapnic respiratory failure Current Visit: Yes Status: Acute 56 y/o M presented to [facility] with acute respiratory failure and was intubated for hypercapnia and hypoxia. At admission his pH was 7.08. Thereafter, he was moved to ICU where he had an 8 minute episode of PEA and was successfully resuscitated. Patient has been on Ventilator for 11 days. Patient's fiance reported worsening dyspnea for 3 weeks, likely multifactorial from undiagnosed COPD, undiagnosed obesity hypoventilation syndrome, possible community acquired pneumonia, and undiagnosed obstructive sleep apnea causing right-sided heart failure (undiagnosed). Also there was concern for pulmonary embolism. Lower extremity Doppler positive for acute thrombosis and left popliteal and left peroneal vein. He also was aggressively diuresed, and anticoagulated with heparin. Patient had difficulty weaning off the ventilator. Yesterday, during family meeting it was decided to make patient DNRCCA DNI and extubate patient as family did not think patient would like to live with tracheotomy. Patient was extubated on 07/01/16. Patient is CCA and will continue medical treatment. Awake and alert x3: Plan is to continue current management and monitor patient. Started seroquel yesterday for agitation continue Pt/OT continue clear liquids: passed bedside swallow continue oxygen supplementation Qualifiers: Chronicity: unspecified Qualified Code(s): J96.92 - Respiratory failure, unspecified with hypercapnia (2) Respiratory acidosis Current Visit: Yes Status: Acute Patient was extubated. Respirtory status stable. Continues to have respirtory acidosis and metabolic alkalosis. BiPAP at night (3) DVT (deep venous thrombosis) Current Visit: Yes Status: Acute LE Doppler: lower extremity abnormal deep exam: left popliteal vein and left peroneal vein demonstrate acute thrombosis. RT leg negative for acute thrombus. Continue Eliquis Qualifiers: DVT location: lower extremity Affected thrombotic vein of extremity: popliteal Laterality: left Chronicity: unspecified Qualified Code(s): I82.432 - Acute embolism and thrombosis of left popliteal vein (4) Atrial fibrillation with RVR Current Visit: Yes Status: Acute Pt. went into Afib with RVR on 06/22/2016. He remains in Afib currently. [id number]: 2 moderate-high risk and should be a long-term anticoagulation candidate. Patient HR continues to be >100. wean off cardizem drip and start scheduled cardizem. Increase metoprolol to 50 BID Continue eliquis (5) DARION (acute kidney injury) Current Visit: Yes Status: Acute Resolved. Will continue diuresis due to acute heart failure On exam minimal pedal edema and absent pulmonary crackles. Patient is now on Lasix 40 BID. Osmolality increasing. Decrease to 40mg PO. cumulative I/O -20L (6) PEA (Pulseless electrical activity) Current Visit: Yes Status: Resolved Patient suffered PEA arrest shortly after admission on 06/21/2016. The code lasted approximately 8 minutes in which time the patient received 31 mg doses of epinephrine prior to return to spontaneous circulation. (7) Elevated troponin Current Visit: Yes Status: Acute Troponin elevations likely due to patient breathing status, PEA arrest, cor pulmonale. Unlikely ACS at this time. Heparin gtt was initially instituted for concern of ACS. LE doppler positive for LLE DVT. Transition to NOAC (8) NSTEMI (non-ST elevated myocardial infarction) Current Visit: Yes Status: Acute Initial troponin of 0.13. Peak of 0.95. EKG did not show any significant changes. Heparin gtt was instituted for ACS. Likely type II NSTEMI due to demand ischemia. Cardiology was consulted appreciate their recommendations no interventions at this time from cardiology (9) Cor pulmonale (chronic) Current Visit: Yes Status: Chronic Cardiology is following. Echocardiogram was performed that showed preserved ejection fraction 55%, atypical septal wall motion of unclear significance, and indeterminate diastolic function. Dilated right ventricle with normal function. No JVD. (10) Obesity hypoventilation syndrome Current Visit: Yes Status: Suspected (11) DVT prophylaxis Current Visit: Yes Status: Acute Eliquis for DVT and afib. Subjective Principal diagnosis: Hypercapnic respiratory failure Interval history: Patient mental status improving. Conversing more today. He has no complaints. Objective PUL Vital signs: Last Vital Signs Temp 97.8 F 07/03/16 08:03 Pulse 114 07/03/16 08:00 Resp 24 07/03/16 08:00 BP 108/57 07/03/16 08:00 Pulse Ox 95 07/03/16 08:00 General appearance: alert (oriented x3) Eyes: nonicteric Mallampati (class): 4 Effort: normal Auscultation: bilateral: wheezes Cardiovascular: irregular rhythm Gastrointestinal: normoactive bowel sounds, soft, non-tender Integumentary: normal Extremities: no cyanosis, no edema, no clubbing normal mental status mood appropriate Results - Laboratory Findings CBC and BMP: 07/03/16 03:55 07/03/16 03:55 ABG ABG pH 7.42 pH Units (7.32-7.45) 07/01/16 03:34 ABG pCO2 63 mmHg (35-45) H 07/01/16 03:34 ABG pO2 57 mmHg (85-104) L 07/01/16 03:34 ABG O2 Saturation 90 % (95-98) L 07/01/16 03:34 PT/INR, D-dimer PT 12.4 Seconds (9.4-12.1) H 07/01/16 04:55 Abnormal lab findings: Abnormal lab results WBC 11.7 K/mcL (4.3-11.1) H 07/03/16 03:55 Hgb 12.6 g/dL (12.9-16.9) L 07/03/16 03:55 MCH 27.9 pg (28.0-33.3) L 07/03/16 03:55 MCHC 30.4 g/dL (31.6-35.5) L 07/03/16 03:55 RDW 14.8 % (11.5-14.5) H 07/03/16 03:55 Nucleated RBCs/100 WBC 0.1 /100 WBC (0) H 06/24/16 04:32 Immature Plt Fraction 8.4 % (1.1-6.1) H 06/22/16 03:15 PT 12.4 Seconds (9.4-12.1) H 07/01/16 04:55 APTT 70.1 Seconds (26.0-36.0) H 07/02/16 05:19 ABG pCO2 63 mmHg (35-45) H 07/01/16 03:34 ABG pO2 57 mmHg (85-104) L 07/01/16 03:34 ABG HCO3 40.9 mEQ/L (21-27) H 07/01/16 03:34 ABG Total CO2 42.8 mEq/L (20-26) H 07/01/16 03:34 ABG O2 Saturation 90 % (95-98) L 07/01/16 03:34 ABG Base Excess 13.5 mEq/L (-2.0 to 3.0) H 07/01/16 03:34 VBG pH 7.08 pH Units (7.32-7.42) L* 06/21/16 16:31 VBG pCO2 137 mmHg (41-51) H 06/21/16 16:31 VBG pO2 12 mmHg (25-40) L 06/21/16 16:31 VBG HCO3 40.6 mEq/L (21-27) H 06/21/16 16:31 Carboxyhemoglobin 9.1 % (0-5) H 06/21/16 13:21 Chloride 94 mEq/L (98-109) L 07/03/16 03:55 Carbon Dioxide 38 mEq/L (19-29) H 07/03/16 03:55 BUN 38 mg/dL (8-26) H 07/03/16 03:55 BUN/Creatinine Ratio 51 (6-26) H 07/03/16 03:55 Calcium 8.4 mg/dL (8.6-10.8) L 07/03/16 03:55 Ionized Calcium 1.07 mmol/L (1.15-1.35) L 07/02/16 05:19 ALT 141 Units/L (0-55) H 06/24/16 04:32 Troponin I 0.77 ng/mL (0-0.03) H* 06/22/16 07:00 B-Natriuretic Peptide 917 pg/mL (0-100) H 06/21/16 14:02 Serum Total Protein 5.9 g/dL (6.0-8.3) L 06/24/16 04:32 Albumin 2.4 g/dL (3.5-5.0) L 06/24/16 04:32 Albumin/Globulin Ratio 0.7 (1.1-2.2) L 06/24/16 04:32 Triglycerides 185 mg/dL (< 150) H 06/28/16 07:55 Lipase 114 Units/L (8-78) H 06/28/16 07:55 - Microbiology Findings Microbiology Findings: Microbiology, Last 48 Hours 06/27/16 13:31 Blood Culture - Final Central Venous Catheter No growth. 06/27/16 13:25 Blood Culture - Final Peripheral Venipuncture No growth. 06/28/16 17:25 Sputum Culture - Final Sputum Pantoea agglomerans - Clinical Findings Intake & Output: Intake & Output 07/02/16 07/03/16 07/03/16 23:59 07:59 15:59 Intake Total 102 / 102 Output Total 500 / 500 575 / 575 200 / 200 Balance -469 / -469 -473 / -473 -200 / -200 Consult Discharge Plan - Plan Referrals: Sumit Hidalgo DO [Partnered Physician] - 07/06/16 12:15 pm (cardiac arrest 06/21, hospital follow up) Ruiz Dumont MD [Primary Care Provider] -
[2016-07-03] MEDS ORDERED: Furosemide 40 MG TABLET PO SCH (09:00)
--- NOTE | 2016-07-03 09:22 | Palliative Progress Note ---
<Oziel Ricci - Last Filed: 07/03/16 09:19> Date of Encounter: 07/03/16 Time of Encounter: 08:45 - Assessment and plan (1) Goals of care, counseling/discussion Current Visit: Yes Status: Acute Assessment and plan: Patient's clinical status is made significant improvement since extubation. Patient is verbal and alert and oriented 3. We will continue medical care per primary team. Patient remains a DO NOT RESUSCITATE comfort care arrest/DO NOT INTUBATE. Patient is not in any pain or shortness of breath. We will continue to follow along and address the patient's symptoms as needed. Social work is following the patient and assisting in helping establish a long- term care plan and eligibility for services. (2) Dyspnea Current Visit: Yes Status: Acute Assessment and plan: None this time. Continue to monitor. Qualifiers: Dyspnea type: unspecified Qualified Code(s): R06.00 - Dyspnea, unspecified (3) History of sudden cardiac arrest successfully resuscitated Current Visit: Yes Status: Acute Assessment and plan: Patient's neurologic status continues to improve. Patient remains a DO NOT RESUSCITATE comfort care arrest/DO NOT INTUBATE. (4) Acute respiratory failure Current Visit: Yes Status: Acute Assessment and plan: Improving. Patient has been extubated for approximately 48 hours and oxygenation has improved significantly since that time.. Further management per primary team. Qualifiers: Respiratory failure complication: hypoxia and hypercapnia Qualified Code(s) : J96.01 - Acute respiratory failure with hypoxia; J96.02 - Acute respiratory failure with hypercapnia (5) DVT (deep venous thrombosis) Current Visit: Yes Status: Acute Assessment and plan: Continue anticoagulation per primary team. Patient switched to oral medications. Qualifiers: DVT location: lower extremity Affected thrombotic vein of extremity: popliteal Laterality: left Chronicity: unspecified Qualified Code(s): I82.432 - Acute embolism and thrombosis of left popliteal vein (6) Atrial fibrillation with RVR Current Visit: Yes Status: Acute Assessment and plan: Heart rate is still elevated but under better control. Patient remains on the Cardizem drip, the patient is taking oral medications he will be transitioned to by mouth medications per the primary team. - Time Spent With Patient Total time spent is greater than 50% in coordination of care (as documented) at patient's floor/unit and/or counseling patient: - Subjective Interval history: Patient seen and examined at bedside. Patient is awake and alert this morning to person, place, and time. He complains of weakness. He denies any pain, dyspnea, nausea, vomiting, diarrhea. - Constitutional Vitals: Abnormal lab results WBC 11.7 K/mcL (4.3-11.1) H 07/03/16 03:55 Hgb 12.6 g/dL (12.9-16.9) L 07/03/16 03:55 MCH 27.9 pg (28.0-33.3) L 07/03/16 03:55 MCHC 30.4 g/dL (31.6-35.5) L 07/03/16 03:55 RDW 14.8 % (11.5-14.5) H 07/03/16 03:55 Nucleated RBCs/100 WBC 0.1 /100 WBC (0) H 06/24/16 04:32 Immature Plt Fraction 8.4 % (1.1-6.1) H 06/22/16 03:15 PT 12.4 Seconds (9.4-12.1) H 07/01/16 04:55 APTT 70.1 Seconds (26.0-36.0) H 07/02/16 05:19 ABG pCO2 63 mmHg (35-45) H 07/01/16 03:34 ABG pO2 57 mmHg (85-104) L 07/01/16 03:34 ABG HCO3 40.9 mEQ/L (21-27) H 07/01/16 03:34 ABG Total CO2 42.8 mEq/L (20-26) H 07/01/16 03:34 ABG O2 Saturation 90 % (95-98) L 07/01/16 03:34 ABG Base Excess 13.5 mEq/L (-2.0 to 3.0) H 07/01/16 03:34 VBG pH 7.08 pH Units (7.32-7.42) L* 06/21/16 16:31 VBG pCO2 137 mmHg (41-51) H 06/21/16 16:31 VBG pO2 12 mmHg (25-40) L 06/21/16 16:31 VBG HCO3 40.6 mEq/L (21-27) H 06/21/16 16:31 Carboxyhemoglobin 9.1 % (0-5) H 06/21/16 13:21 Chloride 94 mEq/L (98-109) L 07/03/16 03:55 Carbon Dioxide 38 mEq/L (19-29) H 07/03/16 03:55 BUN 38 mg/dL (8-26) H 07/03/16 03:55 BUN/Creatinine Ratio 51 (6-26) H 07/03/16 03:55 Calcium 8.4 mg/dL (8.6-10.8) L 07/03/16 03:55 Ionized Calcium 1.07 mmol/L (1.15-1.35) L 07/02/16 05:19 ALT 141 Units/L (0-55) H 06/24/16 04:32 Troponin I 0.77 ng/mL (0-0.03) H* 06/22/16 07:00 B-Natriuretic Peptide 917 pg/mL (0-100) H 06/21/16 14:02 Serum Total Protein 5.9 g/dL (6.0-8.3) L 06/24/16 04:32 Albumin 2.4 g/dL (3.5-5.0) L 06/24/16 04:32 Albumin/Globulin Ratio 0.7 (1.1-2.2) L 06/24/16 04:32 Triglycerides 185 mg/dL (< 150) H 06/28/16 07:55 Lipase 114 Units/L (8-78) H 06/28/16 07:55 - Respiratory Respiratory exam: Present: decreased breath sounds. Absent: rales, respiratory distress, rhonchi, wheezes, tachypnea - Cardiovascular Cardiovascular exam: Present: irregular rhythm, tachycardia. Absent: gallop, rubs, systolic murmur - GI/Abdominal GI/Abdominal exam: Present: normal bowel sounds. Absent: distended, soft, tenderness - Extremities Exam Extremities exam: Present: pedal edema (1+ bilaterally) - Neurological Exam Neurological exam: Present: alert, CN II-XII intact, oriented X3, no focal deficits Palliative Quality Palliative Quality: Screen for Code Status: Yes, Screen for Goals of Care: Yes, Screen for Pain: Yes, If Pain Regimen Started, Initiate Bowel Regimen: NA, Screen for Nausea/Vomitting: Yes Code Status: 06/22/16 15:23 CODE [Resuscitation Status: Active] [RES] Routine Comment: Resuscitation Status: Full Code 06/30/16 16:39 DNR [Resuscitation Status: Active] [RES] Routine Comment: Resuscitation Status: [id number] - Labs CBC & Chem 7: 07/03/16 03:55 07/03/16 03:55 Labs: Laboratory Results - last 24 hr 07/02/16 07/02/16 07/02/16 04:18 07:35 11:38 WBC RBC Hgb Hct MCV MCH MCHC RDW Plt Count MPV Immature Gran % Seg Neutrophils % Lymphocytes % Monocytes % Eosinophils % Basophils % Neutrophils # Lymphocytes # Monocytes # Eosinophils # Basophils # Sodium Potassium Chloride Carbon Dioxide BUN Creatinine Est GFR ( Amer) Est GFR (Non-Af Amer) BUN/Creatinine Ratio Glucose POC Glucose 92 H 104 H 89 Calculated Osmolality Calcium 07/02/16 07/02/16 07/03/16 16:28 20:05 03:55 WBC 11.7 H RBC 4.51 Hgb 12.6 L Hct 41.4 MCV 91.8 MCH 27.9 L MCHC 30.4 L RDW 14.8 H Plt Count 222 MPV 10.8 Immature Gran % 2.5 Seg Neutrophils % 72.6 Lymphocytes % 12.4 Monocytes % 9.8 Eosinophils % 2.4 Basophils % 0.3 Neutrophils # 8.5 Lymphocytes # 1.4 Monocytes # 1.1 Eosinophils # 0.3 Basophils # 0.0 Sodium Potassium Chloride Carbon Dioxide BUN Creatinine Est GFR ( Amer) Est GFR (Non-Af Amer) BUN/Creatinine Ratio Glucose POC Glucose 89 88 Calculated Osmolality Calcium 07/03/16 03:55 WBC RBC Hgb Hct MCV MCH MCHC RDW Plt Count MPV Immature Gran % Seg Neutrophils % Lymphocytes % Monocytes % Eosinophils % Basophils % Neutrophils # Lymphocytes # Monocytes # Eosinophils # Basophils # Sodium 140 Potassium 3.8 Chloride 94 L Carbon Dioxide 38 H BUN 38 H Creatinine 0.75 Est GFR ( Amer) > 60 Est GFR (Non-Af Amer) > 60 BUN/Creatinine Ratio 51 H Glucose 92 POC Glucose Calculated Osmolality 299 Calcium 8.4 L - ABG Interpretation ABG results: ABG ABG pH 7.42 pH Units (7.32-7.45) 07/01/16 03:34 ABG pCO2 63 mmHg (35-45) H 07/01/16 03:34 ABG pO2 57 mmHg (85-104) L 07/01/16 03:34 ABG O2 Saturation 90 % (95-98) L 07/01/16 03:34 PT/INR, D-dimer PT 12.4 Seconds (9.4-12.1) H 07/01/16 04:55 Consult Discharge Plan - Plan Referrals: Sumit Hidalgo DO [Partnered Physician] - 07/06/16 12:15 pm (cardiac arrest 06/21, hospital follow up) Ruiz Dumont MD [Primary Care Provider] - <Joseph Kyle - Last Filed: 07/03/16 10:37> - Time Spent With Patient Total time spent is greater than 50% in coordination of care (as documented) at patient's floor/unit and/or counseling patient: - Constitutional Vitals: Abnormal lab results WBC 11.7 K/mcL (4.3-11.1) H 07/03/16 03:55 Hgb 12.6 g/dL (12.9-16.9) L 07/03/16 03:55 MCH 27.9 pg (28.0-33.3) L 07/03/16 03:55 MCHC 30.4 g/dL (31.6-35.5) L 07/03/16 03:55 RDW 14.8 % (11.5-14.5) H 07/03/16 03:55 Nucleated RBCs/100 WBC 0.1 /100 WBC (0) H 06/24/16 04:32 Immature Plt Fraction 8.4 % (1.1-6.1) H 06/22/16 03:15 PT 12.4 Seconds (9.4-12.1) H 07/01/16 04:55 APTT 70.1 Seconds (26.0-36.0) H 07/02/16 05:19 ABG pCO2 63 mmHg (35-45) H 07/01/16 03:34 ABG pO2 57 mmHg (85-104) L 07/01/16 03:34 ABG HCO3 40.9 mEQ/L (21-27) H 07/01/16 03:34 ABG Total CO2 42.8 mEq/L (20-26) H 07/01/16 03:34 ABG O2 Saturation 90 % (95-98) L 07/01/16 03:34 ABG Base Excess 13.5 mEq/L (-2.0 to 3.0) H 07/01/16 03:34 VBG pH 7.08 pH Units (7.32-7.42) L* 06/21/16 16:31 VBG pCO2 137 mmHg (41-51) H 06/21/16 16:31 VBG pO2 12 mmHg (25-40) L 06/21/16 16:31 VBG HCO3 40.6 mEq/L (21-27) H 06/21/16 16:31 Carboxyhemoglobin 9.1 % (0-5) H 06/21/16 13:21 Chloride 94 mEq/L (98-109) L 07/03/16 03:55 Carbon Dioxide 38 mEq/L (19-29) H 07/03/16 03:55 BUN 38 mg/dL (8-26) H 07/03/16 03:55 BUN/Creatinine Ratio 51 (6-26) H 07/03/16 03:55 Calcium 8.4 mg/dL (8.6-10.8) L 07/03/16 03:55 Ionized Calcium 1.07 mmol/L (1.15-1.35) L 07/02/16 05:19 ALT 141 Units/L (0-55) H 06/24/16 04:32 Troponin I 0.77 ng/mL (0-0.03) H* 06/22/16 07:00 B-Natriuretic Peptide 917 pg/mL (0-100) H 06/21/16 14:02 Serum Total Protein 5.9 g/dL (6.0-8.3) L 06/24/16 04:32 Albumin 2.4 g/dL (3.5-5.0) L 06/24/16 04:32 Albumin/Globulin Ratio 0.7 (1.1-2.2) L 06/24/16 04:32 Triglycerides 185 mg/dL (< 150) H 06/28/16 07:55 Lipase 114 Units/L (8-78) H 06/28/16 07:55 - Attending Attestation I examined this patient and my medical decision-making was reviewed with the SMOKE INSPECTOR/PA/Advanced Practice Nurse/Resident Physician. I agree with the documented findings, disposition and treatment plan as described except to the extent set forth below. At this point the patient does continue to improve. How well he will improve and how much remained to be seen. At this point palliative will follow from a distance but will not completely sign off. We will plan on seeing again come Wednesday. Palliative Quality Code Status: 06/22/16 15:23 CODE [Resuscitation Status: Active] [RES] Routine Comment: Resuscitation Status: Full Code 06/30/16 16:39 DNR [Resuscitation Status: Active] [RES] Routine Comment: Resuscitation Status: [id number] - Labs CBC & Chem 7: 07/03/16 03:55 07/03/16 03:55 Labs: Laboratory Results - last 24 hr 07/02/16 07/02/16 07/02/16 04:18 07:35 11:38 WBC RBC Hgb Hct MCV MCH MCHC RDW Plt Count MPV Immature Gran % Seg Neutrophils % Lymphocytes % Monocytes % Eosinophils % Basophils % Neutrophils # Lymphocytes # Monocytes # Eosinophils # Basophils # Sodium Potassium Chloride Carbon Dioxide BUN Creatinine Est GFR ( Amer) Est GFR (Non-Af Amer) BUN/Creatinine Ratio Glucose POC Glucose 92 H 104 H 89 Calculated Osmolality Calcium 07/02/16 07/02/16 07/03/16 16:28 20:05 03:55 WBC 11.7 H RBC 4.51 Hgb 12.6 L Hct 41.4 MCV 91.8 MCH 27.9 L MCHC 30.4 L RDW 14.8 H Plt Count 222 MPV 10.8 Immature Gran % 2.5 Seg Neutrophils % 72.6 Lymphocytes % 12.4 Monocytes % 9.8 Eosinophils % 2.4 Basophils % 0.3 Neutrophils # 8.5 Lymphocytes # 1.4 Monocytes # 1.1 Eosinophils # 0.3 Basophils # 0.0 Sodium Potassium Chloride Carbon Dioxide BUN Creatinine Est GFR ( Amer) Est GFR (Non-Af Amer) BUN/Creatinine Ratio Glucose POC Glucose 89 88 Calculated Osmolality Calcium 07/03/16 03:55 WBC RBC Hgb Hct MCV MCH MCHC RDW Plt Count MPV Immature Gran % Seg Neutrophils % Lymphocytes % Monocytes % Eosinophils % Basophils % Neutrophils # Lymphocytes # Monocytes # Eosinophils # Basophils # Sodium 140 Potassium 3.8 Chloride 94 L Carbon Dioxide 38 H BUN 38 H Creatinine 0.75 Est GFR ( Amer) > 60 Est GFR (Non-Af Amer) > 60 BUN/Creatinine Ratio 51 H Glucose 92 POC Glucose Calculated Osmolality 299 Calcium 8.4 L - ABG Interpretation ABG results: ABG ABG pH 7.42 pH Units (7.32-7.45) 07/01/16 03:34 ABG pCO2 63 mmHg (35-45) H 07/01/16 03:34 ABG pO2 57 mmHg (85-104) L 07/01/16 03:34 ABG O2 Saturation 90 % (95-98) L 07/01/16 03:34 PT/INR, D-dimer PT 12.4 Seconds (9.4-12.1) H 07/01/16 04:55
[2016-07-04] MEDS: Ipratropium/Albuterol Neb 3 ML IH SCH ×7 (00:04→23:08)
[2016-07-04] MEDS: dilTIAZem HCl 60 MG TABLET PO SCH ×6 (04:11→20:25)
[2016-07-04] MEDS: Furosemide 40 MG TABLET PO SCH (07:41)
[2016-07-04] MEDS: Pantoprazole 40 MG VIAL IVP SCH (07:41)
[2016-07-04] MEDS: APIXABAN 5 MG TABLET PO SCH ×2 (07:41→20:25)
[2016-07-04] MEDS: Sennosides 8.6 MG TABLET PO SCH ×2 (07:41→20:24)
--- NOTE | 2016-07-04 10:16 | Internal Med Progress Note ---
Date of Encounter: 07/04/16 Time of Encounter: 10:13 - Assessment and plan (1) Atrial fibrillation Current Visit: Yes Status: Acute Assessment and plan: New onset atrial fibrillation, continues to be tachycardic, heart rate fluctuating between 110-130. We will increase by mouth Cardizem to 60 mg every 4 hourly. Continue metoprolol. Continue long-term anticoagulation with Eliquis ; cardiology signed off at this time. Qualifiers: Atrial fibrillation type: unspecified Qualified Code(s): I48.91 - Unspecified atrial fibrillation (2) Acute respiratory failure with hypoxia and hypercapnia Current Visit: Yes Status: Acute Assessment and plan: Patient likely had chronic respiratory failure, etiology multifactorial- undiagnosed obesity hypoventilation syndrome, COPD, cor pulmonale. Continues to require 4-5 L/m oxygen via nasal cannula along with nocturnal BiPAP. Physical therapy evaluation noted, recommends inpatient rehabilitation. office services manager on board, currently working on Medicaid application for funding for rehabilitation placement. (3) ARDS (adult respiratory distress syndrome) Current Visit: Yes Status: Resolved Assessment and plan: Related to pneumonia, cardiac arrest and acute respiratory failure. Currently improved. (4) Pneumonia Current Visit: Yes Status: Resolved Assessment and plan: Completed appropriate IV antibiotic therapy for pneumonia. Repeat sputum culture with Pantoea agglomerans is likely colonization due to prolonged ventilator dependence. Improving oxygen requirements and patient does not appear septic at this time. Qualifiers: Pneumonia type: due to other aerobic Gram-negative bacteria Laterality: right Lung location: lower lobe of lung Qualified Code(s): J15.6 - Pneumonia due to other aerobic Gram-negative bacteria (5) COPD (chronic obstructive pulmonary disease) Current Visit: Yes Status: Chronic Assessment and plan: Possible diagnosis given his extensive smoking history. Continue bronchodilators and supplemental oxygen. Continue oral prednisone for a two- week course. Qualifiers: COPD type: unspecified COPD Qualified Code(s): J44.9 - Chronic obstructive pulmonary disease, unspecified (6) DARION (acute kidney injury) Current Visit: Yes Status: Resolved (7) Morbid obesity Current Visit: Yes Status: Chronic Qualifiers: Obesity type: due to excess calories Qualified Code(s): E66.01 - Morbid ( severe) obesity due to excess calories (8) Obesity hypoventilation syndrome Current Visit: Yes Status: Suspected Assessment and plan: Continue supplemental oxygen and nocturnal noninvasive positive pressure ventilation as needed. (9) PEA (Pulseless electrical activity) Current Visit: Yes Status: Resolved (10) Obstructive sleep apnea Current Visit: Yes Status: Suspected (11) Acute metabolic encephalopathy Current Visit: Yes Status: Resolved Assessment and plan: Related to acute medical illness including hypoxemia, infection. Currently oriented and at baseline mental status. Continue Seroquel at bedtime. - Subjective Interval history: He reports no chest pain, shortness of breath or palpitations. Noted to be lying in bed, does have generalized weakness due to prolonged critical illness. Intermittent dry cough. Has been on nocturnal BiPAP. - Constitutional Vitals: Temp Pulse Resp BP Pulse Ox 97.7 F 127 16 106/74 94 L 07/04/16 07:21 07/04/16 08:00 07/04/16 07:59 07/04/16 07:21 07/04/16 07:59 General appearance: Present: A&O X 3, obese, answers questions appropriately - Respiratory Respiratory exam: Present: decreased breath sounds (Bilateral decreased air entry. No active wheezing or rhonchi.), CTAB. Absent: accessory muscle use, rales, rhonchi, wheezes - Cardiovascular Cardiovascular exam: Present: irregular rhythm, +S1, +S2, tachycardia. Absent: diastolic murmur, gallop, rubs, systolic murmur - GI/Abdominal GI/Abdominal exam: Present: normal bowel sounds, soft (Obese and nontender), no peritoneal signs. Absent: distended, tenderness - Extremities Exam Extremities exam: Present: pedal edema (Trace), warm, radial pulses palpable and symetrical. Absent: calf tenderness, cyanotic - Skin Skin exam: Present: dry, intact Internal Medicine: Result - Labs CBC & Chem 7: 07/03/16 03:55 07/03/16 03:55 - ABG Interpretation ABG results: ABG ABG pH 7.42 pH Units (7.32-7.45) 07/01/16 03:34 ABG pCO2 63 mmHg (35-45) H 07/01/16 03:34 ABG pO2 57 mmHg (85-104) L 07/01/16 03:34 ABG O2 Saturation 90 % (95-98) L 07/01/16 03:34 PT/INR, D-dimer PT 12.4 Seconds (9.4-12.1) H 07/01/16 04:55 Consult Discharge Plan - Plan Referrals: Sumit Hidalgo DO [Partnered Physician] - 07/06/16 12:15 pm (cardiac arrest 06/21, hospital follow up) Ruiz Dumont MD [Primary Care Provider] -
--- NOTE | 2016-07-04 10:34 | Event Note ---
Date of Encounter: 07/04/16 Time of Encounter: 10:00 Called by staff to see pt as family desired for code status to be addressed with pt. Brother stated that since he has improved, they are uncomfortable with the decision that was made for DNR/DNI and wants pt to determine what he wants at this point. Discussed with pt and reviewed clinical events during this hospital stay. Discussed that if he desires to transition back to full code, if he is intubated again, it is very likely that he would undergo tracheostomy and possible correction ventilator support. Discussed that if DNR status remains as is, he can still have aggressive care with medications, oxygen and bipap support, but no heroics, including CPR/Defib and no intubation would occur. If he would to have respiratory failure that continue despite interventions, we would focus on keeping him comfortable. Patient wants to discuss further with family, and family asking for pulmonology input. D/W Dr. Rufus Manriquez who will try and visit pt briefly today to discuss.
[2016-07-04] MEDS: predniSONE 20 MG TABLET PO SCH (12:13)
--- NOTE | 2016-07-04 16:07 | Event Note ---
Date of Encounter: 07/04/16 Time of Encounter: 15:53 I was asked to rediscuss goals of care with the patient. The patient had a prolonged course on the mechanical ventilator due to ARDS in the setting of chronic respiratory failure due to obesity hypoventilation syndrome and COPD. Tracheostomy placement was offered during the ICU stay. The patient's 2 brothers, who are the POA's, opted against tracheostomy tube placement and decided on extubation with a change of CODE STATUS to DNR CCA DNI. They were fairly certain that the patient would never want a tracheostomy tube placed. The patient was extubated, and he has clinically improved. He had initially been delirious following extubation, however his mental status has cleared. He is now alert and oriented, and he has the capacity to make medical decisions. I explained to him the nature of his chronic respiratory failure due to COPD and obesity hypoventilation syndrome. I also explained to him the reasons for his acute decompensation, which appear to be due to pneumonia and ARDS. Although he has improved in regards to his ARDS, the issues which resulted in chronic hypercapnia (COPD and OHS) will likely never resolve. The patient expressed understanding of this. I told the patient that as of now, if he were to decompensate and develop respiratory failure, we would initiate comfort measures only and allow him to peacefully. I asked the patient if he would like to reconsider this, and change his CODE STATUS back to full code. I also told the patient that if he were to require reintubation, I would recommend tracheostomy tube placement. The patient expressed understanding of these issues. The patient clearly stated that he did not want to be reintubated, and that he would likely never want a tracheostomy tube placed. He would like to remain DNR CCA DNI. However, he did state that he needed to think about this more and further discuss it with his family. I discussed with the patient the importance of compliance with BiPAP nightly and on as needed basis when taking naps during the day. He expressed understanding of this. I updated the bedside nurse on the patient's decision. Palliative care medicine is following along. Please call pulmonary back if needed.
[2016-07-04] MEDS ORDERED: *HR* Metoprolol 5 MG/5 ML VIAL IVP PRN (17:58)
[2016-07-04] MEDS: *HR* Metoprolol 5 MG/5 ML VIAL IVP PRN (18:22)
[2016-07-05] MEDS: dilTIAZem HCl 60 MG TABLET PO SCH ×6 (01:45→21:25)
[2016-07-05] MEDS: Ipratropium/Albuterol Neb 3 ML IH SCH ×6 (03:39→23:39)
[2016-07-05] MEDS: APIXABAN 5 MG TABLET PO SCH ×2 (07:27→21:25)
[2016-07-05] MEDS: Pantoprazole 40 MG VIAL IVP SCH (07:27)
[2016-07-05] MEDS: Sennosides 8.6 MG TABLET PO SCH ×2 (07:27→21:25)
[2016-07-05] MEDS: predniSONE 20 MG TABLET PO SCH (07:27)
--- NOTE | 2016-07-05 12:22 | Internal Med Progress Note ---
Date of Encounter: 07/05/16 Time of Encounter: 12:20 - Assessment and plan (1) Atrial fibrillation Current Visit: Yes Status: Acute Assessment and plan: New onset atrial fibrillation, continues to be tachycardic, improved from yesterday. Will increase Metoprolol to 75mg BID and start Cardizem CD 360mg daily; will use PRN IV Metoprolol as BP tolerates, for appropriate HR control. Will hold Lasix for now to eliminate dehydration as a cause for RVR; Continue long-term anticoagulation with Eliquis; cardiology signed off at this time. Qualifiers: Atrial fibrillation type: unspecified Qualified Code(s): I48.91 - Unspecified atrial fibrillation (2) Acute respiratory failure with hypoxia and hypercapnia Current Visit: Yes Status: Acute Assessment and plan: Patient likely had chronic respiratory failure, etiology multifactorial- undiagnosed obesity hypoventilation syndrome, COPD, cor pulmonale. Continues to require 4-5 L/m oxygen via nasal cannula along with nocturnal BiPAP. Pulmonology f/up and family discussion appreciated; after explaining the clinical course/complications of his current diagnoses and reinforcing tracheostomy in the event of acute respiratory failure, patient decided to be DNR/DNI for now, pending further discussions with his family; Physical therapy evaluation noted, recommends inpatient rehabilitation. director of casework services on board, currently working on Medicaid application for funding for rehabilitation placement. (3) ARDS (adult respiratory distress syndrome) Current Visit: Yes Status: Resolved (4) Pneumonia Current Visit: Yes Status: Resolved Qualifiers: Pneumonia type: due to other aerobic Gram-negative bacteria Laterality: right Lung location: lower lobe of lung Qualified Code(s): J15.6 - Pneumonia due to other aerobic Gram-negative bacteria (5) COPD (chronic obstructive pulmonary disease) Current Visit: Yes Status: Chronic Assessment and plan: Possible diagnosis given his extensive smoking history. Continue bronchodilators and supplemental oxygen. Continue oral prednisone for a two- week course. Qualifiers: COPD type: unspecified COPD Qualified Code(s): J44.9 - Chronic obstructive pulmonary disease, unspecified (6) DARION (acute kidney injury) Current Visit: Yes Status: Resolved (7) Morbid obesity Current Visit: Yes Status: Chronic Qualifiers: Obesity type: due to excess calories Qualified Code(s): E66.01 - Morbid ( severe) obesity due to excess calories (8) Obesity hypoventilation syndrome Current Visit: Yes Status: Suspected Assessment and plan: Continue supplemental oxygen and nocturnal noninvasive positive pressure ventilation as needed. Will require sleep studies as outpatient; (9) PEA (Pulseless electrical activity) Current Visit: Yes Status: Resolved (10) Obstructive sleep apnea Current Visit: Yes Status: Suspected (11) Acute metabolic encephalopathy Current Visit: Yes Status: Resolved - Subjective Interval history: Denies any new complaints. No chest pain, shortness of breath or palpitations. Working with physical therapy with range of motion exercises, however has not been out of bed since admission. - Constitutional Vitals: Temp Pulse Resp BP Pulse Ox 99.5 F 88 18 116/84 91 L 07/05/16 11:16 07/05/16 11:16 07/05/16 11:34 07/05/16 11:16 07/05/16 11:34 General appearance: Present: A&O X 3, obese, answers questions appropriately - Respiratory Respiratory exam: Present: CTAB, rhonchi (Occasional rhonchi). Absent: accessory muscle use, rales, wheezes - Cardiovascular Cardiovascular exam: Present: irregular rhythm, +S1, +S2. Absent: diastolic murmur, gallop, rubs, systolic murmur - GI/Abdominal GI/Abdominal exam: Present: normal bowel sounds, soft (Very obese), no peritoneal signs. Absent: distended, tenderness - Extremities Exam Extremities exam: Present: pedal edema, warm, radial pulses palpable and symetrical. Absent: calf tenderness, cyanotic - Neurological Exam Neurological exam: Present: CN II-XII intact, oriented X3, no focal deficits. Absent: pronater drift, facial droop, speech deficit Internal Medicine: Result - Labs CBC & Chem 7: 07/03/16 03:55 07/03/16 03:55 - ABG Interpretation ABG results: ABG ABG pH 7.42 pH Units (7.32-7.45) 07/01/16 03:34 ABG pCO2 63 mmHg (35-45) H 07/01/16 03:34 ABG pO2 57 mmHg (85-104) L 07/01/16 03:34 ABG O2 Saturation 90 % (95-98) L 07/01/16 03:34 PT/INR, D-dimer PT 12.4 Seconds (9.4-12.1) H 07/01/16 04:55 Consult Discharge Plan - Plan Referrals: Sumit Hidalgo DO [Partnered Physician] - 07/06/16 12:15 pm (cardiac arrest 06/21, hospital follow up) Ruiz Dumont MD [Primary Care Provider] -
[2016-07-06] MEDS: dilTIAZem HCl 60 MG TABLET PO SCH ×2 (01:37→06:01)
[2016-07-06] MEDS: Ipratropium/Albuterol Neb 3 ML IH SCH ×6 (04:29→23:51)
[2016-07-06] MEDS: Sennosides 8.6 MG TABLET PO SCH ×2 (07:50→20:33)
[2016-07-06] MEDS: APIXABAN 5 MG TABLET PO SCH ×2 (07:50→20:33)
[2016-07-06] MEDS: predniSONE 20 MG TABLET PO SCH (07:50)
[2016-07-06] MEDS: Diltiazem CD (24hr) 180 MG CAPSULE PO SCH (07:50)
--- NOTE | 2016-07-06 10:24 | Palliative Progress Note ---
<Oziel Ricci - Last Filed: 07/06/16 10:18> Date of Encounter: 07/06/16 Time of Encounter: 10:18 - Assessment and plan (1) Goals of care, counseling/discussion Current Visit: Yes Status: Acute Assessment and plan: Patient's clinical status is made significant improvement since extubation. Patient is verbal and alert and oriented 3. We will continue medical care per primary team. Patient remains a DO NOT RESUSCITATE comfort care arrest/DO NOT INTUBATE. Patient and family had questions regarding CODE STATUS and the possibility of resending the DNR CCA/DNI order. I again had a long conversation regarding the different level of CODE STATUS' and what each of these in detail. Patient's brother was at bedside for these conversations. Patient declined to make any changes at this time and stated that he continue to think about it. Patient also does not have a medical power of head filter press tender established. I discussed the importance of establishing a medical power of head filter press tender to assist with decision making in the event that he is unable to make his own decisions. Patient will discuss this with family and think about it and the social work department will assist him in establishing a medical power of head filter press tender. Social work is following the patient and assisting in helping establish a long- term care plan and eligibility for services. (2) Dyspnea Current Visit: Yes Status: Acute Assessment and plan: None this time. Continue to monitor. Qualifiers: Dyspnea type: unspecified Qualified Code(s): R06.00 - Dyspnea, unspecified (3) History of sudden cardiac arrest successfully resuscitated Current Visit: Yes Status: Acute Assessment and plan: Patient's neurologic status continues to improve. Patient remains a DO NOT RESUSCITATE comfort care arrest/DO NOT INTUBATE, as discussed above. (4) Acute respiratory failure Current Visit: Yes Status: Acute Assessment and plan: Improving. Further management per primary team. Qualifiers: Respiratory failure complication: hypoxia and hypercapnia Qualified Code(s) : J96.01 - Acute respiratory failure with hypoxia; J96.02 - Acute respiratory failure with hypercapnia (5) DVT (deep venous thrombosis) Current Visit: Yes Status: Acute Assessment and plan: Continue anticoagulation per primary team. Patient switched to oral medications. Qualifiers: DVT location: lower extremity Affected thrombotic vein of extremity: popliteal Laterality: left Chronicity: unspecified Qualified Code(s): I82.432 - Acute embolism and thrombosis of left popliteal vein (6) Atrial fibrillation with RVR Current Visit: Yes Status: Acute Assessment and plan: Heart rate is still elevated but under better control. Further management per primary. - Time Spent With Patient Total time spent is greater than 50% in coordination of care (as documented) at patient's floor/unit and/or counseling patient: - Subjective Interval history: Patient seen and examined at bedside. Patient is awake and alert this morning to person, place, and time. He has no complaints this time. He denies pain, shortness of breath, nausea, vomiting, diarrhea. Patient is eating well. - Constitutional Vitals: Abnormal lab results WBC 11.7 K/mcL (4.3-11.1) H 07/03/16 03:55 Hgb 12.6 g/dL (12.9-16.9) L 07/03/16 03:55 MCH 27.9 pg (28.0-33.3) L 07/03/16 03:55 MCHC 30.4 g/dL (31.6-35.5) L 07/03/16 03:55 RDW 14.8 % (11.5-14.5) H 07/03/16 03:55 Nucleated RBCs/100 WBC 0.1 /100 WBC (0) H 06/24/16 04:32 Immature Plt Fraction 8.4 % (1.1-6.1) H 06/22/16 03:15 PT 12.4 Seconds (9.4-12.1) H 07/01/16 04:55 APTT 70.1 Seconds (26.0-36.0) H 07/02/16 05:19 ABG pCO2 63 mmHg (35-45) H 07/01/16 03:34 ABG pO2 57 mmHg (85-104) L 07/01/16 03:34 ABG HCO3 40.9 mEQ/L (21-27) H 07/01/16 03:34 ABG Total CO2 42.8 mEq/L (20-26) H 07/01/16 03:34 ABG O2 Saturation 90 % (95-98) L 07/01/16 03:34 ABG Base Excess 13.5 mEq/L (-2.0 to 3.0) H 07/01/16 03:34 VBG pH 7.08 pH Units (7.32-7.42) L* 06/21/16 16:31 VBG pCO2 137 mmHg (41-51) H 06/21/16 16:31 VBG pO2 12 mmHg (25-40) L 06/21/16 16:31 VBG HCO3 40.6 mEq/L (21-27) H 06/21/16 16:31 Carboxyhemoglobin 9.1 % (0-5) H 06/21/16 13:21 Chloride 94 mEq/L (98-109) L 07/03/16 03:55 Carbon Dioxide 38 mEq/L (19-29) H 07/03/16 03:55 BUN 38 mg/dL (8-26) H 07/03/16 03:55 BUN/Creatinine Ratio 51 (6-26) H 07/03/16 03:55 Calcium 8.4 mg/dL (8.6-10.8) L 07/03/16 03:55 Ionized Calcium 1.07 mmol/L (1.15-1.35) L 07/02/16 05:19 ALT 141 Units/L (0-55) H 06/24/16 04:32 Troponin I 0.77 ng/mL (0-0.03) H* 06/22/16 07:00 B-Natriuretic Peptide 917 pg/mL (0-100) H 06/21/16 14:02 Serum Total Protein 5.9 g/dL (6.0-8.3) L 06/24/16 04:32 Albumin 2.4 g/dL (3.5-5.0) L 06/24/16 04:32 Albumin/Globulin Ratio 0.7 (1.1-2.2) L 06/24/16 04:32 Triglycerides 185 mg/dL (< 150) H 06/28/16 07:55 Lipase 114 Units/L (8-78) H 06/28/16 07:55 General appearance: Present: obese - Respiratory Respiratory exam: Present: CTAB. Absent: rales, respiratory distress, rhonchi, wheezes, tachypnea - Cardiovascular Cardiovascular exam: Present: tachycardia. Absent: gallop, rubs, systolic murmur - GI/Abdominal GI/Abdominal exam: Present: normal bowel sounds, soft. Absent: distended, tenderness - Extremities Exam Extremities exam: Present: pedal edema (trace) - Neurological Exam Neurological exam: Present: alert, CN II-XII intact, oriented X3, no focal deficits Palliative Quality Palliative Quality: Screen for Code Status: Yes, Screen for Goals of Care: Yes, Screen for Pain: Yes, If Pain Regimen Started, Initiate Bowel Regimen: NA, Screen for Nausea/Vomitting: Yes Code Status: 06/22/16 15:23 CODE [Resuscitation Status: Active] [RES] Routine Comment: Resuscitation Status: Full Code 06/30/16 16:39 DNR [Resuscitation Status: Active] [RES] Routine Comment: Resuscitation Status: [id number] - Labs CBC & Chem 7: 07/03/16 03:55 07/03/16 03:55 - ABG Interpretation ABG results: ABG ABG pH 7.42 pH Units (7.32-7.45) 07/01/16 03:34 ABG pCO2 63 mmHg (35-45) H 07/01/16 03:34 ABG pO2 57 mmHg (85-104) L 07/01/16 03:34 ABG O2 Saturation 90 % (95-98) L 07/01/16 03:34 PT/INR, D-dimer PT 12.4 Seconds (9.4-12.1) H 07/01/16 04:55 Consult Discharge Plan - Plan Referrals: Sumit Hidalgo DO [Partnered Physician] - 07/06/16 12:15 pm (cardiac arrest 06/21, hospital follow up) Ruiz Dumont MD [Primary Care Provider] - (web request sent on 07-06-16 @ [phone]) <Joseph Kyle - Last Filed: 07/06/16 14:21> - Time Spent With Patient Total time spent is greater than 50% in coordination of care (as documented) at patient's floor/unit and/or counseling patient: - Constitutional Vitals: Abnormal lab results WBC 11.7 K/mcL (4.3-11.1) H 07/03/16 03:55 Hgb 12.6 g/dL (12.9-16.9) L 07/03/16 03:55 MCH 27.9 pg (28.0-33.3) L 07/03/16 03:55 MCHC 30.4 g/dL (31.6-35.5) L 07/03/16 03:55 RDW 14.8 % (11.5-14.5) H 07/03/16 03:55 Nucleated RBCs/100 WBC 0.1 /100 WBC (0) H 06/24/16 04:32 Immature Plt Fraction 8.4 % (1.1-6.1) H 06/22/16 03:15 PT 12.4 Seconds (9.4-12.1) H 07/01/16 04:55 APTT 70.1 Seconds (26.0-36.0) H 07/02/16 05:19 ABG pCO2 63 mmHg (35-45) H 07/01/16 03:34 ABG pO2 57 mmHg (85-104) L 07/01/16 03:34 ABG HCO3 40.9 mEQ/L (21-27) H 07/01/16 03:34 ABG Total CO2 42.8 mEq/L (20-26) H 07/01/16 03:34 ABG O2 Saturation 90 % (95-98) L 07/01/16 03:34 ABG Base Excess 13.5 mEq/L (-2.0 to 3.0) H 07/01/16 03:34 VBG pH 7.08 pH Units (7.32-7.42) L* 06/21/16 16:31 VBG pCO2 137 mmHg (41-51) H 06/21/16 16:31 VBG pO2 12 mmHg (25-40) L 06/21/16 16:31 VBG HCO3 40.6 mEq/L (21-27) H 06/21/16 16:31 Carboxyhemoglobin 9.1 % (0-5) H 06/21/16 13:21 Chloride 94 mEq/L (98-109) L 07/03/16 03:55 Carbon Dioxide 38 mEq/L (19-29) H 07/03/16 03:55 BUN 38 mg/dL (8-26) H 07/03/16 03:55 BUN/Creatinine Ratio 51 (6-26) H 07/03/16 03:55 Calcium 8.4 mg/dL (8.6-10.8) L 07/03/16 03:55 Ionized Calcium 1.07 mmol/L (1.15-1.35) L 07/02/16 05:19 ALT 141 Units/L (0-55) H 06/24/16 04:32 Troponin I 0.77 ng/mL (0-0.03) H* 06/22/16 07:00 B-Natriuretic Peptide 917 pg/mL (0-100) H 06/21/16 14:02 Serum Total Protein 5.9 g/dL (6.0-8.3) L 06/24/16 04:32 Albumin 2.4 g/dL (3.5-5.0) L 06/24/16 04:32 Albumin/Globulin Ratio 0.7 (1.1-2.2) L 06/24/16 04:32 Triglycerides 185 mg/dL (< 150) H 06/28/16 07:55 Lipase 114 Units/L (8-78) H 06/28/16 07:55 - Attending Attestation I examined this patient and my medical decision-making was reviewed with the RUBBER COMPOUNDER MIXER/PA/Advanced Practice Nurse/Resident Physician. I agree with the documented findings, disposition and treatment plan as described except to the extent set forth below. Patient has had numerous CODE STATUS discussions both with the palliative care service, pulmonary. He consistently wishes to not be intubated. And therefore remains DNR CCA, DNI. The patient at times however does seem to equivocal and what his CODE STATUS actually is. That reason palliative will follow at a distance but not fully sign off. Palliative Quality Code Status: 06/22/16 15:23 CODE [Resuscitation Status: Active] [RES] Routine Comment: Resuscitation Status: Full Code 06/30/16 16:39 DNR [Resuscitation Status: Active] [RES] Routine Comment: Resuscitation Status: [id number] - Labs CBC & Chem 7: 07/03/16 03:55 07/03/16 03:55 - ABG Interpretation ABG results: ABG ABG pH 7.42 pH Units (7.32-7.45) 07/01/16 03:34 ABG pCO2 63 mmHg (35-45) H 07/01/16 03:34 ABG pO2 57 mmHg (85-104) L 07/01/16 03:34 ABG O2 Saturation 90 % (95-98) L 07/01/16 03:34 PT/INR, D-dimer PT 12.4 Seconds (9.4-12.1) H 07/01/16 04:55
--- NOTE | 2016-07-06 11:20 | Internal Med Progress Note ---
Date of Encounter: 07/06/16 Time of Encounter: 11:18 - Assessment and plan (1) Atrial fibrillation Current Visit: Yes Status: Acute Assessment and plan: New onset atrial fibrillation, continues to be mildly tachycardic, although improving. Heart rate between 100 and 110. Will increase Metoprolol to 100 mg BID and continue Cardizem CD 360mg daily; will use PRN IV Metoprolol as BP tolerates, for appropriate HR control. Will hold Lasix for now to eliminate dehydration as a cause for RVR; Continue long-term anticoagulation with Eliquis ; cardiology signed off at this time. Patient is medically stable for discharge, awaiting placement. Qualifiers: Atrial fibrillation type: unspecified Qualified Code(s): I48.91 - Unspecified atrial fibrillation (2) Acute respiratory failure with hypoxia and hypercapnia Current Visit: Yes Status: Acute Assessment and plan: Patient likely had chronic respiratory failure, etiology multifactorial- undiagnosed obesity hypoventilation syndrome, COPD, cor pulmonale. Continues to require 4-5 L/m oxygen via nasal cannula along with nocturnal BiPAP. Pulmonology f/up and family discussion appreciated; after explaining the clinical course/complications of his current diagnoses and reinforcing tracheostomy in the event of acute respiratory failure, patient decided to be DNR/DNI for now, pending further discussions with his family; Physical therapy evaluation noted, recommends inpatient rehabilitation. adoption services manager on board, currently working on Medicaid application for funding for rehabilitation placement. (3) ARDS (adult respiratory distress syndrome) Current Visit: Yes Status: Resolved (4) Pneumonia Current Visit: Yes Status: Resolved Qualifiers: Pneumonia type: due to other aerobic Gram-negative bacteria Laterality: right Lung location: lower lobe of lung Qualified Code(s): J15.6 - Pneumonia due to other aerobic Gram-negative bacteria (5) COPD (chronic obstructive pulmonary disease) Current Visit: Yes Status: Chronic Assessment and plan: Possible diagnosis given his extensive smoking history. Continue bronchodilators and supplemental oxygen. Continue oral prednisone for a two- week course. Patient is going to require long-term rehabilitation given his deconditioning from critical illness along with hypoxemia, morbid obesity. Continue frequent repositioning and supportive care. Qualifiers: COPD type: unspecified COPD Qualified Code(s): J44.9 - Chronic obstructive pulmonary disease, unspecified (6) DARION (acute kidney injury) Current Visit: Yes Status: Resolved (7) Morbid obesity Current Visit: Yes Status: Chronic Qualifiers: Obesity type: due to excess calories Qualified Code(s): E66.01 - Morbid ( severe) obesity due to excess calories (8) Obesity hypoventilation syndrome Current Visit: Yes Status: Suspected (9) PEA (Pulseless electrical activity) Current Visit: Yes Status: Resolved (10) Obstructive sleep apnea Current Visit: Yes Status: Suspected (11) Acute metabolic encephalopathy Current Visit: Yes Status: Resolved - Subjective Interval history: Denies any new complaints. No chest pain, shortness of breath or palpitations. Working with physical therapy with range of motion exercises, however has not been out of bed since admission. Improved constipation, has bowel movements now. Awaiting placement. - Constitutional Vitals: Temp Pulse Resp BP Pulse Ox 98.4 F 100 16 109/77 92 L 07/06/16 07:00 07/06/16 09:20 07/06/16 08:22 07/06/16 08:22 07/06/16 08:22 General appearance: Present: A&O X 3, morbidly obese, answers questions appropriately - Respiratory Respiratory exam: Present: CTAB (Anterolaterally). Absent: accessory muscle use , rales, rhonchi, wheezes - Cardiovascular Cardiovascular exam: Present: RRR, +S1, +S2, tachycardia. Absent: diastolic murmur, gallop, rubs, systolic murmur - GI/Abdominal GI/Abdominal exam: Present: normal bowel sounds, soft (Very obese), no peritoneal signs. Absent: distended, tenderness Internal Medicine: Result - Labs CBC & Chem 7: 07/03/16 03:55 07/03/16 03:55 - ABG Interpretation ABG results: ABG ABG pH 7.42 pH Units (7.32-7.45) 07/01/16 03:34 ABG pCO2 63 mmHg (35-45) H 07/01/16 03:34 ABG pO2 57 mmHg (85-104) L 07/01/16 03:34 ABG O2 Saturation 90 % (95-98) L 07/01/16 03:34 PT/INR, D-dimer PT 12.4 Seconds (9.4-12.1) H 07/01/16 04:55 Consult Discharge Plan - Plan Referrals: Sumit Hidalgo DO [Partnered Physician] - 07/06/16 12:15 pm (cardiac arrest 06/21, hospital follow up) Ruiz Dumont MD [Primary Care Provider] - (web request sent on 07-06-16 @ [phone])
[2016-07-07] MEDS: Ipratropium/Albuterol Neb 3 ML IH SCH ×6 (04:29→23:30)
[2016-07-07] MEDS: APIXABAN 5 MG TABLET PO SCH ×2 (08:53→19:45)
[2016-07-07] MEDS: predniSONE 20 MG TABLET PO SCH (08:53)
[2016-07-07] MEDS: Sennosides 8.6 MG TABLET PO SCH ×2 (08:53→19:44)
[2016-07-07] MEDS: Diltiazem CD (24hr) 180 MG CAPSULE PO SCH (08:53)
--- NOTE | 2016-07-07 09:16 | Palliative Progress Note ---
<Oziel Ricci - Last Filed: 07/07/16 09:11> Date of Encounter: 07/07/16 Time of Encounter: 08:15 - Assessment and plan (1) Goals of care, counseling/discussion Current Visit: Yes Status: Acute Assessment and plan: Patient's clinical status is made significant improvement since extubation. Patient is verbal and alert and oriented 3. We will continue medical care per primary team. Patient remains a DO NOT RESUSCITATE comfort care arrest/DO NOT INTUBATE. Patient and family had questions regarding CODE STATUS yesterday and this was reviewed. Patient's brother was at bedside for these conversations. Patient declined to make any changes at this time and stated that he continue to think about it. Patient also does not have a medical power of felt tipping machine tender established. Yesterday, I discussed the importance of establishing a medical power of felt tipping machine tender to assist with decision making in the event that he is unable to make his own decisions. Patient discussed this with social work yesterday, plan is to make brothers medical power of felt tipping machine tender today. Social work is following the patient and assisting in helping establish a long- term care plan and eligibility for services. (2) Dyspnea Current Visit: Yes Status: Acute Assessment and plan: None this time. Continue to monitor. Qualifiers: Dyspnea type: unspecified Qualified Code(s): R06.00 - Dyspnea, unspecified (3) History of sudden cardiac arrest successfully resuscitated Current Visit: Yes Status: Acute Assessment and plan: Patient's status continues to improve. Patient remains a DO NOT RESUSCITATE comfort care arrest/DO NOT INTUBATE, as discussed above. (4) Acute respiratory failure Current Visit: Yes Status: Acute Assessment and plan: Improving. Further management per primary team. BiPAP at night. Qualifiers: Respiratory failure complication: hypoxia and hypercapnia Qualified Code(s) : J96.01 - Acute respiratory failure with hypoxia; J96.02 - Acute respiratory failure with hypercapnia (5) DVT (deep venous thrombosis) Current Visit: Yes Status: Acute Assessment and plan: Continue anticoagulation per primary team. Patient switched to oral medications. Qualifiers: DVT location: lower extremity Affected thrombotic vein of extremity: popliteal Laterality: left Chronicity: unspecified Qualified Code(s): I82.432 - Acute embolism and thrombosis of left popliteal vein (6) Atrial fibrillation with RVR Current Visit: Yes Status: Acute Assessment and plan: Heart rate is still elevated but under better control. Further management per primary. - Time Spent With Patient Total time spent is greater than 50% in coordination of care (as documented) at patient's floor/unit and/or counseling patient: - Subjective Interval history: Patient seen and examined at bedside. Patient is sitting up in chair at the time of my exam. Patient is awake and alert this morning to person, place, and time. He has no complaints this time. He denies pain, shortness of breath, nausea, vomiting, diarrhea. Patient is eating and drinking well. - Constitutional Vitals: Abnormal lab results WBC 11.7 K/mcL (4.3-11.1) H 07/03/16 03:55 Hgb 12.6 g/dL (12.9-16.9) L 07/03/16 03:55 MCH 27.9 pg (28.0-33.3) L 07/03/16 03:55 MCHC 30.4 g/dL (31.6-35.5) L 07/03/16 03:55 RDW 14.8 % (11.5-14.5) H 07/03/16 03:55 Nucleated RBCs/100 WBC 0.1 /100 WBC (0) H 06/24/16 04:32 Immature Plt Fraction 8.4 % (1.1-6.1) H 06/22/16 03:15 PT 12.4 Seconds (9.4-12.1) H 07/01/16 04:55 APTT 70.1 Seconds (26.0-36.0) H 07/02/16 05:19 ABG pCO2 63 mmHg (35-45) H 07/01/16 03:34 ABG pO2 57 mmHg (85-104) L 07/01/16 03:34 ABG HCO3 40.9 mEQ/L (21-27) H 07/01/16 03:34 ABG Total CO2 42.8 mEq/L (20-26) H 07/01/16 03:34 ABG O2 Saturation 90 % (95-98) L 07/01/16 03:34 ABG Base Excess 13.5 mEq/L (-2.0 to 3.0) H 07/01/16 03:34 VBG pH 7.08 pH Units (7.32-7.42) L* 06/21/16 16:31 VBG pCO2 137 mmHg (41-51) H 06/21/16 16:31 VBG pO2 12 mmHg (25-40) L 06/21/16 16:31 VBG HCO3 40.6 mEq/L (21-27) H 06/21/16 16:31 Carboxyhemoglobin 9.1 % (0-5) H 06/21/16 13:21 Chloride 94 mEq/L (98-109) L 07/03/16 03:55 Carbon Dioxide 38 mEq/L (19-29) H 07/03/16 03:55 BUN 38 mg/dL (8-26) H 07/03/16 03:55 BUN/Creatinine Ratio 51 (6-26) H 07/03/16 03:55 Calcium 8.4 mg/dL (8.6-10.8) L 07/03/16 03:55 Ionized Calcium 1.07 mmol/L (1.15-1.35) L 07/02/16 05:19 ALT 141 Units/L (0-55) H 06/24/16 04:32 Troponin I 0.77 ng/mL (0-0.03) H* 06/22/16 07:00 B-Natriuretic Peptide 917 pg/mL (0-100) H 06/21/16 14:02 Serum Total Protein 5.9 g/dL (6.0-8.3) L 06/24/16 04:32 Albumin 2.4 g/dL (3.5-5.0) L 06/24/16 04:32 Albumin/Globulin Ratio 0.7 (1.1-2.2) L 06/24/16 04:32 Triglycerides 185 mg/dL (< 150) H 06/28/16 07:55 Lipase 114 Units/L (8-78) H 06/28/16 07:55 - ENT ENT exam: Present: mucous membranes moist - Respiratory Respiratory exam: Present: CTAB. Absent: rales, rhonchi, wheezes - Cardiovascular Cardiovascular exam: Present: irregular rhythm, tachycardia. Absent: gallop, rubs, systolic murmur - GI/Abdominal GI/Abdominal exam: Present: normal bowel sounds, soft. Absent: distended, tenderness - Extremities Exam Extremities exam: Present: pedal edema (trace) - Neurological Exam Neurological exam: Present: alert, CN II-XII intact, oriented X3, no focal deficits Palliative Quality Palliative Quality: Screen for Code Status: Yes, Screen for Goals of Care: Yes, Screen for Pain: Yes, If Pain Regimen Started, Initiate Bowel Regimen: NA, Screen for Nausea/Vomitting: Yes Code Status: 06/22/16 15:23 CODE [Resuscitation Status: Active] [RES] Routine Comment: Resuscitation Status: Full Code 06/30/16 16:39 DNR [Resuscitation Status: Active] [RES] Routine Comment: Resuscitation Status: [id number] - Labs CBC & Chem 7: 07/03/16 03:55 07/03/16 03:55 - ABG Interpretation ABG results: ABG ABG pH 7.42 pH Units (7.32-7.45) 07/01/16 03:34 ABG pCO2 63 mmHg (35-45) H 07/01/16 03:34 ABG pO2 57 mmHg (85-104) L 07/01/16 03:34 ABG O2 Saturation 90 % (95-98) L 07/01/16 03:34 PT/INR, D-dimer PT 12.4 Seconds (9.4-12.1) H 07/01/16 04:55 Consult Discharge Plan - Plan Referrals: Sumit Hidalgo DO [Partnered Physician] - () Ruiz Dumont MD [Primary Care Provider] - 07/15/16 10:00 am () <Joseph Kyle - Last Filed: 07/07/16 10:17> - Time Spent With Patient Total time spent is greater than 50% in coordination of care (as documented) at patient's floor/unit and/or counseling patient: - Constitutional Vitals: Abnormal lab results WBC 11.7 K/mcL (4.3-11.1) H 07/03/16 03:55 Hgb 12.6 g/dL (12.9-16.9) L 07/03/16 03:55 MCH 27.9 pg (28.0-33.3) L 07/03/16 03:55 MCHC 30.4 g/dL (31.6-35.5) L 07/03/16 03:55 RDW 14.8 % (11.5-14.5) H 07/03/16 03:55 Nucleated RBCs/100 WBC 0.1 /100 WBC (0) H 06/24/16 04:32 Immature Plt Fraction 8.4 % (1.1-6.1) H 06/22/16 03:15 PT 12.4 Seconds (9.4-12.1) H 07/01/16 04:55 APTT 70.1 Seconds (26.0-36.0) H 07/02/16 05:19 ABG pCO2 63 mmHg (35-45) H 07/01/16 03:34 ABG pO2 57 mmHg (85-104) L 07/01/16 03:34 ABG HCO3 40.9 mEQ/L (21-27) H 07/01/16 03:34 ABG Total CO2 42.8 mEq/L (20-26) H 07/01/16 03:34 ABG O2 Saturation 90 % (95-98) L 07/01/16 03:34 ABG Base Excess 13.5 mEq/L (-2.0 to 3.0) H 07/01/16 03:34 VBG pH 7.08 pH Units (7.32-7.42) L* 06/21/16 16:31 VBG pCO2 137 mmHg (41-51) H 06/21/16 16:31 VBG pO2 12 mmHg (25-40) L 06/21/16 16:31 VBG HCO3 40.6 mEq/L (21-27) H 06/21/16 16:31 Carboxyhemoglobin 9.1 % (0-5) H 06/21/16 13:21 Chloride 94 mEq/L (98-109) L 07/03/16 03:55 Carbon Dioxide 38 mEq/L (19-29) H 07/03/16 03:55 BUN 38 mg/dL (8-26) H 07/03/16 03:55 BUN/Creatinine Ratio 51 (6-26) H 07/03/16 03:55 Calcium 8.4 mg/dL (8.6-10.8) L 07/03/16 03:55 Ionized Calcium 1.07 mmol/L (1.15-1.35) L 07/02/16 05:19 ALT 141 Units/L (0-55) H 06/24/16 04:32 Troponin I 0.77 ng/mL (0-0.03) H* 06/22/16 07:00 B-Natriuretic Peptide 917 pg/mL (0-100) H 06/21/16 14:02 Serum Total Protein 5.9 g/dL (6.0-8.3) L 06/24/16 04:32 Albumin 2.4 g/dL (3.5-5.0) L 06/24/16 04:32 Albumin/Globulin Ratio 0.7 (1.1-2.2) L 06/24/16 04:32 Triglycerides 185 mg/dL (< 150) H 06/28/16 07:55 Lipase 114 Units/L (8-78) H 06/28/16 07:55 - Attending Attestation I examined this patient and my medical decision-making was reviewed with the CIRCULATION WORKER/PA/Advanced Practice Nurse/Resident Physician. I agree with the documented findings, disposition and treatment plan as described except to the extent set forth below. Palliative Quality Code Status: 06/22/16 15:23 CODE [Resuscitation Status: Active] [RES] Routine Comment: Resuscitation Status: Full Code 06/30/16 16:39 DNR [Resuscitation Status: Active] [RES] Routine Comment: Resuscitation Status: [id number] - Labs CBC & Chem 7: 07/03/16 03:55 07/03/16 03:55 - ABG Interpretation ABG results: ABG ABG pH 7.42 pH Units (7.32-7.45) 07/01/16 03:34 ABG pCO2 63 mmHg (35-45) H 07/01/16 03:34 ABG pO2 57 mmHg (85-104) L 07/01/16 03:34 ABG O2 Saturation 90 % (95-98) L 07/01/16 03:34 PT/INR, D-dimer PT 12.4 Seconds (9.4-12.1) H 07/01/16 04:55
--- NOTE | 2016-07-07 19:09 | Internal Med Progress Note ---
Date of Encounter: 07/07/16 Time of Encounter: 22:00 - Assessment and plan (1) Atrial fibrillation Current Visit: Yes Status: Acute Qualifiers: Atrial fibrillation type: unspecified Qualified Code(s): I48.91 - Unspecified atrial fibrillation (2) DVT (deep venous thrombosis) Current Visit: Yes Status: Acute Qualifiers: DVT location: lower extremity Affected thrombotic vein of extremity: popliteal Laterality: left Chronicity: unspecified Qualified Code(s): I82.432 - Acute embolism and thrombosis of left popliteal vein (3) Atrial fibrillation with RVR Current Visit: Yes Status: Acute (4) Diastolic heart failure Current Visit: Yes Status: Acute Qualifiers: Heart failure chronicity: acute Qualified Code(s): I50.31 - Acute diastolic (congestive) heart failure (5) History of sudden cardiac arrest successfully resuscitated Current Visit: Yes Status: Acute (6) ARDS (adult respiratory distress syndrome) Current Visit: Yes Status: Resolved (7) Pneumonia Current Visit: Yes Status: Resolved Qualifiers: Pneumonia type: due to other aerobic Gram-negative bacteria Laterality: right Lung location: lower lobe of lung Qualified Code(s): J15.6 - Pneumonia due to other aerobic Gram-negative bacteria (8) COPD (chronic obstructive pulmonary disease) Current Visit: Yes Status: Chronic Assessment and plan: 56 year old male with past medical history of morbid obesity, smoking admitted to the hospital with acute respiratory distress, found to be in hyper Respiratory failure requiring intubation and mechanical ventilation. Patient went into pulseless electrical activity unrest following intubation, like a hypoxic/hyper capneic arrest return to spend any circulation after 8 min of CPR. History consistent with acute decompensated systolic and diastolic heart failure. Patient was diagnosed to have a NSTEMI at the time of admission. Atrial fibrilaltion with RVR: HR better controlled with increased dose of metoprolol. On Cardizem PO 360 mg daily. On AC with eliquis Acute resp failure with hypoxia and hypercapnea: pt has c/r resp failure. EH, corpulmonale. On supplemental oxygen 3-4 l as needed. Pneumonia: Right LL pneumonia. On broad spectrum abx coverage. COPD: Possible dignaosis given extensive smoking hx. On bronchodialtors and ICS. Will d/c on inhalers. Will need PFT as out pt. DARION: In setting of decompensated heart failure, cardiac arrest, currently resolved PEA: appears to be related to hypoxic/hypercapneic arrest requiring CPR for 8 min as above. No acute issues. DVT Prophylaxis: On Eliquis Qualifiers: COPD type: unspecified COPD Qualified Code(s): J44.9 - Chronic obstructive pulmonary disease, unspecified - Time Spent With Patient 25 - 35 minutes - Constitutional Vitals: Temp Pulse Resp BP Pulse Ox 97.6 F 110 18 119/87 92 L 07/07/16 15:14 07/07/16 16:55 07/07/16 16:21 07/07/16 15:14 07/07/16 16:21 General appearance: Present: A&O X 3, morbidly obese, answers questions appropriately - Head Head exam: Present: atraumatic, normocephalic - Eye Eye exam: Present: PERRL, conjuntiva pink, sclera anicteric Pupils: Present: PERRL - Neck Neck exam general surgery: Present: supple, trachea midline. Absent: lymphadenopathy - Respiratory Respiratory exam: Present: CTAB. Absent: accessory muscle use, rales, rhonchi, wheezes - GI/Abdominal GI/Abdominal exam: Present: normal bowel sounds, soft, no peritoneal signs. Absent: distended, tenderness - Extremities Exam Extremities exam: Present: warm, radial pulses palpable and symetrical. Absent : calf tenderness, cyanotic, pedal edema - Neurological Exam Neurological exam: Present: CN II-XII intact, oriented X3, no focal deficits. Absent: pronater drift, facial droop, speech deficit - Skin Skin exam: Present: dry, intact Internal Medicine: Result - Labs CBC & Chem 7: 07/08/16 11:34 07/08/16 11:34 - ABG Interpretation ABG results: ABG ABG pH 7.42 pH Units (7.32-7.45) 07/01/16 03:34 ABG pCO2 63 mmHg (35-45) H 07/01/16 03:34 ABG pO2 57 mmHg (85-104) L 07/01/16 03:34 ABG O2 Saturation 90 % (95-98) L 07/01/16 03:34 PT/INR, D-dimer PT 12.4 Seconds (9.4-12.1) H 07/01/16 04:55 Consult Discharge Plan - Plan Referrals: Sumit Hidalgo DO [Partnered Physician] - () Ruiz Dumont MD [Primary Care Provider] - 07/15/16 10:00 am ()
[2016-07-08] MEDS: Ipratropium/Albuterol Neb 3 ML IH SCH ×6 (03:45→23:43)
[2016-07-08] MEDS: predniSONE 20 MG TABLET PO SCH (08:31)
[2016-07-08] MEDS: APIXABAN 5 MG TABLET PO SCH ×2 (08:31→21:43)
[2016-07-08] MEDS: Sennosides 8.6 MG TABLET PO SCH ×2 (08:31→21:43)
[2016-07-08] MEDS: Diltiazem CD (24hr) 180 MG CAPSULE PO SCH (08:31)
--- NOTE | 2016-07-08 09:58 | Palliative Progress Note ---
<Oziel Ricci - Last Filed: 07/08/16 09:55> Date of Encounter: 07/08/16 Time of Encounter: 09:56 - Assessment and plan (1) Goals of care, counseling/discussion Current Visit: Yes Status: Acute Assessment and plan: Patient's clinical status is made significant improvement since extubation. Patient is verbal and alert and oriented 3. We will continue medical care per primary team. Patient remains a DO NOT RESUSCITATE comfort care arrest/DO NOT INTUBATE. Patient established a medical power of assistant county attorney yesterday. Patient has no other concerns or questions. The palliative care team will sign off at this time. Do not hesitate to contact us if any questions or new issues arise. Social work is following the patient and assisting in helping establish a long- term care plan and eligibility for services. (2) Dyspnea Current Visit: Yes Status: Acute Assessment and plan: None this time. Continue to monitor. Qualifiers: Dyspnea type: unspecified Qualified Code(s): R06.00 - Dyspnea, unspecified (3) History of sudden cardiac arrest successfully resuscitated Current Visit: Yes Status: Acute Assessment and plan: Patient's status continues to improve. Patient remains a DO NOT RESUSCITATE comfort care arrest/DO NOT INTUBATE, as discussed above. (4) Acute respiratory failure Current Visit: Yes Status: Acute Assessment and plan: Improving. Further management per primary team. BiPAP at night. Qualifiers: Respiratory failure complication: hypoxia and hypercapnia Qualified Code(s) : J96.01 - Acute respiratory failure with hypoxia; J96.02 - Acute respiratory failure with hypercapnia (5) DVT (deep venous thrombosis) Current Visit: Yes Status: Acute Assessment and plan: Continue anticoagulation per primary team. Patient switched to oral medications. Qualifiers: DVT location: lower extremity Affected thrombotic vein of extremity: popliteal Laterality: left Chronicity: unspecified Qualified Code(s): I82.432 - Acute embolism and thrombosis of left popliteal vein (6) Atrial fibrillation with RVR Current Visit: Yes Status: Acute Assessment and plan: Heart rate is still elevated but under better control. Further management per primary. - Time Spent With Patient Total time spent is greater than 50% in coordination of care (as documented) at patient's floor/unit and/or counseling patient: - Subjective Interval history: Patient seen and examined at bedside. Patient is awake and alert this morning to person, place, and time. He has no complaints this time. He denies pain, shortness of breath, nausea, vomiting, diarrhea. Patient is eating and drinking well. - Constitutional Vitals: Abnormal lab results WBC 11.7 K/mcL (4.3-11.1) H 07/03/16 03:55 Hgb 12.6 g/dL (12.9-16.9) L 07/03/16 03:55 MCH 27.9 pg (28.0-33.3) L 07/03/16 03:55 MCHC 30.4 g/dL (31.6-35.5) L 07/03/16 03:55 RDW 14.8 % (11.5-14.5) H 07/03/16 03:55 Nucleated RBCs/100 WBC 0.1 /100 WBC (0) H 06/24/16 04:32 Immature Plt Fraction 8.4 % (1.1-6.1) H 06/22/16 03:15 PT 12.4 Seconds (9.4-12.1) H 07/01/16 04:55 APTT 70.1 Seconds (26.0-36.0) H 07/02/16 05:19 ABG pCO2 63 mmHg (35-45) H 07/01/16 03:34 ABG pO2 57 mmHg (85-104) L 07/01/16 03:34 ABG HCO3 40.9 mEQ/L (21-27) H 07/01/16 03:34 ABG Total CO2 42.8 mEq/L (20-26) H 07/01/16 03:34 ABG O2 Saturation 90 % (95-98) L 07/01/16 03:34 ABG Base Excess 13.5 mEq/L (-2.0 to 3.0) H 07/01/16 03:34 VBG pH 7.08 pH Units (7.32-7.42) L* 06/21/16 16:31 VBG pCO2 137 mmHg (41-51) H 06/21/16 16:31 VBG pO2 12 mmHg (25-40) L 06/21/16 16:31 VBG HCO3 40.6 mEq/L (21-27) H 06/21/16 16:31 Carboxyhemoglobin 9.1 % (0-5) H 06/21/16 13:21 Chloride 94 mEq/L (98-109) L 07/03/16 03:55 Carbon Dioxide 38 mEq/L (19-29) H 07/03/16 03:55 BUN 38 mg/dL (8-26) H 07/03/16 03:55 BUN/Creatinine Ratio 51 (6-26) H 07/03/16 03:55 Calcium 8.4 mg/dL (8.6-10.8) L 07/03/16 03:55 Ionized Calcium 1.07 mmol/L (1.15-1.35) L 07/02/16 05:19 ALT 141 Units/L (0-55) H 06/24/16 04:32 Troponin I 0.77 ng/mL (0-0.03) H* 06/22/16 07:00 B-Natriuretic Peptide 917 pg/mL (0-100) H 06/21/16 14:02 Serum Total Protein 5.9 g/dL (6.0-8.3) L 06/24/16 04:32 Albumin 2.4 g/dL (3.5-5.0) L 06/24/16 04:32 Albumin/Globulin Ratio 0.7 (1.1-2.2) L 06/24/16 04:32 Triglycerides 185 mg/dL (< 150) H 06/28/16 07:55 Lipase 114 Units/L (8-78) H 06/28/16 07:55 - ENT ENT exam: Present: mucous membranes moist - Respiratory Respiratory exam: Present: CTAB. Absent: rales, rhonchi, wheezes - Cardiovascular Cardiovascular exam: Present: irregular rhythm, tachycardia. Absent: gallop, rubs, systolic murmur - GI/Abdominal GI/Abdominal exam: Present: normal bowel sounds. Absent: distended, soft, tenderness - Extremities Exam Extremities exam: Present: pedal edema (Trace) - Neurological Exam Neurological exam: Present: alert, CN II-XII intact, oriented X3, no focal deficits Palliative Quality Palliative Quality: Screen for Code Status: Yes, Screen for Goals of Care: Yes, Screen for Pain: Yes, If Pain Regimen Started, Initiate Bowel Regimen: NA, Screen for Nausea/Vomitting: Yes Code Status: 06/22/16 15:23 CODE [Resuscitation Status: Active] [RES] Routine Comment: Resuscitation Status: Full Code 06/30/16 16:39 DNR [Resuscitation Status: Active] [RES] Routine Comment: Resuscitation Status: [id number] - Labs CBC & Chem 7: 07/03/16 03:55 07/03/16 03:55 - ABG Interpretation ABG results: ABG ABG pH 7.42 pH Units (7.32-7.45) 07/01/16 03:34 ABG pCO2 63 mmHg (35-45) H 07/01/16 03:34 ABG pO2 57 mmHg (85-104) L 07/01/16 03:34 ABG O2 Saturation 90 % (95-98) L 07/01/16 03:34 PT/INR, D-dimer PT 12.4 Seconds (9.4-12.1) H 07/01/16 04:55 Consult Discharge Plan - Plan Referrals: Sumit Hidalgo DO [Partnered Physician] - () Ruiz Dumont MD [Primary Care Provider] - 07/15/16 10:00 am () <Joseph Kyle - Last Filed: 07/08/16 10:03> - Time Spent With Patient Total time spent is greater than 50% in coordination of care (as documented) at patient's floor/unit and/or counseling patient: - Constitutional Vitals: Abnormal lab results WBC 11.7 K/mcL (4.3-11.1) H 07/03/16 03:55 Hgb 12.6 g/dL (12.9-16.9) L 07/03/16 03:55 MCH 27.9 pg (28.0-33.3) L 07/03/16 03:55 MCHC 30.4 g/dL (31.6-35.5) L 07/03/16 03:55 RDW 14.8 % (11.5-14.5) H 07/03/16 03:55 Nucleated RBCs/100 WBC 0.1 /100 WBC (0) H 06/24/16 04:32 Immature Plt Fraction 8.4 % (1.1-6.1) H 06/22/16 03:15 PT 12.4 Seconds (9.4-12.1) H 07/01/16 04:55 APTT 70.1 Seconds (26.0-36.0) H 07/02/16 05:19 ABG pCO2 63 mmHg (35-45) H 07/01/16 03:34 ABG pO2 57 mmHg (85-104) L 07/01/16 03:34 ABG HCO3 40.9 mEQ/L (21-27) H 07/01/16 03:34 ABG Total CO2 42.8 mEq/L (20-26) H 07/01/16 03:34 ABG O2 Saturation 90 % (95-98) L 07/01/16 03:34 ABG Base Excess 13.5 mEq/L (-2.0 to 3.0) H 07/01/16 03:34 VBG pH 7.08 pH Units (7.32-7.42) L* 06/21/16 16:31 VBG pCO2 137 mmHg (41-51) H 06/21/16 16:31 VBG pO2 12 mmHg (25-40) L 06/21/16 16:31 VBG HCO3 40.6 mEq/L (21-27) H 06/21/16 16:31 Carboxyhemoglobin 9.1 % (0-5) H 06/21/16 13:21 Chloride 94 mEq/L (98-109) L 07/03/16 03:55 Carbon Dioxide 38 mEq/L (19-29) H 07/03/16 03:55 BUN 38 mg/dL (8-26) H 07/03/16 03:55 BUN/Creatinine Ratio 51 (6-26) H 07/03/16 03:55 Calcium 8.4 mg/dL (8.6-10.8) L 07/03/16 03:55 Ionized Calcium 1.07 mmol/L (1.15-1.35) L 07/02/16 05:19 ALT 141 Units/L (0-55) H 06/24/16 04:32 Troponin I 0.77 ng/mL (0-0.03) H* 06/22/16 07:00 B-Natriuretic Peptide 917 pg/mL (0-100) H 06/21/16 14:02 Serum Total Protein 5.9 g/dL (6.0-8.3) L 06/24/16 04:32 Albumin 2.4 g/dL (3.5-5.0) L 06/24/16 04:32 Albumin/Globulin Ratio 0.7 (1.1-2.2) L 06/24/16 04:32 Triglycerides 185 mg/dL (< 150) H 06/28/16 07:55 Lipase 114 Units/L (8-78) H 06/28/16 07:55 - Attending Attestation I examined this patient and my medical decision-making was reviewed with the DEPARTMENT OF MATHEMATICS CHAIR/PA/Advanced Practice Nurse/Resident Physician. I agree with the documented findings, disposition and treatment plan as described except to the extent set forth below. Palliative Quality Code Status: 06/22/16 15:23 CODE [Resuscitation Status: Active] [RES] Routine Comment: Resuscitation Status: Full Code 06/30/16 16:39 DNR [Resuscitation Status: Active] [RES] Routine Comment: Resuscitation Status: [id number] - Labs CBC & Chem 7: 07/03/16 03:55 07/03/16 03:55 - ABG Interpretation ABG results: ABG ABG pH 7.42 pH Units (7.32-7.45) 07/01/16 03:34 ABG pCO2 63 mmHg (35-45) H 07/01/16 03:34 ABG pO2 57 mmHg (85-104) L 07/01/16 03:34 ABG O2 Saturation 90 % (95-98) L 07/01/16 03:34 PT/INR, D-dimer PT 12.4 Seconds (9.4-12.1) H 07/01/16 04:55
[2016-07-08] MEDS ORDERED: Furosemide 40 MG/4 ML VIAL IVP ONE (10:46)
[2016-07-08] MEDS: *HR* Metoprolol 5 MG/5 ML VIAL IVP PRN (10:47)
[2016-07-08 11:51] LABS: Basophils # 0.1 K/mcL (0.0-0.2); Basophils % 0.4 %; Eosinophils # 0.1 K/mcL (0.0-0.6); Eosinophils % 0.7 %; Hematocrit 44.6 % (37.5-50.1); Immature Granulocytes % 0.7 % (0-4); Lymphocytes # 1.7 K/mcL (0.6-4.6); Lymphocytes % 12.4 %; Mean Corpuscular HGB Conc 31.4 g/dL (31.6-35.5); Mean Corpuscular Hemoglobin 28.2 pg (28.0-33.3); Mean Corpuscular Volume 89.9 fL (83.0-100.0); Mean Platelet Volume 10.4 fL (9.4-12.4); Monocytes % 7.2 %; Neutrophils # 10.5 K/mcL (1.6-8.9); Platelet Count 204 K/mcL (140-400); Red Blood Count 4.96 M/mcL (4.19-5.50); Red Cell Distribution Width 14.6 % (11.5-14.5); Segmented Neutrophils % 78.6 %
[2016-07-08 12:01] LABS: BUN/Creatinine Ratio 40 (6-26); Blood Urea Nitrogen 38 mg/dL (8-26); Calcium 8.9 mg/dL (8.6-10.8); Carbon Dioxide 34 mEq/L (19-29); Chloride 96 mEq/L (98-109); Glucose 133 mg/dL (70-99); Osmolality,Calculated 297 (280-300); Potassium 3.8 mEq/L (3.5-4.5); Sodium 138 mEq/L (136-145); eGFR For African Americans > 60 (> 60); eGFR For Non-African Americans > 60 (> 60)
--- NOTE | 2016-07-08 18:15 | Internal Med Progress Note ---
Date of Encounter: 07/08/16 Time of Encounter: 18:11 - Assessment and plan (1) Atrial fibrillation Current Visit: Yes Status: Acute Qualifiers: Atrial fibrillation type: unspecified Qualified Code(s): I48.91 - Unspecified atrial fibrillation (2) DVT (deep venous thrombosis) Current Visit: Yes Status: Acute Qualifiers: DVT location: lower extremity Affected thrombotic vein of extremity: popliteal Laterality: left Chronicity: unspecified Qualified Code(s): I82.432 - Acute embolism and thrombosis of left popliteal vein (3) Atrial fibrillation with RVR Current Visit: Yes Status: Acute (4) Diastolic heart failure Current Visit: Yes Status: Acute Qualifiers: Heart failure chronicity: acute Qualified Code(s): I50.31 - Acute diastolic (congestive) heart failure (5) History of sudden cardiac arrest successfully resuscitated Current Visit: Yes Status: Acute (6) ARDS (adult respiratory distress syndrome) Current Visit: Yes Status: Resolved (7) Pneumonia Current Visit: Yes Status: Resolved Qualifiers: Pneumonia type: due to other aerobic Gram-negative bacteria Laterality: right Lung location: lower lobe of lung Qualified Code(s): J15.6 - Pneumonia due to other aerobic Gram-negative bacteria (8) COPD (chronic obstructive pulmonary disease) Current Visit: Yes Status: Chronic Assessment and plan: 56 year old male with past medical history of morbid obesity, smoking admitted to the hospital with acute respiratory distress, found to be in hyper Respiratory failure requiring intubation and mechanical ventilation. Patient went into pulseless electrical activity unrest following intubation, like a hypoxic/hyper capneic arrest return to spend any circulation after 8 min of CPR. History consistent with acute decompensated systolic and diastolic heart failure. Patient was diagnosed to have a NSTEMI at the time of admission. Atrial fibrilaltion with RVR: HR better controlled with increased dose of metoprolol. On Cardizem PO 360 mg daily. On AC with eliquis LE edema: Restarted on lasix. Received one dose today, will redose tomorrow as needed. Acute resp failure with hypoxia and hypercapnea: pt has c/r resp failure. EH, corpulmonale. On supplemental oxygen 3-4 l as needed. CXR from 07/08 negative for any edema or consolidation Pneumonia: Right LL pneumonia. On broad spectrum abx coverage. COPD: Possible dignaosis given extensive smoking hx. On bronchodialtors and ICS. Will d/c on inhalers. Will need PFT as out pt. DARION: In setting of decompensated heart failure, cardiac arrest, currently resolved PEA: appears to be related to hypoxic/hypercapneic arrest requiring CPR for 8 min as above. No acute issues. DVT Prophylaxis: On Eliquis Qualifiers: COPD type: unspecified COPD Qualified Code(s): J44.9 - Chronic obstructive pulmonary disease, unspecified - Time Spent With Patient 25 - 35 minutes - Subjective Interval history: seen and examined at bedside. Report swelling of LE. Remains on supplemental oxygen 4-5 l. Denies any chest pain, sob palpitations - Constitutional Vitals: Temp Pulse Resp BP Pulse Ox 98 F 11 16 112/97 93 L 07/08/16 15:29 07/08/16 16:00 07/08/16 16:43 07/08/16 15:29 07/08/16 16:43 General appearance: Present: A&O X 3, morbidly obese, answers questions appropriately - Head Head exam: Present: atraumatic, normocephalic - Eye Eye exam: Present: PERRL, conjuntiva pink, sclera anicteric Pupils: Present: PERRL - Neck Neck exam general surgery: Present: supple, trachea midline. Absent: lymphadenopathy - Respiratory Respiratory exam: Present: CTAB. Absent: accessory muscle use, rales, rhonchi, wheezes - Cardiovascular Cardiovascular exam: Present: RRR, +S1, +S2. Absent: diastolic murmur, gallop, rubs, systolic murmur - GI/Abdominal GI/Abdominal exam: Present: normal bowel sounds, soft, no peritoneal signs. Absent: distended, tenderness - Extremities Exam Extremities exam: Present: pedal edema, warm, radial pulses palpable and symetrical. Absent: calf tenderness, cyanotic - Neurological Exam Neurological exam: Present: CN II-XII intact, oriented X3, no focal deficits. Absent: pronater drift, facial droop, speech deficit - Skin Skin exam: Present: dry, intact Internal Medicine: Result - Labs CBC & Chem 7: 07/08/16 11:34 07/08/16 11:34 Labs: Short CBC 07/08/16 Range/Units 11:34 WBC 13.4 H (4.3-11.1) K/mcL Hgb 14.0 (12.9-16.9) g/dL Hct 44.6 (37.5-50.1) % Plt Count 204 (140-400) K/mcL Neutrophils # 10.5 H (1.6-8.9) K/mcL BMP 07/08/16 11:34 Sodium 138 Potassium 3.8 Chloride 96 L Carbon Dioxide 34 H BUN 38 H Creatinine 0.94 Glucose 133 H Calcium 8.9 - ABG Interpretation ABG results: ABG ABG pH 7.42 pH Units (7.32-7.45) 07/01/16 03:34 ABG pCO2 63 mmHg (35-45) H 07/01/16 03:34 ABG pO2 57 mmHg (85-104) L 07/01/16 03:34 ABG O2 Saturation 90 % (95-98) L 07/01/16 03:34 PT/INR, D-dimer PT 12.4 Seconds (9.4-12.1) H 07/01/16 04:55 - Impressions Impressions Chest X-Ray 07/08/16 11:26 IMPRESSION: Interval extubation with improved bilateral effusions and pulmonary consolidation. No acute abnormality. D/ / 07/08/2016 12:18:36 Scott Iyer MD / hilda Interpreting Provider: Scott Iyer MD Consult Discharge Plan - Plan Referrals: Sumit Hidalgo DO [Partnered Physician] - () Ruiz Dumont MD [Primary Care Provider] - 07/15/16 10:00 am ()
[2016-07-09] MEDS: Ipratropium/Albuterol Neb 3 ML IH SCH ×2 (04:33→07:47)
[2016-07-09 04:48] LABS: Basophils % 0.2 %; Eosinophils # 0.1 K/mcL (0.0-0.6); Eosinophils % 0.6 %; Hematocrit 41.7 % (37.5-50.1); Immature Granulocytes % 0.7 % (0-4); Lymphocytes # 1.9 K/mcL (0.6-4.6); Lymphocytes % 19.1 %; Mean Corpuscular HGB Conc 31.2 g/dL (31.6-35.5); Mean Corpuscular Hemoglobin 27.8 pg (28.0-33.3); Mean Corpuscular Volume 89.1 fL (83.0-100.0); Mean Platelet Volume 10.5 fL (9.4-12.4); Monocytes # 0.7 K/mcL (0.0-1.3); Monocytes % 6.9 %; Neutrophils # 7.3 K/mcL (1.6-8.9); Platelet Count 180 K/mcL (140-400); Red Blood Count 4.68 M/mcL (4.19-5.50); Red Cell Distribution Width 14.5 % (11.5-14.5); Segmented Neutrophils % 72.5 %
[2016-07-09 05:04] LABS: BUN/Creatinine Ratio 46 (6-26); Blood Urea Nitrogen 39 mg/dL (8-26); Calcium 8.6 mg/dL (8.6-10.8); Carbon Dioxide 32 mEq/L (19-29); Chloride 96 mEq/L (98-109); Glucose 94 mg/dL (70-99); Osmolality,Calculated 295 (280-300); Potassium 3.5 mEq/L (3.5-4.5); Sodium 138 mEq/L (136-145); eGFR For African Americans > 60 (> 60); eGFR For Non-African Americans > 60 (> 60)
[2016-07-09] MEDS: Diltiazem CD (24hr) 180 MG CAPSULE PO SCH (08:49)
[2016-07-09] MEDS: predniSONE 20 MG TABLET PO SCH (08:50)
[2016-07-09] MEDS: Sennosides 8.6 MG TABLET PO SCH ×2 (08:50→19:45)
[2016-07-09] MEDS: APIXABAN 5 MG TABLET PO SCH ×2 (08:50→19:45)
[2016-07-09] MEDS: Furosemide 40 MG TABLET PO SCH (08:53)
[2016-07-09] MEDS: Levalbuterol Neb 0.63 MG/3 ML IH SCH ×3 (11:34→22:33)
--- NOTE | 2016-07-09 18:50 | Internal Med Progress Note ---
Date of Encounter: 07/09/16 Time of Encounter: 14:26 - Assessment and plan (1) Atrial fibrillation Current Visit: Yes Status: Acute Qualifiers: Atrial fibrillation type: unspecified Qualified Code(s): I48.91 - Unspecified atrial fibrillation (2) DVT (deep venous thrombosis) Current Visit: Yes Status: Acute Qualifiers: DVT location: lower extremity Affected thrombotic vein of extremity: popliteal Laterality: left Chronicity: unspecified Qualified Code(s): I82.432 - Acute embolism and thrombosis of left popliteal vein (3) Atrial fibrillation with RVR Current Visit: Yes Status: Acute (4) Diastolic heart failure Current Visit: Yes Status: Acute Qualifiers: Heart failure chronicity: acute Qualified Code(s): I50.31 - Acute diastolic (congestive) heart failure (5) History of sudden cardiac arrest successfully resuscitated Current Visit: Yes Status: Acute (6) ARDS (adult respiratory distress syndrome) Current Visit: Yes Status: Resolved (7) Pneumonia Current Visit: Yes Status: Resolved Qualifiers: Pneumonia type: due to other aerobic Gram-negative bacteria Laterality: right Lung location: lower lobe of lung Qualified Code(s): J15.6 - Pneumonia due to other aerobic Gram-negative bacteria (8) COPD (chronic obstructive pulmonary disease) Current Visit: Yes Status: Chronic Assessment and plan: 56 year old male with past medical history of morbid obesity, smoking admitted to the hospital with acute respiratory distress, found to be in hyper Respiratory failure requiring intubation and mechanical ventilation. Patient went into pulseless electrical activity unrest following intubation, like a hypoxic/hyper capneic arrest return to spend any circulation after 8 min of CPR. History consistent with acute decompensated systolic and diastolic heart failure. Patient was diagnosed to have a NSTEMI at the time of admission. Atrial fibrilaltion with RVR: HR better controlled with increased dose of metoprolol. On Cardizem PO 360 mg daily. On AC with eliquis LE edema: Restarted on lasix. Received one dose today, will redose tomorrow as needed. Acute resp failure with hypoxia and hypercapnea: pt has c/r resp failure. EH, corpulmonale. On supplemental oxygen 3-4 l as needed. CXR from 07/08 negative for any edema or consolidation Pneumonia: Right LL pneumonia. On broad spectrum abx coverage. COPD: Possible dignaosis given extensive smoking hx. On bronchodialtors and ICS. Will d/c on inhalers. Will need PFT as out pt. DARION: In setting of decompensated heart failure, cardiac arrest, currently resolved PEA: appears to be related to hypoxic/hypercapneic arrest requiring CPR for 8 min as above. No acute issues. DVT Prophylaxis: On Eliquis Qualifiers: COPD type: unspecified COPD Qualified Code(s): J44.9 - Chronic obstructive pulmonary disease, unspecified - Time Spent With Patient 25 - 35 minutes - Subjective Interval history: seen and examined at bedside. Report swelling of LE. Remains on supplemental oxygen 4-5 l. Denies any chest pain, sob palpitations - Constitutional Vitals: Temp Pulse Resp BP Pulse Ox 97.8 F 128 18 112/95 94 L 07/09/16 17:56 07/09/16 17:56 07/09/16 17:56 07/09/16 17:56 07/09/16 17:56 General appearance: Present: A&O X 3, morbidly obese, answers questions appropriately Internal Medicine: Result - Labs CBC & Chem 7: 07/10/16 03:50 07/10/16 03:50 Labs: Short CBC 07/09/16 Range/Units 04:35 WBC 10.1 (4.3-11.1) K/mcL Hgb 13.0 (12.9-16.9) g/dL Hct 41.7 (37.5-50.1) % Plt Count 180 (140-400) K/mcL Neutrophils # 7.3 (1.6-8.9) K/mcL BMP 07/09/16 04:35 Sodium 138 Potassium 3.5 Chloride 96 L Carbon Dioxide 32 H BUN 39 H Creatinine 0.85 Glucose 94 Calcium 8.6 - ABG Interpretation ABG results: ABG ABG pH 7.42 pH Units (7.32-7.45) 07/01/16 03:34 ABG pCO2 63 mmHg (35-45) H 07/01/16 03:34 ABG pO2 57 mmHg (85-104) L 07/01/16 03:34 ABG O2 Saturation 90 % (95-98) L 07/01/16 03:34 PT/INR, D-dimer PT 12.4 Seconds (9.4-12.1) H 07/01/16 04:55 Consult Discharge Plan - Plan Referrals: Sumit Hidalgo DO [Partnered Physician] - () Ruiz Dumont MD [Primary Care Provider] - 07/15/16 10:00 am ()
[2016-07-10 04:11] LABS: Basophils % 0.3 %; Eosinophils # 0.1 K/mcL (0.0-0.6); Eosinophils % 0.8 %; Hematocrit 40.9 % (37.5-50.1); Hemoglobin 13.3 g/dL (12.9-16.9); Immature Granulocytes % 0.7 % (0-4); Lymphocytes # 1.9 K/mcL (0.6-4.6); Lymphocytes % 17.4 %; Mean Corpuscular HGB Conc 32.5 g/dL (31.6-35.5); Mean Corpuscular Hemoglobin 28.9 pg (28.0-33.3); Mean Corpuscular Volume 88.7 fL (83.0-100.0); Mean Platelet Volume 10.7 fL (9.4-12.4); Monocytes # 0.8 K/mcL (0.0-1.3); Platelet Count 172 K/mcL (140-400); Red Blood Count 4.61 M/mcL (4.19-5.50); Red Cell Distribution Width 14.4 % (11.5-14.5); Segmented Neutrophils % 73.8 %
[2016-07-10] MEDS: Levalbuterol Neb 0.63 MG/3 ML IH SCH ×4 (04:15→21:41)
[2016-07-10 04:17] LABS: BUN/Creatinine Ratio 44 (6-26); Blood Urea Nitrogen 37 mg/dL (8-26); Calcium 9.1 mg/dL (8.6-10.8); Carbon Dioxide 31 mEq/L (19-29); Chloride 96 mEq/L (98-109); Glucose 101 mg/dL (70-99); Osmolality,Calculated 293 (280-300); Potassium 3.4 mEq/L (3.5-4.5); Sodium 137 mEq/L (136-145); eGFR For African Americans > 60 (> 60); eGFR For Non-African Americans > 60 (> 60)
[2016-07-10] MEDS: Diltiazem CD (24hr) 180 MG CAPSULE PO SCH (09:12)
[2016-07-10] MEDS: Sennosides 8.6 MG TABLET PO SCH ×2 (09:12→20:25)
[2016-07-10] MEDS: predniSONE 20 MG TABLET PO SCH (09:13)
[2016-07-10] MEDS: Furosemide 40 MG TABLET PO SCH (09:13)
[2016-07-10] MEDS: APIXABAN 5 MG TABLET PO SCH ×2 (09:13→20:25)
--- NOTE | 2016-07-10 18:55 | Internal Med Progress Note ---
Date of Encounter: 07/10/16 Time of Encounter: 18:54 - Assessment and plan (1) Atrial fibrillation Current Visit: Yes Status: Acute Qualifiers: Atrial fibrillation type: unspecified Qualified Code(s): I48.91 - Unspecified atrial fibrillation (2) DVT (deep venous thrombosis) Current Visit: Yes Status: Acute Qualifiers: DVT location: lower extremity Affected thrombotic vein of extremity: popliteal Laterality: left Chronicity: unspecified Qualified Code(s): I82.432 - Acute embolism and thrombosis of left popliteal vein (3) Atrial fibrillation with RVR Current Visit: Yes Status: Acute (4) Diastolic heart failure Current Visit: Yes Status: Acute Qualifiers: Heart failure chronicity: acute Qualified Code(s): I50.31 - Acute diastolic (congestive) heart failure (5) History of sudden cardiac arrest successfully resuscitated Current Visit: Yes Status: Acute (6) ARDS (adult respiratory distress syndrome) Current Visit: Yes Status: Resolved (7) Pneumonia Current Visit: Yes Status: Resolved Qualifiers: Pneumonia type: due to other aerobic Gram-negative bacteria Laterality: right Lung location: lower lobe of lung Qualified Code(s): J15.6 - Pneumonia due to other aerobic Gram-negative bacteria (8) COPD (chronic obstructive pulmonary disease) Current Visit: Yes Status: Chronic Assessment and plan: 56 year old male with past medical history of morbid obesity, smoking admitted to the hospital with acute respiratory distress, found to be in hyper Respiratory failure requiring intubation and mechanical ventilation. Patient went into pulseless electrical activity unrest following intubation, like a hypoxic/hyper capneic arrest return to spend any circulation after 8 min of CPR. History consistent with acute decompensated systolic and diastolic heart failure. Patient was diagnosed to have a NSTEMI at the time of admission. Atrial fibrilaltion with RVR: HR better controlled with increased dose of metoprolol. On Cardizem PO 360 mg daily. On AC with eliquis LE edema: Restarted on lasix with good response. Renal function remains stable. Acute resp failure with hypoxia and hypercapnea: pt has c/r resp failure. EH, corpulmonale. On supplemental oxygen 3-4 l as needed. CXR from 07/08 negative for any edema or consolidation Pneumonia: Right LL pneumonia. ?aspiration/HCAP. On broad spectrum abx coverage. COPD: Possible diagnosis given extensive smoking hx. On bronchodilators and ICS. Will d/c on inhalers. Will need PFT as out pt. DARION: In setting of decompensated heart failure, cardiac arrest, currently resolved PEA: appears to be related to hypoxic/hypercapneic arrest requiring CPR for 8 min as above. No acute issues. DVT Prophylaxis: On Eliquis Qualifiers: COPD type: unspecified COPD Qualified Code(s): J44.9 - Chronic obstructive pulmonary disease, unspecified - Time Spent With Patient 25 - 35 minutes - Subjective Interval history: seen and examined at bedside. Report swelling of LE. Remains on supplemental oxygen 4-5 l. Denies any chest pain, sob palpitations - Constitutional Vitals: Temp Pulse Resp BP Pulse Ox 97.5 F L 85 18 108/76 92 L 07/10/16 10:31 07/10/16 16:00 07/10/16 16:00 07/10/16 16:00 07/10/16 16:00 General appearance: Present: A&O X 3, morbidly obese, answers questions appropriately - Head Head exam: Present: atraumatic, normocephalic - Eye Eye exam: Present: PERRL, conjuntiva pink, sclera anicteric Pupils: Present: PERRL - Neck Neck exam general surgery: Present: supple, trachea midline. Absent: lymphadenopathy - Respiratory Respiratory exam: Present: CTAB. Absent: accessory muscle use, rales, rhonchi, wheezes - Cardiovascular Cardiovascular exam: Present: RRR, +S1, +S2. Absent: diastolic murmur, gallop, rubs, systolic murmur - GI/Abdominal GI/Abdominal exam: Present: normal bowel sounds, soft, no peritoneal signs. Absent: distended, tenderness - Extremities Exam Extremities exam: Present: warm, radial pulses palpable and symetrical. Absent : calf tenderness, cyanotic, pedal edema - Neurological Exam Neurological exam: Present: CN II-XII intact, oriented X3, no focal deficits. Absent: pronater drift, facial droop, speech deficit - Skin Skin exam: Present: dry, intact Internal Medicine: Result - Labs CBC & Chem 7: 07/10/16 03:50 07/10/16 03:50 Labs: Short CBC 07/10/16 Range/Units 03:50 WBC 10.8 (4.3-11.1) K/mcL Hgb 13.3 (12.9-16.9) g/dL Hct 40.9 (37.5-50.1) % Plt Count 172 (140-400) K/mcL Neutrophils # 8.0 (1.6-8.9) K/mcL BMP 07/10/16 03:50 Sodium 137 Potassium 3.4 L Chloride 96 L Carbon Dioxide 31 H BUN 37 H Creatinine 0.84 Glucose 101 H Calcium 9.1 - ABG Interpretation ABG results: ABG ABG pH 7.42 pH Units (7.32-7.45) 07/01/16 03:34 ABG pCO2 63 mmHg (35-45) H 07/01/16 03:34 ABG pO2 57 mmHg (85-104) L 07/01/16 03:34 ABG O2 Saturation 90 % (95-98) L 07/01/16 03:34 PT/INR, D-dimer PT 12.4 Seconds (9.4-12.1) H 07/01/16 04:55 Consult Discharge Plan - Plan Referrals: Sumit Hidalgo DO [Partnered Physician] - () Ruiz Dumont MD [Primary Care Provider] - 07/15/16 10:00 am ()
[2016-07-11 03:50] LABS: Basophils % 0.2 %; Eosinophils # 0.1 K/mcL (0.0-0.6); Eosinophils % 0.5 %; Hematocrit 39.8 % (37.5-50.1); Hemoglobin 12.5 g/dL (12.9-16.9); Immature Granulocytes % 0.6 % (0-4); Immature Platelets 5.8 % (1.1-6.1); Lymphocytes # 1.9 K/mcL (0.6-4.6); Lymphocytes % 18.1 %; Mean Corpuscular HGB Conc 31.4 g/dL (31.6-35.5); Mean Corpuscular Hemoglobin 27.9 pg (28.0-33.3); Mean Corpuscular Volume 88.8 fL (83.0-100.0); Mean Platelet Volume 9.9 fL (9.4-12.4); Monocytes # 0.6 K/mcL (0.0-1.3); Monocytes % 5.4 %; Neutrophils # 7.7 K/mcL (1.6-8.9); Platelet Count 200 K/mcL (140-400); Red Blood Count 4.48 M/mcL (4.19-5.50); Red Cell Distribution Width 14.1 % (11.5-14.5); Segmented Neutrophils % 75.2 %
[2016-07-11 04:05] LABS: BUN/Creatinine Ratio 40 (6-26); Blood Urea Nitrogen 32 mg/dL (8-26); Carbon Dioxide 32 mEq/L (19-29); Chloride 98 mEq/L (98-109); Glucose 112 mg/dL (70-99); Osmolality,Calculated 292 (280-300); Potassium 3.6 mEq/L (3.5-4.5); Sodium 137 mEq/L (136-145); eGFR For African Americans > 60 (> 60); eGFR For Non-African Americans > 60 (> 60)
[2016-07-11] MEDS: Levalbuterol Neb 0.63 MG/3 ML IH SCH ×4 (04:23→22:10)
[2016-07-11] MEDS: Sennosides 8.6 MG TABLET PO SCH ×3 (08:30→21:28)
[2016-07-11] MEDS: predniSONE 20 MG TABLET PO SCH (08:30)
[2016-07-11] MEDS: Diltiazem CD (24hr) 180 MG CAPSULE PO SCH (08:31)
[2016-07-11] MEDS: Furosemide 40 MG TABLET PO SCH (08:31)
[2016-07-11] MEDS: APIXABAN 5 MG TABLET PO SCH ×2 (08:31→21:24)
--- NOTE | 2016-07-11 17:31 | Internal Med Progress Note ---
Date of Encounter: 07/11/16 Time of Encounter: 17:29 - Assessment and plan (1) Atrial fibrillation Current Visit: Yes Status: Acute Qualifiers: Atrial fibrillation type: unspecified Qualified Code(s): I48.91 - Unspecified atrial fibrillation (2) DVT (deep venous thrombosis) Current Visit: Yes Status: Acute Qualifiers: DVT location: lower extremity Affected thrombotic vein of extremity: popliteal Laterality: left Chronicity: unspecified Qualified Code(s): I82.432 - Acute embolism and thrombosis of left popliteal vein (3) Atrial fibrillation with RVR Current Visit: Yes Status: Acute (4) Diastolic heart failure Current Visit: Yes Status: Acute Qualifiers: Heart failure chronicity: acute Qualified Code(s): I50.31 - Acute diastolic (congestive) heart failure (5) History of sudden cardiac arrest successfully resuscitated Current Visit: Yes Status: Acute (6) ARDS (adult respiratory distress syndrome) Current Visit: Yes Status: Resolved (7) Pneumonia Current Visit: Yes Status: Resolved Qualifiers: Pneumonia type: due to other aerobic Gram-negative bacteria Laterality: right Lung location: lower lobe of lung Qualified Code(s): J15.6 - Pneumonia due to other aerobic Gram-negative bacteria (8) COPD (chronic obstructive pulmonary disease) Current Visit: Yes Status: Chronic Assessment and plan: 56 year old male with past medical history of morbid obesity, smoking admitted to the hospital with acute respiratory distress, found to be in hyper Respiratory failure requiring intubation and mechanical ventilation. Patient went into pulseless electrical activity unrest following intubation, like a hypoxic/hyper capneic arrest return to spend any circulation after 8 min of CPR. History consistent with acute decompensated systolic and diastolic heart failure. Patient was diagnosed to have a NSTEMI at the time of admission. Atrial fibrilaltion with RVR: HR better controlled with increased dose of metoprolol. On Cardizem PO 360 mg daily. On AC with eliquis LE edema: Restarted on lasix with good response. Renal function remains stable. Acute resp failure with hypoxia and hypercapnea: pt has c/r resp failure. EH, corpulmonale. On supplemental oxygen 3-4 l as needed. CXR from 07/08 negative for any edema or consolidation Pneumonia: Right LL pneumonia. ?aspiration/HCAP. On broad spectrum abx coverage. Will deescalate, continue tx for total of 10 days. COPD: Possible diagnosis given extensive smoking hx. On bronchodilators and ICS. Will d/c on inhalers. Will need PFT as out pt. DARION: In setting of decompensated heart failure, cardiac arrest, currently resolved PEA: appears to be related to hypoxic/hypercapneic arrest requiring CPR for 8 min as above. No acute issues. DVT Prophylaxis: On Eliquis Code status: Code status readdressed with pt today, expressed his wishes to be a full code Qualifiers: COPD type: unspecified COPD Qualified Code(s): J44.9 - Chronic obstructive pulmonary disease, unspecified - Time Spent With Patient 25 - 35 minutes - Subjective Interval history: seen and examined at bedside. Report swelling of LE. Remains on supplemental oxygen 4-5 l. Denies any chest pain, sob palpitations. He would like to have his code status readdressed. After long discussion with his patient and to his family with his permission, patient decided to be a full code - Constitutional Vitals: Temp Pulse Resp BP Pulse Ox 98.3 F 109 16 116/85 94 L 07/11/16 16:00 07/11/16 16:00 07/11/16 16:00 07/11/16 16:00 07/11/16 16:00 General appearance: Present: A&O X 3, morbidly obese, answers questions appropriately - Head Head exam: Present: atraumatic, normocephalic - Eye Eye exam: Present: PERRL, conjuntiva pink, sclera anicteric Pupils: Present: PERRL - Neck Neck exam general surgery: Present: supple, trachea midline. Absent: lymphadenopathy - Respiratory Respiratory exam: Present: CTAB. Absent: accessory muscle use, rales, rhonchi, wheezes (on supplemental oxygen 3-5 l ) - Cardiovascular Cardiovascular exam: Present: RRR, +S1, +S2. Absent: diastolic murmur, gallop, rubs, systolic murmur - GI/Abdominal GI/Abdominal exam: Present: normal bowel sounds, soft, no peritoneal signs. Absent: distended, tenderness - Extremities Exam Extremities exam: Present: warm, radial pulses palpable and symetrical. Absent : calf tenderness, cyanotic, pedal edema - Neurological Exam Neurological exam: Present: CN II-XII intact, oriented X3, no focal deficits. Absent: pronater drift, facial droop, speech deficit - Skin Skin exam: Present: dry, intact Internal Medicine: Result - Labs CBC & Chem 7: 07/11/16 03:40 07/11/16 03:40 Labs: Short CBC 07/11/16 Range/Units 03:40 WBC 10.3 (4.3-11.1) K/mcL Hgb 12.5 L (12.9-16.9) g/dL Hct 39.8 (37.5-50.1) % Plt Count 200 (140-400) K/mcL Neutrophils # 7.7 (1.6-8.9) K/mcL BMP 07/11/16 03:40 Sodium 137 Potassium 3.6 Chloride 98 Carbon Dioxide 32 H BUN 32 H Creatinine 0.80 Glucose 112 H Calcium 9.0 - ABG Interpretation ABG results: ABG ABG pH 7.42 pH Units (7.32-7.45) 07/01/16 03:34 ABG pCO2 63 mmHg (35-45) H 07/01/16 03:34 ABG pO2 57 mmHg (85-104) L 07/01/16 03:34 ABG O2 Saturation 90 % (95-98) L 07/01/16 03:34 PT/INR, D-dimer PT 12.4 Seconds (9.4-12.1) H 07/01/16 04:55 Consult Discharge Plan - Plan Referrals: Sumit Hidalgo DO [Partnered Physician] - () Ruiz Dumont MD [Primary Care Provider] - 07/15/16 10:00 am ()
[2016-07-12] MEDS: Levalbuterol Neb 0.63 MG/3 ML IH SCH ×4 (04:05→21:22)
[2016-07-12 05:29] LABS: Basophils % 0.3 %; Eosinophils # 0.1 K/mcL (0.0-0.6); Eosinophils % 0.7 %; Hematocrit 40.9 % (37.5-50.1); Hemoglobin 12.7 g/dL (12.9-16.9); Immature Granulocytes % 0.9 % (0-4); Lymphocytes # 2.2 K/mcL (0.6-4.6); Lymphocytes % 21.8 %; Mean Corpuscular HGB Conc 31.1 g/dL (31.6-35.5); Mean Corpuscular Hemoglobin 27.9 pg (28.0-33.3); Mean Corpuscular Volume 89.7 fL (83.0-100.0); Monocytes # 0.7 K/mcL (0.0-1.3); Monocytes % 6.6 %; Neutrophils # 7.1 K/mcL (1.6-8.9); Platelet Count 200 K/mcL (140-400); Red Blood Count 4.56 M/mcL (4.19-5.50); Red Cell Distribution Width 14.2 % (11.5-14.5); Segmented Neutrophils % 69.7 %
[2016-07-12 05:40] LABS: BUN/Creatinine Ratio 33 (6-26); Blood Urea Nitrogen 28 mg/dL (8-26); Calcium 9.3 mg/dL (8.6-10.8); Carbon Dioxide 34 mEq/L (19-29); Chloride 98 mEq/L (98-109); Glucose 97 mg/dL (70-99); Osmolality,Calculated 295 (280-300); Sodium 140 mEq/L (136-145); eGFR For African Americans > 60 (> 60); eGFR For Non-African Americans > 60 (> 60)
[2016-07-12] MEDS: APIXABAN 5 MG TABLET PO SCH ×2 (09:28→21:02)
[2016-07-12] MEDS: Diltiazem CD (24hr) 180 MG CAPSULE PO SCH (09:29)
[2016-07-12] MEDS: Furosemide 40 MG TABLET PO SCH (09:29)
[2016-07-12] MEDS: predniSONE 20 MG TABLET PO SCH (09:29)
[2016-07-12] MEDS: Sennosides 8.6 MG TABLET PO SCH ×2 (09:30→21:03)
--- NOTE | 2016-07-12 14:01 | Internal Med Progress Note ---
Date of Encounter: 07/12/16 Time of Encounter: 13:59 - Assessment and plan (1) Atrial fibrillation Current Visit: Yes Status: Acute Qualifiers: Atrial fibrillation type: unspecified Qualified Code(s): I48.91 - Unspecified atrial fibrillation (2) DVT (deep venous thrombosis) Current Visit: Yes Status: Acute Qualifiers: DVT location: lower extremity Affected thrombotic vein of extremity: popliteal Laterality: left Chronicity: unspecified Qualified Code(s): I82.432 - Acute embolism and thrombosis of left popliteal vein (3) Atrial fibrillation with RVR Current Visit: Yes Status: Acute (4) Diastolic heart failure Current Visit: Yes Status: Acute Qualifiers: Heart failure chronicity: acute Qualified Code(s): I50.31 - Acute diastolic (congestive) heart failure (5) History of sudden cardiac arrest successfully resuscitated Current Visit: Yes Status: Acute (6) ARDS (adult respiratory distress syndrome) Current Visit: Yes Status: Resolved (7) Pneumonia Current Visit: Yes Status: Resolved Qualifiers: Pneumonia type: due to other aerobic Gram-negative bacteria Laterality: right Lung location: lower lobe of lung Qualified Code(s): J15.6 - Pneumonia due to other aerobic Gram-negative bacteria (8) COPD (chronic obstructive pulmonary disease) Current Visit: Yes Status: Chronic Assessment and plan: 56 year old male with past medical history of morbid obesity, smoking admitted to the hospital with acute respiratory distress, found to be in hyper Respiratory failure requiring intubation and mechanical ventilation. Patient went into pulseless electrical activity unrest following intubation, like a hypoxic/hyper capneic arrest return to spend any circulation after 8 min of CPR. History consistent with acute decompensated systolic and diastolic heart failure. Patient was diagnosed to have a NSTEMI at the time of admission. Atrial fibrilaltion with RVR: HR remains elevated in the 100's. Will increase the dose of BB. On Cardizem PO 360 mg daily. On AC with eliquis Acute decompensated systolic and diastolic heart failure: On lasix, appears euvolemic. Acute resp failure with hypoxia and hypercapnea: pt has c/r resp failure. EH, corpulmonale. On supplemental oxygen 3-4 l as needed. CXR from 07/08 negative for any edema or consolidation Pneumonia: Right LL pneumonia. ?aspiration/HCAP. On broad spectrum abx coverage. continue tx for total of 10 days. COPD: Possible diagnosis given extensive smoking hx. On bronchodilators and ICS. Will d/c on inhalers. Will need PFT as out pt. DARION: In setting of decompensated heart failure, cardiac arrest, currently resolved PEA: appears to be related to hypoxic/hypercapneic arrest requiring CPR for 8 min as above. No acute issues. DVT Prophylaxis: On Eliquis Code status: Code status readdressed with pt today, expressed his wishes to be a full code Qualifiers: COPD type: unspecified COPD Qualified Code(s): J44.9 - Chronic obstructive pulmonary disease, unspecified - Time Spent With Patient 25 - 35 minutes - Subjective Interval history: seen and examined at bedside. Report swelling of LE. Remains on supplemental oxygen 4-5 l. Denies any chest pain, sob palpitations. LE edema better - Constitutional Vitals: Temp Pulse Resp BP Pulse Ox 97.9 F 97 16 100/75 96 07/12/16 05:54 07/12/16 05:54 07/12/16 10:45 07/12/16 05:54 07/12/16 10:45 General appearance: Present: A&O X 3, morbidly obese, answers questions appropriately - Head Head exam: Present: atraumatic, normocephalic - Eye Eye exam: Present: PERRL, conjuntiva pink, sclera anicteric Pupils: Present: PERRL - Neck Neck exam general surgery: Present: supple, trachea midline. Absent: lymphadenopathy - Respiratory Respiratory exam: Present: decreased breath sounds (remains on oxygen 3-4 l ), CTAB. Absent: accessory muscle use, rales, rhonchi, wheezes - Cardiovascular Cardiovascular exam: Present: RRR, +S1, +S2. Absent: diastolic murmur, gallop, rubs, systolic murmur - GI/Abdominal GI/Abdominal exam: Present: normal bowel sounds, soft, no peritoneal signs. Absent: distended, tenderness - Extremities Exam Extremities exam: Present: warm, radial pulses palpable and symetrical. Absent : calf tenderness, cyanotic, pedal edema - Neurological Exam Neurological exam: Present: CN II-XII intact, oriented X3, no focal deficits. Absent: pronater drift, facial droop, speech deficit - Skin Skin exam: Present: dry, intact Internal Medicine: Result - Labs CBC & Chem 7: 07/12/16 05:20 07/12/16 05:20 Labs: Short CBC 07/12/16 Range/Units 05:20 WBC 10.1 (4.3-11.1) K/mcL Hgb 12.7 L (12.9-16.9) g/dL Hct 40.9 (37.5-50.1) % Plt Count 200 (140-400) K/mcL Neutrophils # 7.1 (1.6-8.9) K/mcL BMP 07/12/16 05:20 Sodium 140 Potassium 5.0 H D Chloride 98 Carbon Dioxide 34 H BUN 28 H Creatinine 0.85 Glucose 97 Calcium 9.3 - ABG Interpretation ABG results: ABG ABG pH 7.42 pH Units (7.32-7.45) 07/01/16 03:34 ABG pCO2 63 mmHg (35-45) H 07/01/16 03:34 ABG pO2 57 mmHg (85-104) L 07/01/16 03:34 ABG O2 Saturation 90 % (95-98) L 07/01/16 03:34 PT/INR, D-dimer PT 12.4 Seconds (9.4-12.1) H 07/01/16 04:55 Consult Discharge Plan - Plan Referrals: Sumit Hidalgo DO [Partnered Physician] - () Ruiz Dumont MD [Primary Care Provider] - 07/15/16 10:00 am ()
[2016-07-13 03:46] LABS: Basophils % 0.2 %; Eosinophils % 0.3 %; Hematocrit 40.3 % (37.5-50.1); Hemoglobin 12.6 g/dL (12.9-16.9); Immature Granulocytes % 1.2 % (0-4); Lymphocytes # 1.8 K/mcL (0.6-4.6); Lymphocytes % 15.7 %; Mean Corpuscular HGB Conc 31.3 g/dL (31.6-35.5); Mean Corpuscular Hemoglobin 27.9 pg (28.0-33.3); Mean Corpuscular Volume 89.2 fL (83.0-100.0); Mean Platelet Volume 10.4 fL (9.4-12.4); Monocytes # 0.8 K/mcL (0.0-1.3); Monocytes % 6.6 %; Neutrophils # 8.8 K/mcL (1.6-8.9); Platelet Count 207 K/mcL (140-400); Red Blood Count 4.52 M/mcL (4.19-5.50); Red Cell Distribution Width 14.1 % (11.5-14.5)
[2016-07-13 03:59] LABS: BUN/Creatinine Ratio 32 (6-26); Blood Urea Nitrogen 26 mg/dL (8-26); Carbon Dioxide 32 mEq/L (19-29); Chloride 98 mEq/L (98-109); Glucose 107 mg/dL (70-99); Osmolality,Calculated 291 (280-300); Sodium 138 mEq/L (136-145); eGFR For African Americans > 60 (> 60); eGFR For Non-African Americans > 60 (> 60)
[2016-07-13 04:01] LABS: Potassium 3.7 mEq/L (3.5-4.5)
[2016-07-13] MEDS: Levalbuterol Neb 0.63 MG/3 ML IH SCH ×4 (04:08→21:30)
[2016-07-13] MEDS: Furosemide 40 MG TABLET PO SCH (08:09)
[2016-07-13] MEDS: APIXABAN 5 MG TABLET PO SCH ×2 (08:09→21:55)
[2016-07-13] MEDS: Sennosides 8.6 MG TABLET PO SCH ×3 (08:10→21:56)
[2016-07-13] MEDS: Diltiazem CD (24hr) 180 MG CAPSULE PO SCH (08:10)
[2016-07-13] MEDS ORDERED: Magnesium Sulfate 1 GM in D5% in Water 100 ML IVPB ONE (11:25)
[2016-07-13] MEDS ORDERED: Potassium Chloride Elixir 20 MEQ/15 ML UDC PO ONE (11:25)
--- NOTE | 2016-07-13 17:40 | Internal Med Progress Note ---
Date of Encounter: 07/13/16 Time of Encounter: 17:38 - Assessment and plan (1) Atrial fibrillation Current Visit: Yes Status: Acute Qualifiers: Atrial fibrillation type: unspecified Qualified Code(s): I48.91 - Unspecified atrial fibrillation (2) DVT (deep venous thrombosis) Current Visit: Yes Status: Acute Qualifiers: DVT location: lower extremity Affected thrombotic vein of extremity: popliteal Laterality: left Chronicity: unspecified Qualified Code(s): I82.432 - Acute embolism and thrombosis of left popliteal vein (3) Atrial fibrillation with RVR Current Visit: Yes Status: Acute (4) Diastolic heart failure Current Visit: Yes Status: Acute Qualifiers: Heart failure chronicity: acute Qualified Code(s): I50.31 - Acute diastolic (congestive) heart failure (5) History of sudden cardiac arrest successfully resuscitated Current Visit: Yes Status: Acute (6) ARDS (adult respiratory distress syndrome) Current Visit: Yes Status: Resolved (7) Pneumonia Current Visit: Yes Status: Resolved Qualifiers: Pneumonia type: due to other aerobic Gram-negative bacteria Laterality: right Lung location: lower lobe of lung Qualified Code(s): J15.6 - Pneumonia due to other aerobic Gram-negative bacteria (8) COPD (chronic obstructive pulmonary disease) Current Visit: Yes Status: Chronic Assessment and plan: 56 year old male with past medical history of morbid obesity, smoking admitted to the hospital with acute respiratory distress, found to be in hyper Respiratory failure requiring intubation and mechanical ventilation. Patient went into pulseless electrical activity unrest following intubation, like a hypoxic/hyper capneic arrest return to spend any circulation after 8 min of CPR. History consistent with acute decompensated systolic and diastolic heart failure. Patient was diagnosed to have a NSTEMI at the time of admission. Atrial fibrillation with RVR: HR remains elevated in the 100's. Will increase the dose of BB. On Cardizem PO 360 mg daily. On AC with eliquis Acute decompensated systolic and diastolic heart failure: On lasix, appears euvolemic. Acute resp failure with hypoxia and hypercapnea: pt has c/r resp failure. EH, cor pulmonale. On supplemental oxygen 3-4 l as needed. CXR from 07/08 negative for any edema or consolidation Pneumonia: Right LL pneumonia. ?aspiration/HCAP. On broad spectrum abx coverage. continue tx for total of 10 days. COPD: Possible diagnosis given extensive smoking hx. On bronchodilators and ICS. Will d/c on inhalers. Will need PFT as out pt. DARION: In setting of decompensated heart failure, cardiac arrest, currently resolved PEA: appears to be related to hypoxic/hypercapneic arrest requiring CPR for 8 min as above. No acute issues. DVT Prophylaxis: On Eliquis Code status: Code status readdressed with pt today, expressed his wishes to be a full code Dispo: Awaiting d/c to rehab Qualifiers: COPD type: unspecified COPD Qualified Code(s): J44.9 - Chronic obstructive pulmonary disease, unspecified - Time Spent With Patient 25 - 35 minutes - Subjective Interval history: seen and examined at bedside. Report swelling of LE. Remains on supplemental oxygen 4-5 l. Denies any chest pain, sob palpitations. LE edema better - Constitutional Vitals: Temp Pulse Resp BP Pulse Ox 97.4 F L 95 18 120/82 95 07/13/16 16:00 07/13/16 16:00 07/13/16 16:00 07/13/16 16:00 07/13/16 16:00 General appearance: Present: A&O X 3, morbidly obese, answers questions appropriately - Head Head exam: Present: atraumatic, normocephalic - Eye Eye exam: Present: PERRL, conjuntiva pink, sclera anicteric Pupils: Present: PERRL - Neck Neck exam general surgery: Present: supple, trachea midline. Absent: lymphadenopathy - Respiratory Respiratory exam: Present: CTAB. Absent: accessory muscle use, rales, rhonchi, wheezes - Cardiovascular Cardiovascular exam: Present: RRR, +S1, +S2. Absent: diastolic murmur, gallop, rubs, systolic murmur - GI/Abdominal GI/Abdominal exam: Present: normal bowel sounds, soft, no peritoneal signs. Absent: distended, tenderness - Extremities Exam Extremities exam: Present: pedal edema, warm, radial pulses palpable and symetrical. Absent: calf tenderness, cyanotic - Neurological Exam Neurological exam: Present: CN II-XII intact, oriented X3, no focal deficits. Absent: pronater drift, facial droop, speech deficit - Skin Skin exam: Present: dry, intact Internal Medicine: Result - Labs CBC & Chem 7: 07/13/16 Unknown 07/13/16 Unknown Labs: Short CBC 07/13/16 Range/Units Unknown WBC 11.6 H (4.3-11.1) K/mcL Hgb 12.6 L (12.9-16.9) g/dL Hct 40.3 (37.5-50.1) % Plt Count 207 (140-400) K/mcL Neutrophils # 8.8 (1.6-8.9) K/mcL BMP 07/13/16 Unknown Sodium 138 Potassium 3.7 D Chloride 98 Carbon Dioxide 32 H BUN 26 Creatinine 0.82 Glucose 107 H Calcium 9.0 - ABG Interpretation ABG results: ABG ABG pH 7.42 pH Units (7.32-7.45) 07/01/16 03:34 ABG pCO2 63 mmHg (35-45) H 07/01/16 03:34 ABG pO2 57 mmHg (85-104) L 07/01/16 03:34 ABG O2 Saturation 90 % (95-98) L 07/01/16 03:34 PT/INR, D-dimer PT 12.4 Seconds (9.4-12.1) H 07/01/16 04:55 Consult Discharge Plan - Plan Referrals: Sumit Hidalgo DO [Partnered Physician] - () Ruiz Dumont MD [Primary Care Provider] - 07/15/16 10:00 am ()
[2016-07-14] MEDS: Levalbuterol Neb 0.63 MG/3 ML IH SCH ×4 (04:31→20:20)
[2016-07-14 06:53] LABS: Basophils % 0.3 %; Eosinophils # 0.2 K/mcL (0.0-0.6); Eosinophils % 1.7 %; Hematocrit 41.3 % (37.5-50.1); Hemoglobin 12.9 g/dL (12.9-16.9); Immature Granulocytes % 1.5 % (0-4); Lymphocytes % 21.3 %; Mean Corpuscular HGB Conc 31.2 g/dL (31.6-35.5); Mean Corpuscular Hemoglobin 28.4 pg (28.0-33.3); Mean Platelet Volume 10.4 fL (9.4-12.4); Monocytes # 0.7 K/mcL (0.0-1.3); Monocytes % 7.3 %; Neutrophils # 6.5 K/mcL (1.6-8.9); Platelet Count 193 K/mcL (140-400); Red Blood Count 4.54 M/mcL (4.19-5.50); Red Cell Distribution Width 14.5 % (11.5-14.5); Segmented Neutrophils % 67.9 %
[2016-07-14 07:11] LABS: BUN/Creatinine Ratio 30 (6-26); Blood Urea Nitrogen 21 mg/dL (8-26); Calcium 8.9 mg/dL (8.6-10.8); Carbon Dioxide 32 mEq/L (19-29); Chloride 100 mEq/L (98-109); Glucose 84 mg/dL (70-99); Osmolality,Calculated 290 (280-300); Potassium 3.8 mEq/L (3.5-4.5); Sodium 139 mEq/L (136-145); eGFR For African Americans > 60 (> 60); eGFR For Non-African Americans > 60 (> 60)
[2016-07-14] MEDS: Sennosides 8.6 MG TABLET PO SCH ×3 (09:40→22:26)
[2016-07-14] MEDS: Furosemide 40 MG TABLET PO SCH (09:40)
[2016-07-14] MEDS: Diltiazem CD (24hr) 180 MG CAPSULE PO SCH (09:41)
[2016-07-14] MEDS: APIXABAN 5 MG TABLET PO SCH ×2 (09:41→21:35)
--- NOTE | 2016-07-14 17:38 | Internal Med Progress Note ---
Date of Encounter: 07/14/16 Time of Encounter: 17:36 - Assessment and plan (1) Atrial fibrillation Current Visit: Yes Status: Acute Assessment and plan: New onset atrial fibrillation, well controlled will continue present meds. Qualifiers: Atrial fibrillation type: unspecified Qualified Code(s): I48.91 - Unspecified atrial fibrillation (2) COPD (chronic obstructive pulmonary disease) Current Visit: Yes Status: Chronic Assessment and plan: Atrial fibrillation with RVR: HR remains elevated in the 100's. Will increase the dose of BB. On Cardizem PO 360 mg daily. On AC with eliquis Acute decompensated systolic and diastolic heart failure: On lasix, appears euvolemic. Acute resp failure with hypoxia and hypercapnea: pt has c/r resp failure. EH, cor pulmonale. On supplemental oxygen 3-4 l as needed. CXR from 07/08 negative for any edema or consolidation Pneumonia: Right LL pneumonia. ?aspiration/HCAP. On broad spectrum abx coverage. continue tx for total of 10 days. COPD: Possible diagnosis given extensive smoking hx. On bronchodilators and ICS. Will d/c on inhalers. Will need PFT as out pt. DARION: In setting of decompensated heart failure, cardiac arrest, currently resolved PEA: appears to be related to hypoxic/hypercapneic arrest requiring CPR for 8 min as above. No acute issues. DVT Prophylaxis: On Eliquis Code status: Code status readdressed with pt today, expressed his wishes to be a full code Dispo: Awaiting d/c to rehab Qualifiers: COPD type: unspecified COPD Qualified Code(s): J44.9 - Chronic obstructive pulmonary disease, unspecified (3) Pneumonia Current Visit: Yes Status: Resolved Assessment and plan: Completed appropriate IV antibiotic therapy for pneumonia. Repeat sputum culture with Pantoea agglomerans is likely colonization due to prolonged ventilator dependence. Improving oxygen requirements and patient does not appear septic at this time. Qualifiers: Pneumonia type: due to other aerobic Gram-negative bacteria Laterality: right Lung location: lower lobe of lung Qualified Code(s): J15.6 - Pneumonia due to other aerobic Gram-negative bacteria (4) History of sudden cardiac arrest successfully resuscitated Current Visit: Yes Status: Acute - Subjective Interval history: seen and examined. noted that patient has occasionally SOB patient claims that when he walked he feel chest pressure occasionally. - Constitutional Vitals: Temp Pulse Resp BP Pulse Ox 97.8 F 95 18 112/88 93 L 07/14/16 11:00 07/14/16 15:00 07/14/16 16:11 07/14/16 15:58 07/14/16 16:11 General appearance: Present: A&O X 3, morbidly obese, answers questions appropriately - Head Head exam: Present: atraumatic, normocephalic - Eye Eye exam: Present: PERRL, conjuntiva pink, sclera anicteric Pupils: Present: PERRL - Neck Neck exam general surgery: Present: supple, trachea midline. Absent: lymphadenopathy - Respiratory Respiratory exam: Present: CTAB. Absent: accessory muscle use, rales, rhonchi, wheezes - Cardiovascular Cardiovascular exam: Present: RRR, +S1, +S2. Absent: diastolic murmur, gallop, rubs, systolic murmur - GI/Abdominal GI/Abdominal exam: Present: normal bowel sounds, soft, no peritoneal signs. Absent: distended, tenderness - Extremities Exam Extremities exam: Present: warm, radial pulses palpable and symetrical. Absent : calf tenderness, cyanotic, pedal edema - Neurological Exam Neurological exam: Present: CN II-XII intact, oriented X3, no focal deficits. Absent: pronater drift, facial droop, speech deficit - Skin Skin exam: Present: dry, intact Internal Medicine: Result - Labs CBC & Chem 7: 07/14/16 06:39 07/14/16 06:39 Labs: Short CBC 07/14/16 Range/Units 06:39 WBC 9.5 (4.3-11.1) K/mcL Hgb 12.9 (12.9-16.9) g/dL Hct 41.3 (37.5-50.1) % Plt Count 193 (140-400) K/mcL Neutrophils # 6.5 (1.6-8.9) K/mcL BMP 07/14/16 06:39 Sodium 139 Potassium 3.8 Chloride 100 Carbon Dioxide 32 H BUN 21 Creatinine 0.71 L Glucose 84 Calcium 8.9 - ABG Interpretation ABG results: ABG ABG pH 7.42 pH Units (7.32-7.45) 07/01/16 03:34 ABG pCO2 63 mmHg (35-45) H 07/01/16 03:34 ABG pO2 57 mmHg (85-104) L 07/01/16 03:34 ABG O2 Saturation 90 % (95-98) L 07/01/16 03:34 PT/INR, D-dimer PT 12.4 Seconds (9.4-12.1) H 07/01/16 04:55 Consult Discharge Plan - Plan Referrals: Sumit Hidalgo DO [Partnered Physician] - () Ruiz Dumont MD [Primary Care Provider] - 07/15/16 10:00 am ()
[2016-07-15] MEDS: Levalbuterol Neb 0.63 MG/3 ML IH SCH ×2 (04:11→10:14)
[2016-07-15 07:10] VITALS: BP 108/76
--- NOTE | 2016-07-15 07:25 | Electrocardiograph Report ---
[place] [id number] Test Date: 2016-07-13 Pat Name: Juvenal Webber Department: 111 Room: 2NE29 Gender: M Compensation Director: [id number] : 1960 Requested By: Oswald Carranza Order Number: [id number] Reading MD: Callum Rios MD Measurements Intervals [place] Rate: 91 P: CT: 0 QRS: 49 QRSD: 111 T: 8 QT: 327 QTc: 376 Interpretive Statements ATRIAL FIBRILLATION INCOMPLETE RIGHT BUNDLE BRANCH BLOCK Electronically Signed On 07-15-2016 7:23:32 EDT by Callum Rios MD
[2016-07-15] MEDS: Sennosides 8.6 MG TABLET PO SCH (08:32)
[2016-07-15] MEDS: APIXABAN 5 MG TABLET PO SCH (08:32)
[2016-07-15] MEDS: Furosemide 40 MG TABLET PO SCH (08:32)
[2016-07-15] MEDS: Diltiazem CD (24hr) 180 MG CAPSULE PO SCH (08:33)
--- NOTE | 2016-07-15 08:47 | Discharge Summary ---
<Korey Mccoy - Last Filed: 07/15/16 10:11> Date of Encounter: 07/15/16 Time of Encounter: 08:47 - Discharge Diagnosis (1) Acute respiratory failure Priority: Primary Status: Resolved Comments: Resolved. Likely secondary to acute exacerbation of COPD vs pneumonia vs Obesity hypoventilation syndrome vs suspected EH Qualifiers: Respiratory failure complication: hypoxia and hypercapnia Qualified Code(s) : J96.01 - Acute respiratory failure with hypoxia; J96.02 - Acute respiratory failure with hypercapnia (2) Respiratory acidosis Priority: Primary Status: Resolved Comments: Resolved (3) Acute heart failure Priority: Primary Status: Resolved Comments: Resolved. LVEF 55%. Qualifiers: Heart failure type: unspecified heart failure type Qualified Code(s): I50.9 - Heart failure, unspecified (4) PEA (Pulseless electrical activity) Priority: Primary Status: Resolved Comments: Resolved. (5) DARION (acute kidney injury) Priority: Primary Status: Resolved Comments: Resolved. May be secondary to dehydration vs acute heart failure vs cardiac arrest. (6) Elevated troponin Priority: Primary Status: Resolved Comments: Resolved. Likely secondary to cardiac arrest vs acute respiratory failure. (7) Pneumonia Priority: Primary Status: Resolved Comments: Resolved. Completed appropriate IV antibiotic therapy for pneumonia. Repeat sputum culture with Pantoea agglomerans is likely colonization due to prolonged ventilator dependence. Qualifiers: Pneumonia type: due to other aerobic Gram-negative bacteria Laterality: right Lung location: lower lobe of lung Qualified Code(s): J15.6 - Pneumonia due to other aerobic Gram-negative bacteria (8) COPD (chronic obstructive pulmonary disease) Priority: Primary Status: Chronic Comments: Continue breathing treatments. Acute exacerbation of COPD, resolved. Completed appropriate treatments. O2 sat 96% on 3L. Will require PFTs as outpatient. Qualifiers: COPD type: unspecified COPD Qualified Code(s): J44.9 - Chronic obstructive pulmonary disease, unspecified (9) DVT (deep venous thrombosis) Priority: Primary Status: Resolved Comments: Resolved. Qualifiers: DVT location: lower extremity Affected thrombotic vein of extremity: popliteal Laterality: left Chronicity: unspecified Qualified Code(s): I82.432 - Acute embolism and thrombosis of left popliteal vein (10) Atrial fibrillation Priority: Primary Status: Acute Comments: New onset afib, rates documented 95-1126 overnight. Continue with Cardizem 360mg qd, Metoprolol 100mg bid, and Eliquis 5mg bid. Patient to follow up with Cardiology as outpatient within 2 weeks of discharge. Qualifiers: Atrial fibrillation type: unspecified Qualified Code(s): I48.91 - Unspecified atrial fibrillation (11) Obstructive sleep apnea Priority: Secondary Status: Suspected Comments: Suspect EH, has been receiving Bipap in the evenings. Will require sleep study and PFT as outpatient. (12) Obesity hypoventilation syndrome Priority: Secondary Status: Suspected (13) Tobacco use disorder, severe, dependence Priority: Primary Status: Chronic Comments: Counseled patient regarding tobacco cessation for more than 10 minutes. Discussed with patient options and importance of picking a quit date. Patient will need to follow up with PCP regarding smoking cessation. (14) Morbid obesity Priority: Primary Status: Chronic Qualifiers: Obesity type: due to excess calories Qualified Code(s): E66.01 - Morbid ( severe) obesity due to excess calories - Discharge Medications Prescriptions: Apixaban [Eliquis] 5 mg PO BID #60 tablet Diltiazem CD (24hr) [Cardizem CD] 360 mg PO DAILY #30 cap.er.24h Furosemide [Lasix] 40 mg PO DAILY #30 tablet Levalbuterol Neb [Xopenex Neb] 0.63 mg IH Q6H PRN #120 vial.neb PRN Reason: Shortness Of Breath Metoprolol [Lopressor] 100 mg PO BID #60 tablet Quetiapine Fumarate [Seroquel] 50 mg PO HS #30 tablet Home Medications: Multivitamin [Multi-Day Vitamins] 1 tab PO DAILY 06/21/16 [History] Apixaban [Eliquis] 5 mg PO BID #60 tablet 07/15/16 [Rx] Diltiazem CD (24hr) [Cardizem CD] 360 mg PO DAILY #30 cap.er.24h 07/15/16 [Rx] Furosemide [Lasix] 40 mg PO DAILY #30 tablet 07/15/16 [Rx] Levalbuterol Neb [Xopenex Neb] 0.63 mg IH Q6H PRN #120 vial.neb 07/15/16 [Rx] Metoprolol [Lopressor] 100 mg PO BID #60 tablet 07/15/16 [Rx] Quetiapine Fumarate [Seroquel] 50 mg PO HS #30 tablet 07/15/16 [Rx] Allergies/Adverse Reactions: Allergies No Known Allergies Allergy (Verified 06/21/16 13:22) Procedures/tests Complete & Pending: Procedures Performed prior 72 hours Category Date Time Status ECG 12 lead ECG [ECG] Routine Y 07/13/16 11:23 Completed Date of admission: 06/21/16 19:05 Primary care physician: Ruiz Dumont MD Consults: 06/22/16 15:36 Consult to Property Claim Rep [CONS] Routine Reason for SW Consult: Discuss POA. Julia has been with him 13 years, though they are unmarried. Patient's brothers seem willing for her to be POA. Will likely need paperwork to this effect 07/01/16 09:02 Consult to Palliative Care [CONS] Routine Comment: Consulting Provider: [facility] [place] 07/02/16 08:14 Consult to Physical Therapy [CONS] Routine Comment: Evaluate, develop and implement POC 07/02/16 08:15 Consult to Occupational Therapy [CONS] Routine Comment: Evaluate, develop and implement POC 07/04/16 09:18 Consult to Nutrition [CONS] Routine Comment: Consulting Provider: NUTRITION Reason for Dietary Consult: MST Score Discharging clinician: Oswald Carranza (Korey Mccoy) Anticipated date of discharge: 07/15/16 - Patient Status Disposition: Transfer SNF Condition: Fair Functional capacity at discharge: uses cane/walker Overall status at discharge: patient is not back to baseline - Discharge Instructions Follow Up With: Sumit Hidalgo DO [Partnered Physician] - () Ruiz Dumont MD [Primary Care Provider] - () Additional Instructions: Patient is being sent to [facility] per PT recommendations. Patient to follow up with Primary Care Physician within the next 7-10 days regarding this hospital stay. Patient to follow up with Cardiology within the next 14 days regarding afib therapy. Patient sent home with scripts 1 month worth of Levalbuterol nebulizer treatments, quetiapine, metoprolol, furosemide, diltiazem, and Eliquis. Will require daily PT/OT. Will require Bipap in the evenings.n May require supplemental oxygen, to titrate to O2 sat 90-96%. - Diet and Activity Activity: ambulate only with your walker, as per physical therapy Diet: low fat, low cholesterol Interval History: Patient reports doing well overnight, no new complaints. Patient denies fevers , chills, sweats, changes in vision or hearing, headaches, nausea vomiting, chest pain, shortness of breath, changes in bowels or bladder, weakness, or loss of sensation. Patient reports tolerating diet. Reports ambulating on own with walker without significant shortness of breath or weakness. Hospital course: Mr. Webber is a 56 year old male with history of COPD, severe tobacco use disorder, and obesity who was brought to the ED via EMS with altered mental status. Patient also had worsening dyspnea and urinary/fecal incontinence for the past 2-3 weeks. Upon EMS arrival patient was found to be cyanotic, hypoxic , and mottled with facial swelling. Upon arrival to the ED the patient was determined unable to protect his airway and was therefore intubated and placed on ventilator. EKG revealed normal sinus rhythm with rate of [address] elevations or depressions. CXR revealed mild perihilar edema and small pleural effusions. During intubation efforts became acutely hypoxic and developed PEA arrest; therefore 3 rounds of ACLS approximately 8 minutes before ROSC and right femoral CVC placed. Repeat EKG revealed diffuse ST elevations. Labs revealed elevated creatinine, elevated liver enzymes, elevated troponin, elevated carboxyhemoglobin, lactic acid of 1.9, and bnp of 917. ABG revealed pH 7.08, pCO2 of 144, and O2 sat of 88 suggestive of severe respiratory acidosis. Diuretics started due to evidence of pulmonary congestions. Patient was also started on Azithromycin and Rocephin. Cardio was consulted. CT Head was negative. UDS was negative. Echo revealed normal LVEF 55% suspecting elevated troponins secondary to acute respiratory failure rather than ACS. Patient then developed new onset afibf with rvr on 06/23/16 and was therefore started on amiodarone and beta rizwana. Patient also developed lower extremity swelling and was determined to have left popliteal and left peroneal vein dvt. Patient was continued on heparin drip and afib medications changed to diltiazem. Urine antigens were negative. Viral panel was negative. Sputum cultures on 06/24/16 returned positive for Pantoea agglomerans and blood cultures were both negative. Patient was therefore switched to Zosyn and azithromycin. Kidney function returned back to normal and Lasix were continued. Antibiotics were discontinued 06/29/16 in the ICU and patient was switched from IV steroids to oral prednisone. Patient was successfully extubated 07/01/16 and placed on bipap. After extubation the patient remained confused and delirious therefore started on Seroquel. Patient was then transferred to step down unit. Patient was transitioned to eliquis on 07/02/16 and started on beta rizwana for afib. Patient was also started on broad spectrum antibiotics for suspected right lower lobe pneumonia and completed 10 day course Patient continued requiring supplemental oxygen which was eventually discontinued; however still requiring Bipap in the evenings. Patient continued to show improvement in mental status and has been evaluated by PT/OT brea. Patient was ambulating on his own without taxing effort with walker. Social note reviewed, patient to be discharged to [facility] bed per PT recommendations. Patient to follow up with PCP, per patient is Dr. Dumont at [facility], and [facility]. Will require outpatient sleep study and PFTs. Time spent discussing smoking cessation with patient: more than 10 minutes - Time Spent with Patient Total time spent providing and/or coordinating discharge services: Greater than 30 minutes - Constitutional Vitals: Temp Pulse Resp BP Pulse Ox 97.4 F L 126 18 108/76 96 07/15/16 07:04 07/15/16 07:04 07/15/16 07:04 07/15/16 07:04 07/15/16 07:04 General appearance: Present: A&O X 3, morbidly obese, pleasant, no acute distress, obese, answers questions appropriately - Head Head exam: Present: atraumatic, normal inspection, normocephalic - Eye Eye exam: Present: normal appearance - ENT ENT exam: Present: mucous membranes moist, normal exam, normal external ear exam , normal oropharynx - Neck Neck exam general surgery: Present: full ROM, normal inspection, supple, trachea midline. Absent: tenderness - Respiratory Respiratory exam: Present: decreased breath sounds, wheezes. Absent: rales, rhonchi - Cardiovascular Cardiovascular exam: Present: irregular rhythm, +S1, +S2. Absent: diastolic murmur, JVD, systolic murmur - GI/Abdominal GI/Abdominal exam: Present: normal bowel sounds, soft. Absent: distended, guarding, tenderness - Extremities Exam Extremities exam: Present: full ROM, pedal edema, warm. Absent: tenderness - Back Exam Back exam: Present: normal inspection. Absent: rash noted, tenderness - Neurological Exam Neurological exam: Present: alert, CN II-XII intact, oriented X3, no focal deficits, strengths equal and symetr throughout. Absent: motor sensory deficit , facial droop, speech deficit - Psychiatric Psychiatric exam: Present: normal affect, normal mood - Skin Skin exam: Present: dry, intact, warm. Absent: diaphoretic, erythema, pallor <Tere,Oswald P - Last Filed: 07/15/16 18:04> Date of Encounter: 07/15/16 - Discharge Diagnosis (1) Atrial fibrillation Status: Acute Qualifiers: Atrial fibrillation type: unspecified Qualified Code(s): I48.91 - Unspecified atrial fibrillation (2) COPD (chronic obstructive pulmonary disease) Status: Chronic Qualifiers: COPD type: unspecified COPD Qualified Code(s): J44.9 - Chronic obstructive pulmonary disease, unspecified (3) Pneumonia Status: Resolved Qualifiers: Pneumonia type: due to other aerobic Gram-negative bacteria Laterality: right Lung location: lower lobe of lung Qualified Code(s): J15.6 - Pneumonia due to other aerobic Gram-negative bacteria (4) History of sudden cardiac arrest successfully resuscitated Status: Acute Procedures/tests Complete & Pending: Procedures Performed prior 72 hours Category Date Time Status ECG 12 lead ECG [ECG] Routine Y 07/13/16 11:23 Completed Date of admission: 06/21/16 19:05 Primary care physician: Ruiz Dumont MD Consults: 06/22/16 15:36 Consult to Property Claim Rep [CONS] Routine Reason for SW Consult: Discuss POA. Julia has been with him 13 years, though they are unmarried. Patient's brothers seem willing for her to be POA. Will likely need paperwork to this effect 07/01/16 09:02 Consult to Palliative Care [CONS] Routine Comment: Consulting Provider: [facility] [place] 07/02/16 08:14 Consult to Physical Therapy [CONS] Routine Comment: Evaluate, develop and implement POC 07/02/16 08:15 Consult to Occupational Therapy [CONS] Routine Comment: Evaluate, develop and implement POC 07/04/16 09:18 Consult to Nutrition [CONS] Routine Comment: Consulting Provider: NUTRITION Reason for Dietary Consult: MST Score Hospital course: Mr. Webber is a 56 year old male - Time Spent with Patient Total time spent providing and/or coordinating discharge services: - Constitutional Vitals: Temp Pulse Resp BP Pulse Ox 97.4 F L 126 18 108/76 94 L 07/15/16 07:04 07/15/16 07:04 07/15/16 10:14 07/15/16 07:04 07/15/16 10:14 - Attending Attestation I examined this patient and my medical decision-making was reviewed with the AIRCRAFT MANAGER/PA/Advanced Practice Nurse/Resident Physician. I agree with the documented findings, disposition and treatment plan as described except to the extent set forth below.
--- NOTE | 2016-07-15 10:51 | Physician Discharge Referral ---
<Korey Mccoy - Last Filed: 07/15/16 10:48> ExtendedCare Referral Info Transfer To: [facility], [facility] Provider in Charge: Dr. Farzaneh Carranza Provider in Charge after Transfer: PCP Institutional Level of Care: Skilled - Diagnosis (1) Acute respiratory failure Priority: Primary Status: Resolved (2) Respiratory acidosis Priority: Primary Status: Resolved (3) Acute heart failure Priority: Primary Status: Resolved (4) PEA (Pulseless electrical activity) Priority: Primary Status: Resolved (5) DARION (acute kidney injury) Priority: Primary Status: Resolved (6) Elevated troponin Priority: Primary Status: Resolved (7) Pneumonia Priority: Primary Status: Resolved (8) COPD (chronic obstructive pulmonary disease) Priority: Primary Status: Chronic (9) DVT (deep venous thrombosis) Priority: Primary Status: Resolved (10) Atrial fibrillation Priority: Primary Status: Acute (11) Obstructive sleep apnea Priority: Primary Status: Suspected (12) Obesity hypoventilation syndrome Priority: Primary Status: Suspected (13) Tobacco use disorder, severe, dependence Priority: Primary Status: Chronic (14) Morbid obesity Priority: Primary Status: Chronic Prognosis: Good Aware of Diagnosis: Patient, Family Aware of Prognosis: Patient, Family - Transfer Medications Prescriptions: Apixaban [Eliquis] 5 mg PO BID #60 tablet Diltiazem CD (24hr) [Cardizem CD] 360 mg PO DAILY #30 cap.er.24h Furosemide [Lasix] 40 mg PO DAILY #30 tablet Levalbuterol Neb [Xopenex Neb] 0.63 mg IH Q6H PRN #120 vial.neb PRN Reason: Shortness Of Breath Metoprolol [Lopressor] 100 mg PO BID #60 tablet Quetiapine Fumarate [Seroquel] 50 mg PO HS #30 tablet Home Medications: Multivitamin [Multi-Day Vitamins] 1 tab PO DAILY 06/21/16 [History] Apixaban [Eliquis] 5 mg PO BID #60 tablet 07/15/16 [Rx] Diltiazem CD (24hr) [Cardizem CD] 360 mg PO DAILY #30 cap.er.24h 07/15/16 [Rx] Furosemide [Lasix] 40 mg PO DAILY #30 tablet 07/15/16 [Rx] Levalbuterol Neb [Xopenex Neb] 0.63 mg IH Q6H PRN #120 vial.neb 07/15/16 [Rx] Metoprolol [Lopressor] 100 mg PO BID #60 tablet 07/15/16 [Rx] Quetiapine Fumarate [Seroquel] 50 mg PO HS #30 tablet 07/15/16 [Rx] Allergies/Adverse Reactions: Allergies No Known Allergies Allergy (Verified 06/21/16 13:22) - Respiratory Orders Oxygen / L per min (titrate to 90-96%) Smoking Cessation: Smoking cessation has been advised. For more information, call the [place] Quit Line at 1-176-BCXV-NOW. - Lab Orders Lab Orders: 2 Step Mantoux Test per State regulation - Ancillary Orders May use pressure relief devices daily prn, May go on CARLOS w/family/respon libertarian w /meds at nurse discretion PRN, May consult with Dentist, Sales Clerk, Hog Worker PRN - Advance Directives Code Status: Full Code - Mobility Orders Chair, Other (per PT recommendations, uses walker) - Rehabiliation Orders Rehab Potential: Good Rehab Orders: Sternal Precautions, ROM Exercises, Evaluation for Physical Therapy, Evaluation for Occupational Therapy - Treatments Skin tear care topically daily PRN per policy, May check for fecal impaction rectally daily PRN, Fleet enema rectally every other day PRN cleansing purposes - Diet Orders Cardiac CERTIFICATION: I certify that the transfer of the above named patient to an Extended Care Facility is necessary for the continuing treatment of the diagnosis listed. The above information is true and accurate reflection of patient's current condition. Confidential - Redisclosure prohibited without a patient's written consent. <Oswald Carranza P - Last Filed: 07/15/16 18:04> - Diagnosis (1) Atrial fibrillation Status: Acute (2) COPD (chronic obstructive pulmonary disease) Status: Chronic (3) Pneumonia Status: Resolved (4) History of sudden cardiac arrest successfully resuscitated Status: Acute - Respiratory Orders Smoking Cessation: Smoking cessation has been advised. For more information, call the [place] [employer] Quit Line at 3-404-YOMF-NOW. CERTIFICATION: I certify that the transfer of the above named patient to an Extended Care Facility is necessary for the continuing treatment of the diagnosis listed. The above information is true and accurate reflection of patient's current condition. Confidential - Redisclosure prohibited without a patient's written consent.
[2016-07-15] MEDS ORDERED: FLU VACC QS2016-17 36MOS UP/PF 0.5 ML SYRINGE IM ONE (11:14)
== END 2016-07-15 14:07 | disposition other institution (70) | DRG 207 ==
LOC: EMEROO 12:50 → ICNU 12:50 → SUATTDRO 19:05 → 2NNU 07-03 15:16 → 2NENU 07-09 18:39
PROVIDERS: ADMIT Internal Medicine Pulmonary Disease; ATTEND Internal Medicine

== ENCOUNTER 2018-09-22 15:52 | Observation (INO) ==
[2018-09-22] MEDS ORDERED: Furosemide 40 MG in 0.9 % Sodium Chloride 50 ML IV ONE (17:36)
[2018-09-22] MEDS ORDERED: Furosemide 40 MG/4 ML VIAL IVP ONE (17:43)
--- NOTE | 2018-09-22 17:52 | Emergency Department Note ---
Disposition Clinical Impression: Acute exacerbation of CHF (congestive heart failure), Fluid overload Disposition: Admitted As Inpatient Condition: Fair Referrals: Ruiz Dumont MD [Primary Care Provider] - Forms: ED Satisfaction Letter Time of Disposition: 18:53 General Adult HPI - General Chief complaint: ED Recheck/Abnormal Lab/Rx Stated complaint: Abnormal labs Time Seen by Provider: 09/22/18 17:11 Source: patient Limitations: no limitations Nursing Notes Reviewed: Yes Vital Signs Reviewed: Yes - History of Present Illness HPI Narrative: Patient presented emergency department with chief complaint of an elevated BNP. He states he went to his doctor is he was having problems with urinating at night where he was losing control of his urine, he had also been having some increased lower extremity swelling and increased cough without coughing anything up and some increased shortness of breath with exertion. He has a history of congestive heart failure, after a cardiac arrest and severe admission to the hospital for acute respiratory distress syndrome and fluid overload, he states that he has not seen cardiology since that time. He does take a water pill. He states that he increase his water pill yesterday he was called today and told that his BNP was elevated and that he should go to the emergency department. He states he had the same urinary problems previously when he was fluid overloaded. He denies headache neck pain or chest pain. He does endorse shortness of breath and increased orthopnea, reports he typically lays flat but he has had to prop himself up on a pillow over the last few days but he does work BiPAP which helps him. He denies abdominal pain. He denies fevers or chills. He denies decreased urine output. He denies any other acute concerns. Pain Scale: 0 - Related Data Home Medications Medication Instructions Recorded Confirmed Multivitamin [Multi-Day Vitamins] 1 tab PO DAILY 06/21/16 07/15/16 Previous Rx's Medication Instructions Recorded Diltiazem CD (24hr) [Cardizem CD] 360 mg PO DAILY #30 cap.er.24h 07/15/16 Furosemide [Lasix] 40 mg PO DAILY #30 tablet 07/15/16 Levalbuterol Neb [Xopenex Neb] 0.63 mg IH Q6H PRN #120 vial.neb 07/15/16 Metoprolol [Lopressor] 100 mg PO BID #60 tablet 07/15/16 Quetiapine Fumarate [Seroquel] 50 mg PO HS #30 tablet 07/15/16 Warfarin [Coumadin] 7.5 mg PO DAILY@1800 #30 tablet 07/23/16 predniSONE [PredniSONE] 60 mg PO DAILY #15 tablet 07/23/16 Allergies Allergy/AdvReac Type Severity Reaction Status Date / Time No Known Allergies Allergy Verified 06/21/16 13:22 All systems ED: reviewed and negative except as stated. Review of Systems: As Per HPI Past Medical History - Past Medical History Medical history: Reports: atrial fibrillation, CHF, COPD, DVT Psychiatric history: Reports: no psych history - Social History Smoking Status: Current every day smoker Smokeless Tobacco Status: No Alcohol use: Reports: none Drug use: Reports: none Physical Exam - General Limitations: no limitations General appearance: alert, in no apparent distress, obese - Head Head exam: atraumatic, normocephalic - Eye Eye exam: Present: normal appearance, PERRL - ENT ENT exam: normal exam, normal oropharynx - Neck Neck exam: Present: normal inspection, full ROM, other (Positive JVD) - Chest Chest inspection: Present: normal inspection, symmetric chest wall rise - Respiratory Respiratory exam: Present: other (Faint and reportedly wheezes overall good air movement, crackles auscultated at the bases bilaterally. No obvious dullness to percussion). Absent: normal lung sounds bilaterally - Cardiovascular Cardiovascular exam: Present: regular rate, normal rhythm, normal heart sounds (2/6 systolic murmur no rubs or gallops) - Abdominal Exam Abdominal exam: Present: soft, Non-Tender, other (Anasarca of the abdominal wall) - Extremities Exam Extremities exam: Present: full ROM, pedal edema, other (2-3+ bilateral lower extremity edema of the entirety of the lower extremities consistent with some anasarca, this is pitting in nature, he has chronic skin thickening with chronic venous stasis changes bilateral lower extremities, no evidence of superinfection. No evidence of DVT.). Absent: tenderness - Expanded Lower Extremity Exam Neurovascular/Tendon exam: Present: normal capillary refill. Absent: pulse deficit, motor deficit, sensory deficit - Back Exam Back exam: Present: normal inspection, full ROM. Absent: tenderness, CVA tenderness (R), CVA tenderness (L) - Neurological Exam Neurological exam: Present: alert, oriented X3, CN II-XII intact - Psychiatric Psychiatric exam: Present: normal affect, normal mood - Skin Skin exam: Present: warm, dry, intact Course Vital Signs Temperature 97.6 F 09/22/18 16:56 Pulse Rate 87 09/22/18 16:56 Respiratory Rate 24 09/22/18 16:56 Blood Pressure 137/96 09/22/18 16:56 O2 Sat by Pulse Oximetry 91 09/22/18 16:56 Temperature 97.6 F 09/22/18 16:56 Pulse Rate 87 09/22/18 16:56 Respiratory Rate 24 09/22/18 16:56 Blood Pressure 137/96 09/22/18 16:56 O2 Sat by Pulse Oximetry 91 09/22/18 16:56 Oxygen Delivery Oxygen Delivery Nasal Cannula Medical Decision Making - [facility] Narrative Medical decision making narrative: EKG was a normal sinus rhythm with no evidence of acute ischemic dysrhythmia or hyperkalemia, no abnormal intervals as interpreted by myself. Basic laboratory studies revealed CBC basic metabolic profile within acceptable limits cardiac enzymes were negative BNP was 191. Chest x-ray shows vascular congestion, consistent with CHF. Patient had an oxygen saturation of 89% on room air on 2 L he is up to 91-93% he was given IV Lasix. Secondary to clinical evidence of CHF, with peripheral edema, shortness of breath,, JVD and hypoxia, patient will be admitted to the hospital for further evaluation and management of acute CHF exacerbation. - Medical Records Medical records reviewed: Yes I reviewed the patient's medical records. - Lab Data Lab results reviewed: Yes I reviewed the patient's lab results. Result diagrams: 09/22/18 17:44 09/22/18 17:44 Lab Results 09/22/18 09/22/18 09/22/18 Range/Units 17:44 17:44 17:44 WBC 8.9 (4.3-11.1) K/mcL RBC 4.83 (4.19-5.50) M/mcL Hgb 15.0 (12.9-16.9) g/dL Hct 47.2 (37.5-50.1) % MCV 97.7 (83.0-100.0) fL MCH 31.1 (28.0-33.3) pg MCHC 31.8 (31.6-35.5) g/dL RDW 13.4 (11.5-14.5) % Plt Count 199 (140-400) K/mcL MPV 10.0 (9.4-12.4) fL Immature Gran % 0.2 (0-4) % Seg Neutrophils % 72.7 % Lymphocytes % 15.1 % Monocytes % 9.3 % Eosinophils % 2.4 % Basophils % 0.3 % Neutrophils # 6.5 (1.6-8.9) K/mcL Lymphocytes # 1.3 (0.6-4.6) K/mcL Monocytes # 0.8 (0.0-1.3) K/mcL Eosinophils # 0.2 (0.0-0.6) K/mcL Basophils # 0.0 (0.0-0.2) K/mcL PT (9.4-12.1) Seconds INR APTT 30.9 (26.0-36.0) Seconds Sodium 140 (136-145) mEq/L Potassium 3.7 (3.5-5.1) mEq/L Chloride 101 (98-107) mEq/L Carbon Dioxide 33 H (23-29) mEq/L BUN 17 (6-20) mg/dL Creatinine 0.77 (0.70-1.30) mg/dL Est GFR ( Amer) > 60 (> 60) Est GFR (Non-Af Amer) > 60 (> 60) BUN/Creatinine Ratio 22 (6-26) Glucose 95 (70-105) mg/dL Calculated Osmolality 291 (280-300) Calcium 9.0 (8.6-10.3) mg/dL Troponin I < 0.03 (< 0.04) ng/mL B-Natriuretic Peptide (Less than 100) pg/mL 09/22/18 09/22/18 Range/Units 17:44 17:44 WBC (4.3-11.1) K/mcL RBC (4.19-5.50) M/mcL Hgb (12.9-16.9) g/dL Hct (37.5-50.1) % MCV (83.0-100.0) fL MCH (28.0-33.3) pg MCHC (31.6-35.5) g/dL RDW (11.5-14.5) % Plt Count (140-400) K/mcL MPV (9.4-12.4) fL Immature Gran % (0-4) % Seg Neutrophils % % Lymphocytes % % Monocytes % % Eosinophils % % Basophils % % Neutrophils # (1.6-8.9) K/mcL Lymphocytes # (0.6-4.6) K/mcL Monocytes # (0.0-1.3) K/mcL Eosinophils # (0.0-0.6) K/mcL Basophils # (0.0-0.2) K/mcL PT 17.7 H (9.4-12.1) Seconds INR 1.6 APTT (26.0-36.0) Seconds Sodium (136-145) mEq/L Potassium (3.5-5.1) mEq/L Chloride (98-107) mEq/L Carbon Dioxide (23-29) mEq/L BUN (6-20) mg/dL Creatinine (0.70-1.30) mg/dL Est GFR ( Amer) (> 60) Est GFR (Non-Af Amer) (> 60) BUN/Creatinine Ratio (6-26) Glucose (70-105) mg/dL Calculated Osmolality (280-300) Calcium (8.6-10.3) mg/dL Troponin I (< 0.04) ng/mL B-Natriuretic Peptide 191 H (Less than 100) pg/mL - Radiology Data Radiology results reviewed: Yes I reviewed the patient's radiology results.
[2018-09-22 18:21] LABS: Basophils % 0.3 %; Eosinophils # 0.2 K/mcL (0.0-0.6); Eosinophils % 2.4 %; Hematocrit 47.2 % (37.5-50.1); Immature Granulocytes % 0.2 % (0-4); Lymphocytes # 1.3 K/mcL (0.6-4.6); Lymphocytes % 15.1 %; Mean Corpuscular HGB Conc 31.8 g/dL (31.6-35.5); Mean Corpuscular Hemoglobin 31.1 pg (28.0-33.3); Mean Corpuscular Volume 97.7 fL (83.0-100.0); Monocytes # 0.8 K/mcL (0.0-1.3); Monocytes % 9.3 %; Neutrophils # 6.5 K/mcL (1.6-8.9); Platelet Count 199 K/mcL (140-400); Red Blood Count 4.83 M/mcL (4.19-5.50); Red Cell Distribution Width 13.4 % (11.5-14.5); Segmented Neutrophils % 72.7 %; White Blood Count 8.9 K/mcL (4.3-11.1)
[2018-09-22 18:29] LABS: INR 1.6; Prothrombin Time 17.7 Seconds (9.4-12.1)
[2018-09-22 18:43] LABS: BUN/Creatinine Ratio 22 (6-26); Blood Urea Nitrogen 17 mg/dL (6-20); Carbon Dioxide 33 mEq/L (23-29); Chloride 101 mEq/L (98-107); Glucose 95 mg/dL (70-105); Osmolality,Calculated 291 (280-300); Potassium 3.7 mEq/L (3.5-5.1); Sodium 140 mEq/L (136-145); Troponin I < 0.03 ng/mL (< 0.04); eGFR For African Americans > 60 (> 60); eGFR For Non-African Americans > 60 (> 60)
--- NOTE | 2018-09-23 05:42 | Internal Med History&Physical ---
Date of Encounter: 09/23/18 Time of Encounter: 05:41 Internal Medicine - H&P: HPI Chief complaint: Worsening lower extremity edema History of present illness: Mr. Webber is a 58 year old male with past medical history of atrial fibrillation, CHF, COPD, DVT and obstructive sleep apnea who presented to the ED due to elevated BNP and worsening lower extremity edema. Patient states he recently went to see his physician because he was having issues with urinary incontinence which he has noted previously when he becomes fluid overloaded. Laboratory workup was ordered and patient was notified today of the results including a significantly elevated BNP and was advised to come into the hospital. He does endorse shortness of breath with exertion and increased orthopnea; reports he typically lays flat but he has had to prop himself up on a pillow over the last few days but he does work BiPAP which helps him. Patient is currently on Lasix and denies any medication noncompliance. He was recently advised by his physician to double his morning dose of Lasix. He denies chest pain or abdominal pain. He denies fevers or chills. He denies decreased urine output. On arrival patient was noted to be hypoxic with an O2 saturation of 86% on room air. Patient was placed on oxygen with good response and given a one- time dose of 40 mg of Lasix. Laboratory workup was relatively unremarkable including a BNP of only 191. Chest x-ray shows increased pulmonary vascular congestion. Patient admitted for CHF exacerbation. Past Med Surg Social Fam HX - Past Medical History Medical history: atrial fibrillation, CHF, COPD, DVT Additional medical history: Pt has hx of ARDS. Hx of intubation Psychiatric history: no psych history - Social History Smoking Status: Current every day smoker Smokeless Tobacco Status: No Alcohol use: none Drug use: none Internal Medicine - H&P: Meds Multivitamin [Multi-Day Vitamins] 1 tab PO DAILY 06/21/16 [History] Diltiazem CD (24hr) [Cardizem CD] 360 mg PO DAILY #30 cap.er.24h 07/15/16 [Rx] Furosemide [Lasix] 40 mg PO DAILY #30 tablet 07/15/16 [Rx] Levalbuterol Neb [Xopenex Neb] 0.63 mg IH Q6H PRN #120 vial.neb 07/15/16 [Rx] Metoprolol [Lopressor] 100 mg PO BID #60 tablet 07/15/16 [Rx] Quetiapine Fumarate [Seroquel] 50 mg PO HS #30 tablet 07/15/16 [Rx] Warfarin [Coumadin] 7.5 mg PO DAILY@1800 #30 tablet 07/23/16 [Rx] predniSONE [PredniSONE] 60 mg PO DAILY #15 tablet 07/23/16 [Rx] Allergy/AdvReac Type Severity Reaction Status Date / Time No Known Allergies Allergy Verified 06/21/16 13:22 All Systems PM: A 10-system review of systems was performed and is negative for pertinent findings except as documented above in the HPI. - Constitutional Constitutional: no chills, no fever(s), no night sweats - EENT Eyes: no change in vision, no discharge, no pain, no photophobia Ears: no ear discharge, no ear pain, no tinnitus Nose, mouth and throat: no dysphagia, no nasal discharge, no neck pain, no sore throat - Cardiovascular Cardiovascular ROS IM: no chest pain, no diaphoresis, no dyspnea, no lightheadedness, no palpitations, no syncope - Respiratory Respiratory: no cough, no dyspnea, no wheezing, no excessive phlegm production - Gastrointestinal Gastrointestinal: no abdominal pain, no diarrhea, no hematemesis, no hematochezia, no melena, no nausea, no vomiting - Musculoskeletal Musculoskeletal ROS IM: no numbness, no tingling - Integumentary Integumentary IM: no rash, no unusual bruising - Neurological Neurological ROS: no confusion, no convulsions, no focal weakness, no numbness, no tingling, no tremor(s) - Hematologic/Lymphatic Hematologic/Lymphatic: no easy bruising - Constitutional Vitals: Temp Pulse Resp BP Pulse Ox 97.9 F 65 20 124/86 95 09/23/18 04:03 09/23/18 04:03 09/23/18 04:03 09/23/18 04:03 09/23/18 04:03 Exam: General: Alert and oriented 3 sitting up in bedside chair Skin:Normal color, no rash, no lesions. HEENT:EOM, pupils equal, round and reactive. Cardiovascular:Normal S1 & S2, no rubs, murmurs or gallops. No JVD. Pulse regular. Lungs: Diffuse rales appreciated bilaterally Abdomen:Soft, non-tender, no rigidity. Extremities: Trace pitting edema of the lower extremities bilaterally Neurological:Normal cognition and motor skills. Pulses:Carotid and radial pulses normal +2. Rest of the physical exam is non contributory Internal Med - H&P Results - Labs CBC & Chem 7: 09/23/18 08:21 09/23/18 08:21 Labs: Short CBC 09/22/18 Range/Units 17:44 WBC 8.9 (4.3-11.1) K/mcL Hgb 15.0 (12.9-16.9) g/dL Hct 47.2 (37.5-50.1) % Plt Count 199 (140-400) K/mcL Neutrophils # 6.5 (1.6-8.9) K/mcL BMP 09/22/18 17:44 Sodium 140 Potassium 3.7 Chloride 101 Carbon Dioxide 33 H BUN 17 Creatinine 0.77 Glucose 95 Calcium 9.0 Cardiac Enzymes 09/22/18 Range/Units 17:44 Troponin I < 0.03 (< 0.04) ng/mL - Impressions ITS Impressions Chest X-Ray 09/22/18 17:11 IMPRESSION: Increased central opacity. Some of that likely represents pulmonary vascular congestion, but a component of bronchitis or reactive airways disease also considered. Correlate with clinical evidence of pulmonary edema. D/ / John Macario MD / John Macario MD Interpreting Provider: John Macario MD - Assessment and Plan (1) Acute exacerbation of CHF (congestive heart failure) Current Visit: Yes Status: Acute Assessment and plan: Acute CHF exacerbation with chest x-ray showing increased pulmonary vascular congestion. BNP reported to be significantly elevated on outpatient laboratory workup. Here it was only found to be 191. -Continue strict I's and O's; daily weights; fluid restricted diet -Telemetry -Continue Lasix 40 mg IV push daily -We will obtain echocardiogram Qualifiers: Heart failure type: unspecified Qualified Code(s): I50.9 - Heart failure, unspecified (2) Obstructive sleep apnea Current Visit: Yes Status: Acute Assessment and plan: History of EH. Continue BiPAP at night. (3) Hypoxia Current Visit: Yes Status: Acute Assessment and plan: Acute hypoxia likely secondary to CHF exacerbation. Currently saturating 95% on 2 L. Continue O2 support and diuresis. (4) Atrial fibrillation Current Visit: No Status: Acute Assessment and plan: History of atrial fibrillation rate controlled on anticoagulation. Continue beta rizwana and warfarin with pharmacy to dose. Qualifiers: Atrial fibrillation type: unspecified Qualified Code(s): I48.91 - Unspecified atrial fibrillation (5) DVT prophylaxis Current Visit: No Status: Acute - Time Spent With Patient Total time spent is greater than 50% in coordination of care (as documented) at patient's floor/unit and/or counseling patient:
[2018-09-23] MEDS ORDERED: Furosemide 40 MG/4 ML VIAL IVP SCH (09:00)
[2018-09-23 09:10] LABS: Basophils # 0.1 K/mcL (0.0-0.2); Basophils % 0.7 %; Eosinophils # 0.2 K/mcL (0.0-0.6); Eosinophils % 2.5 %; Hematocrit 48.6 % (37.5-50.1); Hemoglobin 15.1 g/dL (12.9-16.9); Immature Granulocytes % 0.6 % (0-4); Lymphocytes # 1.1 K/mcL (0.6-4.6); Lymphocytes % 15.7 %; Mean Corpuscular HGB Conc 31.1 g/dL (31.6-35.5); Mean Corpuscular Hemoglobin 30.8 pg (28.0-33.3); Mean Corpuscular Volume 99.2 fL (83.0-100.0); Mean Platelet Volume 10.3 fL (9.4-12.4); Monocytes # 0.5 K/mcL (0.0-1.3); Monocytes % 7.2 %; Neutrophils # 5.3 K/mcL (1.6-8.9); Platelet Count 171 K/mcL (140-400); Red Cell Distribution Width 13.2 % (11.5-14.5); Segmented Neutrophils % 73.3 %; White Blood Count 7.2 K/mcL (4.3-11.1)
[2018-09-23 09:26] LABS: Alanine Aminotransferase 34 Units/L (7-52); Albumin 3.9 g/dL (3.5-5.7); Albumin/Globulin Ratio 1.3 (1.1-2.2); Alkaline Phosphatase 95 Units/L (34-104); Aspartate Amino Transferase 23 Units/L (13-39); BUN/Creatinine Ratio 19 (6-26); Bilirubin,Total 1.1 mg/dL (0.3-1.0); Blood Urea Nitrogen 15 mg/dL (6-20); Calcium 8.9 mg/dL (8.6-10.3); Carbon Dioxide 36 mEq/L (23-29); Chloride 97 mEq/L (98-107); Glucose 106 mg/dL (70-105); Magnesium 2.1 mg/dL (1.6-2.6); Osmolality,Calculated 291 (280-300); Potassium 3.7 mEq/L (3.5-5.1); Sodium 140 mEq/L (136-145); Total Protein 6.9 g/dL (6.4-8.9); eGFR For African Americans > 60 (> 60); eGFR For Non-African Americans > 60 (> 60)
--- NOTE | 2018-09-23 09:30 | Event Note ---
Date of Encounter: 09/23/18 Time of Encounter: 15:00 Seen and assessed. Agree with plan per night team Plan Acute worsening of chronic diastolic CHF. Continue lasix and metolazone
[2018-09-23] MEDS ORDERED: Perflutren Lipid Microsphere 1.3 ML in 0.9 % Sodium Chloride 8.7 ML IVP ONE (09:56)
[2018-09-23] MEDS: Furosemide 40 MG/4 ML VIAL IVP SCH ×2 (10:53→17:18)
[2018-09-23] MEDS: metOLazone 5 MG TABLET PO SCH (13:06)
--- NOTE | 2018-09-23 14:48 | Electrocardiograph Report ---
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
[2018-09-23] MEDS ORDERED: Warfarin perPT PO PRN (18:00)
[2018-09-23] MEDS ORDERED: *HR* Warfarin 4 MG TABLET PO ONE (18:00)
[2018-09-24 08:02] LABS: Basophils # 0.1 K/mcL (0.0-0.2); Basophils % 0.6 %; Eosinophils # 0.1 K/mcL (0.0-0.6); Eosinophils % 1.6 %; Hematocrit 51.1 % (37.5-50.1); Hemoglobin 15.9 g/dL (12.9-16.9); Immature Granulocytes % 0.5 % (0-4); Lymphocytes # 1.4 K/mcL (0.6-4.6); Lymphocytes % 15.4 %; Mean Corpuscular HGB Conc 31.1 g/dL (31.6-35.5); Mean Corpuscular Hemoglobin 29.7 pg (28.0-33.3); Mean Corpuscular Volume 95.5 fL (83.0-100.0); Mean Platelet Volume 10.1 fL (9.4-12.4); Monocytes # 0.8 K/mcL (0.0-1.3); Monocytes % 9.1 %; Neutrophils # 6.4 K/mcL (1.6-8.9); Platelet Count 187 K/mcL (140-400); Red Blood Count 5.35 M/mcL (4.19-5.50); Red Cell Distribution Width 13.3 % (11.5-14.5); Segmented Neutrophils % 72.8 %; White Blood Count 8.8 K/mcL (4.3-11.1)
[2018-09-24 08:16] LABS: INR 1.4; Prothrombin Time 16.2 Seconds (9.4-12.1)
--- NOTE | 2018-09-24 08:21 | Internal Med Progress Note ---
Hospitalist Progress Note - Encounter Date of Encounter: 09/24/18 Time of Encounter: 11:00 - Subjective Interval History: Patient is a 68-year-old male with history of CHF who presented due to lower extremity edema and shortness of breath secondary to acute on chronic heart failure. - Exam Vitals: Temp Pulse Resp BP Pulse Ox 97.6 F 99 21 120/84 90 09/24/18 03:24 09/24/18 03:24 09/24/18 03:50 09/24/18 03:24 09/24/18 03:50 Exam: Gen.: Nonacute distress, alert and oriented 3 ENT: Mucosal membranes moist Respiratory: Lungs are clear to auscultation bilaterally without any wheezing rhonchi or rales Cardiovascular: Normal S1 and S2 regular rate rhythm no murmurs rubs or gallops Abdomen: Soft, nontender and nondistended with positive bowel sounds Extremities: No lower extremity edema Skin: Normal color - Assessment and Plan (1) Acute exacerbation of CHF (congestive heart failure) Current Visit: Yes Status: Acute Assessment and Plan: Acute CHF exacerbation with chest x-ray showing increased pulmonary vascular congestion and BNP slightly elevated at 191. BNP reported to be significantly elevated on outpatient laboratory workup. Here it was only found to be 191. Echocardiogram showed LVEF of 55% with moderate pulmonary hypertension Will continue IV diuresis with oral metolazone (2) Atrial fibrillation Current Visit: No Status: Acute Assessment and Plan: Will continue rate control with home dose of Cardizem and oral anticoagulation with home dose of Coumadin (3) Obstructive sleep apnea Current Visit: Yes Status: Acute Assessment and Plan: Continue BiPAP at night. (4) Hypoxia Current Visit: Yes Status: Acute Assessment and Plan: Acute hypoxia secondary to CHF exacerbation. Continue O2 supplementation and wean as tolerates DVT Prophylaxis: On Coumadin - Time Spent with Patient Total time spent is greater than 50% in coordination of care (as documented) at patient's floor/unit and/or counseling patient: Internal Medicine: Result - Labs CBC & Chem 7: 09/25/18 08:43 09/25/18 08:43 Labs: Short CBC 09/23/18 09/24/18 Range/Units 08:21 07:24 WBC 7.2 8.8 (4.3-11.1) K/mcL Hgb 15.1 15.9 (12.9-16.9) g/dL Hct 48.6 51.1 H (37.5-50.1) % Plt Count 171 187 (140-400) K/mcL Neutrophils # 5.3 6.4 (1.6-8.9) K/mcL BMP 09/23/18 08:21 Sodium 140 Potassium 3.7 Chloride 97 L Carbon Dioxide 36 H BUN 15 Creatinine 0.81 Glucose 106 H Calcium 8.9 Liver Function 09/23/18 Range/Units 08:21 Total Bilirubin 1.1 H (0.3-1.0) mg/dL AST 23 (13-39) Units/L ALT 34 (7-52) Units/L Alkaline Phosphatase 95 (34-104) Units/L Albumin 3.9 (3.5-5.7) g/dL - ABG Interpretation ABG results: PT/INR, D-dimer PT 17.7 Seconds (9.4-12.1) H 09/22/18 17:44 - Impressions Impressions Echocardiogram 09/23/18 00:21 Impressions: LVEF 55%. Normal LV chamber size and function. Mild concentric left ventricular hypertrophy. Indeterminate diastolic function. Atypical septal motion consistent with bundle branch block. Mildly dilated right ventricle with normal appearing function. Moderate pulmonary hypertension. No significant valvular dysfunction. Left Ventricular Wall Motion: Rest Echo Findings All wall segments showed normal motion. Findings: Study Quality * Technically sub-optimal due to body habitus. ECG Findings * Atrial fibrillation, BBB, sometimes with RVR. Left Ventricle * LVEF 55%. * Normal LV chamber size and function. * Mild concentric left ventricular hypertrophy. * Indeterminate diastolic function. * Atypical septal motion consistent with bundle branch block. Right Ventricle * Mildly dilated right ventricle with normal appearing function. Left Atrium * Severely dilated left atrium. Right Atrium * Severely dilated right atrium. Aortic Valve * Aortic valve not well visualized. * No aortic regurgitation. * No aortic stenosis. Mitral Valve * Normal mitral valve structure and function. * No mitral regurgitation. * No mitral stenosis. Tricuspid Valve * Normal tricuspid valve structure and function. * Trace tricuspid regurgitation. * Moderate pulmonary hypertension. Pulmonic Valve * Pulmonic valve not well visualized. * No pulmonic regurgitation. Aorta * Normally sized aortic root. Pericardium * The pericardium appears normal. IVC * Normal IVC dimensions and inspiratory collapse. Pulmonary Artery * Normal visualized portions of the main pulmonary artery. Consult Discharge Plan - Plan Referrals: Ruiz Dumont MD [Primary Care Provider] - (1) Acute exacerbation of CHF (congestive heart failure) Qualifiers: Heart failure type: unspecified Qualified Code(s): I50.9 - Heart failure, unspecified (2) Atrial fibrillation Qualifiers: Atrial fibrillation type: unspecified Qualified Code(s): I48.91 - Unspecified atrial fibrillation
[2018-09-24 08:33] LABS: BUN/Creatinine Ratio 25 (6-26); Blood Urea Nitrogen 24 mg/dL (6-20); Calcium 9.7 mg/dL (8.6-10.3); Carbon Dioxide 41 mEq/L (23-29); Chloride 89 mEq/L (98-107); Glucose 92 mg/dL (70-105); Magnesium 2.2 mg/dL (1.6-2.6); Osmolality,Calculated 292 (280-300); Phosphorous 4.3 mg/dL (2.7-4.5); Potassium 3.8 mEq/L (3.5-5.1); Sodium 139 mEq/L (136-145); eGFR For African Americans > 60 (> 60); eGFR For Non-African Americans > 60 (> 60)
[2018-09-24] MEDS: metOLazone 5 MG TABLET PO SCH (09:07)
[2018-09-24] MEDS: Furosemide 40 MG/4 ML VIAL IVP SCH ×2 (09:54→17:08)
[2018-09-24] MEDS ORDERED: *HR* Warfarin 4 MG TABLET PO ONE (18:00)
[2018-09-25] MEDS: metOLazone 5 MG TABLET PO SCH (07:31)
[2018-09-25] MEDS: Furosemide 40 MG/4 ML VIAL IVP SCH ×2 (08:54→16:04)
[2018-09-25 09:49] LABS: Basophils # 0.1 K/mcL (0.0-0.2); Basophils % 0.4 %; Eosinophils # 0.2 K/mcL (0.0-0.6); Eosinophils % 1.6 %; Hematocrit 51.5 % (37.5-50.1); Hemoglobin 16.5 g/dL (12.9-16.9); Immature Granulocytes % 0.5 % (0-4); Lymphocytes # 2.2 K/mcL (0.6-4.6); Lymphocytes % 19.5 %; Mean Corpuscular Hemoglobin 30.4 pg (28.0-33.3); Mean Corpuscular Volume 94.8 fL (83.0-100.0); Mean Platelet Volume 10.8 fL (9.4-12.4); Monocytes % 8.6 %; Neutrophils # 7.7 K/mcL (1.6-8.9); Platelet Count 222 K/mcL (140-400); Red Blood Count 5.43 M/mcL (4.19-5.50); Red Cell Distribution Width 13.4 % (11.5-14.5); Segmented Neutrophils % 69.4 %; White Blood Count 11.2 K/mcL (4.3-11.1)
[2018-09-25 10:03] LABS: INR 2.4
[2018-09-25 10:09] LABS: BUN/Creatinine Ratio 32 (6-26); Blood Urea Nitrogen 40 mg/dL (6-20); Calcium 9.8 mg/dL (8.6-10.3); Carbon Dioxide 42 mEq/L (23-29); Chloride 85 mEq/L (98-107); Glucose 110 mg/dL (70-105); Magnesium 2.4 mg/dL (1.6-2.6); Osmolality,Calculated 296 (280-300); Phosphorous 4.6 mg/dL (2.7-4.5); Potassium 3.5 mEq/L (3.5-5.1); Sodium 138 mEq/L (136-145); eGFR For African Americans > 60 (> 60); eGFR For Non-African Americans 59 (> 60)
--- NOTE | 2018-09-25 14:23 | Discharge Summary ---
Orders not resulted at time of discharge: Pending orders 09/26/18 04:00 Basic Metabolic Panel AM 0400 CBC [Complete Blood Count] [HEME] AM 0400 Magnesium AM 0400 Phosphorous AM 0400 Prothrombin Time INR [COAG] AM 0400 09/27/18 04:00 Basic Metabolic Panel AM 0400 CBC [Complete Blood Count] [HEME] AM 0400 Magnesium AM 0400 Phosphorous AM 0400 Prothrombin Time INR [COAG] AM 0400 09/28/18 04:00 Basic Metabolic Panel AM 0400 CBC [Complete Blood Count] [HEME] AM 0400 Magnesium AM 0400 Phosphorous AM 0400 Prothrombin Time INR [COAG] AM 0400 09/29/18 04:00 Basic Metabolic Panel AM 0400 CBC [Complete Blood Count] [HEME] AM 0400 Magnesium AM 0400 Phosphorous AM 0400 Prothrombin Time INR [COAG] AM 0400 09/30/18 04:00 Prothrombin Time INR [COAG] AM 0400 Date of Encounter: 09/25/18 Time of Encounter: 11:00 - Discharge Diagnosis (1) Acute exacerbation of CHF (congestive heart failure) Priority: Primary Status: Acute Qualifiers: Heart failure type: unspecified Qualified Code(s): I50.9 - Heart failure, unspecified (2) Atrial fibrillation Priority: Secondary Status: Acute Qualifiers: Atrial fibrillation type: unspecified Qualified Code(s): I48.91 - Unspecified atrial fibrillation (3) Obstructive sleep apnea Priority: Secondary Status: Acute (4) Hypoxia Priority: Secondary Status: Acute Hospital course: Patient is a 58-year-old male with past medical history significant for atrial fibrillation, CHF, COPD, DVT and obstructive sleep apnea who presented to the ED due to elevated BNP and worsening lower extremity edema. Patient states he recently went to see his physician because he was having issues with urinary incontinence which he has noted previously when he becomes fluid overloaded. Laboratory workup was ordered and patient was notified today of the results including a significantly elevated BNP and was advised to come into the hospital. In the ER patient was found to have a BNP of 191 and chest x-ray showed vascular congestion. Patient was admitted to medical surgical floor for acute on chronic heart failure. - Time Spent with Patient Total time spent providing and/or coordinating discharge services: Time spent: Less than 30 minutes - Discharge Medications Prescriptions: Continued Metoprolol [Lopressor] 100 mg PO BID #60 tablet Diltiazem CD (24hr) [Cardizem CD] 360 mg PO DAILY Furosemide [Lasix] 20 mg PO QAM Furosemide [Lasix] 10 mg PO HS Quetiapine Fumarate [Seroquel] 25 mg PO HS Warfarin [Coumadin] 3.75 mg PO DAILY@1800 Home Medications: Metoprolol [Lopressor] 100 mg PO BID #60 tablet 07/15/16 [Rx] Diltiazem CD (24hr) [Cardizem CD] 360 mg PO DAILY 09/23/18 [History] Furosemide [Lasix] 10 mg PO HS 09/23/18 [History] Furosemide [Lasix] 20 mg PO QAM 09/23/18 [History] Quetiapine Fumarate [Seroquel] 25 mg PO HS 09/23/18 [History] Warfarin [Coumadin] 3.75 mg PO DAILY@1800 09/23/18 [History] Allergies/Adverse Reactions: Allergy/AdvReac Type Severity Reaction Status Date / Time No Known Allergies Allergy Verified 09/23/18 19:48 Date of admission: 09/22/18 21:46 Primary care physician: Ruiz Dumont MD Consults: 09/23/18 00:19 Consult to Cardiac Rehabilitation-Phase1 [CONS] Routine Comment: Reason for Consult: heart failure Call Completed: Yes Consult to Nurse Navigator [CONS] Routine Comment: - Constitutional Vitals: Temp Pulse Resp BP Pulse Ox 98.4 F 98 19 103/73 92 09/25/18 12:09 09/25/18 12:09 09/25/18 12:09 09/25/18 12:09 09/25/18 12:09 Exam: Gen.: Nonacute distress, alert and oriented 3 Skin: Normal color - Patient Status Disposition: Home, Self-Care Condition: Fair - Discharge Instructions Instructions: Heart Failure (DC), How to Stop Smoking (DC) Follow Up With: Ruiz Dumont MD [Primary Care Provider] - (Please call on discharge and make follow up appointment within 7-10 days. )
--- NOTE | 2018-09-25 15:52 | Event Note ---
Date of Encounter: 09/25/18 Time of Encounter: 15:00 Nursing staff called after since discharge orders were completed to state that patient now in A. fib with RVR. Discharge orders have been canceled and patient will be kept overnight. One-time dose of Cardizem bolus was given and will monitor in case patient will need Cardizem drip
[2018-09-25] MEDS ORDERED: *HR* Warfarin 4 MG TABLET PO ONE (18:00)
[2018-09-26 06:59] LABS: Basophils # 0.1 K/mcL (0.0-0.2); Basophils % 0.5 %; Eosinophils # 0.2 K/mcL (0.0-0.6); Eosinophils % 1.9 %; Hematocrit 53.2 % (37.5-50.1); Hemoglobin 17.5 g/dL (12.9-16.9); Immature Granulocytes % 0.5 % (0-4); Lymphocytes % 19.2 %; Mean Corpuscular HGB Conc 32.9 g/dL (31.6-35.5); Mean Corpuscular Volume 94.2 fL (83.0-100.0); Mean Platelet Volume 10.6 fL (9.4-12.4); Monocytes # 1.1 K/mcL (0.0-1.3); Monocytes % 10.6 %; Neutrophils # 6.9 K/mcL (1.6-8.9); Platelet Count 214 K/mcL (140-400); Red Blood Count 5.65 M/mcL (4.19-5.50); Red Cell Distribution Width 13.2 % (11.5-14.5); Segmented Neutrophils % 67.3 %; White Blood Count 10.3 K/mcL (4.3-11.1)
[2018-09-26 07:05] LABS: Prothrombin Time 33.3 Seconds (9.4-12.1)
[2018-09-26 07:23] LABS: BUN/Creatinine Ratio 39 (6-26); Blood Urea Nitrogen 55 mg/dL (6-20); Calcium 10.1 mg/dL (8.6-10.3); Carbon Dioxide 44 mEq/L (23-29); Chloride 84 mEq/L (98-107); Glucose 100 mg/dL (70-105); Magnesium 2.4 mg/dL (1.6-2.6); Osmolality,Calculated 301 (280-300); Phosphorous 4.4 mg/dL (2.7-4.5); Potassium 3.1 mEq/L (3.5-5.1); Sodium 138 mEq/L (136-145); eGFR For African Americans > 60 (> 60); eGFR For Non-African Americans 51 (> 60)
[2018-09-26] MEDS ORDERED: Potassium Chloride 20 MEQ, Lidocaine 1% 2 ML in D5% in Water 250 ML IVPB ONE (07:52)
[2018-09-26 08:05] LABS: ABG Base Excess 18 mEq/L (-2 to 3); ABG HCO3 46 mEq/L (21-27); ABG Oxygen Saturation 91 % (95-98); ABG PCO2 56 mmHg (35-45); ABG PH 7.52 pH Units (7.32-7.45); ABG PO2 56 mmHg (85-104); ABG TCO2 47 mEq/L (20-26)
[2018-09-26] MEDS: metOLazone 5 MG TABLET PO SCH (09:02)
[2018-09-26] MEDS: Diltiazem CD (24hr) 180 MG CAPSULE PO SCH (09:03)
--- NOTE | 2018-09-26 10:43 | Internal Med Progress Note ---
Hospitalist Progress Note - Encounter Date of Encounter: 09/26/18 Time of Encounter: 10:39 - Subjective Interval History: Patient seen and examined at bedside. Pt sitting in chair and reports of feeling better compared to previous day. Denies any shortness of breath and states he has not been wearing bipap for the last couple of nights. Reports of being compliant with bipap support at home. Pt was noted to be in Afib with RVR yesterday due to which his discharge was placed on hold. Pt's home dose of cardizem PO is started this morning and currently rate is appropriately controlled He is noted to have DARION likely secondary to diuretic therapy due to which discharge is still on hold. Ten point ROS is negative except as listed above - Exam Vitals: Temp Pulse Resp BP Pulse Ox 97.9 F 82 18 124/81 90 09/26/18 08:16 09/26/18 08:16 09/26/18 08:16 09/26/18 08:16 09/26/18 08:16 Exam: General: No acute distress, AAO x 3, morbidly obese HEENT: EOMI, PERRLA, NC/AT, no scleral icterus Respiratory: Scattered wheezing, equal air entry bilaterally, no rales Cardiovascular: Regular, Rate, Rhythm, No murmurs GI: Soft, Non tender, non distended, normal bowel sounds Ext: trace pedal edema, no tenderness, positive pulses Neuro: AAO x 3, no focal deficits Rest of the clinical exam is noncontributory - Assessment and Plan (1) Acute kidney injury Current Visit: Yes Status: Acute Assessment and Plan: Likely secondary to diuretic therapy Hold all diuretic therapy at this time patient's compliance with home meds is questionable as he improved significantly with diuretic support Medication compliance is reinforced will closely monitor renal function (2) Metabolic acidosis with respiratory alkalosis Current Visit: Yes Status: Acute Assessment and Plan: Likely secondary to diuretic therapy with decompensation of COPD given noncompliance with bipap support will hold diuretic therapy at this time Bipap support compliance with bipap reinforced will closely monitor (3) Atrial fibrillation Current Visit: No Status: Chronic Assessment and Plan: Chronic hx of Afib Rate controlled with Metoprolol and Cardizem continue home dose of Metoprolol and Cardizem anticoagulated with Coumadin Pharmacist to dose coumadin, to maintain goal INR: 2-3 (4) Acute exacerbation of CHF (congestive heart failure) Current Visit: Yes Status: Acute Assessment and Plan: Resolved holding all diuretic support at this time given renal insufficiency will continue home dose of Metoprolol closely monitor daily weights, strict I/Os continue fluid restriction diet continue to closely monitor respiratory status (5) Hypokalemia Current Visit: Yes Status: Acute Assessment and Plan: K supplemented continue to monitor electrolytes and replace as needed (6) Obstructive sleep apnea Current Visit: Yes Status: Chronic Assessment and Plan: Continue BiPAP support (7) Morbid obesity Current Visit: Yes Status: Chronic (8) COPD (chronic obstructive pulmonary disease) Current Visit: No Status: Chronic Assessment and Plan: Bronchodilator support pt will benefit from outpatient pulmonary evaluation DVT Prophylaxis: anticoagulated with coumadin - Time Spent with Patient Total time spent is greater than 50% in coordination of care (as documented) at patient's floor/unit and/or counseling patient: Internal Medicine: Result - Labs CBC & Chem 7: 09/26/18 06:20 09/26/18 06:20 Labs: Short CBC 09/26/18 Range/Units 06:20 WBC 10.3 (4.3-11.1) K/mcL Hgb 17.5 H (12.9-16.9) g/dL Hct 53.2 H (37.5-50.1) % Plt Count 214 (140-400) K/mcL Neutrophils # 6.9 (1.6-8.9) K/mcL BMP 09/26/18 06:20 Sodium 138 Potassium 3.1 L Chloride 84 L Carbon Dioxide 44 H* BUN 55 H Creatinine 1.42 H Glucose 100 Calcium 10.1 - ABG Interpretation ABG results: ABG ABG pH 7.52 pH Units (7.32-7.45) H 09/26/18 08:02 ABG pCO2 56 mmHg (35-45) H 09/26/18 08:02 ABG pO2 56 mmHg (85-104) L 09/26/18 08:02 ABG O2 Saturation 91 % (95-98) L 09/26/18 08:02 PT/INR, D-dimer PT 33.3 Seconds (9.4-12.1) H 09/26/18 06:20 Consult Discharge Plan - Plan Instructions: Heart Failure (DC), How to Stop Smoking (DC) Referrals: Ruiz Dumont MD [Primary Care Provider] - (Please call on discharge and make follow up appointment within 7-10 days. ) (3) Atrial fibrillation Qualifiers: Atrial fibrillation type: chronic Qualified Code(s): I48.2 - Chronic atrial fibrillation (4) Acute exacerbation of CHF (congestive heart failure) Qualifiers: Heart failure type: unspecified Qualified Code(s): I50.9 - Heart failure, unspecified (8) COPD (chronic obstructive pulmonary disease) Qualifiers: COPD type: unspecified COPD Qualified Code(s): J44.9 - Chronic obstructive pulmonary disease, unspecified
[2018-09-26] MEDS: Ipratropium/Albuterol Neb 3 ML IH SCH ×4 (11:19→19:43)
[2018-09-27] MEDS: Ipratropium/Albuterol Neb 3 ML IH SCH ×4 (00:39→11:19)
[2018-09-27] MEDS ORDERED: metOLazone 5 MG TABLET PO SCH (07:30)
[2018-09-27 07:33] LABS: Basophils # 0.1 K/mcL (0.0-0.2); Basophils % 0.5 %; Eosinophils # 0.2 K/mcL (0.0-0.6); Eosinophils % 1.6 %; Hematocrit 49.4 % (37.5-50.1); Hemoglobin 16.1 g/dL (12.9-16.9); Immature Granulocytes % 0.3 % (0-4); Lymphocytes # 1.7 K/mcL (0.6-4.6); Mean Corpuscular HGB Conc 32.6 g/dL (31.6-35.5); Mean Corpuscular Hemoglobin 30.7 pg (28.0-33.3); Mean Corpuscular Volume 94.1 fL (83.0-100.0); Mean Platelet Volume 10.5 fL (9.4-12.4); Monocytes # 1.1 K/mcL (0.0-1.3); Monocytes % 11.4 %; Neutrophils # 6.3 K/mcL (1.6-8.9); Platelet Count 192 K/mcL (140-400); Red Blood Count 5.25 M/mcL (4.19-5.50); Red Cell Distribution Width 13.2 % (11.5-14.5); Segmented Neutrophils % 68.2 %; White Blood Count 9.3 K/mcL (4.3-11.1)
[2018-09-27 07:47] LABS: INR 2.7; Prothrombin Time 30.3 Seconds (9.4-12.1)
[2018-09-27 07:57] LABS: BUN/Creatinine Ratio 44 (6-26); Blood Urea Nitrogen 52 mg/dL (6-20); Calcium 9.7 mg/dL (8.6-10.3); Carbon Dioxide 43 mEq/L (23-29); Chloride 86 mEq/L (98-107); Glucose 103 mg/dL (70-105); Magnesium 2.7 mg/dL (1.6-2.6); Osmolality,Calculated 296 (280-300); Potassium 3.2 mEq/L (3.5-5.1); Sodium 136 mEq/L (136-145); eGFR For African Americans > 60 (> 60); eGFR For Non-African Americans > 60 (> 60)
[2018-09-27 08:02] VITALS: BP 122/85
[2018-09-27] MEDS: Diltiazem CD (24hr) 180 MG CAPSULE PO SCH (10:16)
[2018-09-27] MEDS ORDERED: Furosemide 40 MG TABLET PO SCH (10:30)
--- NOTE | 2018-09-27 11:28 | Internal Med Progress Note ---
Hospitalist Progress Note - Encounter Date of Encounter: 09/27/18 Time of Encounter: 11:26 - Subjective Interval History: Patient seen and examined earlier today. Sitting in chair and breathing comfortably, saturating well on room air. Reports of wearing the bipap overnight. Pt denies any sob, chest pain. Rate appropriately controlled. Pt wishes to be discharged to home. No overnight events reported. Pt is medically stable for discharge to home with outpatient follow up with PCP and cardiology He is educated about the change in his home dose of lasix Extensive smoking cessation counseling has been provided. pt will be discharged to home today DARION resolved. - Exam Vitals: Temp Pulse Resp BP Pulse Ox 97.7 F 94 17 122/85 93 09/27/18 08:01 09/27/18 08:01 09/27/18 11:20 09/27/18 08:01 09/27/18 11:20 Exam: General: No acute distress, AAO x 3, morbidly obese HEENT: EOMI, PERRLA, NC/AT, no scleral icterus Respiratory: Equal air entry bilaterally, no rales, no wheezing Cardiovascular: Regular, Rate, Rhythm, No murmurs GI: Soft, Non tender, non distended, normal bowel sounds Ext: trace pedal edema, no tenderness, positive pulses Neuro: AAO x 3, no focal deficits Rest of the clinical exam is noncontributory - Assessment and Plan (1) Acute kidney injury Current Visit: Yes Status: Resolved (2) Metabolic acidosis with respiratory alkalosis Current Visit: Yes Status: Acute (3) Atrial fibrillation Current Visit: No Status: Chronic (4) Acute exacerbation of CHF (congestive heart failure) Current Visit: Yes Status: Acute (5) Hypokalemia Current Visit: Yes Status: Acute Assessment and Plan: K supplemented (6) Obstructive sleep apnea Current Visit: Yes Status: Chronic (7) Morbid obesity Current Visit: Yes Status: Chronic (8) COPD (chronic obstructive pulmonary disease) Current Visit: No Status: Chronic - Time Spent with Patient Total time spent is greater than 50% in coordination of care (as documented) at patient's floor/unit and/or counseling patient: Plan of Care Discussed with: patient (patient/RN/pharmacist) Internal Medicine: Result - Labs CBC & Chem 7: 09/27/18 07:15 09/27/18 07:15 Labs: Short CBC 09/27/18 Range/Units 07:15 WBC 9.3 (4.3-11.1) K/mcL Hgb 16.1 (12.9-16.9) g/dL Hct 49.4 (37.5-50.1) % Plt Count 192 (140-400) K/mcL Neutrophils # 6.3 (1.6-8.9) K/mcL BMP 09/27/18 07:15 Sodium 136 Potassium 3.2 L Chloride 86 L Carbon Dioxide 43 H* BUN 52 H Creatinine 1.19 Glucose 103 Calcium 9.7 - ABG Interpretation ABG results: ABG ABG pH 7.52 pH Units (7.32-7.45) H 09/26/18 08:02 ABG pCO2 56 mmHg (35-45) H 09/26/18 08:02 ABG pO2 56 mmHg (85-104) L 09/26/18 08:02 ABG O2 Saturation 91 % (95-98) L 09/26/18 08:02 PT/INR, D-dimer PT 30.3 Seconds (9.4-12.1) H 09/27/18 07:15 Consult Discharge Plan - Plan Instructions: Heart Failure (DC), How to Stop Smoking (DC) Additional Instructions: Please follow up with your primary care physician within three to five days after your discharge from the hospital. Your home dose of Lasix has been changed to 40mg once a day Please continue all your other home medications as prescribed by your PCP. Please continue to wear bipap at bedtime Please seek medical help immediately if you have difficulty breathing or if chest pain occurs. Referrals: Ruiz Dumont MD [Primary Care Provider] - (Please call on discharge and make follow up appointment within 7-10 days. ) Prescriptions: RX: Furosemide [Lasix] 40 mg PO DAILY #30 tablet (3) Atrial fibrillation Qualifiers: Atrial fibrillation type: chronic Qualified Code(s): I48.2 - Chronic atrial fibrillation (4) Acute exacerbation of CHF (congestive heart failure) Qualifiers: Heart failure type: unspecified Qualified Code(s): I50.9 - Heart failure, unspecified (8) COPD (chronic obstructive pulmonary disease) Qualifiers: COPD type: unspecified COPD Qualified Code(s): J44.9 - Chronic obstructive pulmonary disease, unspecified
[2018-09-27] MEDS ORDERED: *HR* Warfarin 7.5 MG TABLET PO ONE (18:00)
== END 2018-09-27 12:38 | disposition home or self-care (01) ==
LOC: EMEROOARM 15:52 → 2ANU 15:52 → SUATTDRO 21:46 → 2ANU 23:31
PROVIDERS: ADMIT Internal Medicine; ATTEND Internal Medicine

== ENCOUNTER 2019-09-12 16:16 | Inpatient (IN) ==
[2019-09-12 17:03] LABS: Basophils % 0.4 %; Eosinophils # 0.4 K/mcL (0.0-0.6); Eosinophils % 4.6 %; Hematocrit 45.8 % (37.5-50.1); Hemoglobin 14.1 g/dL (12.9-16.9); Immature Granulocytes % 0.6 % (0-4); Lymphocytes # 1.2 K/mcL (0.6-4.6); Lymphocytes % 12.4 %; Mean Corpuscular HGB Conc 30.8 g/dL (31.6-35.5); Mean Corpuscular Hemoglobin 31.1 pg (28.0-33.3); Mean Corpuscular Volume 100.9 fL (83.0-100.0); Mean Platelet Volume 10.6 fL (9.4-12.4); Monocytes # 0.7 K/mcL (0.0-1.3); Monocytes % 7.4 %; Neutrophils # 7.1 K/mcL (1.6-8.9); Platelet Count 190 K/mcL (140-400); Red Blood Count 4.54 M/mcL (4.19-5.50); Red Cell Distribution Width 14.2 % (11.5-14.5); Segmented Neutrophils % 74.6 %; White Blood Count 9.5 K/mcL (4.3-11.1)
[2019-09-12 17:12] LABS: INR 1.7; Prothrombin Time 19.6 Seconds (9.4-12.1)
[2019-09-12 17:24] LABS: BUN/Creatinine Ratio 25 (6-26); Blood Urea Nitrogen 28 mg/dL (6-20); Calcium 8.8 mg/dL (8.6-10.3); Carbon Dioxide 33 mEq/L (23-29); Chloride 100 mEq/L (98-107); Glucose 115 mg/dL (70-105); Osmolality,Calculated 292 (280-300); Potassium 4.1 mEq/L (3.5-5.1); Sodium 138 mEq/L (136-145); Troponin I < 0.03 ng/mL (< 0.04); eGFR For African Americans > 60 (> 60); eGFR For Non-African Americans > 60 (> 60)
[2019-09-12] MEDS ORDERED: cefTRIAXone 1,000 MG in Water for inj. (sterile) 10 ML IVP ONE (17:32)
[2019-09-12] MEDS ORDERED: Azithromycin 500 MG in 0.9 % Sodium Chloride 250 ML IVPB ONE (17:32)
[2019-09-12] MEDS ORDERED: Furosemide 40 MG/4 ML VIAL IVP ONE (19:36)
[2019-09-12] MEDS ORDERED: Ondansetron ODT 4 MG TAB.RAPDIS SL PRN (20:44)
[2019-09-12] MEDS ORDERED: Acetaminophen 325 MG TABLET PO PRN (20:44)
[2019-09-12] MEDS ORDERED: Naloxone 0.4 MG/ML INJ IVP PRN (20:44)
[2019-09-12] MEDS ORDERED: Nicotine 21 MG PATCH.TD24 TD PRN (21:10)
[2019-09-12] MEDS ORDERED: Ipratropium/Albuterol Neb 3 ML IH PRN (21:30)
[2019-09-12] MEDS ORDERED: Ipratropium/Albuterol Neb 3 ML IH ONE (21:31)
[2019-09-12] MEDS ORDERED: *HR* Warfarin 7.5 MG TABLET PO SCH (22:50)
[2019-09-12] MEDS: QUEtiapine Fumarate 25 MG TABLET PO SCH (23:46)
[2019-09-13 04:41] LABS: Basophils % 0.4 %; Eosinophils # 0.4 K/mcL (0.0-0.6); Eosinophils % 5.5 %; Hematocrit 45.4 % (37.5-50.1); Hemoglobin 13.7 g/dL (12.9-16.9); Immature Granulocytes % 0.3 % (0-4); Lymphocytes # 1.2 K/mcL (0.6-4.6); Lymphocytes % 16.9 %; Mean Corpuscular HGB Conc 30.2 g/dL (31.6-35.5); Mean Corpuscular Hemoglobin 31.1 pg (28.0-33.3); Mean Corpuscular Volume 103.2 fL (83.0-100.0); Monocytes # 0.6 K/mcL (0.0-1.3); Monocytes % 8.3 %; Neutrophils # 4.7 K/mcL (1.6-8.9); Nucleated Red Blood Cells 0.3 /100 WBC (0); Platelet Count 157 K/mcL (140-400); Red Cell Distribution Width 14.1 % (11.5-14.5); Segmented Neutrophils % 68.6 %; White Blood Count 6.9 K/mcL (4.3-11.1)
[2019-09-13 04:44] LABS: INR 1.7; Prothrombin Time 19.1 Seconds (9.4-12.1)
[2019-09-13 05:00] LABS: Alanine Aminotransferase 23 Units/L (7-52); Albumin 3.4 g/dL (3.5-5.7); Albumin/Globulin Ratio 1.2 (1.1-2.2); Alkaline Phosphatase 83 Units/L (34-104); Aspartate Amino Transferase 18 Units/L (13-39); BUN/Creatinine Ratio 28 (6-26); Bilirubin,Total 0.7 mg/dL (0.3-1.0); Blood Urea Nitrogen 24 mg/dL (6-20); Calcium 8.3 mg/dL (8.6-10.3); Carbon Dioxide 34 mEq/L (23-29); Chloride 101 mEq/L (98-107); Globulin 2.9 g/dL (2.4-3.5); Glucose 93 mg/dL (70-105); Magnesium 2.1 mg/dL (1.6-2.6); Osmolality,Calculated 294 (280-300); Potassium 3.9 mEq/L (3.5-5.1); Sodium 140 mEq/L (136-145); Total Protein 6.3 g/dL (6.4-8.9); eGFR For African Americans > 60 (> 60); eGFR For Non-African Americans > 60 (> 60)
[2019-09-13] MEDS: DilTIAZem CD (24hr) 180 MG CAP.ER.24H PO SCH (08:51)
[2019-09-13] MEDS: Metoprolol 100 MG TABLET PO SCH ×2 (08:51→19:46)
[2019-09-13] MEDS ORDERED: Furosemide 40 MG/4 ML VIAL IVP SCH (09:00)
[2019-09-13] MEDS ORDERED: Warfarin perPT PO PRN (18:00)
[2019-09-13] MEDS ORDERED: *HR* Warfarin 4 MG TABLET PO ONE (18:00)
[2019-09-13] MEDS ORDERED: CefTRIAXone 1,000 MG VIAL IM ONE (18:00)
[2019-09-13] MEDS ORDERED: Azithromycin 250 MG TABLET PO SCH (18:00)
[2019-09-13] MEDS: QUEtiapine Fumarate 25 MG TABLET PO SCH (19:45)
[2019-09-13] MEDS: Furosemide 20 MG/2 ML VIAL IVP SCH (19:46)
[2019-09-13] MEDS ORDERED: Furosemide 20 MG/2 ML VIAL IVP SCH (21:00)
[2019-09-14 04:01] LABS: INR 1.9; Prothrombin Time 21.1 Seconds (9.4-12.1)
[2019-09-14] MEDS: Metoprolol 100 MG TABLET PO SCH ×2 (08:55→21:45)
[2019-09-14] MEDS: DilTIAZem CD (24hr) 180 MG CAP.ER.24H PO SCH (08:55)
[2019-09-14] MEDS: Furosemide 20 MG/2 ML VIAL IVP SCH ×2 (08:55→21:45)
[2019-09-14] MEDS ORDERED: Perflutren Lipid Microsphere 1.3 ML in 0.9 % Sodium Chloride 8.7 ML IVP ONE (17:01)
[2019-09-14] MEDS ORDERED: *HR* Warfarin 4 MG TABLET PO ONE (18:00)
[2019-09-14] MEDS ORDERED: MethylPREDNISolone 40 MG/ML VIAL ONE (18:36)
[2019-09-14] MEDS: MethylPREDNISolone 40 MG/ML VIAL IVP SCH (18:39)
[2019-09-14] MEDS: QUEtiapine Fumarate 25 MG TABLET PO SCH (21:45)
[2019-09-15 01:00] LABS: INR 2.2
[2019-09-15] MEDS: MethylPREDNISolone 40 MG/ML VIAL IVP SCH ×3 (01:28→16:45)
[2019-09-15] MEDS: Metoprolol 100 MG TABLET PO SCH ×2 (08:47→22:09)
[2019-09-15] MEDS: Furosemide 20 MG/2 ML VIAL IVP SCH ×2 (08:47→22:09)
[2019-09-15] MEDS: DilTIAZem CD (24hr) 180 MG CAP.ER.24H PO SCH (08:47)
[2019-09-15 10:51] LABS: ABG Base Excess 11 mEq/L (-2 to 3); ABG HCO3 39 mEq/L (21-27); ABG Oxygen Saturation 92 % (95-98); ABG PCO2 66 mmHg (35-45); ABG PH 7.38 pH Units (7.32-7.45); ABG PO2 69 mmHg (85-104); ABG TCO2 41 mEq/L (20-26)
[2019-09-15] MEDS ORDERED: MethylPREDNISolone 40 MG/ML VIAL IVP SCH (16:45)
[2019-09-15] MEDS ORDERED: *HR* Warfarin 4 MG TABLET PO ONE (18:00)
[2019-09-15] MEDS: QUEtiapine Fumarate 25 MG TABLET PO SCH (22:09)
[2019-09-16] MEDS: MethylPREDNISolone 40 MG/ML VIAL IVP SCH ×4 (01:13→23:20)
[2019-09-16 02:13] LABS: INR 2.7; Prothrombin Time 30.9 Seconds (9.4-12.1)
[2019-09-16] MEDS: DilTIAZem CD (24hr) 180 MG CAP.ER.24H PO SCH (08:45)
[2019-09-16] MEDS: Metoprolol 100 MG TABLET PO SCH ×2 (08:46→21:04)
[2019-09-16 09:22] LABS: BUN/Creatinine Ratio 27 (6-26); Blood Urea Nitrogen 25 mg/dL (6-20); Calcium 8.6 mg/dL (8.6-10.3); Carbon Dioxide 37 mEq/L (23-29); Chloride 94 mEq/L (98-107); Glucose 286 mg/dL (70-105); Osmolality,Calculated 297 (280-300); Potassium 3.8 mEq/L (3.5-5.1); Sodium 136 mEq/L (136-145); eGFR For African Americans > 60 (> 60); eGFR For Non-African Americans > 60 (> 60)
[2019-09-16] MEDS: Furosemide 20 MG/2 ML VIAL IVP SCH ×2 (10:06→21:04)
[2019-09-16] MEDS ORDERED: *HR* Warfarin 2.5 MG TABLET PO ONE (18:00)
[2019-09-16] MEDS: QUEtiapine Fumarate 25 MG TABLET PO SCH (21:04)
[2019-09-17 06:56] LABS: INR 3.2
[2019-09-17] MEDS: DilTIAZem CD (24hr) 180 MG CAP.ER.24H PO SCH (08:44)
[2019-09-17] MEDS: MethylPREDNISolone 40 MG/ML VIAL IVP SCH (08:44)
[2019-09-17] MEDS: Metoprolol 100 MG TABLET PO SCH (08:44)
[2019-09-17] MEDS: Furosemide 20 MG/2 ML VIAL IVP SCH (08:45)
[2019-09-17 12:03] VITALS: BP 145/89
== END 2019-09-17 13:23 | disposition home or self-care (01) | DRG 194 ==
LOC: 2NENU 16:16 → EMEROOARM 16:16 → 2NENU 20:09 → 2ANU 09-14 14:48 → SUATTDRO 09-14 17:41
PROVIDERS: ADMIT Family Medicine; ATTEND Internal Medicine

== ENCOUNTER 2019-12-25 18:57 | Observation (INO) ==
[2019-12-25] MEDS ORDERED: Furosemide 40 MG/4 ML VIAL IVP ONE (19:45)
[2019-12-25] MEDS ORDERED: Ipratropium/Albuterol Neb 3 ML IH ONE (19:45)
[2019-12-25 20:02] LABS: Basophils % 0.5 %; Eosinophils # 0.3 K/mcL (0.0-0.6); Eosinophils % 3.5 %; Hematocrit 40.9 % (37.5-50.1); Hemoglobin 12.3 g/dL (12.9-16.9); Immature Granulocytes % 0.4 % (0-4); Lymphocytes # 1.3 K/mcL (0.6-4.6); Lymphocytes % 15.8 %; Mean Corpuscular HGB Conc 30.1 g/dL (31.6-35.5); Mean Corpuscular Hemoglobin 30.7 pg (28.0-33.3); Mean Platelet Volume 10.6 fL (9.4-12.4); Monocytes # 0.8 K/mcL (0.0-1.3); Monocytes % 9.8 %; Neutrophils # 5.6 K/mcL (1.6-8.9); Platelet Count 171 K/mcL (140-400); Red Blood Count 4.01 M/mcL (4.19-5.50); Red Cell Distribution Width 13.7 % (11.5-14.5)
[2019-12-25 20:11] LABS: INR 1.6; Prothrombin Time 18.4 Seconds (9.4-12.1)
[2019-12-25 20:13] LABS: BUN/Creatinine Ratio 24 (6-26); Blood Urea Nitrogen 23 mg/dL (6-20); Calcium 8.9 mg/dL (8.6-10.3); Carbon Dioxide 41 mEq/L (23-29); Chloride 98 mEq/L (98-107); Glucose 108 mg/dL (70-105); Osmolality,Calculated 298 (280-300); Potassium 3.9 mEq/L (3.5-5.1); Sodium 142 mEq/L (136-145); Troponin I < 0.03 ng/mL (< 0.04); eGFR For African Americans > 60 (> 60); eGFR For Non-African Americans > 60 (> 60)
[2019-12-25] MEDS ORDERED: methylPREDNISolone 125 MG/2 ML VIAL IVP ONE (20:21)
[2019-12-25] MEDS ORDERED: Azithromycin 500 MG in 0.9 % Sodium Chloride 250 ML IVPB ONE (21:07)
[2019-12-25] MEDS ORDERED: Naloxone 0.4 MG/ML INJ IVP PRN (22:05)
[2019-12-25] MEDS ORDERED: Ondansetron 4 MG/2 ML VIAL IVP PRN (22:05)
[2019-12-25] MEDS ORDERED: Ipratropium/Albuterol Neb 3 ML IH PRN (22:10)
[2019-12-25 23:23] LABS: Adenovirus Not Detected (Not Detect); Bordetella Pertussis Not Detected (Not Detect); Chlamydophila pneumoniae Not Detected (Not Detect); Coronavirus 229E Not Detected (Not Detect); Coronavirus HKU1 Not Detected (Not Detect); Coronavirus NL63 Not Detected (Not Detect); Coronavirus OC43 Not Detected (Not Detect); Human Metapneumovirus Not Detected (Not Detect); Human Rhinovirus/Enterovirus Not Detected (Not Detect); Influenza A Subtype 2009 H1 Not Detected (Not Detect); Influenza B Not Detected (Not Detect); Mycoplasma pneumoniae Not Detected (Not Detect); Parainfluenza Virus 1 Not Detected (Not Detect); Parainfluenza Virus 2 Not Detected (Not Detect); Parainfluenza Virus 3 Not Detected (Not Detect); Parainfluenza Virus 4 Not Detected (Not Detect); Respiratory Syncytial Virus Not Detected (Not Detect); SARS-CoV-2 Not Detected (Not Detect)
[2019-12-25] MEDS: Ipratropium/Albuterol Neb 3 ML IH SCH (23:36)
[2019-12-26] MEDS ORDERED: QUEtiapine Fumarate 25 MG TABLET PO PRN (00:33)
[2019-12-26] MEDS: Ipratropium/Albuterol Neb 3 ML IH SCH ×6 (03:49→23:18)
[2019-12-26] MEDS: *HR* Heparin 5,000 UNIT/ML VIAL SQ SCH ×3 (05:04→21:40)
[2019-12-26 05:34] LABS: INR 1.4; Prothrombin Time 16.2 Seconds (9.4-12.1)
[2019-12-26 05:36] LABS: Basophils % 0.1 %; Eosinophils % 0.1 %; Hematocrit 42.8 % (37.5-50.1); Hemoglobin 12.6 g/dL (12.9-16.9); Immature Granulocytes % 0.9 % (0-4); Lymphocytes # 0.5 K/mcL (0.6-4.6); Lymphocytes % 5.7 %; Mean Corpuscular HGB Conc 29.4 g/dL (31.6-35.5); Mean Corpuscular Hemoglobin 29.6 pg (28.0-33.3); Mean Corpuscular Volume 100.5 fL (83.0-100.0); Mean Platelet Volume 10.6 fL (9.4-12.4); Monocytes # 0.1 K/mcL (0.0-1.3); Neutrophils # 7.5 K/mcL (1.6-8.9); Platelet Count 161 K/mcL (140-400); Red Blood Count 4.26 M/mcL (4.19-5.50); Red Cell Distribution Width 13.6 % (11.5-14.5); Segmented Neutrophils % 92.2 %; White Blood Count 8.1 K/mcL (4.3-11.1)
[2019-12-26 06:05] LABS: BUN/Creatinine Ratio 28 (6-26); Blood Urea Nitrogen 21 mg/dL (6-20); Calcium 8.7 mg/dL (8.6-10.3); Carbon Dioxide 38 mEq/L (23-29); Chloride 96 mEq/L (98-107); Glucose 176 mg/dL (70-105); Osmolality,Calculated 297 (280-300); Potassium 3.9 mEq/L (3.5-5.1); Sodium 140 mEq/L (136-145); eGFR For African Americans > 60 (> 60); eGFR For Non-African Americans > 60 (> 60)
[2019-12-26] MEDS: Metoprolol 100 MG TABLET PO SCH ×2 (09:23→21:40)
[2019-12-26] MEDS: DilTIAZem CD (24hr) 180 MG CAP.ER.24H PO SCH (09:23)
[2019-12-26] MEDS: MethylPREDNISolone 40 MG/ML VIAL IVP SCH ×2 (09:24→21:40)
[2019-12-26] MEDS: Furosemide 40 MG/4 ML VIAL IVP SCH ×2 (09:27→17:31)
[2019-12-26] MEDS ORDERED: *HR* Warfarin 4 MG TABLET PO ONE (18:00)
[2019-12-26] MEDS ORDERED: *HR* Warfarin 3 MG TABLET PO ONE (18:00)
[2019-12-26] MEDS ORDERED: Warfarin perPT PO SCH (18:00)
[2019-12-26] MEDS ORDERED: Azithromycin 500 MG VIAL ONE (21:00)
[2019-12-26] MEDS ORDERED: Azithromycin 500 MG in 0.9 % Sodium Chloride 250 ML IVPB SCH (21:00)
[2019-12-27] MEDS: Ipratropium/Albuterol Neb 3 ML IH SCH ×3 (03:54→11:29)
[2019-12-27] MEDS: *HR* Heparin 5,000 UNIT/ML VIAL SQ SCH (05:28)
[2019-12-27 07:01] LABS: INR 1.3; Prothrombin Time 14.8 Seconds (9.4-12.1)
[2019-12-27] MEDS: Furosemide 40 MG/4 ML VIAL IVP SCH (09:10)
[2019-12-27] MEDS: Metoprolol 100 MG TABLET PO SCH (09:10)
[2019-12-27] MEDS: MethylPREDNISolone 40 MG/ML VIAL IVP SCH (09:10)
[2019-12-27] MEDS: DilTIAZem CD (24hr) 180 MG CAP.ER.24H PO SCH (09:10)
[2019-12-27 11:29] VITALS: BP 107/72
[2019-12-27] MEDS ORDERED: *HR* Warfarin 7.5 MG TABLET PO ONE (18:00)
== END 2019-12-27 14:17 | disposition home or self-care (01) ==
LOC: EMEROOARM 18:57 → 3BNU 18:57 → SUATTDRO 23:30 → 3BNU 12-26 00:04
PROVIDERS: ADMIT Internal Medicine; ATTEND Nurse Practitioner Adult Health

== ENCOUNTER 2020-06-25 20:23 | Observation (INO) ==
[2020-06-25 20:54] LABS: Basophils % 0.3 %; Eosinophils # 0.3 K/mcL (0.0-0.6); Eosinophils % 3.9 %; Hematocrit 40.2 % (37.5-50.1); Hemoglobin 11.9 g/dL (12.9-16.9); Immature Granulocytes % 0.5 % (0-4); Lymphocytes % 12.8 %; Mean Corpuscular HGB Conc 29.6 g/dL (31.6-35.5); Mean Corpuscular Hemoglobin 30.1 pg (28.0-33.3); Mean Corpuscular Volume 101.5 fL (83.0-100.0); Mean Platelet Volume 10.2 fL (9.4-12.4); Monocytes # 0.6 K/mcL (0.0-1.3); Monocytes % 8.1 %; Neutrophils # 5.9 K/mcL (1.6-8.9); Platelet Count 200 K/mcL (140-400); Red Blood Count 3.96 M/mcL (4.19-5.50); Red Cell Distribution Width 13.5 % (11.5-14.5); Segmented Neutrophils % 74.4 %; White Blood Count 7.9 K/mcL (4.3-11.1)
[2020-06-25] MEDS ORDERED: methylPREDNISolone 125 MG/2 ML VIAL IVP ONE (20:57)
[2020-06-25] MEDS ORDERED: Furosemide 40 MG/4 ML VIAL IVP ONE (20:57)
[2020-06-25] MEDS ORDERED: Ipratropium 1 PUFF INHALER IH ONE (20:59)
[2020-06-25 21:01] LABS: INR 1.4; Prothrombin Time 16.4 Seconds (9.4-12.1)
[2020-06-25 21:04] LABS: Activated Partial Thrombo Time 29.5 Seconds (26.0-36.0)
[2020-06-25] MEDS ORDERED: Azithromycin 500 MG in 0.9 % Sodium Chloride 250 ML IVPB ONE (21:07)
[2020-06-25] MEDS ORDERED: cefTRIAXone 1,000 MG in Water for inj. (sterile) 10 ML IVP ONE (21:07)
[2020-06-25 21:22] LABS: Alanine Aminotransferase 18 Units/L (7-52); Albumin 3.6 g/dL (3.5-5.7); Alkaline Phosphatase 89 Units/L (34-104); Aspartate Amino Transferase 17 Units/L (13-39); BUN/Creatinine Ratio 31 (6-26); Bilirubin,Total 0.4 mg/dL (0.3-1.0); Blood Urea Nitrogen 25 mg/dL (6-20); Calcium 9.1 mg/dL (8.6-10.3); Carbon Dioxide 41 mEq/L (23-29); Chloride 98 mEq/L (98-107); Globulin 3.6 g/dL (2.4-3.5); Glucose 133 mg/dL (70-105); Osmolality,Calculated 304 (280-300); Potassium 3.7 mEq/L (3.5-5.1); Sodium 144 mEq/L (136-145); Total Protein 7.2 g/dL (6.4-8.9); Troponin I < 0.03 ng/mL (< 0.04); eGFR For African Americans > 60 (> 60); eGFR For Non-African Americans > 60 (> 60)
[2020-06-25] MEDS ORDERED: *HR* Metoprolol 5 MG/5 ML VIAL IVP ONE (22:19)
[2020-06-25 22:38] LABS: Influenza A PCR Negative (Negative); Influenza B PCR Negative (Negative); Resp. Syncytial Virus PCR Negative (Negative); SARS-CoV-2 by PCR (In House) Negative (Negative)
[2020-06-25 23:02] LABS: Bilirubin,Urine Negative (Negative); Blood,Urine Negative (Negative); Clarity,Urine Clear (Clear); Color,Urine Colorless (Yellow); Glucose,Urine (UA) Normal (Normal); Ketones,Urine Negative (Negative); Leukocyte Esterase,Urine Negative (Negative); Nitrite,Urine Negative (Negative); PH,Urine 6.5 pH Units (5.0-8.0); Protein,Urine Negative (Neg-Trace); Specific Gravity,Urine 1.006 (1.010-1.025); Urobilinogen,Urine Normal (Normal)
[2020-06-25] MEDS ORDERED: Naloxone 0.4 MG/ML INJ IVP PRN (23:23)
[2020-06-25] MEDS: DilTIAZem 50 MG/50 ML IV.SOLN IVC SCH (23:54)
[2020-06-26] MEDS ORDERED: Acetaminophen 325 MG TABLET PO PRN (00:19)
[2020-06-26] MEDS ORDERED: Ondansetron ODT 4 MG TAB.RAPDIS SL PRN (00:19)
[2020-06-26] MEDS: Furosemide 40 MG TABLET PO SCH ×2 (00:54→10:32)
[2020-06-26] MEDS ORDERED: QUEtiapine Fumarate 25 MG TABLET PO PRN (02:39)
[2020-06-26] MEDS ORDERED: *HR* Warfarin 7.5 MG TABLET PO SCH (02:45)
[2020-06-26] MEDS ORDERED: *HR* Metoprolol 5 MG/5 ML VIAL IVP ONE (03:29)
[2020-06-26] MEDS: Ipratropium/Albuterol Neb 3 ML IH SCH ×4 (03:41→22:59)
[2020-06-26 05:42] LABS: Basophils % 0.1 %; Eosinophils % 0.1 %; Hematocrit 39.7 % (37.5-50.1); Hemoglobin 11.9 g/dL (12.9-16.9); Immature Granulocytes % 0.4 % (0-4); Lymphocytes # 0.4 K/mcL (0.6-4.6); Lymphocytes % 5.5 %; Mean Corpuscular Hemoglobin 30.3 pg (28.0-33.3); Mean Platelet Volume 10.5 fL (9.4-12.4); Monocytes # 0.1 K/mcL (0.0-1.3); Neutrophils # 7.2 K/mcL (1.6-8.9); Platelet Count 205 K/mcL (140-400); Red Blood Count 3.93 M/mcL (4.19-5.50); Red Cell Distribution Width 13.5 % (11.5-14.5); Segmented Neutrophils % 92.9 %; White Blood Count 7.8 K/mcL (4.3-11.1)
[2020-06-26 05:49] LABS: INR 1.4; Prothrombin Time 15.8 Seconds (9.4-12.1)
[2020-06-26 06:07] LABS: Magnesium 1.9 mg/dL (1.6-2.6)
[2020-06-26 06:08] LABS: BUN/Creatinine Ratio 28 (6-26); Blood Urea Nitrogen 23 mg/dL (6-20); Calcium 8.9 mg/dL (8.6-10.3); Carbon Dioxide 42 mEq/L (23-29); Chloride 96 mEq/L (98-107); Glucose 169 mg/dL (70-105); Osmolality,Calculated 300 (280-300); Potassium 4.2 mEq/L (3.5-5.1); Sodium 141 mEq/L (136-145); eGFR For African Americans > 60 (> 60); eGFR For Non-African Americans > 60 (> 60)
[2020-06-26 06:16] LABS: Thyroid Stimulating Hormone 0.583 mcIU/mL (0.340-5.600)
[2020-06-26] MEDS: DilTIAZem 50 MG/50 ML IV.SOLN IVC SCH (06:54)
[2020-06-26] MEDS: Budesonide/Formoterol 80/4.5 1 PUFF INH IH SCH ×2 (10:15→22:59)
[2020-06-26] MEDS: Metoprolol 100 MG TABLET PO SCH ×2 (10:32→21:19)
[2020-06-26] MEDS: Doxycycline 100 MG CAPSULE PO SCH ×2 (10:32→21:18)
[2020-06-26] MEDS: predniSONE 20 MG TABLET PO SCH (10:32)
[2020-06-26] MEDS ORDERED: *HR* Warfarin 7.5 MG TABLET PO ONE (18:00)
[2020-06-26] MEDS ORDERED: Warfarin perPT PO PRN (18:00)
[2020-06-26] MEDS: DilTIAZem CD (24hr) 180 MG CAP.ER.24H PO SCH (18:26)
[2020-06-26] MEDS ORDERED: QUEtiapine Fumarate 25 MG TABLET PO SCH (21:00)
[2020-06-26] MEDS: Furosemide 40 MG/4 ML VIAL IVP SCH (21:18)
[2020-06-27 03:41] LABS: Basophils % 0.1 %; Eosinophils % 0.1 %; Hemoglobin 10.8 g/dL (12.9-16.9); Immature Granulocytes % 0.8 % (0-4); Lymphocytes # 0.8 K/mcL (0.6-4.6); Lymphocytes % 7.3 %; Mean Corpuscular HGB Conc 30.9 g/dL (31.6-35.5); Mean Corpuscular Hemoglobin 30.1 pg (28.0-33.3); Mean Corpuscular Volume 97.5 fL (83.0-100.0); Mean Platelet Volume 10.6 fL (9.4-12.4); Monocytes # 0.8 K/mcL (0.0-1.3); Monocytes % 7.8 %; Neutrophils # 8.6 K/mcL (1.6-8.9); Platelet Count 190 K/mcL (140-400); Red Blood Count 3.59 M/mcL (4.19-5.50); Red Cell Distribution Width 13.6 % (11.5-14.5); Segmented Neutrophils % 83.9 %; White Blood Count 10.2 K/mcL (4.3-11.1)
[2020-06-27 03:53] LABS: INR 1.3; Prothrombin Time 14.6 Seconds (9.4-12.1)
[2020-06-27 04:06] LABS: BUN/Creatinine Ratio 33 (6-26); Blood Urea Nitrogen 25 mg/dL (6-20); Calcium 8.3 mg/dL (8.6-10.3); Carbon Dioxide 41 mEq/L (23-29); Chloride 94 mEq/L (98-107); Glucose 141 mg/dL (70-105); Magnesium 1.9 mg/dL (1.6-2.6); Osmolality,Calculated 295 (280-300); Phosphorous 2.9 mg/dL (2.7-4.5); Potassium 3.9 mEq/L (3.5-5.1); Sodium 139 mEq/L (136-145); eGFR For African Americans > 60 (> 60); eGFR For Non-African Americans > 60 (> 60)
[2020-06-27] MEDS: Ipratropium/Albuterol Neb 3 ML IH SCH ×2 (04:33→10:31)
[2020-06-27] MEDS: DilTIAZem CD (24hr) 180 MG CAP.ER.24H PO SCH (07:51)
[2020-06-27] MEDS: Doxycycline 100 MG CAPSULE PO SCH (07:52)
[2020-06-27] MEDS: predniSONE 20 MG TABLET PO SCH (07:52)
[2020-06-27] MEDS: Metoprolol 100 MG TABLET PO SCH (07:52)
[2020-06-27] MEDS: Furosemide 40 MG/4 ML VIAL IVP SCH (07:52)
[2020-06-27 07:53] VITALS: BP 126/88
[2020-06-27] MEDS: Budesonide/Formoterol 80/4.5 1 PUFF INH IH SCH (10:31)
[2020-06-27] MEDS ORDERED: Td (TENIVAC) Vaccine 0.5 ML VIAL IM ONE (10:37)
[2020-06-27] MEDS ORDERED: *HR* Warfarin 7.5 MG TABLET PO ONE (18:00)
[2020-06-27] MEDS ORDERED: *HR* Warfarin 5 MG TABLET PO ONE (18:00)
[2020-06-28] MEDS ORDERED: *HR* Warfarin 7.5 MG TABLET PO SCH (18:00)
== END 2020-06-27 15:02 | disposition home or self-care (01) ==
LOC: EMEROOARM 20:23 → 2NENU 20:23
PROVIDERS: ADMIT Internal Medicine; ATTEND Internal Medicine

== ENCOUNTER 2020-09-23 16:28 | Inpatient (IN) ==
[2020-09-23] MEDS ORDERED: Nitroglycerin 0.4 MG TAB.SUBL SL ONE (16:42)
[2020-09-23] MEDS ORDERED: Furosemide 40 MG/4 ML VIAL ONE (16:42)
[2020-09-23] MEDS ORDERED: methylPREDNISolone 125 MG/2 ML VIAL IVP ONE (16:55)
[2020-09-23] MEDS ORDERED: Furosemide 40 MG/4 ML VIAL IVP ONE (16:55)
[2020-09-23] MEDS ORDERED: Ipratropium/Albuterol Neb 3 ML IH ONE (16:55)
[2020-09-23 17:46] LABS: Basophils % 0.3 %; Eosinophils % 0.1 %; Hematocrit 36.1 % (37.5-50.1); Hemoglobin 9.8 g/dL (12.9-16.9); Immature Granulocytes % 0.7 % (0-4); Lymphocytes # 0.9 K/mcL (0.6-4.6); Lymphocytes % 9.7 %; Mean Corpuscular HGB Conc 27.1 g/dL (31.6-35.5); Mean Corpuscular Hemoglobin 28.1 pg (28.0-33.3); Mean Corpuscular Volume 103.4 fL (83.0-100.0); Mean Platelet Volume 10.3 fL (9.4-12.4); Monocytes # 0.9 K/mcL (0.0-1.3); Monocytes % 9.4 %; Neutrophils # 7.6 K/mcL (1.6-8.9); Platelet Count 235 K/mcL (140-400); Red Blood Count 3.49 M/mcL (4.19-5.50); Red Cell Distribution Width 15.1 % (11.5-14.5); Segmented Neutrophils % 79.8 %; White Blood Count 9.5 K/mcL (4.3-11.1)
[2020-09-23 17:55] LABS: VBG HCO3 43 mEq/L (21-27); VBG PCO2 84 mmHg (41-51); VBG PH 7.31 pH Units (7.32-7.42); VBG PO2 138 mmHg (25-50)
[2020-09-23 18:02] LABS: Hypochromasia Present (Not Present); Platelet Estimate Normal (Normal); Stomatocytes 1+ (Not Present)
[2020-09-23 18:07] LABS: Adenovirus Not Detected (Not Detect); Coronavirus 229E Not Detected (Not Detect); Coronavirus HKU1 Not Detected (Not Detect); Coronavirus NL63 Not Detected (Not Detect); Coronavirus OC43 Not Detected (Not Detect); Human Metapneumovirus Not Detected (Not Detect); Human Rhinovirus/Enterovirus Not Detected (Not Detect); SARS-CoV-2 Not Detected (Not Detect)
[2020-09-23 18:08] LABS: Bordetella Pertussis Not Detected (Not Detect); Chlamydophila pneumoniae Not Detected (Not Detect); Influenza A Subtype 2009 H1 Not Detected (Not Detect); Influenza B Not Detected (Not Detect); Mycoplasma pneumoniae Not Detected (Not Detect); Parainfluenza Virus 1 Not Detected (Not Detect); Parainfluenza Virus 2 Not Detected (Not Detect); Parainfluenza Virus 3 Not Detected (Not Detect); Parainfluenza Virus 4 Not Detected (Not Detect); Respiratory Syncytial Virus Not Detected (Not Detect)
[2020-09-23 18:13] LABS: Alanine Aminotransferase 33 Units/L (7-52); Albumin 3.4 g/dL (3.5-5.7); Albumin/Globulin Ratio 0.9 (1.1-2.2); Alkaline Phosphatase 81 Units/L (34-104); Aspartate Amino Transferase 34 Units/L (13-39); BUN/Creatinine Ratio 30 (6-26); Bilirubin,Direct 0.4 mg/dL (0.0-0.2); Bilirubin,Indirect 0.5 mg/dL (0.0-1.0); Bilirubin,Total 0.9 mg/dL (0.3-1.0); Blood Urea Nitrogen 28 mg/dL (6-20); Calcium 8.7 mg/dL (8.6-10.3); Carbon Dioxide 43 mEq/L (23-29); Chloride 94 mEq/L (98-107); Globulin 3.8 g/dL (2.4-3.5); Glucose 115 mg/dL (70-105); Osmolality,Calculated 298 (280-300); Potassium 4.2 mEq/L (3.5-5.1); Sodium 141 mEq/L (136-145); Total Protein 7.2 g/dL (6.4-8.9); Troponin I 0.03 ng/mL (< 0.04); eGFR For African Americans > 60 (> 60); eGFR For Non-African Americans > 60 (> 60)
[2020-09-23] MEDS ORDERED: Naloxone 0.4 MG/ML INJ IVP PRN (19:40)
[2020-09-23] MEDS ORDERED: Acetaminophen 325 MG TABLET PO PRN (19:40)
[2020-09-23] MEDS ORDERED: Ondansetron 4 MG/2 ML VIAL IVP PRN (19:40)
[2020-09-23] MEDS ORDERED: Ipratropium/Albuterol Neb 3 ML IH PRN (19:43)
[2020-09-23] MEDS: Nystatin POWDER 30 GM BOTTLE TP SCH (21:00)
[2020-09-23] MEDS ORDERED: Perflutren Lipid Microsphere 1.3 ML in 0.9 % Sodium Chloride 8.7 ML IVP PRN (21:04)
[2020-09-23 21:06] LABS: Bilirubin,Urine Negative (Negative); Blood,Urine Trace (Negative); Clarity,Urine Clear (Clear); Color,Urine Light-Yellow (Yellow); Glucose,Urine (UA) Normal (Normal); Hyaline Casts,Urine Moderate per lpf (None Seen); Ketones,Urine Negative (Negative); Leukocyte Esterase,Urine Trace (Negative); Mucus,Urine Few per lpf (None-Few); Nitrite,Urine Negative (Negative); PH,Urine 5.5 pH Units (5.0-8.0); Protein,Urine Negative (Neg-Trace); RBC,Urine 0-3 per hpf (0-3); Specific Gravity,Urine 1.014 (1.010-1.025); Urobilinogen,Urine Normal (Normal)
[2020-09-23 21:07] LABS: Prothrombin Time 50.1 Seconds (9.4-12.1)
[2020-09-23 21:08] LABS: INR 4.5
[2020-09-23] MEDS: Azithromycin 500 MG in 0.9 % Sodium Chloride 250 ML IVPB SCH (22:29)
[2020-09-23] MEDS: cefTRIAXone 1,000 MG in 0.9 % Sodium Chloride Mini Bag 100 ML IVPB SCH (22:29)
[2020-09-23 22:37] LABS: ABG Base Excess 18 mEq/L (-2 to 3); ABG HCO3 51 mEq/L (21-27); ABG Oxygen Saturation 91 % (95-98); ABG PCO2 123 mmHg (35-45); ABG PH 7.23 pH Units (7.32-7.45); ABG PO2 80 mmHg (85-104); ABG TCO2 > 50 mEq/L (20-26); Blood Gas Modality AVAPS
[2020-09-23] MEDS: methylPREDNISolone 125 MG/2 ML VIAL IVP SCH (23:52)
[2020-09-24 00:29] LABS: ABG Base Excess 17 mEq/L (-2 to 3); ABG HCO3 49 mEq/L (21-27); ABG Oxygen Saturation 87 % (95-98); ABG PCO2 111 mmHg (35-45); ABG PH 7.25 pH Units (7.32-7.45); ABG PO2 67 mmHg (85-104); ABG TCO2 > 50 mEq/L (20-26); Blood Gas VT 600 cc
[2020-09-24 00:59] LABS: Basophils % 0.2 %; Hematocrit 37.1 % (37.5-50.1); Hemoglobin 10.1 g/dL (12.9-16.9); Immature Granulocytes % 0.9 % (0-4); Lymphocytes # 0.6 K/mcL (0.6-4.6); Lymphocytes % 6.8 %; Mean Corpuscular HGB Conc 27.2 g/dL (31.6-35.5); Mean Corpuscular Hemoglobin 28.5 pg (28.0-33.3); Mean Corpuscular Volume 104.5 fL (83.0-100.0); Mean Platelet Volume 10.5 fL (9.4-12.4); Monocytes # 0.3 K/mcL (0.0-1.3); Monocytes % 2.9 %; Nucleated Red Blood Cells 0.9 /100 WBC (0); Platelet Count 222 K/mcL (140-400); Red Blood Count 3.55 M/mcL (4.19-5.50); Segmented Neutrophils % 89.2 %
[2020-09-24 01:22] LABS: Anisocytosis 1+ (Not Present)
[2020-09-24 01:23] LABS: Hypochromasia Present (Not Present); Platelet Estimate Normal (Normal)
[2020-09-24 01:26] LABS: BUN/Creatinine Ratio 28 (6-26); Blood Urea Nitrogen 28 mg/dL (6-20); Calcium 8.6 mg/dL (8.6-10.3); Carbon Dioxide 43 mEq/L (23-29); Chloride 94 mEq/L (98-107); Glucose 127 mg/dL (70-105); Osmolality,Calculated 299 (280-300); Potassium 4.5 mEq/L (3.5-5.1); Sodium 141 mEq/L (136-145); eGFR For African Americans > 60 (> 60); eGFR For Non-African Americans > 60 (> 60)
[2020-09-24 04:27] LABS: ABG Base Excess 17 mEq/L (-2 to 3); ABG HCO3 48 mEq/L (21-27); ABG Oxygen Saturation 89 % (95-98); ABG PCO2 97 mmHg (35-45); ABG PO2 68 mmHg (85-104); ABG TCO2 > 50 mEq/L (20-26); Blood Gas Modality AVAPS
[2020-09-24] MEDS: cefTRIAXone 1,000 MG in 0.9 % Sodium Chloride Mini Bag 100 ML IVPB SCH (08:06)
[2020-09-24] MEDS: Azithromycin 500 MG in 0.9 % Sodium Chloride 250 ML IVPB SCH (08:10)
[2020-09-24] MEDS: methylPREDNISolone 125 MG/2 ML VIAL IVP SCH ×2 (08:11→16:47)
[2020-09-24] MEDS ORDERED: *HR* Enoxaparin 40 MG/0.4 ML SYRINGE SQ SCH (09:00)
[2020-09-24] MEDS: Furosemide 40 MG/4 ML VIAL IVP SCH ×2 (12:51→20:55)
[2020-09-24] MEDS: Nystatin POWDER 30 GM BOTTLE TP SCH ×3 (16:47→21:10)
[2020-09-24 16:51] LABS: INR 4.3
[2020-09-24 17:08] LABS: Prothrombin Time 47.6 Seconds (9.4-12.1)
[2020-09-24] MEDS ORDERED: Warfarin perPT PO PRN (18:00)
[2020-09-24] MEDS: Metoprolol 100 MG TABLET PO SCH (19:36)
[2020-09-24] MEDS: Budesonide/Formoterol 160/4.5 1 PUFF INH IH SCH (19:48)
[2020-09-24] MEDS: Melatonin 3 MG TABLET PO SCH (20:55)
[2020-09-25] MEDS: methylPREDNISolone 125 MG/2 ML VIAL IVP SCH ×2 (00:06→16:41)
[2020-09-25 01:17] LABS: Monocytes % 7.6 %
[2020-09-25 01:18] LABS: Basophils % 0.1 %; Hematocrit 33.4 % (37.5-50.1); Hemoglobin 9.2 g/dL (12.9-16.9); Immature Granulocytes % 0.5 % (0-4); Lymphocytes # 0.5 K/mcL (0.6-4.6); Lymphocytes % 5.7 %; Mean Corpuscular HGB Conc 27.5 g/dL (31.6-35.5); Mean Corpuscular Hemoglobin 27.7 pg (28.0-33.3); Mean Corpuscular Volume 100.6 fL (83.0-100.0); Mean Platelet Volume 10.7 fL (9.4-12.4); Monocytes # 0.6 K/mcL (0.0-1.3); Neutrophils # 7.2 K/mcL (1.6-8.9); Nucleated Red Blood Cells 0.4 /100 WBC (0); Platelet Count 192 K/mcL (140-400); Red Blood Count 3.32 M/mcL (4.19-5.50); Red Cell Distribution Width 14.8 % (11.5-14.5); Segmented Neutrophils % 86.1 %; White Blood Count 8.4 K/mcL (4.3-11.1)
[2020-09-25 01:26] LABS: INR 4.2
[2020-09-25 01:29] LABS: Prothrombin Time 46.6 Seconds (9.4-12.1)
[2020-09-25 01:39] LABS: Anisocytosis 1+ (Not Present); Hypochromasia Present (Not Present); Polychromasia 1+ (Not Present)
[2020-09-25 01:40] LABS: Basophilic Stippling 1+ (Not Present); Platelet Estimate Normal (Normal)
[2020-09-25 02:02] LABS: BUN/Creatinine Ratio 36 (6-26); Blood Urea Nitrogen 30 mg/dL (6-20); Calcium 8.6 mg/dL (8.6-10.3); Carbon Dioxide > 45 mEq/L (23-29); Chloride 94 mEq/L (98-107); Glucose 143 mg/dL (70-105); Osmolality,Calculated 305 (280-300); Potassium 4.2 mEq/L (3.5-5.1); Sodium 143 mEq/L (136-145); eGFR For African Americans > 60 (> 60); eGFR For Non-African Americans > 60 (> 60)
[2020-09-25 04:35] LABS: ABG Base Excess 22 mEq/L (-2 to 3); ABG HCO3 50 mEq/L (21-27); ABG Oxygen Saturation 94 % (95-98); ABG PCO2 73 mmHg (35-45); ABG PH 7.44 pH Units (7.32-7.45); ABG PO2 75 mmHg (85-104); ABG TCO2 > 50 mEq/L (20-26)
[2020-09-25] MEDS: Budesonide/Formoterol 160/4.5 1 PUFF INH IH SCH ×2 (07:40→21:02)
[2020-09-25] MEDS: DilTIAZem CD (24hr) 180 MG CAP.ER.24H PO SCH (08:53)
[2020-09-25] MEDS: cefTRIAXone 1,000 MG in 0.9 % Sodium Chloride Mini Bag 100 ML IVPB SCH (08:54)
[2020-09-25] MEDS: Metoprolol 100 MG TABLET PO SCH ×2 (08:54→20:52)
[2020-09-25] MEDS: Azithromycin 500 MG in 0.9 % Sodium Chloride 250 ML IVPB SCH (08:55)
[2020-09-25] MEDS: Nystatin POWDER 30 GM BOTTLE TP SCH ×3 (08:55→20:52)
[2020-09-25] MEDS: Furosemide 40 MG/4 ML VIAL IVP SCH ×2 (08:56→20:51)
[2020-09-25] MEDS: Levalbuterol Neb 1.25 MG/3 ML IH SCH ×2 (19:22→21:01)
[2020-09-25] MEDS: Melatonin 3 MG TABLET PO SCH (20:51)
[2020-09-26] MEDS: methylPREDNISolone 125 MG/2 ML VIAL IVP SCH ×3 (00:28→15:22)
[2020-09-26 02:43] LABS: VBG HCO3 45 mEq/L (21-27); VBG PCO2 67 mmHg (41-51); VBG PH 7.44 pH Units (7.32-7.42); VBG PO2 104 mmHg (25-50)
[2020-09-26 03:05] LABS: BUN/Creatinine Ratio 41 (6-26); Blood Urea Nitrogen 34 mg/dL (6-20); Calcium 8.3 mg/dL (8.6-10.3); Carbon Dioxide 45 mEq/L (23-29); Chloride 92 mEq/L (98-107); Glucose 152 mg/dL (70-105); Osmolality,Calculated 299 (280-300); Potassium 4.1 mEq/L (3.5-5.1); Sodium 139 mEq/L (136-145); eGFR For African Americans > 60 (> 60); eGFR For Non-African Americans > 60 (> 60)
[2020-09-26 03:16] LABS: Thyroid Stimulating Hormone 0.641 mcIU/mL (0.340-5.600)
[2020-09-26] MEDS: Levalbuterol Neb 1.25 MG/3 ML IH SCH ×4 (04:05→21:38)
[2020-09-26] MEDS ORDERED: Isovue-370 500 ML BOTTLE IVP ONE (07:31)
[2020-09-26] MEDS: DilTIAZem CD (24hr) 180 MG CAP.ER.24H PO SCH (09:02)
[2020-09-26] MEDS: Azithromycin 250 MG TABLET PO SCH (09:02)
[2020-09-26] MEDS: Metoprolol 100 MG TABLET PO SCH ×2 (09:02→20:01)
[2020-09-26] MEDS: cefTRIAXone 1,000 MG in 0.9 % Sodium Chloride Mini Bag 100 ML IVPB SCH (09:03)
[2020-09-26] MEDS: Furosemide 40 MG/4 ML VIAL IVP SCH (09:03)
[2020-09-26] MEDS: Nystatin POWDER 30 GM BOTTLE TP SCH ×3 (09:11→20:01)
[2020-09-26 09:16] LABS: INR 2.8
[2020-09-26] MEDS: Budesonide/Formoterol 160/4.5 1 PUFF INH IH SCH ×2 (10:55→21:38)
[2020-09-26] MEDS ORDERED: Furosemide 40 MG/4 ML VIAL IVP ONE (16:00)
[2020-09-26] MEDS ORDERED: Furosemide 40 MG/4 ML VIAL IVP SCH (17:00)
[2020-09-26] MEDS ORDERED: *HR* Warfarin 5 MG TABLET PO ONE (18:00)
[2020-09-26] MEDS: Melatonin 3 MG TABLET PO SCH (20:01)
[2020-09-27] MEDS: methylPREDNISolone 125 MG/2 ML VIAL IVP SCH (00:39)
[2020-09-27] MEDS: Levalbuterol Neb 1.25 MG/3 ML IH SCH ×4 (03:43→22:02)
[2020-09-27 05:09] LABS: VBG HCO3 48 mEq/L (21-27); VBG PCO2 57 mmHg (41-51); VBG PH 7.54 pH Units (7.32-7.42); VBG PO2 103 mmHg (25-50)
[2020-09-27 05:19] LABS: INR 2.6; Prothrombin Time 28.9 Seconds (9.4-12.1)
[2020-09-27 05:29] LABS: BUN/Creatinine Ratio 40 (6-26); Blood Urea Nitrogen 32 mg/dL (6-20); Calcium 8.2 mg/dL (8.6-10.3); Carbon Dioxide 45 mEq/L (23-29); Chloride 88 mEq/L (98-107); Glucose 160 mg/dL (70-105); Osmolality,Calculated 292 (280-300); Potassium 3.9 mEq/L (3.5-5.1); Sodium 136 mEq/L (136-145); eGFR For African Americans > 60 (> 60); eGFR For Non-African Americans > 60 (> 60)
[2020-09-27] MEDS: Budesonide/Formoterol 160/4.5 1 PUFF INH IH SCH ×2 (07:15→22:02)
[2020-09-27] MEDS ORDERED: Furosemide 20 MG/2 ML VIAL IVP SCH (09:00)
[2020-09-27] MEDS: predniSONE 20 MG TABLET PO SCH (10:34)
[2020-09-27] MEDS: DilTIAZem CD (24hr) 180 MG CAP.ER.24H PO SCH (10:34)
[2020-09-27] MEDS: Nystatin POWDER 30 GM BOTTLE TP SCH ×3 (10:35→22:21)
[2020-09-27] MEDS: Metoprolol 100 MG TABLET PO SCH ×2 (10:35→22:19)
[2020-09-27] MEDS: Azithromycin 250 MG TABLET PO SCH (10:35)
[2020-09-27] MEDS: cefTRIAXone 1,000 MG in 0.9 % Sodium Chloride Mini Bag 100 ML IVPB SCH (10:37)
[2020-09-27] MEDS: Furosemide 40 MG/4 ML VIAL IVP SCH (17:32)
[2020-09-27] MEDS ORDERED: *HR* Warfarin 2.5 MG TABLET PO ONE (18:00)
[2020-09-27] MEDS: Melatonin 3 MG TABLET PO SCH (22:19)
[2020-09-28] MEDS: Levalbuterol Neb 1.25 MG/3 ML IH SCH ×4 (04:25→20:50)
[2020-09-28 05:29] LABS: Hematocrit 36.4 % (37.5-50.1); Hemoglobin 10.7 g/dL (12.9-16.9); Mean Corpuscular HGB Conc 29.4 g/dL (31.6-35.5); Mean Corpuscular Hemoglobin 28.3 pg (28.0-33.3); Mean Corpuscular Volume 96.3 fL (83.0-100.0); Mean Platelet Volume 10.4 fL (9.4-12.4); Platelet Count 187 K/mcL (140-400); Red Blood Count 3.78 M/mcL (4.19-5.50); Red Cell Distribution Width 14.3 % (11.5-14.5); White Blood Count 11.1 K/mcL (4.3-11.1)
[2020-09-28 05:31] LABS: VBG HCO3 46 mEq/L (21-27); VBG PCO2 76 mmHg (41-51); VBG PH 7.39 pH Units (7.32-7.42); VBG PO2 171 mmHg (25-50)
[2020-09-28 05:38] LABS: INR 2.5; Prothrombin Time 28.4 Seconds (9.4-12.1)
[2020-09-28 05:44] LABS: BUN/Creatinine Ratio 38 (6-26); Blood Urea Nitrogen 29 mg/dL (6-20); Calcium 8.3 mg/dL (8.6-10.3); Chloride 90 mEq/L (98-107); Glucose 132 mg/dL (70-105); Magnesium 2.2 mg/dL (1.6-2.6); Osmolality,Calculated 294 (280-300); Sodium 138 mEq/L (136-145); eGFR For African Americans > 60 (> 60); eGFR For Non-African Americans > 60 (> 60)
[2020-09-28 06:31] LABS: Carbon Dioxide > 45 mEq/L (23-29)
[2020-09-28] MEDS: Azithromycin 250 MG TABLET PO SCH (08:18)
[2020-09-28] MEDS: predniSONE 20 MG TABLET PO SCH (08:18)
[2020-09-28] MEDS: Metoprolol 100 MG TABLET PO SCH ×2 (08:18→19:51)
[2020-09-28] MEDS: cefTRIAXone 1,000 MG in 0.9 % Sodium Chloride Mini Bag 100 ML IVPB SCH (08:19)
[2020-09-28] MEDS: Furosemide 40 MG/4 ML VIAL IVP SCH ×2 (08:19→17:51)
[2020-09-28] MEDS: DilTIAZem CD (24hr) 180 MG CAP.ER.24H PO SCH (08:19)
[2020-09-28] MEDS: Nystatin POWDER 30 GM BOTTLE TP SCH ×3 (08:20→19:52)
[2020-09-28] MEDS: Budesonide/Formoterol 160/4.5 1 PUFF INH IH SCH ×2 (11:10→20:50)
[2020-09-28] MEDS ORDERED: *HR* Warfarin 2.5 MG TABLET PO ONE (18:00)
[2020-09-28] MEDS: Melatonin 3 MG TABLET PO SCH (19:51)
[2020-09-29] MEDS: Levalbuterol Neb 1.25 MG/3 ML IH SCH ×4 (03:29→22:34)
[2020-09-29 04:29] LABS: VBG HCO3 45 mEq/L (21-27); VBG PCO2 70 mmHg (41-51); VBG PH 7.42 pH Units (7.32-7.42); VBG PO2 178 mmHg (25-50)
[2020-09-29 04:53] LABS: INR 2.4; Prothrombin Time 27.1 Seconds (9.4-12.1)
[2020-09-29 04:57] LABS: BUN/Creatinine Ratio 33 (6-26); Blood Urea Nitrogen 26 mg/dL (6-20); Calcium 8.1 mg/dL (8.6-10.3); Carbon Dioxide 44 mEq/L (23-29); Chloride 91 mEq/L (98-107); Glucose 96 mg/dL (70-105); Osmolality,Calculated 289 (280-300); Potassium 3.8 mEq/L (3.5-5.1); Sodium 137 mEq/L (136-145); eGFR For African Americans > 60 (> 60); eGFR For Non-African Americans > 60 (> 60)
[2020-09-29] MEDS: Furosemide 40 MG/4 ML VIAL IVP SCH (08:04)
[2020-09-29] MEDS: DilTIAZem CD (24hr) 180 MG CAP.ER.24H PO SCH (08:05)
[2020-09-29] MEDS: Azithromycin 250 MG TABLET PO SCH (08:05)
[2020-09-29] MEDS: Metoprolol 100 MG TABLET PO SCH ×2 (08:05→20:48)
[2020-09-29] MEDS: predniSONE 20 MG TABLET PO SCH (08:05)
[2020-09-29] MEDS: cefTRIAXone 1,000 MG in 0.9 % Sodium Chloride Mini Bag 100 ML IVPB SCH (08:07)
[2020-09-29] MEDS: Nystatin POWDER 30 GM BOTTLE TP SCH ×3 (08:09→20:49)
[2020-09-29] MEDS: Budesonide/Formoterol 160/4.5 1 PUFF INH IH SCH ×2 (09:20→22:34)
[2020-09-29] MEDS: Furosemide 20 MG TABLET PO SCH (17:32)
[2020-09-29] MEDS ORDERED: *HR* Warfarin 5 MG TABLET PO ONE (18:00)
[2020-09-29] MEDS: Melatonin 3 MG TABLET PO SCH (20:48)
[2020-09-30 01:51] LABS: VBG HCO3 45 mEq/L (21-27); VBG PCO2 84 mmHg (41-51); VBG PH 7.34 pH Units (7.32-7.42); VBG PO2 61 mmHg (25-50)
[2020-09-30 02:15] LABS: INR 1.8
[2020-09-30 02:31] LABS: BUN/Creatinine Ratio 36 (6-26); Blood Urea Nitrogen 31 mg/dL (6-20); Carbon Dioxide > 45 mEq/L (23-29); Chloride 90 mEq/L (98-107); Glucose 145 mg/dL (70-105); Osmolality,Calculated 293 (280-300); Potassium 3.7 mEq/L (3.5-5.1); Sodium 137 mEq/L (136-145); eGFR For African Americans > 60 (> 60); eGFR For Non-African Americans > 60 (> 60)
[2020-09-30] MEDS: Levalbuterol Neb 1.25 MG/3 ML IH SCH ×2 (03:57→09:37)
[2020-09-30 07:02] VITALS: BP 109/79
[2020-09-30] MEDS: cefTRIAXone 1,000 MG in 0.9 % Sodium Chloride Mini Bag 100 ML IVPB SCH (08:08)
[2020-09-30] MEDS: Furosemide 20 MG TABLET PO SCH (08:09)
[2020-09-30] MEDS: Metoprolol 100 MG TABLET PO SCH (08:09)
[2020-09-30] MEDS: DilTIAZem CD (24hr) 180 MG CAP.ER.24H PO SCH (08:09)
[2020-09-30] MEDS: predniSONE 20 MG TABLET PO SCH (08:09)
[2020-09-30] MEDS: Nystatin POWDER 30 GM BOTTLE TP SCH (08:10)
[2020-09-30] MEDS: Budesonide/Formoterol 160/4.5 1 PUFF INH IH SCH (09:36)
[2020-09-30] MEDS ORDERED: *HR* Warfarin 5 MG TABLET PO ONE (18:00)
== END 2020-09-30 13:11 | disposition home or self-care (01) | DRG 139 ==
LOC: 2NENU 16:28 → EMEROOARM 16:28 → SUATTDRO 20:04 → 2NENU 21:43
PROVIDERS: ADMIT Internal Medicine; ATTEND Internal Medicine

== ENCOUNTER 2020-10-07 23:19 | Observation (INO) ==
[2020-10-08] MEDS ORDERED: Ipratropium/Albuterol Neb 3 ML IH ONE (00:04)
[2020-10-08] MEDS ORDERED: methylPREDNISolone 125 MG/2 ML VIAL IVP ONE (00:05)
[2020-10-08 00:28] LABS: Basophils % 0.1 %; Red Cell Distribution Width 15.9 % (11.5-14.5)
[2020-10-08 00:30] LABS: Eosinophils % 0.3 %; Hematocrit 33.7 % (37.5-50.1); Immature Granulocytes % 1.1 % (0-4); Lymphocytes # 0.8 K/mcL (0.6-4.6); Lymphocytes % 8.2 %; Mean Corpuscular HGB Conc 29.7 g/dL (31.6-35.5); Mean Corpuscular Hemoglobin 29.3 pg (28.0-33.3); Mean Corpuscular Volume 98.8 fL (83.0-100.0); Mean Platelet Volume 10.7 fL (9.4-12.4); Monocytes # 0.8 K/mcL (0.0-1.3); Monocytes % 8.2 %; Nucleated Red Blood Cells 0.2 /100 WBC (0); Platelet Count 156 K/mcL (140-400); Red Blood Count 3.41 M/mcL (4.19-5.50); Segmented Neutrophils % 82.1 %; White Blood Count 9.3 K/mcL (4.3-11.1)
[2020-10-08 00:33] LABS: Neutrophils # 7.6 K/mcL (1.6-8.9)
[2020-10-08 00:46] LABS: BUN/Creatinine Ratio 29 (6-26); Blood Urea Nitrogen 27 mg/dL (6-20); Calcium 8.6 mg/dL (8.6-10.3); Carbon Dioxide 39 mEq/L (23-29); Chloride 93 mEq/L (98-107); Glucose 148 mg/dL (70-105); Osmolality,Calculated 294 (280-300); Potassium 3.9 mEq/L (3.5-5.1); Sodium 138 mEq/L (136-145); eGFR For African Americans > 60 (> 60); eGFR For Non-African Americans > 60 (> 60)
[2020-10-08 00:47] LABS: Troponin I < 0.03 ng/mL (< 0.04)
[2020-10-08 01:02] LABS: Adenovirus Not Detected (Not Detect); Bordetella Pertussis Not Detected (Not Detect); Chlamydophila pneumoniae Not Detected (Not Detect); Coronavirus 229E Not Detected (Not Detect); Coronavirus HKU1 Not Detected (Not Detect); Coronavirus NL63 Not Detected (Not Detect); Coronavirus OC43 Not Detected (Not Detect); Human Metapneumovirus Not Detected (Not Detect); Human Rhinovirus/Enterovirus Not Detected (Not Detect); Influenza A Subtype 2009 H1 Not Detected (Not Detect); Influenza B Not Detected (Not Detect); Mycoplasma pneumoniae Not Detected (Not Detect); Parainfluenza Virus 1 Not Detected (Not Detect); Parainfluenza Virus 2 Not Detected (Not Detect); Parainfluenza Virus 3 Not Detected (Not Detect); Parainfluenza Virus 4 Not Detected (Not Detect); Respiratory Syncytial Virus Not Detected (Not Detect); SARS-CoV-2 Not Detected (Not Detect)
[2020-10-08 01:05] LABS: Hypochromasia Present (Not Present); Platelet Estimate Normal (Normal)
[2020-10-08] MEDS ORDERED: Furosemide 40 MG/4 ML VIAL IVP ONE (01:08)
[2020-10-08] MEDS ORDERED: Ondansetron 4 MG/2 ML VIAL IVP PRN (03:20)
[2020-10-08] MEDS ORDERED: Acetaminophen 325 MG TABLET PO PRN (03:20)
[2020-10-08] MEDS ORDERED: Naloxone 0.4 MG/ML INJ IVP PRN (03:20)
[2020-10-08] MEDS ORDERED: Ipratropium/Albuterol Neb 3 ML IH PRN (03:22)
[2020-10-08 05:04] LABS: Bilirubin,Urine Negative (Negative); Blood,Urine Negative (Negative); Clarity,Urine Clear (Clear); Color,Urine Colorless (Yellow); Glucose,Urine (UA) Normal (Normal); Ketones,Urine Negative (Negative); Leukocyte Esterase,Urine Negative (Negative); Nitrite,Urine Negative (Negative); Protein,Urine Negative (Neg-Trace); Specific Gravity,Urine 1.009 (1.010-1.025); Urobilinogen,Urine Normal (Normal)
[2020-10-08 05:06] LABS: Eosinophils % 0.1 %; Red Cell Distribution Width 15.9 % (11.5-14.5)
[2020-10-08 05:08] LABS: Basophils % 0.1 %; Hematocrit 34.3 % (37.5-50.1); Immature Granulocytes % 0.6 % (0-4); Lymphocytes # 0.4 K/mcL (0.6-4.6); Lymphocytes % 4.8 %; Mean Corpuscular HGB Conc 29.2 g/dL (31.6-35.5); Mean Corpuscular Hemoglobin 28.7 pg (28.0-33.3); Mean Corpuscular Volume 98.6 fL (83.0-100.0); Mean Platelet Volume 10.4 fL (9.4-12.4); Monocytes # 0.4 K/mcL (0.0-1.3); Monocytes % 4.7 %; Neutrophils # 7.7 K/mcL (1.6-8.9); Platelet Count 154 K/mcL (140-400); Red Blood Count 3.48 M/mcL (4.19-5.50); Segmented Neutrophils % 89.7 %; White Blood Count 8.6 K/mcL (4.3-11.1)
[2020-10-08 05:13] LABS: INR 1.6
[2020-10-08 05:26] LABS: BUN/Creatinine Ratio 28 (6-26); Blood Urea Nitrogen 24 mg/dL (6-20); Calcium 8.3 mg/dL (8.6-10.3); Carbon Dioxide 41 mEq/L (23-29); Chloride 93 mEq/L (98-107); Glucose 140 mg/dL (70-105); Magnesium 1.9 mg/dL (1.6-2.6); Osmolality,Calculated 294 (280-300); Potassium 3.8 mEq/L (3.5-5.1); Sodium 139 mEq/L (136-145); eGFR For African Americans > 60 (> 60); eGFR For Non-African Americans > 60 (> 60)
[2020-10-08] MEDS: Budesonide/Formoterol 80/4.5 1 PUFF INH IH SCH ×2 (07:54→19:26)
[2020-10-08] MEDS: Furosemide 40 MG/4 ML VIAL IVP SCH ×2 (08:21→17:08)
[2020-10-08] MEDS: Cholecalciferol (D-3) 1,000 UNIT (25MCG) TABLET PO SCH (08:21)
[2020-10-08] MEDS: DilTIAZem CD (24hr) 180 MG CAP.ER.24H PO SCH (08:22)
[2020-10-08] MEDS: Metoprolol 100 MG TABLET PO SCH ×2 (08:22→21:19)
[2020-10-08] MEDS: Triamcinolone Acet 0.1% CRM 15 GM TUBE TP SCH (08:44)
[2020-10-08] MEDS ORDERED: *HR* Warfarin 5 MG TABLET PO SCH (09:00)
[2020-10-08 10:34] LABS: ABG Base Excess 14 mEq/L (-2 to 3); ABG HCO3 44 mEq/L (21-27); ABG Oxygen Saturation 85 % (95-98); ABG PCO2 81 mmHg (35-45); ABG PH 7.34 pH Units (7.32-7.45); ABG PO2 57 mmHg (85-104); ABG TCO2 46 mEq/L (20-26)
[2020-10-08] MEDS ORDERED: Perflutren Lipid Microsphere 1.3 ML in 0.9 % Sodium Chloride 8.7 ML IVP PRN (14:05)
[2020-10-08] MEDS ORDERED: *HR* Warfarin 7.5 MG TABLET PO ONE (18:00)
[2020-10-08] MEDS ORDERED: Warfarin perPT PO PRN (18:00)
[2020-10-08] MEDS ORDERED: *HR* Warfarin 5 MG TABLET PO ONE (18:00)
[2020-10-08] MEDS: Melatonin 3 MG TABLET PO SCH (21:19)
[2020-10-09 06:59] LABS: White Blood Count 8.5 K/mcL (4.3-11.1)
[2020-10-09 07:01] LABS: Basophils % 0.1 %; Hematocrit 33.5 % (37.5-50.1); Hemoglobin 9.3 g/dL (12.9-16.9); Immature Granulocytes % 1.2 % (0-4); Immature Platelets 5.9 % (1.1-6.1); Lymphocytes # 0.5 K/mcL (0.6-4.6); Lymphocytes % 6.2 %; Mean Corpuscular HGB Conc 27.8 g/dL (31.6-35.5); Mean Corpuscular Hemoglobin 28.4 pg (28.0-33.3); Mean Corpuscular Volume 102.1 fL (83.0-100.0); Mean Platelet Volume 10.2 fL (9.4-12.4); Monocytes # 0.5 K/mcL (0.0-1.3); Monocytes % 6.2 %; Nucleated Red Blood Cells 0.2 /100 WBC (0); Platelet Count 143 K/mcL (140-400); Red Blood Count 3.28 M/mcL (4.19-5.50); Red Cell Distribution Width 15.4 % (11.5-14.5); Segmented Neutrophils % 86.3 %
[2020-10-09 07:04] LABS: Neutrophils # 7.3 K/mcL (1.6-8.9)
[2020-10-09 07:05] LABS: Hypochromasia Present (Not Present); Platelet Estimate Normal (Normal)
[2020-10-09 07:06] LABS: INR 3.5; Prothrombin Time 39.3 Seconds (9.4-12.1)
[2020-10-09 07:25] LABS: BUN/Creatinine Ratio 32 (6-26); Blood Urea Nitrogen 26 mg/dL (6-20); Calcium 8.7 mg/dL (8.6-10.3); Carbon Dioxide 45 mEq/L (23-29); Chloride 92 mEq/L (98-107); Glucose 162 mg/dL (70-105); Osmolality,Calculated 298 (280-300); Potassium 3.8 mEq/L (3.5-5.1); Sodium 140 mEq/L (136-145); eGFR For African Americans > 60 (> 60); eGFR For Non-African Americans > 60 (> 60)
[2020-10-09] MEDS: Budesonide/Formoterol 80/4.5 1 PUFF INH IH SCH ×2 (07:53→20:09)
[2020-10-09] MEDS: Furosemide 40 MG/4 ML VIAL IVP SCH ×2 (09:05→18:42)
[2020-10-09] MEDS: Metoprolol 100 MG TABLET PO SCH ×2 (09:06→21:05)
[2020-10-09] MEDS: DilTIAZem CD (24hr) 180 MG CAP.ER.24H PO SCH (09:06)
[2020-10-09] MEDS: Cholecalciferol (D-3) 1,000 UNIT (25MCG) TABLET PO SCH (09:07)
[2020-10-09] MEDS: Triamcinolone Acet 0.1% CRM 15 GM TUBE TP SCH (09:12)
[2020-10-09] MEDS: predniSONE 20 MG TABLET PO SCH (14:51)
[2020-10-09] MEDS: Ipratropium/Albuterol Neb 3 ML IH SCH ×3 (15:55→23:39)
[2020-10-09] MEDS: Melatonin 3 MG TABLET PO SCH (21:05)
[2020-10-10] MEDS: Ipratropium/Albuterol Neb 3 ML IH SCH ×6 (04:00→23:24)
[2020-10-10] MEDS: Budesonide/Formoterol 80/4.5 1 PUFF INH IH SCH ×2 (07:32→19:38)
[2020-10-10 08:28] LABS: INR 5.6; Prothrombin Time 61.2 Seconds (9.4-12.1)
[2020-10-10] MEDS: Furosemide 40 MG/4 ML VIAL IVP SCH ×2 (09:23→17:08)
[2020-10-10] MEDS: predniSONE 20 MG TABLET PO SCH (09:26)
[2020-10-10] MEDS: DilTIAZem CD (24hr) 180 MG CAP.ER.24H PO SCH (09:26)
[2020-10-10] MEDS: Metoprolol 100 MG TABLET PO SCH ×2 (09:26→21:37)
[2020-10-10] MEDS: Cholecalciferol (D-3) 1,000 UNIT (25MCG) TABLET PO SCH (09:26)
[2020-10-10] MEDS: Triamcinolone Acet 0.1% CRM 15 GM TUBE TP SCH (09:27)
[2020-10-10 10:13] LABS: Alanine Aminotransferase 29 Units/L (7-52); Albumin 3.4 g/dL (3.5-5.7); Albumin/Globulin Ratio 1.1 (1.1-2.2); Alkaline Phosphatase 70 Units/L (34-104); Aspartate Amino Transferase 20 Units/L (13-39); BUN/Creatinine Ratio 27 (6-26); Bilirubin,Direct 0.2 mg/dL (0.0-0.2); Bilirubin,Indirect 0.6 mg/dL (0.0-1.0); Bilirubin,Total 0.8 mg/dL (0.3-1.0); Blood Urea Nitrogen 24 mg/dL (6-20); Calcium 8.8 mg/dL (8.6-10.3); Carbon Dioxide > 45 mEq/L (23-29); Chloride 88 mEq/L (98-107); Glucose 161 mg/dL (70-105); Magnesium 1.9 mg/dL (1.6-2.6); Osmolality,Calculated 296 (280-300); Potassium 3.4 mEq/L (3.5-5.1); Sodium 139 mEq/L (136-145); Total Protein 6.4 g/dL (6.4-8.9); eGFR For African Americans > 60 (> 60); eGFR For Non-African Americans > 60 (> 60)
[2020-10-10 18:16] LABS: Hepatitis B Surface Antigen Nonreactive (Nonreactive)
[2020-10-10 18:44] LABS: Hepatitis B Core IgM Nonreactive (Nonreactive)
[2020-10-10 18:45] LABS: Hepatitis A Antibody IgM Nonreactive (Nonreactive); Hepatitis C Virus Antibody Nonreactive (Nonreactive)
[2020-10-10] MEDS: Melatonin 3 MG TABLET PO SCH (21:37)
[2020-10-10 21:38] LABS: Hemoglobin 9.4 g/dL (12.9-16.9); Mean Corpuscular HGB Conc 28.5 g/dL (31.6-35.5); Mean Corpuscular Hemoglobin 28.1 pg (28.0-33.3); Mean Corpuscular Volume 98.8 fL (83.0-100.0); Mean Platelet Volume 10.5 fL (9.4-12.4); Platelet Count 140 K/mcL (140-400); Red Blood Count 3.34 M/mcL (4.19-5.50); Red Cell Distribution Width 15.5 % (11.5-14.5); White Blood Count 9.7 K/mcL (4.3-11.1)
[2020-10-11] MEDS: Ipratropium/Albuterol Neb 3 ML IH SCH ×2 (03:57→07:11)
[2020-10-11 05:04] LABS: INR 3.9
[2020-10-11 05:27] LABS: Prothrombin Time 43.6 Seconds (9.4-12.1)
[2020-10-11] MEDS: Budesonide/Formoterol 80/4.5 1 PUFF INH IH SCH (07:11)
[2020-10-11 07:54] VITALS: BP 133/81
[2020-10-11] MEDS: Metoprolol 100 MG TABLET PO SCH (08:39)
[2020-10-11] MEDS: DilTIAZem CD (24hr) 180 MG CAP.ER.24H PO SCH (08:39)
[2020-10-11] MEDS: predniSONE 20 MG TABLET PO SCH (08:39)
[2020-10-11] MEDS: Furosemide 40 MG/4 ML VIAL IVP SCH (08:40)
[2020-10-11] MEDS: Cholecalciferol (D-3) 1,000 UNIT (25MCG) TABLET PO SCH (08:40)
[2020-10-11] MEDS: Triamcinolone Acet 0.1% CRM 15 GM TUBE TP SCH (08:42)
[2020-10-11 09:44] LABS: Hematocrit 35.7 % (37.5-50.1); Hemoglobin 10.3 g/dL (12.9-16.9); Mean Corpuscular HGB Conc 28.9 g/dL (31.6-35.5); Mean Corpuscular Hemoglobin 28.5 pg (28.0-33.3); Mean Corpuscular Volume 98.9 fL (83.0-100.0); Mean Platelet Volume 10.5 fL (9.4-12.4); Platelet Count 149 K/mcL (140-400); Red Blood Count 3.61 M/mcL (4.19-5.50); Red Cell Distribution Width 15.7 % (11.5-14.5); White Blood Count 8.8 K/mcL (4.3-11.1)
[2020-10-11 10:41] LABS: BUN/Creatinine Ratio 27 (6-26); Blood Urea Nitrogen 23 mg/dL (6-20); Calcium 8.8 mg/dL (8.6-10.3); Carbon Dioxide > 45 mEq/L (23-29); Chloride 88 mEq/L (98-107); Glucose 143 mg/dL (70-105); Magnesium 1.9 mg/dL (1.6-2.6); Osmolality,Calculated 300 (280-300); Potassium 3.1 mEq/L (3.5-5.1); Sodium 142 mEq/L (136-145); eGFR For African Americans > 60 (> 60); eGFR For Non-African Americans > 60 (> 60)
== END 2020-10-11 10:45 | disposition home or self-care (01) ==
LOC: EMEROOARM 23:19 → 3ANU 23:19 → SUATTDRO 10-08 02:20 → 3ANU 10-08 02:45
PROVIDERS: ADMIT Student in an Organized Health Care Education/Training Program; ATTEND Internal Medicine

== ENCOUNTER 2020-11-13 19:40 | Inpatient (IN) ==
[2020-11-13] MEDS ORDERED: Ipratropium/Albuterol Neb 3 ML IH ONE (21:52)
[2020-11-13] MEDS ORDERED: methylPREDNISolone 125 MG/2 ML VIAL IVP ONE (21:52)
[2020-11-13 22:18] LABS: Nucleated Red Blood Cells 0.2 /100 WBC (0)
[2020-11-13 22:20] LABS: Basophils % 0.2 %; Eosinophils # 0.1 K/mcL (0.0-0.6); Hematocrit 31.1 % (37.5-50.1); Hemoglobin 8.5 g/dL (12.9-16.9); Immature Granulocytes % 0.7 % (0-4); Lymphocytes # 0.8 K/mcL (0.6-4.6); Mean Corpuscular HGB Conc 27.3 g/dL (31.6-35.5); Mean Corpuscular Volume 98.7 fL (83.0-100.0); Mean Platelet Volume 10.2 fL (9.4-12.4); Monocytes # 0.8 K/mcL (0.0-1.3); Monocytes % 8.8 %; Neutrophils # 7.8 K/mcL (1.6-8.9); Platelet Count 241 K/mcL (140-400); Red Blood Count 3.15 M/mcL (4.19-5.50); Red Cell Distribution Width 15.7 % (11.5-14.5); Segmented Neutrophils % 81.3 %; White Blood Count 9.6 K/mcL (4.3-11.1)
[2020-11-13 22:28] LABS: Activated Partial Thrombo Time 44.8 Seconds (26.0-36.0)
[2020-11-13 22:38] LABS: INR 5.1; Prothrombin Time 56.8 Seconds (9.4-12.1)
[2020-11-13 22:46] LABS: Hypochromasia Present (Not Present); Microcytosis Present (Not Present); Platelet Estimate Normal (Normal); Polychromasia 1+ (Not Present)
[2020-11-13 22:52] LABS: Alanine Aminotransferase 10 Units/L (7-52); Albumin 3.3 g/dL (3.5-5.7); Albumin/Globulin Ratio 1.1 (1.1-2.2); Alkaline Phosphatase 73 Units/L (34-104); Aspartate Amino Transferase 13 Units/L (13-39); BUN/Creatinine Ratio 25 (6-26); Bilirubin,Direct 0.3 mg/dL (0.0-0.2); Bilirubin,Indirect 0.4 mg/dL (0.0-1.0); Bilirubin,Total 0.7 mg/dL (0.3-1.0); Blood Urea Nitrogen 22 mg/dL (6-20); Calcium 8.6 mg/dL (8.6-10.3); Carbon Dioxide 51 mEq/L (23-29); Chloride 92 mEq/L (98-107); Glucose 162 mg/dL (70-105); Osmolality,Calculated 307 (280-300); Potassium 3.4 mEq/L (3.5-5.1); Sodium 145 mEq/L (136-145); Total Protein 6.3 g/dL (6.4-8.9); Troponin I < 0.03 ng/mL (< 0.04); eGFR For African Americans > 60 (> 60); eGFR For Non-African Americans > 60 (> 60)
[2020-11-13] MEDS ORDERED: Furosemide 80 MG in 0.9 % Sodium Chloride 50 ML IVPB ONE (22:53)
[2020-11-13 23:09] LABS: Bilirubin,Urine Negative (Negative); Blood,Urine Negative (Negative); Clarity,Urine Clear (Clear); Color,Urine Yellow (Yellow); Glucose,Urine (UA) Normal (Normal); Ketones,Urine Negative (Negative); Leukocyte Esterase,Urine Negative (Negative); Nitrite,Urine Negative (Negative); Protein,Urine Trace mg/dL (Neg-Trace); Specific Gravity,Urine 1.026 (1.010-1.025)
[2020-11-13 23:35] LABS: VBG HCO3 53 mEq/L (21-27); VBG PCO2 102 mmHg (41-51); VBG PH 7.33 pH Units (7.32-7.42); VBG PO2 86 mmHg (25-50)
[2020-11-14] MEDS ORDERED: Naloxone 0.4 MG/ML INJ IVP PRN (01:18)
[2020-11-14] MEDS ORDERED: Acetaminophen 325 MG TABLET PO PRN (01:18)
[2020-11-14] MEDS ORDERED: Ondansetron ODT 4 MG TAB.RAPDIS SL PRN (01:18)
[2020-11-14] MEDS ORDERED: Potassium Chloride 20 MEQ, Lidocaine 1% 2 ML in 0.9 % Sodium Chloride 250 ML IVPB ONE (01:22)
[2020-11-14] MEDS ORDERED: Ipratropium/Albuterol Neb 3 ML IH PRN (01:22)
[2020-11-14 01:43] LABS: Adenovirus Not Detected (Not Detect); Coronavirus 229E Not Detected (Not Detect); Coronavirus HKU1 Not Detected (Not Detect)
[2020-11-14 01:44] LABS: Bordetella Pertussis Not Detected (Not Detect); Chlamydophila pneumoniae Not Detected (Not Detect); Coronavirus NL63 Not Detected (Not Detect); Coronavirus OC43 Not Detected (Not Detect); Human Metapneumovirus Not Detected (Not Detect); Human Rhinovirus/Enterovirus Not Detected (Not Detect); Influenza A Subtype 2009 H1 Not Detected (Not Detect); Influenza B Not Detected (Not Detect); Mycoplasma pneumoniae Not Detected (Not Detect); Parainfluenza Virus 1 Not Detected (Not Detect); Parainfluenza Virus 2 Not Detected (Not Detect); Parainfluenza Virus 3 Not Detected (Not Detect); Parainfluenza Virus 4 Not Detected (Not Detect); Respiratory Syncytial Virus Not Detected (Not Detect); SARS-CoV-2 Not Detected (Not Detect)
[2020-11-14] MEDS ORDERED: levoFLOXacin 500 MG/100 ML 500 MG/100 ML BAG IVPB SCH (03:00)
[2020-11-14 04:39] LABS: ABG Base Excess 28 mEq/L (-2 to 3); ABG HCO3 60 mEq/L (21-27); ABG Oxygen Saturation 89 % (95-98); ABG PCO2 121 mmHg (35-45); ABG PO2 71 mmHg (85-104); ABG TCO2 > 50 mEq/L (20-26)
[2020-11-14] MEDS: methylPREDNISolone 125 MG/2 ML VIAL IVP SCH ×2 (05:01→16:20)
[2020-11-14 06:03] LABS: Basophils % 0.1 %; Mean Corpuscular Volume 98.5 fL (83.0-100.0); Red Cell Distribution Width 15.5 % (11.5-14.5)
[2020-11-14 06:05] LABS: Eosinophils % 0.1 %; Hematocrit 33.1 % (37.5-50.1); Hemoglobin 8.9 g/dL (12.9-16.9); Immature Granulocytes % 1.4 % (0-4); Lymphocytes # 0.3 K/mcL (0.6-4.6); Lymphocytes % 3.4 %; Mean Corpuscular HGB Conc 26.9 g/dL (31.6-35.5); Mean Corpuscular Hemoglobin 26.5 pg (28.0-33.3); Mean Platelet Volume 10.3 fL (9.4-12.4); Monocytes # 0.2 K/mcL (0.0-1.3); Monocytes % 1.6 %; Neutrophils # 8.8 K/mcL (1.6-8.9); Nucleated Red Blood Cells 0.2 /100 WBC (0); Platelet Count 225 K/mcL (140-400); Red Blood Count 3.36 M/mcL (4.19-5.50); Segmented Neutrophils % 93.4 %; White Blood Count 9.4 K/mcL (4.3-11.1)
[2020-11-14 06:08] LABS: ABG Base Excess 22 mEq/L (-2 to 3); ABG HCO3 53 mEq/L (21-27); ABG Oxygen Saturation 91 % (95-98); ABG PCO2 106 mmHg (35-45); ABG PH 7.31 pH Units (7.32-7.45); ABG PO2 74 mmHg (85-104); ABG TCO2 > 50 mEq/L (20-26); Blood Gas VT 500 cc
[2020-11-14 06:26] LABS: INR 4.5; Prothrombin Time 49.4 Seconds (9.4-12.1)
[2020-11-14 06:39] LABS: Hypochromasia Present (Not Present)
[2020-11-14 06:40] LABS: BUN/Creatinine Ratio 21 (6-26); Blood Urea Nitrogen 18 mg/dL (6-20); Calcium 8.6 mg/dL (8.6-10.3); Carbon Dioxide > 45 mEq/L (23-29); Chloride 91 mEq/L (98-107); Glucose 129 mg/dL (70-105); Magnesium 2.2 mg/dL (1.6-2.6); Osmolality,Calculated 302 (280-300); Platelet Estimate Normal (Normal); Polychromasia 1+ (Not Present); Potassium 4.1 mEq/L (3.5-5.1); Sodium 144 mEq/L (136-145); Troponin I < 0.03 ng/mL (< 0.04); eGFR For African Americans > 60 (> 60); eGFR For Non-African Americans > 60 (> 60)
[2020-11-14] MEDS: Furosemide 40 MG/4 ML VIAL IVP SCH ×2 (08:52→20:21)
[2020-11-14] MEDS ORDERED: *HR* Metoprolol 5 MG/5 ML VIAL IVP ONE (09:58)
[2020-11-14 10:49] LABS: ABG Base Excess 26 mEq/L (-2 to 3); ABG HCO3 57 mEq/L (21-27); ABG Oxygen Saturation 95 % (95-98); ABG PCO2 102 mmHg (35-45); ABG PH 7.36 pH Units (7.32-7.45); ABG PO2 88 mmHg (85-104); ABG TCO2 > 50 mEq/L (20-26); Blood Gas VT 500 cc
[2020-11-14] MEDS: *HR* Metoprolol 5 MG/5 ML VIAL IVP SCH ×2 (16:20→20:21)
[2020-11-14] MEDS ORDERED: Warfarin perPT PO PRN (18:00)
[2020-11-14] MEDS: Budesonide/Formoterol 160/4.5 1 PUFF INH IH SCH (19:53)
[2020-11-15] MEDS: DilTIAZem CD (24hr) 180 MG CAP.ER.24H PO SCH (01:03)
[2020-11-15] MEDS ORDERED: Furosemide 40 MG/4 ML VIAL IVP ONE (03:44)
[2020-11-15] MEDS: *HR* Metoprolol 5 MG/5 ML VIAL IVP SCH ×2 (03:50→09:56)
[2020-11-15] MEDS: Levalbuterol Neb 0.63 MG/3 ML IH SCH ×4 (03:55→22:15)
[2020-11-15] MEDS: methylPREDNISolone 125 MG/2 ML VIAL IVP SCH (05:07)
[2020-11-15] MEDS: Doxycycline 100 MG in 0.9 % Sodium Chloride Mini Bag 100 ML IVPB SCH ×2 (05:08→17:11)
[2020-11-15 08:06] LABS: ABG Base Excess > 30 mEq/L (-2 to 3); ABG HCO3 58 mEq/L (21-27); ABG Oxygen Saturation 95 % (95-98); ABG PCO2 71 mmHg (35-45); ABG PH 7.52 pH Units (7.32-7.45); ABG PO2 75 mmHg (85-104); ABG TCO2 > 50 mEq/L (20-26); Blood Gas VT 500 cc
[2020-11-15] MEDS ORDERED: DilTIAZem CD (24hr) 180 MG CAP.ER.24H PO SCH (09:00)
[2020-11-15] MEDS: Metoprolol 100 MG TABLET PO SCH ×2 (09:16→20:44)
[2020-11-15] MEDS: Furosemide 40 MG/4 ML VIAL IVP SCH ×2 (09:17→20:44)
[2020-11-15 09:24] LABS: Mean Platelet Volume 10.7 fL (9.4-12.4); Red Blood Count 3.15 M/mcL (4.19-5.50)
[2020-11-15 09:25] LABS: Hematocrit 30.8 % (37.5-50.1); Hemoglobin 8.3 g/dL (12.9-16.9); Immature Granulocytes % 0.6 % (0-4); Lymphocytes # 0.5 K/mcL (0.6-4.6); Lymphocytes % 5.2 %; Mean Corpuscular HGB Conc 26.9 g/dL (31.6-35.5); Mean Corpuscular Hemoglobin 26.3 pg (28.0-33.3); Mean Corpuscular Volume 97.8 fL (83.0-100.0); Monocytes # 0.6 K/mcL (0.0-1.3); Monocytes % 7.1 %; Neutrophils # 7.8 K/mcL (1.6-8.9); Nucleated Red Blood Cells 0.2 /100 WBC (0); Platelet Count 232 K/mcL (140-400); Red Cell Distribution Width 15.5 % (11.5-14.5); Segmented Neutrophils % 87.1 %
[2020-11-15 09:31] LABS: INR 3.4; Prothrombin Time 38.2 Seconds (9.4-12.1)
[2020-11-15 10:01] LABS: BUN/Creatinine Ratio 23 (6-26); Blood Urea Nitrogen 19 mg/dL (6-20); Calcium 8.8 mg/dL (8.6-10.3); Carbon Dioxide > 45 mEq/L (23-29); Chloride 90 mEq/L (98-107); Glucose 118 mg/dL (70-105); Osmolality,Calculated 301 (280-300); Potassium 3.9 mEq/L (3.5-5.1); Sodium 144 mEq/L (136-145); eGFR For African Americans > 60 (> 60); eGFR For Non-African Americans > 60 (> 60)
[2020-11-15] MEDS: Budesonide/Formoterol 160/4.5 1 PUFF INH IH SCH ×2 (10:05→22:15)
[2020-11-15 10:31] LABS: Hypochromasia Present (Not Present)
[2020-11-15 10:32] LABS: Anisocytosis 1+ (Not Present); Platelet Estimate Normal (Normal)
[2020-11-15] MEDS ORDERED: *HR* Warfarin 2.5 MG TABLET PO ONE (18:00)
[2020-11-16 02:59] LABS: Hematocrit 28.4 % (37.5-50.1); Hemoglobin 8.3 g/dL (12.9-16.9); Immature Granulocytes % 0.8 % (0-4); Lymphocytes # 0.6 K/mcL (0.6-4.6); Lymphocytes % 6.3 %; Mean Corpuscular HGB Conc 29.2 g/dL (31.6-35.5); Mean Corpuscular Hemoglobin 27.1 pg (28.0-33.3); Mean Corpuscular Volume 92.8 fL (83.0-100.0); Mean Platelet Volume 10.2 fL (9.4-12.4); Monocytes # 0.7 K/mcL (0.0-1.3); Monocytes % 7.5 %; Platelet Count 218 K/mcL (140-400); Red Blood Count 3.06 M/mcL (4.19-5.50); Red Cell Distribution Width 15.6 % (11.5-14.5); Segmented Neutrophils % 85.4 %; White Blood Count 9.3 K/mcL (4.3-11.1)
[2020-11-16 03:06] LABS: INR 3.3; Prothrombin Time 37.4 Seconds (9.4-12.1)
[2020-11-16 03:40] LABS: BUN/Creatinine Ratio 32 (6-26); Blood Urea Nitrogen 25 mg/dL (6-20); Calcium 8.5 mg/dL (8.6-10.3); Carbon Dioxide > 45 mEq/L (23-29); Chloride 90 mEq/L (98-107); Glucose 123 mg/dL (70-105); Osmolality,Calculated 298 (280-300); Potassium 3.5 mEq/L (3.5-5.1); Sodium 141 mEq/L (136-145); eGFR For African Americans > 60 (> 60); eGFR For Non-African Americans > 60 (> 60)
[2020-11-16] MEDS: Levalbuterol Neb 0.63 MG/3 ML IH SCH ×4 (03:50→22:08)
[2020-11-16] MEDS: Doxycycline 100 MG in 0.9 % Sodium Chloride Mini Bag 100 ML IVPB SCH ×2 (05:05→17:59)
[2020-11-16] MEDS: DilTIAZem CD (24hr) 180 MG CAP.ER.24H PO SCH (09:32)
[2020-11-16] MEDS: Furosemide 40 MG/4 ML VIAL IVP SCH ×2 (09:32→21:30)
[2020-11-16] MEDS: predniSONE 20 MG TABLET PO SCH (09:32)
[2020-11-16] MEDS: Metoprolol 100 MG TABLET PO SCH ×2 (09:32→21:30)
[2020-11-16] MEDS: Budesonide/Formoterol 160/4.5 1 PUFF INH IH SCH ×2 (11:44→22:08)
[2020-11-16] MEDS: Eucerin Cream 57 GM TUBE TP SCH (15:49)
[2020-11-16] MEDS: Nystatin POWDER 30 GM BOTTLE TP SCH ×2 (15:49→21:36)
[2020-11-16] MEDS ORDERED: *HR* Warfarin 2.5 MG TABLET PO ONE (18:00)
[2020-11-17] MEDS: Levalbuterol Neb 0.63 MG/3 ML IH SCH ×4 (03:57→22:10)
[2020-11-17 05:46] LABS: Basophils % 0.1 %; Eosinophils % 0.1 %; Hematocrit 31.7 % (37.5-50.1); Hemoglobin 9.2 g/dL (12.9-16.9); Immature Granulocytes % 0.5 % (0-4); Lymphocytes # 1.4 K/mcL (0.6-4.6); Lymphocytes % 14.8 %; Mean Corpuscular Hemoglobin 26.9 pg (28.0-33.3); Mean Corpuscular Volume 92.7 fL (83.0-100.0); Mean Platelet Volume 10.2 fL (9.4-12.4); Monocytes % 10.1 %; Platelet Count 222 K/mcL (140-400); Red Blood Count 3.42 M/mcL (4.19-5.50); Red Cell Distribution Width 15.4 % (11.5-14.5); Segmented Neutrophils % 74.4 %; White Blood Count 9.4 K/mcL (4.3-11.1)
[2020-11-17] MEDS: Doxycycline 100 MG in 0.9 % Sodium Chloride Mini Bag 100 ML IVPB SCH ×2 (05:46→16:46)
[2020-11-17 06:21] LABS: BUN/Creatinine Ratio 33 (6-26); Blood Urea Nitrogen 26 mg/dL (6-20); Calcium 8.4 mg/dL (8.6-10.3); Carbon Dioxide 43 mEq/L (23-29); Chloride 91 mEq/L (98-107); Glucose 97 mg/dL (70-105); Osmolality,Calculated 297 (280-300); Potassium 3.4 mEq/L (3.5-5.1); Sodium 141 mEq/L (136-145); eGFR For African Americans > 60 (> 60); eGFR For Non-African Americans > 60 (> 60)
[2020-11-17] MEDS: Furosemide 40 MG/4 ML VIAL IVP SCH ×2 (09:19→20:13)
[2020-11-17] MEDS: Metoprolol 100 MG TABLET PO SCH ×2 (09:20→20:13)
[2020-11-17] MEDS: predniSONE 20 MG TABLET PO SCH (09:20)
[2020-11-17] MEDS: Eucerin Cream 57 GM TUBE TP SCH ×2 (09:20→20:14)
[2020-11-17] MEDS: DilTIAZem CD (24hr) 180 MG CAP.ER.24H PO SCH (09:20)
[2020-11-17] MEDS: Nystatin POWDER 30 GM BOTTLE TP SCH ×3 (09:21→20:14)
[2020-11-17] MEDS: Budesonide/Formoterol 160/4.5 1 PUFF INH IH SCH ×2 (10:59→22:10)
[2020-11-17] MEDS ORDERED: *HR* LORazepam 0.5 MG TABLET PO PRN (11:47)
[2020-11-17] MEDS ORDERED: *HR* Warfarin 2.5 MG TABLET PO ONE (18:00)
[2020-11-18] MEDS: Levalbuterol Neb 0.63 MG/3 ML IH SCH ×4 (03:24→22:10)
[2020-11-18] MEDS: Doxycycline 100 MG in 0.9 % Sodium Chloride Mini Bag 100 ML IVPB SCH (05:58)
[2020-11-18 06:38] LABS: INR 2.4; Prothrombin Time 27.4 Seconds (9.4-12.1)
[2020-11-18 06:47] LABS: BUN/Creatinine Ratio 26 (6-26); Blood Urea Nitrogen 24 mg/dL (6-20); Calcium 8.8 mg/dL (8.6-10.3); Carbon Dioxide > 45 mEq/L (23-29); Chloride 91 mEq/L (98-107); Glucose 94 mg/dL (70-105); Osmolality,Calculated 292 (280-300); Potassium 3.4 mEq/L (3.5-5.1); Sodium 139 mEq/L (136-145); eGFR For African Americans > 60 (> 60); eGFR For Non-African Americans > 60 (> 60)
[2020-11-18] MEDS: DilTIAZem CD (24hr) 180 MG CAP.ER.24H PO SCH (07:25)
[2020-11-18] MEDS: Furosemide 40 MG/4 ML VIAL IVP SCH ×2 (07:25→20:59)
[2020-11-18] MEDS: Nystatin POWDER 30 GM BOTTLE TP SCH ×3 (07:26→20:59)
[2020-11-18] MEDS: predniSONE 20 MG TABLET PO SCH (07:26)
[2020-11-18] MEDS: Metoprolol 100 MG TABLET PO SCH ×2 (07:26→20:58)
[2020-11-18] MEDS: Eucerin Cream 57 GM TUBE TP SCH ×2 (07:27→20:59)
[2020-11-18] MEDS: Budesonide/Formoterol 160/4.5 1 PUFF INH IH SCH ×2 (10:23→22:10)
[2020-11-18] MEDS: Doxycycline 100 MG CAPSULE PO SCH (17:05)
[2020-11-18] MEDS ORDERED: *HR* Warfarin 2.5 MG TABLET PO ONE (18:00)
[2020-11-19] MEDS: Levalbuterol Neb 0.63 MG/3 ML IH SCH ×3 (04:15→16:20)
[2020-11-19 05:39] LABS: Hematocrit 31.7 % (37.5-50.1); Hemoglobin 9.3 g/dL (12.9-16.9); Mean Corpuscular HGB Conc 29.3 g/dL (31.6-35.5); Mean Corpuscular Hemoglobin 26.6 pg (28.0-33.3); Mean Corpuscular Volume 90.6 fL (83.0-100.0); Platelet Count 185 K/mcL (140-400); Red Cell Distribution Width 15.3 % (11.5-14.5); White Blood Count 7.8 K/mcL (4.3-11.1)
[2020-11-19 05:46] LABS: INR 2.4; Prothrombin Time 26.8 Seconds (9.4-12.1)
[2020-11-19 06:07] LABS: BUN/Creatinine Ratio 23 (6-26); Blood Urea Nitrogen 20 mg/dL (6-20); Calcium 8.4 mg/dL (8.6-10.3); Carbon Dioxide 43 mEq/L (23-29); Chloride 91 mEq/L (98-107); Glucose 85 mg/dL (70-105); Osmolality,Calculated 290 (280-300); Potassium 3.7 mEq/L (3.5-5.1); Sodium 139 mEq/L (136-145); eGFR For African Americans > 60 (> 60); eGFR For Non-African Americans > 60 (> 60)
[2020-11-19] MEDS: Doxycycline 100 MG CAPSULE PO SCH ×2 (06:53→17:15)
[2020-11-19] MEDS: DilTIAZem CD (24hr) 180 MG CAP.ER.24H PO SCH (07:12)
[2020-11-19] MEDS: Furosemide 40 MG/4 ML VIAL IVP SCH (07:12)
[2020-11-19] MEDS: Metoprolol 100 MG TABLET PO SCH (07:12)
[2020-11-19] MEDS: predniSONE 20 MG TABLET PO SCH (07:13)
[2020-11-19] MEDS: Eucerin Cream 57 GM TUBE TP SCH (07:13)
[2020-11-19] MEDS: Nystatin POWDER 30 GM BOTTLE TP SCH ×2 (07:15→16:01)
[2020-11-19] MEDS: Budesonide/Formoterol 160/4.5 1 PUFF INH IH SCH (10:52)
[2020-11-19 16:02] VITALS: BP 115/71; PULSE 105; TEMP 97.7; O2SAT 91
[2020-11-19] MEDS ORDERED: Furosemide 40 MG TABLET PO SCH (17:00)
[2020-11-19] MEDS ORDERED: *HR* Warfarin 2.5 MG TABLET PO ONE (18:00)
[2020-11-19] MEDS ORDERED: Furosemide 40 MG/4 ML VIAL IVP SCH (21:00)
== END 2020-11-19 18:10 | disposition home health service (06) | DRG 194 ==
LOC: EMEROOARM 19:40 → 2ANU 19:40 → SUATTDRO 11-14 01:26 → 2ANU 11-14 02:30
PROVIDERS: ADMIT Internal Medicine; ATTEND General Practice

== ENCOUNTER 2021-02-09 21:05 | Inpatient (IN) ==
[2021-02-09 21:49] LABS: Hemoglobin 11.1 g/dL (12.9-16.9); Red Cell Distribution Width 17.2 % (11.5-14.5)
[2021-02-09 21:51] LABS: Basophils % 0.2 %; Eosinophils # 0.1 K/mcL (0.0-0.6); Eosinophils % 1.6 %; Hematocrit 38.5 % (37.5-50.1); Immature Granulocytes % 0.5 % (0-4); Lymphocytes # 0.8 K/mcL (0.6-4.6); Lymphocytes % 12.3 %; Mean Corpuscular HGB Conc 28.8 g/dL (31.6-35.5); Mean Corpuscular Hemoglobin 26.2 pg (28.0-33.3); Mean Corpuscular Volume 90.8 fL (83.0-100.0); Mean Platelet Volume 9.9 fL (9.4-12.4); Monocytes # 0.9 K/mcL (0.0-1.3); Monocytes % 14.6 %; Neutrophils # 4.3 K/mcL (1.6-8.9); Platelet Count 222 K/mcL (140-400); Red Blood Count 4.24 M/mcL (4.19-5.50); Segmented Neutrophils % 70.8 %; White Blood Count 6.1 K/mcL (4.3-11.1)
[2021-02-09 21:57] LABS: INR 1.3; Prothrombin Time 14.9 Seconds (9.4-12.1)
[2021-02-09 22:14] LABS: BUN/Creatinine Ratio 32 (6-26); Blood Urea Nitrogen 24 mg/dL (6-20); Calcium 8.8 mg/dL (8.6-10.3); Carbon Dioxide 41 mEq/L (23-29); Chloride 94 mEq/L (98-107); Glucose 103 mg/dL (70-105); Osmolality,Calculated 296 (280-300); Potassium 3.6 mEq/L (3.5-5.1); Sodium 141 mEq/L (136-145); Troponin I < 0.03 ng/mL (< 0.04); eGFR For African Americans > 60 (> 60); eGFR For Non-African Americans > 60 (> 60)
[2021-02-09 22:19] LABS: Basophilic Stippling 1+ (Not Present); Hypochromasia Present (Not Present)
[2021-02-09] MEDS ORDERED: Potassium Chloride Elixir 20 MEQ/15 ML UDC PO ONE (22:27)
[2021-02-09] MEDS ORDERED: Furosemide 40 MG/4 ML VIAL IVP ONE (22:28)
[2021-02-09 22:35] LABS: Influenza A PCR Negative (Negative); Influenza B PCR Negative (Negative); Resp. Syncytial Virus PCR Positive (Negative)
[2021-02-09 22:38] LABS: SARS-CoV-2 by PCR (In House) Negative (Negative)
[2021-02-09] MEDS ORDERED: Isovue-370 500 ML BOTTLE IVP ONE (22:40)
[2021-02-09] MEDS ORDERED: *HR* Heparin 5,000 UNIT/ML VIAL IVP PRN ×2 (22:42)
[2021-02-09] MEDS ORDERED: *HR* Heparin 5,000 UNIT/ML VIAL IVP ONE (22:42)
[2021-02-09] MEDS ORDERED: Naloxone 0.4 MG/ML INJ IVP PRN (22:58)
[2021-02-09] MEDS ORDERED: Melatonin 3 MG TABLET PO PRN (22:58)
[2021-02-10] MEDS ORDERED: *HR* Metoprolol 5 MG/5 ML VIAL IVP ONE ×2 (01:38→23:53)
[2021-02-10] MEDS: MethylPREDNISolone 40 MG/ML VIAL IVP SCH ×3 (01:53→16:44)
[2021-02-10 03:25] LABS: Hematocrit 36.9 % (37.5-50.1); Hemoglobin 10.6 g/dL (12.9-16.9); Mean Corpuscular HGB Conc 28.7 g/dL (31.6-35.5); Mean Corpuscular Hemoglobin 26.2 pg (28.0-33.3); Mean Corpuscular Volume 91.3 fL (83.0-100.0); Mean Platelet Volume 10.5 fL (9.4-12.4); Platelet Count 213 K/mcL (140-400); Red Blood Count 4.04 M/mcL (4.19-5.50); White Blood Count 6.6 K/mcL (4.3-11.1)
[2021-02-10 03:28] LABS: VBG HCO3 43 mEq/L (21-27); VBG PCO2 95 mmHg (41-51); VBG PH 7.26 pH Units (7.32-7.42); VBG PO2 78 mmHg (25-50)
[2021-02-10 03:34] LABS: Heparin anti-factor XA UFH 0.44 IU/mL (0.30-0.70); INR 1.4; Prothrombin Time 15.4 Seconds (9.4-12.1)
[2021-02-10] MEDS: Ipratropium/Albuterol Neb 3 ML IH SCH ×4 (03:48→19:48)
[2021-02-10 03:51] LABS: BUN/Creatinine Ratio 26 (6-26); Blood Urea Nitrogen 20 mg/dL (6-20); Calcium 8.3 mg/dL (8.6-10.3); Carbon Dioxide 42 mEq/L (23-29); Chloride 95 mEq/L (98-107); Glucose 138 mg/dL (70-105); Magnesium 1.9 mg/dL (1.6-2.6); Osmolality,Calculated 297 (280-300); Potassium 3.6 mEq/L (3.5-5.1); Sodium 141 mEq/L (136-145); eGFR For African Americans > 60 (> 60); eGFR For Non-African Americans > 60 (> 60)
[2021-02-10] MEDS: cefTRIAXone 1,000 MG in Water for inj. (sterile) 10 ML IVP SCH (06:40)
[2021-02-10] MEDS: Doxycycline 100 MG in 0.9 % Sodium Chloride Mini Bag 100 ML IVPB SCH ×2 (07:27→16:44)
[2021-02-10] MEDS: Furosemide 40 MG/4 ML VIAL IVP SCH ×2 (08:55→23:34)
[2021-02-10] MEDS ORDERED: Metoprolol 100 MG TABLET PO SCH (09:00)
[2021-02-10] MEDS: Nystatin POWDER 30 GM BOTTLE TP SCH ×3 (09:00→15:55)
[2021-02-10] MEDS ORDERED: DilTIAZem CD (24hr) 180 MG CAP.ER.24H PO SCH (09:00)
[2021-02-10] MEDS: Heparin 25,000UNIT/250ML 1/2NS 25,000 UNIT/250 ML IV.SOLN IVC SCH ×2 (12:15)
[2021-02-10] MEDS ORDERED: Warfarin perPT PO PRN (18:00)
[2021-02-10] MEDS ORDERED: *HR* Warfarin 2.5 MG TABLET PO ONE (18:00)
[2021-02-10] MEDS: Metoprolol 100 MG TABLET PO SCH (21:55)
[2021-02-11] MEDS: MethylPREDNISolone 40 MG/ML VIAL IVP SCH ×4 (00:30→22:38)
[2021-02-11] MEDS: Nystatin POWDER 30 GM BOTTLE TP SCH ×4 (00:46→21:22)
[2021-02-11] MEDS: Heparin 25,000UNIT/250ML 1/2NS 25,000 UNIT/250 ML IV.SOLN IVC SCH ×3 (01:59→18:57)
[2021-02-11 03:03] LABS: INR 1.4; Prothrombin Time 15.5 Seconds (9.4-12.1)
[2021-02-11] MEDS: Ipratropium/Albuterol Neb 3 ML IH SCH ×4 (04:00→20:09)
[2021-02-11] MEDS: Doxycycline 100 MG in 0.9 % Sodium Chloride Mini Bag 100 ML IVPB SCH (05:55)
[2021-02-11] MEDS: cefTRIAXone 1,000 MG in Water for inj. (sterile) 10 ML IVP SCH (09:53)
[2021-02-11] MEDS: Furosemide 40 MG/4 ML VIAL IVP SCH ×2 (09:54→15:33)
[2021-02-11] MEDS: DilTIAZem CD (24hr) 240 MG CAP.ER.24H PO SCH ×2 (09:55→10:10)
[2021-02-11] MEDS: Metoprolol 100 MG TABLET PO SCH ×3 (09:55→22:38)
[2021-02-11] MEDS ORDERED: *HR* Warfarin 5 MG TABLET PO ONE (18:00)
[2021-02-12] MEDS: Ipratropium/Albuterol Neb 3 ML IH SCH ×4 (04:53→22:24)
[2021-02-12 05:51] LABS: INR 1.6; Prothrombin Time 17.3 Seconds (9.4-12.1)
[2021-02-12 05:52] LABS: VBG HCO3 40 mEq/L (21-27); VBG PCO2 68 mmHg (41-51); VBG PH 7.38 pH Units (7.32-7.42); VBG PO2 59 mmHg (25-50)
[2021-02-12 05:54] LABS: Hematocrit 37.5 % (37.5-50.1); Hemoglobin 10.7 g/dL (12.9-16.9); Mean Corpuscular HGB Conc 28.5 g/dL (31.6-35.5); Mean Corpuscular Volume 91.2 fL (83.0-100.0); Mean Platelet Volume 10.3 fL (9.4-12.4); Platelet Count 209 K/mcL (140-400); Red Blood Count 4.11 M/mcL (4.19-5.50); Red Cell Distribution Width 16.6 % (11.5-14.5); White Blood Count 10.6 K/mcL (4.3-11.1)
[2021-02-12 06:25] LABS: Blood Urea Nitrogen 24 mg/dL (6-20); Calcium 8.9 mg/dL (8.6-10.3); Carbon Dioxide 45 mEq/L (23-29); Chloride 95 mEq/L (98-107); Glucose 149 mg/dL (70-105); Osmolality,Calculated 301 (280-300); Sodium 142 mEq/L (136-145)
[2021-02-12 07:18] LABS: BUN/Creatinine Ratio 36 (6-26); eGFR For African Americans > 60 (> 60); eGFR For Non-African Americans > 60 (> 60)
[2021-02-12] MEDS: DilTIAZem CD (24hr) 240 MG CAP.ER.24H PO SCH (07:58)
[2021-02-12] MEDS: Furosemide 40 MG/4 ML VIAL IVP SCH ×2 (07:59→16:11)
[2021-02-12] MEDS: cefTRIAXone 1,000 MG in Water for inj. (sterile) 10 ML IVP SCH (07:59)
[2021-02-12] MEDS: Metoprolol 100 MG TABLET PO SCH ×2 (07:59→20:58)
[2021-02-12] MEDS: MethylPREDNISolone 40 MG/ML VIAL IVP SCH (08:00)
[2021-02-12] MEDS: Nystatin POWDER 30 GM BOTTLE TP SCH ×3 (08:01→21:23)
[2021-02-12] MEDS: Heparin 25,000UNIT/250ML 1/2NS 25,000 UNIT/250 ML IV.SOLN IVC SCH (12:40)
[2021-02-12] MEDS ORDERED: *HR* Warfarin 5 MG TABLET PO ONE (18:00)
[2021-02-13] MEDS: Ipratropium/Albuterol Neb 3 ML IH SCH ×3 (03:53→14:54)
[2021-02-13 05:02] LABS: INR 2.2; Prothrombin Time 24.5 Seconds (9.4-12.1)
[2021-02-13] MEDS: Heparin 25,000UNIT/250ML 1/2NS 25,000 UNIT/250 ML IV.SOLN IVC SCH (06:34)
[2021-02-13] MEDS ORDERED: predniSONE 20 MG TABLET PO SCH (09:00)
[2021-02-13] MEDS: Furosemide 40 MG/4 ML VIAL IVP SCH (09:24)
[2021-02-13] MEDS: Metoprolol 100 MG TABLET PO SCH (09:24)
[2021-02-13] MEDS: DilTIAZem CD (24hr) 240 MG CAP.ER.24H PO SCH (09:24)
[2021-02-13] MEDS: Nystatin POWDER 30 GM BOTTLE TP SCH (09:25)
[2021-02-13] MEDS: cefTRIAXone 1,000 MG in Water for inj. (sterile) 10 ML IVP SCH (09:25)
[2021-02-13 10:59] VITALS: BP 114/78; PULSE 105; TEMP 97.7
[2021-02-13 12:56] VITALS: O2SAT 96
[2021-02-13] MEDS ORDERED: *HR* Warfarin 2.5 MG TABLET PO ONE (18:00)
== END 2021-02-13 15:45 | disposition home or self-care (01) | DRG 138 ==
LOC: EMEROOARM 21:05 → 3BNU 21:05 → SUATTDRO 22:54 → OBSVTOIN 22:54 → 3BNU 02-10 00:23
PROVIDERS: ADMIT Internal Medicine; ATTEND Registered Nurse

== ENCOUNTER 2022-01-10 21:38 | Inpatient (IN) ==
[2022-01-10] MEDS ORDERED: Furosemide 80 MG in 0.9 % Sodium Chloride 50 ML IV ONE (23:00)
[2022-01-11 00:06] LABS: VBG HCO3 40 mEq/L (21-27); VBG PCO2 89 mmHg (41-51); VBG PH 7.26 pH Units (7.32-7.42); VBG PO2 38 mmHg (25-50)
[2022-01-11 00:13] LABS: Basophils % 0.3 %; Eosinophils # 0.2 K/mcL (0.0-0.6); Eosinophils % 1.1 %; Hemoglobin 12.8 g/dL (12.9-16.9); Immature Granulocytes % 0.6 % (0-4); Lymphocytes % 7.1 %; Mean Corpuscular HGB Conc 29.8 g/dL (31.6-35.5); Mean Corpuscular Hemoglobin 29.4 pg (28.0-33.3); Mean Corpuscular Volume 98.6 fL (83.0-100.0); Mean Platelet Volume 11.1 fL (9.4-12.4); Monocytes # 1.1 K/mcL (0.0-1.3); Monocytes % 7.9 %; Neutrophils # 11.7 K/mcL (1.6-8.9); Platelet Count 211 K/mcL (140-400); Red Blood Count 4.36 M/mcL (4.19-5.50); Red Cell Distribution Width 14.4 % (11.5-14.5); White Blood Count 14.2 K/mcL (4.3-11.1)
[2022-01-11 00:18] LABS: INR 3.8; Prothrombin Time 41.8 Seconds (9.4-12.1)
[2022-01-11 00:23] LABS: Alanine Aminotransferase 33 Units/L (7-52); Albumin 3.4 g/dL (3.5-5.7); Albumin/Globulin Ratio 0.8 (1.1-2.2); Alkaline Phosphatase 72 Units/L (34-104); Aspartate Amino Transferase 31 Units/L (13-39); BUN/Creatinine Ratio 23 (6-26); Bilirubin,Direct 0.1 mg/dL (0.0-0.2); Bilirubin,Indirect 0.5 mg/dL (0.0-1.0); Bilirubin,Total 0.6 mg/dL (0.3-1.0); Blood Urea Nitrogen 27 mg/dL (8-23); Calcium 8.8 mg/dL (8.6-10.3); Carbon Dioxide 38 mEq/L (23-29); Chloride 93 mEq/L (98-107); Globulin 4.4 g/dL (2.4-3.5); Glucose 121 mg/dL (70-105); Osmolality,Calculated 288 (280-300); Sodium 136 mEq/L (136-145); Total Protein 7.8 g/dL (6.4-8.9); Troponin I < 0.03 ng/mL (< 0.04)
[2022-01-11 00:36] LABS: Thyroid Stimulating Hormone 2.492 mcIU/mL (0.340-5.600)
[2022-01-11 02:14] LABS: ABG Base Excess 11 mEq/L (-2 to 3); ABG HCO3 42 mEq/L (21-27); ABG Oxygen Saturation 94 % (95-98); ABG PCO2 84 mmHg (35-45); ABG PH 7.31 pH Units (7.32-7.45); ABG PO2 84 mmHg (85-104); ABG TCO2 44 mEq/L (20-26); Blood Gas Modality NIV; Blood Gas Pressure Support 18 cm H2O
[2022-01-11] MEDS ORDERED: Piperacillin/Tazobactam 3.375 GM in 0.9 % Sodium Chloride Mini Bag 100 ML IVPB ONE (02:40)
[2022-01-11] MEDS ORDERED: Vancomycin 2,000 MG/520 ML IV.SOLN IVPB ONE (02:40)
[2022-01-11] MEDS ORDERED: Ondansetron 4 MG/2 ML VIAL IVP PRN (03:12)
[2022-01-11] MEDS ORDERED: Naloxone 0.4 MG/ML INJ IVP PRN (03:12)
[2022-01-11] MEDS ORDERED: Melatonin 3 MG TABLET PO PRN (03:12)
[2022-01-11] MEDS ORDERED: Acetaminophen 325 MG TABLET PO PRN (03:12)
[2022-01-11 03:20] LABS: Adenovirus Not Detected (Not Detect); Coronavirus 229E Not Detected (Not Detect); Coronavirus HKU1 Not Detected (Not Detect); Coronavirus NL63 Not Detected (Not Detect); Coronavirus OC43 Not Detected (Not Detect); Human Metapneumovirus Not Detected (Not Detect); Human Rhinovirus/Enterovirus Not Detected (Not Detect); Influenza A Subtype 2009 H1 Not Detected (Not Detect); Influenza B Not Detected (Not Detect); Parainfluenza Virus 1 Not Detected (Not Detect); SARS-CoV-2 Not Detected (Not Detect)
[2022-01-11 03:21] LABS: Bordetella Pertussis Not Detected (Not Detect); Chlamydophila pneumoniae Not Detected (Not Detect); Mycoplasma pneumoniae Not Detected (Not Detect); Parainfluenza Virus 2 Not Detected (Not Detect); Parainfluenza Virus 3 Not Detected (Not Detect); Parainfluenza Virus 4 Not Detected (Not Detect); Respiratory Syncytial Virus Not Detected (Not Detect)
[2022-01-11] MEDS ORDERED: Ipratropium/Albuterol Neb 3 ML IH PRN (04:00)
[2022-01-11 05:01] LABS: Basophils % 0.2 %; Eosinophils # 0.1 K/mcL (0.0-0.6); Eosinophils % 0.9 %; Hematocrit 40.6 % (37.5-50.1); Hemoglobin 12.3 g/dL (12.9-16.9); Immature Granulocytes % 0.7 % (0-4); Lymphocytes # 1.1 K/mcL (0.6-4.6); Lymphocytes % 7.9 %; Mean Corpuscular HGB Conc 30.3 g/dL (31.6-35.5); Mean Platelet Volume 10.8 fL (9.4-12.4); Monocytes % 7.6 %; Neutrophils # 11.1 K/mcL (1.6-8.9); Platelet Count 201 K/mcL (140-400); Red Cell Distribution Width 14.5 % (11.5-14.5); Segmented Neutrophils % 82.7 %; White Blood Count 13.5 K/mcL (4.3-11.1)
[2022-01-11 05:10] LABS: INR 3.6; Prothrombin Time 39.6 Seconds (9.4-12.1)
[2022-01-11 05:12] LABS: Activated Partial Thrombo Time 45.3 Seconds (26.0-36.0)
[2022-01-11 05:28] LABS: Albumin 3.4 g/dL (3.5-5.7); Albumin/Globulin Ratio 0.9 (1.1-2.2); Bilirubin,Total 0.6 mg/dL (0.3-1.0); Calcium 8.5 mg/dL (8.6-10.3); Chol/HDL Ratio 4.1 (0-4.9); Globulin 3.9 g/dL (2.4-3.5); Magnesium 2.1 mg/dL (1.6-2.6); Phosphorous 4.1 mg/dL (2.7-4.5); Potassium 3.8 mEq/L (3.5-5.1); Total Protein 7.3 g/dL (6.4-8.9); Troponin I 0.07 ng/mL (< 0.04)
[2022-01-11] MEDS ORDERED: Piperacillin/Tazobactam 3.375 GM in 0.9 % Sodium Chloride Mini Bag 100 ML IVPB SCH (08:00)
[2022-01-11] MEDS: Furosemide 40 MG/4 ML VIAL IVP SCH ×2 (08:58→20:16)
[2022-01-11] MEDS: DilTIAZem CD (24hr) 180 MG CAP.ER.24H PO SCH (08:59)
[2022-01-11] MEDS: Metoprolol 100 MG TABLET PO SCH ×2 (08:59→20:17)
[2022-01-11 09:05] LABS: Bilirubin,Urine Negative (Negative); Blood,Urine Negative (Negative); Clarity,Urine Clear (Clear); Color,Urine Light-Yellow (Yellow); Glucose,Urine (UA) Normal (Normal); Ketones,Urine Negative (Negative); Leukocyte Esterase,Urine Negative (Negative); Nitrite,Urine Negative (Negative); PH,Urine 5.5 pH Units (5.0-8.0); Protein,Urine Negative (Neg-Trace); Specific Gravity,Urine 1.017 (1.010-1.025); Urobilinogen,Urine Normal (Normal)
[2022-01-11] MEDS: acetaZOLAMIDE 250 MG TABLET PO SCH (14:42)
[2022-01-11] MEDS: cefTRIAXone 1,000 MG in 0.9 % Sodium Chloride 10 ML IVP SCH (14:42)
[2022-01-11] MEDS ORDERED: Vancomycin 1,750 MG/517.5 ML IV.SOLN IVPB SCH (16:00)
[2022-01-11] MEDS ORDERED: Warfarin perPT PO PRN (18:00)
[2022-01-12 03:55] LABS: VBG HCO3 35 mEq/L (21-27); VBG PCO2 61 mmHg (41-51); VBG PH 7.37 pH Units (7.32-7.42); VBG PO2 205 mmHg (25-50)
[2022-01-12 03:55] LABS: Hematocrit 38.7 % (37.5-50.1); Hemoglobin 11.5 g/dL (12.9-16.9); Mean Corpuscular HGB Conc 29.7 g/dL (31.6-35.5); Mean Corpuscular Hemoglobin 29.4 pg (28.0-33.3); Mean Platelet Volume 10.5 fL (9.4-12.4); Platelet Count 203 K/mcL (140-400); Red Blood Count 3.91 M/mcL (4.19-5.50); Red Cell Distribution Width 14.3 % (11.5-14.5); White Blood Count 11.3 K/mcL (4.3-11.1)
[2022-01-12 04:03] LABS: INR 2.9; Prothrombin Time 32.5 Seconds (9.4-12.1)
[2022-01-12 04:12] LABS: Calcium 8.3 mg/dL (8.6-10.3); Potassium 3.8 mEq/L (3.5-5.1)
[2022-01-12] MEDS: Furosemide 40 MG/4 ML VIAL IVP SCH ×2 (07:49→19:43)
[2022-01-12] MEDS: cefTRIAXone 1,000 MG in 0.9 % Sodium Chloride 10 ML IVP SCH (07:50)
[2022-01-12] MEDS: DilTIAZem CD (24hr) 180 MG CAP.ER.24H PO SCH (07:52)
[2022-01-12] MEDS: acetaZOLAMIDE 250 MG TABLET PO SCH (07:52)
[2022-01-12] MEDS: Metoprolol 100 MG TABLET PO SCH ×2 (07:52→19:43)
[2022-01-12] MEDS ORDERED: *HR* Warfarin 2.5 MG TABLET PO ONE (18:00)
[2022-01-13 05:40] LABS: INR 2.2; Prothrombin Time 23.9 Seconds (9.4-12.1)
[2022-01-13] MEDS: Metoprolol 100 MG TABLET PO SCH ×2 (07:22→21:08)
[2022-01-13] MEDS: DilTIAZem CD (24hr) 180 MG CAP.ER.24H PO SCH (07:22)
[2022-01-13] MEDS: cefTRIAXone 1,000 MG in 0.9 % Sodium Chloride 10 ML IVP SCH (07:23)
[2022-01-13] MEDS: Furosemide 40 MG/4 ML VIAL IVP SCH ×2 (07:23→21:09)
[2022-01-13] MEDS ORDERED: Silvasorb 44.4 ML TUBE TP SCH (09:00)
[2022-01-13] MEDS ORDERED: *HR* Warfarin 3 MG TABLET PO ONE (18:00)
[2022-01-14 03:33] LABS: Prothrombin Time 22.5 Seconds (9.4-12.1)
[2022-01-14] MEDS: cefTRIAXone 1,000 MG in 0.9 % Sodium Chloride 10 ML IVP SCH (08:09)
[2022-01-14] MEDS: Metoprolol 100 MG TABLET PO SCH ×2 (09:15→20:14)
[2022-01-14] MEDS: DilTIAZem CD (24hr) 180 MG CAP.ER.24H PO SCH (09:15)
[2022-01-14] MEDS: Furosemide 40 MG/4 ML VIAL IVP SCH (09:16)
[2022-01-14 10:13] LABS: Calcium 8.8 mg/dL (8.6-10.3); Potassium 3.9 mEq/L (3.5-5.1)
[2022-01-14] MEDS ORDERED: Furosemide 40 MG TABLET PO SCH (12:45)
[2022-01-14] MEDS: Spironolactone 12.5 MG TABLET PO SCH (13:11)
[2022-01-14] MEDS: Furosemide 40 MG TABLET PO SCH (17:31)
[2022-01-15 03:27] LABS: INR 1.8; Prothrombin Time 19.8 Seconds (9.4-12.1)
[2022-01-15] MEDS: cefTRIAXone 1,000 MG in 0.9 % Sodium Chloride 10 ML IVP SCH (09:06)
[2022-01-15] MEDS: Furosemide 40 MG TABLET PO SCH ×2 (09:16→18:30)
[2022-01-15] MEDS: Metoprolol 100 MG TABLET PO SCH ×2 (13:18→19:53)
[2022-01-15] MEDS ORDERED: DilTIAZem CD (24hr) 300 MG CAP.ER.24H PO SCH (15:45)
[2022-01-15] MEDS ORDERED: *HR* Warfarin 5 MG TABLET PO ONE (18:00)
[2022-01-15] MEDS: Spironolactone 12.5 MG TABLET PO SCH (18:29)
[2022-01-15] MEDS: DilTIAZem CD (24hr) 180 MG CAP.ER.24H PO SCH (18:29)
[2022-01-16 02:18] LABS: Basophils % 0.4 %; Eosinophils # 0.2 K/mcL (0.0-0.6); Eosinophils % 3.1 %; Hematocrit 40.8 % (37.5-50.1); Hemoglobin 11.9 g/dL (12.9-16.9); Immature Granulocytes % 0.7 % (0-4); Lymphocytes # 1.1 K/mcL (0.6-4.6); Lymphocytes % 15.3 %; Mean Corpuscular HGB Conc 29.2 g/dL (31.6-35.5); Mean Corpuscular Volume 99.5 fL (83.0-100.0); Mean Platelet Volume 10.2 fL (9.4-12.4); Monocytes # 0.6 K/mcL (0.0-1.3); Monocytes % 7.9 %; Neutrophils # 5.1 K/mcL (1.6-8.9); Platelet Count 247 K/mcL (140-400); Red Cell Distribution Width 13.8 % (11.5-14.5); Segmented Neutrophils % 72.6 %; White Blood Count 7.1 K/mcL (4.3-11.1)
[2022-01-16 02:27] LABS: INR 1.9; Prothrombin Time 20.6 Seconds (9.4-12.1)
[2022-01-16 02:41] LABS: BUN/Creatinine Ratio 27 (6-26); Blood Urea Nitrogen 20 mg/dL (8-23); Carbon Dioxide 38 mEq/L (23-29); Chloride 100 mEq/L (98-107); Glucose 91 mg/dL (70-105); Osmolality,Calculated 290 (280-300); Potassium 4.7 mEq/L (3.5-5.1); Sodium 139 mEq/L (136-145)
[2022-01-16] MEDS: Furosemide 40 MG TABLET PO SCH (08:15)
[2022-01-16] MEDS: DilTIAZem CD (24hr) 120 MG CAP.ER.24H PO SCH (08:25)
[2022-01-16] MEDS: Metoprolol 100 MG TABLET PO SCH ×2 (08:25→20:36)
[2022-01-16] MEDS ORDERED: *HR* Digoxin 0.5 MG/2 ML AMPUL IVP ONE (08:26)
[2022-01-16] MEDS: *HR* Digoxin 0.5 MG/2 ML AMPUL IVP SCH ×2 (14:02→20:36)
[2022-01-16] MEDS ORDERED: *HR* Warfarin 5 MG TABLET PO ONE (18:00)
[2022-01-17 05:16] LABS: Prothrombin Time 22.3 Seconds (9.4-12.1)
[2022-01-17] MEDS: *HR* Digoxin 0.125 MG TABLET PO SCH (10:42)
[2022-01-17] MEDS: DilTIAZem CD (24hr) 120 MG CAP.ER.24H PO SCH (10:42)
[2022-01-17] MEDS: Metoprolol 100 MG TABLET PO SCH ×2 (10:43→21:55)
[2022-01-17] MEDS: Furosemide 40 MG TABLET PO SCH (16:21)
[2022-01-17] MEDS ORDERED: *HR* Warfarin 5 MG TABLET PO ONE (18:00)
[2022-01-18 04:51] LABS: INR 2.1; Prothrombin Time 23.6 Seconds (9.4-12.1)
[2022-01-18] MEDS: DilTIAZem CD (24hr) 120 MG CAP.ER.24H PO SCH (08:13)
[2022-01-18] MEDS: Furosemide 40 MG TABLET PO SCH ×2 (08:13→17:37)
[2022-01-18] MEDS: *HR* Digoxin 0.125 MG TABLET PO SCH (08:13)
[2022-01-18] MEDS: Metoprolol 100 MG TABLET PO SCH ×2 (08:14→22:01)
[2022-01-18] MEDS: predniSONE 20 MG TABLET PO SCH (10:12)
[2022-01-18] MEDS: Albumin 25% 25gram/100mL 25 GM/100 ML IV.SOLN IVPB SCH ×2 (15:55→22:59)
[2022-01-18] MEDS ORDERED: *HR* Warfarin 5 MG TABLET PO ONE (18:00)
[2022-01-19] MEDS: Metoprolol 100 MG TABLET PO SCH (08:06)
[2022-01-19] MEDS: Albumin 25% 25gram/100mL 25 GM/100 ML IV.SOLN IVPB SCH (08:07)
[2022-01-19] MEDS: predniSONE 20 MG TABLET PO SCH (08:07)
[2022-01-19] MEDS: Furosemide 40 MG TABLET PO SCH ×2 (08:07→17:25)
[2022-01-19] MEDS: DilTIAZem CD (24hr) 120 MG CAP.ER.24H PO SCH (08:07)
[2022-01-19] MEDS: *HR* Digoxin 0.125 MG TABLET PO SCH (08:07)
[2022-01-19 09:34] LABS: Basophils % 0.3 %; Eosinophils # 0.1 K/mcL (0.0-0.6); Eosinophils % 0.7 %; Hematocrit 36.7 % (37.5-50.1); Hemoglobin 11.1 g/dL (12.9-16.9); Immature Granulocytes % 0.7 % (0-4); Lymphocytes % 14.2 %; Mean Corpuscular HGB Conc 30.2 g/dL (31.6-35.5); Mean Corpuscular Hemoglobin 29.1 pg (28.0-33.3); Mean Corpuscular Volume 96.3 fL (83.0-100.0); Mean Platelet Volume 9.8 fL (9.4-12.4); Monocytes # 0.5 K/mcL (0.0-1.3); Monocytes % 6.1 %; Neutrophils # 5.7 K/mcL (1.6-8.9); Platelet Count 234 K/mcL (140-400); Red Blood Count 3.81 M/mcL (4.19-5.50); Red Cell Distribution Width 13.6 % (11.5-14.5); White Blood Count 7.3 K/mcL (4.3-11.1)
[2022-01-19 09:42] LABS: INR 2.3; Prothrombin Time 25.1 Seconds (9.4-12.1)
[2022-01-19 10:02] LABS: BUN/Creatinine Ratio 28 (6-26); Blood Urea Nitrogen 22 mg/dL (8-23); Calcium 9.1 mg/dL (8.6-10.3); Carbon Dioxide 41 mEq/L (23-29); Chloride 94 mEq/L (98-107); Glucose 141 mg/dL (70-105); Osmolality,Calculated 292 (280-300); Potassium 3.9 mEq/L (3.5-5.1); Sodium 138 mEq/L (136-145)
[2022-01-19] MEDS ORDERED: *HR* Warfarin 2.5 MG TABLET PO ONE (18:00)
[2022-01-19] MEDS: Metoprolol XL (24 HR) Succ 50 MG TAB.ER.24H PO SCH (21:58)
[2022-01-20 02:59] VITALS: TEMP 97.9
[2022-01-20 06:13] LABS: INR 2.5; Prothrombin Time 27.2 Seconds (9.4-12.1)
[2022-01-20] MEDS: Metoprolol XL (24 HR) Succ 50 MG TAB.ER.24H PO SCH (07:52)
[2022-01-20] MEDS: Furosemide 40 MG TABLET PO SCH (07:52)
[2022-01-20] MEDS: *HR* Digoxin 0.125 MG TABLET PO SCH (07:52)
[2022-01-20] MEDS: predniSONE 20 MG TABLET PO SCH (07:53)
[2022-01-20 11:04] VITALS: BP 106/68; PULSE 87; O2SAT 98
== END 2022-01-20 12:20 | disposition home or self-care (01) | DRG 194 ==
LOC: 3NENU 21:38 → EMEROOARM 21:38 → 3NENU 01-11 03:45 → SUATTDRO 01-13 11:01
PROVIDERS: ADMIT Student in an Organized Health Care Education/Training Program; ATTEND Registered Nurse

== ENCOUNTER 2022-01-28 15:18 | Inpatient (IN) ==
[2022-01-28] MEDS ORDERED: methylPREDNISolone 125 MG/2 ML VIAL IVP ONE (17:11)
[2022-01-28] MEDS ORDERED: Ipratropium Neb 0.5 MG NEBULIZER IH ONE (17:12)
[2022-01-28] MEDS ORDERED: Levalbuterol Neb 1.25 MG/3 ML IH ONE (17:12)
[2022-01-28] MEDS ORDERED: Cefepime HCl 2,000 MG in 0.9 % Sodium Chloride 10 ML IVP ONE (17:12)
[2022-01-28] MEDS ORDERED: Doxycycline 100 MG in 0.9 % Sodium Chloride Mini Bag 100 ML IVPB ONE (17:13)
[2022-01-28 18:12] LABS: Basophils # 0.1 K/mcL (0.0-0.2); Basophils % 0.3 %; Eosinophils # 0.1 K/mcL (0.0-0.6); Eosinophils % 0.5 %; Hematocrit 44.8 % (37.5-50.1); Hemoglobin 13.6 g/dL (12.9-16.9); Immature Granulocytes % 0.5 % (0-4); Lymphocytes % 5.5 %; Mean Corpuscular HGB Conc 30.4 g/dL (31.6-35.5); Mean Corpuscular Hemoglobin 29.1 pg (28.0-33.3); Mean Corpuscular Volume 95.7 fL (83.0-100.0); Mean Platelet Volume 11.2 fL (9.4-12.4); Monocytes # 1.4 K/mcL (0.0-1.3); Monocytes % 8.1 %; Neutrophils # 14.7 K/mcL (1.6-8.9); Platelet Count 241 K/mcL (140-400); Red Blood Count 4.68 M/mcL (4.19-5.50); Red Cell Distribution Width 14.6 % (11.5-14.5); Segmented Neutrophils % 85.1 %; White Blood Count 17.3 K/mcL (4.3-11.1)
[2022-01-28 18:16] LABS: INR 2.7; Prothrombin Time 29.8 Seconds (9.4-12.1)
[2022-01-28 18:17] LABS: Bilirubin,Urine Negative (Negative); Blood,Urine Negative (Negative); Clarity,Urine Clear (Clear); Color,Urine Light-Yellow (Yellow); Glucose,Urine (UA) Normal (Normal); Ketones,Urine Negative (Negative); Leukocyte Esterase,Urine Negative (Negative); Nitrite,Urine Negative (Negative); PH,Urine 5.5 pH Units (5.0-8.0); Protein,Urine Negative (Neg-Trace); Specific Gravity,Urine 1.018 (1.010-1.025); Urobilinogen,Urine Normal (Normal)
[2022-01-28 18:27] LABS: Albumin 4.1 g/dL (3.5-5.7); Albumin/Globulin Ratio 1.1 (1.1-2.2); Bilirubin,Direct 0.2 mg/dL (0.0-0.2); Bilirubin,Indirect 0.5 mg/dL (0.0-1.0); Bilirubin,Total 0.7 mg/dL (0.3-1.0); Globulin 3.6 g/dL (2.4-3.5); Phosphorous 3.7 mg/dL (2.7-4.5); Potassium 4.1 mEq/L (3.5-5.1); Total Protein 7.7 g/dL (6.4-8.9); Troponin I 0.03 ng/mL (< 0.04)
[2022-01-28 19:53] LABS: ABG Base Excess 9 mEq/L (-2 to 3); ABG HCO3 36 mEq/L (21-27); ABG Oxygen Saturation 91 % (95-98); ABG PCO2 55 mmHg (35-45); ABG PH 7.42 pH Units (7.32-7.45); ABG PO2 61 mmHg (85-104); ABG TCO2 37 mEq/L (20-26)
[2022-01-28 21:05] LABS: Adenovirus Not Detected (Not Detect); Bordetella Pertussis Not Detected (Not Detect); Chlamydophila pneumoniae Not Detected (Not Detect); Coronavirus 229E Not Detected (Not Detect); Coronavirus HKU1 Not Detected (Not Detect); Coronavirus NL63 Not Detected (Not Detect); Coronavirus OC43 Not Detected (Not Detect); Human Metapneumovirus Not Detected (Not Detect); Human Rhinovirus/Enterovirus Not Detected (Not Detect); Influenza A Subtype 2009 H1 Not Detected (Not Detect); Influenza B Not Detected (Not Detect); Mycoplasma pneumoniae Not Detected (Not Detect); Parainfluenza Virus 1 Not Detected (Not Detect); Parainfluenza Virus 2 Not Detected (Not Detect); Parainfluenza Virus 3 Not Detected (Not Detect); Parainfluenza Virus 4 Not Detected (Not Detect); Respiratory Syncytial Virus Not Detected (Not Detect); SARS-CoV-2 Not Detected (Not Detect)
[2022-01-28] MEDS ORDERED: Acetaminophen 325 MG TABLET PO PRN (21:14)
[2022-01-28] MEDS ORDERED: Naloxone 0.4 MG/ML INJ IVP PRN (21:14)
[2022-01-28] MEDS ORDERED: Ondansetron 4 MG/2 ML VIAL IVP PRN (21:14)
[2022-01-28] MEDS ORDERED: Melatonin 3 MG TABLET PO PRN (21:14)
[2022-01-28] MEDS ORDERED: Dextrose Gel 15 GM/37.5 ML TUBE PO PRN ×2 (21:40)
[2022-01-28] MEDS ORDERED: *HR* Dextrose 50 % in Water (Syg) 50 ML SYRINGE IVP PRN (21:40)
[2022-01-28] MEDS ORDERED: D5% in Water 1,000 ML IVC PRN (21:40)
[2022-01-28] MEDS ORDERED: Albuterol 2.5 MG/3 ML NEBULIZER IH SCH (22:00)
[2022-01-28] MEDS: Budesonide/Formoterol 160/4.5 1 PUFF INH IH SCH (22:26)
[2022-01-28] MEDS: Metoprolol XL (24 HR) Succ 50 MG TAB.ER.24H PO SCH (22:31)
[2022-01-28] MEDS ORDERED: *HR* Metoprolol 5 MG/5 ML VIAL IVP ONE (23:29)
[2022-01-29] MEDS ORDERED: Cefepime HCl 2,000 MG in 0.9 % Sodium Chloride 10 ML IVP SCH
[2022-01-29] MEDS: Cefepime HCl 2,000 MG in 0.9 % Sodium Chloride 10 ML IVP SCH ×3 (02:22→17:36)
[2022-01-29] MEDS: Levalbuterol Neb 1.25 MG/3 ML IH SCH ×4 (04:25→22:36)
[2022-01-29] MEDS ORDERED: Azithromycin 250 MG TABLET PO SCH (09:00)
[2022-01-29] MEDS: predniSONE 20 MG TABLET PO SCH (09:03)
[2022-01-29] MEDS: Doxycycline 100 MG CAPSULE PO SCH ×2 (09:03→21:10)
[2022-01-29] MEDS: Furosemide 40 MG TABLET PO SCH ×2 (09:04→17:37)
[2022-01-29] MEDS: Metoprolol XL (24 HR) Succ 50 MG TAB.ER.24H PO SCH ×2 (09:04→21:10)
[2022-01-29] MEDS: *HR* Digoxin 0.125 MG TABLET PO SCH (09:04)
[2022-01-29] MEDS: Spironolactone 12.5 MG TABLET PO SCH ×2 (09:10→21:11)
[2022-01-29 09:50] LABS: Basophils % 0.1 %; Hematocrit 40.7 % (37.5-50.1); Hemoglobin 12.7 g/dL (12.9-16.9); Immature Granulocytes % 0.8 % (0-4); Lymphocytes # 0.6 K/mcL (0.6-4.6); Lymphocytes % 4.1 %; Mean Corpuscular HGB Conc 31.2 g/dL (31.6-35.5); Mean Corpuscular Hemoglobin 29.6 pg (28.0-33.3); Mean Corpuscular Volume 94.9 fL (83.0-100.0); Mean Platelet Volume 10.7 fL (9.4-12.4); Monocytes # 0.6 K/mcL (0.0-1.3); Monocytes % 4.1 %; Neutrophils # 12.7 K/mcL (1.6-8.9); Platelet Count 186 K/mcL (140-400); Red Blood Count 4.29 M/mcL (4.19-5.50); Red Cell Distribution Width 14.5 % (11.5-14.5); Segmented Neutrophils % 90.9 %; White Blood Count 13.9 K/mcL (4.3-11.1)
[2022-01-29 10:09] LABS: BUN/Creatinine Ratio 22 (6-26); Blood Urea Nitrogen 21 mg/dL (8-23); Calcium 8.9 mg/dL (8.6-10.3); Carbon Dioxide 32 mEq/L (23-29); Chloride 97 mEq/L (98-107); Glucose 176 mg/dL (70-105); Osmolality,Calculated 285 (280-300); Potassium 3.9 mEq/L (3.5-5.1); Sodium 134 mEq/L (136-145)
[2022-01-29 10:35] LABS: INR 2.4; Prothrombin Time 26.9 Seconds (9.4-12.1)
[2022-01-29] MEDS: Budesonide/Formoterol 160/4.5 1 PUFF INH IH SCH ×2 (10:36→22:36)
[2022-01-29] MEDS: Eucerin Cream 57 GM TUBE TP SCH ×2 (13:42→21:11)
[2022-01-29] MEDS ORDERED: Warfarin perPT PO PRN (18:00)
[2022-01-29] MEDS ORDERED: *HR* Warfarin 5 MG TABLET PO ONE (18:00)
[2022-01-29] MEDS ORDERED: *HR* Warfarin 5 MG TABLET PO SCH (18:00)
[2022-01-30] MEDS: Cefepime HCl 2,000 MG in 0.9 % Sodium Chloride 10 ML IVP SCH ×3 (01:35→17:07)
[2022-01-30] MEDS: Levalbuterol Neb 1.25 MG/3 ML IH SCH ×4 (04:03→22:46)
[2022-01-30 06:12] LABS: Basophils % 0.1 %; Hematocrit 38.3 % (37.5-50.1); Hemoglobin 11.7 g/dL (12.9-16.9); Immature Granulocytes % 1.2 % (0-4); Lymphocytes # 1.1 K/mcL (0.6-4.6); Mean Corpuscular HGB Conc 30.5 g/dL (31.6-35.5); Mean Corpuscular Hemoglobin 29.5 pg (28.0-33.3); Mean Corpuscular Volume 96.7 fL (83.0-100.0); Mean Platelet Volume 10.9 fL (9.4-12.4); Monocytes # 1.1 K/mcL (0.0-1.3); Monocytes % 6.9 %; Neutrophils # 13.8 K/mcL (1.6-8.9); Platelet Count 193 K/mcL (140-400); Red Blood Count 3.96 M/mcL (4.19-5.50); Red Cell Distribution Width 14.8 % (11.5-14.5); Segmented Neutrophils % 84.8 %; White Blood Count 16.3 K/mcL (4.3-11.1)
[2022-01-30 06:20] LABS: INR 2.8; Prothrombin Time 30.5 Seconds (9.4-12.1)
[2022-01-30 06:29] LABS: BUN/Creatinine Ratio 23 (6-26); Blood Urea Nitrogen 22 mg/dL (8-23); Calcium 8.9 mg/dL (8.6-10.3); Carbon Dioxide 37 mEq/L (23-29); Chloride 99 mEq/L (98-107); Glucose 113 mg/dL (70-105); Magnesium 2.2 mg/dL (1.6-2.6); Osmolality,Calculated 290 (280-300); Potassium 4.5 mEq/L (3.5-5.1); Sodium 138 mEq/L (136-145)
[2022-01-30] MEDS: Spironolactone 12.5 MG TABLET PO SCH ×2 (09:24→21:08)
[2022-01-30] MEDS: Furosemide 40 MG TABLET PO SCH ×2 (09:24→17:07)
[2022-01-30] MEDS: Metoprolol XL (24 HR) Succ 50 MG TAB.ER.24H PO SCH ×2 (09:25→21:08)
[2022-01-30] MEDS: *HR* Digoxin 0.125 MG TABLET PO SCH (09:25)
[2022-01-30] MEDS: Doxycycline 100 MG CAPSULE PO SCH ×2 (09:25→21:08)
[2022-01-30] MEDS: predniSONE 20 MG TABLET PO SCH (09:25)
[2022-01-30] MEDS: Eucerin Cream 57 GM TUBE TP SCH ×2 (09:26→21:09)
[2022-01-30] MEDS: Budesonide/Formoterol 160/4.5 1 PUFF INH IH SCH ×2 (09:48→22:46)
[2022-01-30] MEDS ORDERED: *HR* Warfarin 2.5 MG TABLET PO SCH (18:00)
[2022-01-30] MEDS ORDERED: *HR* Warfarin 2.5 MG TABLET PO ONE (18:00)
[2022-01-31] MEDS: Cefepime HCl 2,000 MG in 0.9 % Sodium Chloride 10 ML IVP SCH ×3 (02:43→17:08)
[2022-01-31 02:54] LABS: Basophils % 0.1 %; Eosinophils % 0.1 %; Immature Granulocytes % 0.6 % (0-4); Lymphocytes # 1.3 K/mcL (0.6-4.6); Lymphocytes % 9.5 %; Mean Corpuscular Hemoglobin 29.3 pg (28.0-33.3); Mean Corpuscular Volume 97.8 fL (83.0-100.0); Mean Platelet Volume 10.8 fL (9.4-12.4); Monocytes % 7.6 %; Neutrophils # 11.3 K/mcL (1.6-8.9); Platelet Count 196 K/mcL (140-400); Red Blood Count 4.09 M/mcL (4.19-5.50); Red Cell Distribution Width 14.8 % (11.5-14.5); Segmented Neutrophils % 82.1 %; White Blood Count 13.7 K/mcL (4.3-11.1)
[2022-01-31 03:01] LABS: Prothrombin Time 33.2 Seconds (9.4-12.1)
[2022-01-31 03:14] LABS: Calcium 8.6 mg/dL (8.6-10.3); Potassium 4.1 mEq/L (3.5-5.1)
[2022-01-31] MEDS: Levalbuterol Neb 1.25 MG/3 ML IH SCH ×3 (03:43→16:06)
[2022-01-31] MEDS: Doxycycline 100 MG CAPSULE PO SCH (10:00)
[2022-01-31] MEDS: *HR* Digoxin 0.125 MG TABLET PO SCH (10:00)
[2022-01-31] MEDS: Furosemide 40 MG TABLET PO SCH ×2 (10:00→17:08)
[2022-01-31] MEDS: Spironolactone 12.5 MG TABLET PO SCH (10:00)
[2022-01-31] MEDS: Metoprolol XL (24 HR) Succ 50 MG TAB.ER.24H PO SCH (10:00)
[2022-01-31] MEDS: predniSONE 20 MG TABLET PO SCH (10:01)
[2022-01-31] MEDS: Eucerin Cream 57 GM TUBE TP SCH (10:01)
[2022-01-31] MEDS: Budesonide/Formoterol 160/4.5 1 PUFF INH IH SCH (10:52)
[2022-01-31 16:06] VITALS: BP 132/80; PULSE 112; TEMP 97.7
[2022-01-31 16:09] VITALS: O2SAT 97
[2022-01-31] MEDS ORDERED: *HR* Warfarin 2.5 MG TABLET PO ONE (18:00)
== END 2022-01-31 19:00 | disposition home or self-care (01) | DRG 720 ==
LOC: 3NENU 15:18 → EMEROOARM 15:18 → SUATTDRO 20:42 → 3NENU 20:46
PROVIDERS: ADMIT Internal Medicine; ATTEND Internal Medicine